=== PATIENT | male | born 1965 | race Caucasian/White ===

== ENCOUNTER → 2022-07-04 13:47 | Outpatient (BNVA) | payer OTHER, SELFPAY | PROVIDERS: Family Provider Nurse Practitioner Family; PCP Emergency Medicine Emergency Medical Services; Referring Provider Emergency Medicine Emergency Medical Services; Visit Provider Student in an Organized Health Care Education/Training Program | DX: M77.12 Lateral epicondylitis, left elbow (principal) | CPT/HCPCS: 20610; 99204; J3301; J3490 ==

== ENCOUNTER → 2022-07-18 14:39 | Outpatient (BNVA) | payer OTHER, SELFPAY | PROVIDERS: Family Provider Nurse Practitioner Family; PCP Emergency Medicine Emergency Medical Services; Visit Provider Student in an Organized Health Care Education/Training Program | DX: M94.261 Chondromalacia, right knee (principal) | CPT/HCPCS: 20610; 73560; 73565; 99213; J3301 ==

== ENCOUNTER → 2022-08-10 09:01 | Outpatient (BNVA) | payer OTHER, SELFPAY | PROVIDERS: Family Provider Nurse Practitioner Family; PCP Emergency Medicine Emergency Medical Services; Referring Provider Emergency Medicine Emergency Medical Services; Visit Provider Internal Medicine | DX: E10.9 Type 1 diabetes mellitus without complications (principal); E78.2 Mixed hyperlipidemia; I25.10 Atherosclerotic heart disease of native coronary artery without angina pectoris; Z79.4 Long term (current) use of insulin | CPT/HCPCS: 99204 ==

== ENCOUNTER → 2022-09-15 09:53 | Outpatient (BNVA) | payer OTHER, SELFPAY | PROVIDERS: Family Provider Nurse Practitioner Family; PCP Emergency Medicine Emergency Medical Services; Visit Provider Psychiatry & Neurology Neurology | DX: M79.601 Pain in right arm (principal); E11.9 Type 2 diabetes mellitus without complications; Z79.85 Long-term (current) use of injectable non-insulin antidiabetic drugs; I10 Essential (primary) hypertension; I25.10 Atherosclerotic heart disease of native coronary artery without angina pectoris; Z95.5 Presence of coronary angioplasty implant and graft | CPT/HCPCS: 99203 ==

== ENCOUNTER → 2022-11-15 10:12 | Outpatient (BNVA) | payer OTHER, SELFPAY | PROVIDERS: Family Provider Nurse Practitioner Family; PCP Emergency Medicine Emergency Medical Services; Visit Provider Internal Medicine | DX: E10.9 Type 1 diabetes mellitus without complications (principal); E78.2 Mixed hyperlipidemia; M79.673 Pain in unspecified foot | CPT/HCPCS: 99214 ==

== ENCOUNTER → 2022-12-13 12:41 | Outpatient (BNVA) | payer OTHER, SELFPAY | PROVIDERS: Family Provider Nurse Practitioner Family; PCP Emergency Medicine Emergency Medical Services; Visit Provider Psychiatry & Neurology Neurology | DX: G56.31 Lesion of radial nerve, right upper limb (principal) | CPT/HCPCS: 99212 ==

== ENCOUNTER → 2023-01-13 08:37 | Outpatient (BNVA) | payer OTHER, SELFPAY | PROVIDERS: Family Provider Nurse Practitioner Family; PCP Emergency Medicine Emergency Medical Services; Visit Provider Student in an Organized Health Care Education/Training Program | DX: M77.12 Lateral epicondylitis, left elbow; S83.8X1A Sprain of other specified parts of right knee, initial encounter; X58.XXXA Exposure to other specified factors, initial encounter; M94.261 Chondromalacia, right knee | CPT/HCPCS: 20550; 73080; 99214; J3301; J3490 ==

== ENCOUNTER → 2023-02-16 09:31 | Outpatient (BNVA) | payer OTHER, SELFPAY | PROVIDERS: Family Provider Nurse Practitioner Family; PCP Emergency Medicine Emergency Medical Services; Visit Provider Internal Medicine | DX: E10.9 Type 1 diabetes mellitus without complications (principal); E78.2 Mixed hyperlipidemia; Z79.4 Long term (current) use of insulin | CPT/HCPCS: 99214 ==

== ENCOUNTER 2023-03-24 10:36 | Outpatient (CLI) | payer OTHER, SELFPAY ==
--- NOTE | 2023-03-24 11:00 | MR_ITS ---
WS: [id number] MRI RIGHT KNEE NONCONTRAST TECHNIQUE: Axial PD, coronal PD fat sat, coronal PD, sagittal PD, and sagittal PD fat-sat images obta ined. CLINICAL INFORMATION: right knee pain COMPARISON: None. FINDINGS: Mild tricompartmental arthritis RIGHT knee. Distal quadriceps and patella tendons are intact. Normal ACL and PCL. Normal medial and lateral meniscus. No acute appearing meniscal tears. Normal bone marro w signal in the femoral condyles and tibial plateau. Normal medial and lateral collateral ligaments. Mild chondromalacia patella. Normal medial and lateral patellar retinaculum. Normal popliteal fossa. IMPRESSION: 1. Normal ACL and PCL. 2. Mild chronic thinning of the medial and lateral meniscus. No acute appearing meniscal tears. 3. Mild chondromalacia patella. 4. Medial and lateral collateral ligaments are intact. 5. Mild tricompartmental arthritis. 6. No other acute findings. Outbridge grading: grade II: blister-like swelling/fraying of articular cartilage extending to surfac e
== END 2023-03-24 10:37 | disposition home or self-care (01) ==
LOC: RAD 10:36
PROVIDERS: Family Provider Nurse Practitioner Family; PCP Emergency Medicine Emergency Medical Services; Visit Provider Student in an Organized Health Care Education/Training Program
DX: M22.41 Chondromalacia patellae, right knee (principal); M17.11 Unilateral primary osteoarthritis, right knee; M25.561 Pain in right knee
CPT/HCPCS: 73721

== ENCOUNTER → 2023-03-30 11:04 | Outpatient (BNVA) | payer OTHER, SELFPAY | PROVIDERS: Family Provider Nurse Practitioner Family; PCP Emergency Medicine Emergency Medical Services; Visit Provider Student in an Organized Health Care Education/Training Program | DX: M67.51 Plica syndrome, right knee (principal) | CPT/HCPCS: 99214 ==

== ENCOUNTER → 2023-05-25 10:50 | Outpatient (BNVA) | payer OTHER, SELFPAY | PROVIDERS: Family Provider Nurse Practitioner Family; PCP Emergency Medicine Emergency Medical Services; Visit Provider Internal Medicine | DX: E10.9 Type 1 diabetes mellitus without complications (principal); E78.2 Mixed hyperlipidemia; M79.673 Pain in unspecified foot; Z79.4 Long term (current) use of insulin; Z79.85 Long-term (current) use of injectable non-insulin antidiabetic drugs | CPT/HCPCS: 36415; 80053; 80061; 82044; 83036; 99214 ==

== ENCOUNTER 2023-05-31 05:41 | Day surgery (SDC) | payer OTHER, SELFPAY ==
[2023-05-31] VITALS (11 sets, daily range): BP systolic 95–132; BP diastolic 55–89; PULSE 68–72; RESP 11–19; TEMP 36.1–36.4; O2SAT 93–99; BMI 33.6
--- NOTE | 2023-05-31 06:24 | W.PM.OPSFHP ---
Same Day Surgery H&P Indication for Procedure/HPI DATE OF PROCEDURE: May 31, 2023 CHIEF COMPLAINT/INDICATIONFOR SURGICAL PROCEDURE: Right knee pain medial plica PREOP DIAGNOSIS: Right knee pain medial plica PLANNED PROCEDURE: Operation Date: 05/31/23 07:00 Proposed Procedures p Right Knee Diagnostic and Surgical Arthroscopy medial plica excision(Right) - Issa Nelson DO Medications/Allergies* Home Medications Medication Instructions Recorded Confirmed Type atorvastatin 40 mg tablet 40 mg PO DAILY 07/04/22 05/30/23 History metoprolol succinate 100 mg 100 mg PO DAILY 07/04/22 05/30/23 History tablet,extended release 24 hr naproxen 500 mg tablet 500 mg PO BID 07/04/22 05/30/23 History nitroglycerin 0.4 mg sublingual 0.4 mg sublingual Q5M PRN Chest 07/04/22 05/30/23 History tablet Pain amlodipine 5 mg-benazepril 10 mg 1 cap PO DAILY 09/15/22 05/30/23 History capsule lisinopril 20 mg tablet 20 mg PO DAILY 09/15/22 05/30/23 History Allergies/Adverse Reactions Allergy/AdvReac Type Severity Reaction Status Date / Time fentanyl Allergy Unknown Verified 05/25/23 11:10 isosorbide [From Imdur] Allergy Unknown Verified 05/25/23 11:10 Penicillins Allergy Unknown Verified 05/25/23 11:10 Pertinent History/Comorbid Conditions* Medical History (Updated 01/17/23 @ 22:13 by Issa Nelson DO) CAD (coronary artery disease) Hyperlipidemia Social History Smoking and tobacco/nicotine status: never used tobacco/nicotine Second hand smoke exposure: No Alcohol intake: current Alcohol intake frequency: holidays/special occasions only Substance/Drug Use: never Adopted: No Caregiver/support person: Yes Lives independently: No Household members: spouse Housing: House Marital status: Number of children: 5 Number of grandchildren: 1 Highest education level completed: Some College, No Degree service: Yes Current occupational status: employed 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 Current occupational exposures/hazards: No Pets and animals: Yes Sexually active: Yes Do you think of yourself as: Straight/Heterosexual Current gender identity: Male Special asad needs: No Agree to transfusion: Yes Pertinent Exam Findings alert, oriented x 3, operative site marked and procedure specific exam findings Patient has significant tenderness palpation over the medial femoral condyle particularly with a palpable cord consistent with medial plica with significant pain and tenderness to palpation over this area. Mechanical clicking noted. Medial joint line tenderness to palpation Recommendations Surgery/Procedure today Other Plans: Plan to proceed to the OR today for right knee diagnostic and surgical arthroscopy with medial plica excision Coding Level of Care Code Acute Code for Chg Fwd
[2023-05-31] MEDS: sodium chloride 0.9% 1,000 ML 30 ML IV (06:27)
[2023-05-31] MEDS: acetaminophen 1,000 MG/100 ML PIGGYBACK 400 MG IV (06:29)
[2023-05-31] MEDS: scopolamine 1.5 Patch 1 PATCH TRANSDERMA (06:29)
[2023-05-31] MEDS: ketorolac 30 mg/mL INJ IVP (06:30)
[2023-05-31 06:38] LABS: Glucose Point of Care 155 mg/dL (70-110)
[2023-05-31] MEDS: midazolam 1 mg/mL INJ 2 mL 2 MG IVP (06:47)
[2023-05-31] MEDS: ceFAZolin 2,000 MG in sodium chloride 0.9% (plus) 50 ML 100 MG IV (06:55)
[2023-05-31] MEDS: lidocaine-epi 1% 20 mL INJ 40 ML INJECTION (07:28)
--- NOTE | 2023-05-31 07:34 | P.ANESASSM_ITS ---
Pre-Anesthetic Assessment Height/Weight: Height 1.6 m Weight 86.183 kg Temp Pulse Resp BP Pulse Ox O2 Del Method 97.2 F L 70 18 132/89 96 Room Air 05/31/23 06:05 05/31/23 06:05 05/31/23 06:05 05/31/23 06:05 05/31/23 06:05 05/31/23 06:10 Preop Diagnosis: Right knee pain medial plica Operation Date: 05/31/23 07:00 Proposed Procedures p Right Knee Diagnostic and Surgical Arthroscopy medial plica excision(Right) - Issa Nelson DO Familial anesthetic complications: none Was Beta Enio taken within 24 hours: Yes Was Clonidine taken within 24 hours: N/A Last intake: Intake Last Liquid Date 05/30/23 Last Liquid Time 21:00 Last Solid Date 05/30/23 Last Solid Time 20:00 Social No alcohol and No tobacco Exam alert, oriented x 3, clear to auscultation bilaterally and regular rate & rhythm Airway Submandibular: within normal limits Cervical ROM: within normal limits Mallampati: Class II Dentition: partials CV/HEM Coronary Artery Disease (CABG), Hypertension and Myocardial Infarction Metabolic Diabetes Mellitus, Hyperlipidemia and Morbid Obesity Anesthetic Plan ASA status: 3 Anesthesia: General Medications/Allergies Home Medications Medication Instructions Recorded Confirmed Last Taken Type atorvastatin 40 mg tablet 40 mg PO DAILY 07/04/22 05/30/23 05/30/23 History metoprolol succinate 100 mg 100 mg PO DAILY 07/04/22 05/30/23 05/30/23 History tablet,extended release 24 hr naproxen 500 mg tablet 500 mg PO BID 07/04/22 05/30/23 Unknown History nitroglycerin 0.4 mg sublingual 0.4 mg sublingual Q5M PRN Chest 07/04/22 05/30/23 Unknown History tablet Pain amlodipine 5 mg-benazepril 10 mg 1 cap PO DAILY 09/15/22 05/30/23 05/30/23 History capsule lisinopril 20 mg tablet 20 mg PO DAILY 09/15/22 05/30/23 05/30/23 History pen needle, diabetic 29 gauge x #100 ea 02/06/23 05/25/23 Unknown Rx 1/2 (Sure-Fine Pen [place]) insulin aspart U-100 100 unit/mL 81 unit (0.81 mL) SUBCUT .basal 02/16/23 05/30/23 05/30/23 Rx subcutaneous solution (Novolog rate #10 mL U-100 Insulin aspart) tirzepatide 7.5 mg/0.5 mL 7.5 mg (0.5 mL) SUBCUT Q7D 30 days 04/14/23 05/25/23 05/21/23 Rx subcutaneous pen injector #2.5 mL (Mounjaro) Allergies Allergy/AdvReac Type Severity Reaction Status Date / Time fentanyl Allergy Unknown Verified 05/25/23 11:10 isosorbide [From Imdur] Allergy Unknown Verified 05/25/23 11:10 Penicillins Allergy Unknown Verified 05/25/23 11:10 Current Medications Generic Name Dose Route Start Last Admin Trade Name Freq PRN Reason Stop Dose Admin Sodium Chloride 1,000 mls @ 30 mls/hr 05/31/23 06:00 05/31/23 06:27 Sodium Chloride 0.9% IV 06/01/23 05:59 30 mls/hr .Q24H DELANEY Administration Midazolam HCl 2 mg 05/31/23 05:53 05/31/23 06:47 Midazolam 1 Mg/Ml Inj 2 Ml IVP 2 mg ONCE PRN Administration Preop Anxiety PFSH Anesthesia Medical History CAD (coronary artery disease) Hyperlipidemia Social History Smoking and tobacco/nicotine status: never used tobacco/nicotine Second hand smoke exposure: No Alcohol intake: current Alcohol intake frequency: holidays/special occasions only Substance/Drug Use: never Adopted: No Caregiver/support person: Yes Lives independently: No Household members: spouse Housing: House Marital status: Number of children: 5 Number of grandchildren: 1 Highest education level completed: Some College, No Degree service: Yes Current occupational status: employed 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
--- NOTE | 2023-05-31 07:41 | W.PM.BPON ---
Date of Procedure: 05/31/2023 Surgeon: Issa Nelson DO Electrical Systems Design Engineer(s): Yohannes Nelson PA-C Procedure(s) performed: Right knee diagnostic and surgical arthroscopy with medial plica excision Right knee diagnostic and surgical arthroscopy with extensive synovectomy of medial, lateral and patellofemoral compartments Right knee diagnostic and surgical arthroscopy with medial compartment chondroplasty Findings of the procedure(s): Patient was found to have a thickened and extensive medial plica with wearing of the medial femoral condyle. Procedure went as planned with no issues Estimated blood loss: 1 mL Specimen(s) removed: None Post-operative diagnosis: Right knee medial plica, extensive synovitis, knee chondromalacia
--- NOTE | 2023-05-31 07:45 | P.OP_ITS ---
Operative Report Date of procedure: May 31, 2023 Surgeon: Issa Nelson DO Procedure: Preoperative diagnosis: Right knee medial plica post-op diagnosis: Right knee medial plica Right knee extensive synovitis Right knee Medial chondromalacia Procedure done: Right knee diagnostic and surgical arthroscopy medial plica excision Right knee diagnostic and surgical arthroscopy with extensive synovectomy of the medial lateral and patellofemoral compartments Right knee diagnostic and surgical arthroscopy with medial compartment chondroplasty Surgeon: Issa Nelson DO Estimated blood loss: 1mL Tourniquet: No tourniquet was used IV fluids: See anesthesia record Complications: None Findings: See operative report narrative Condition: stable Disposition: same day Brief History: Patient is a 57-year-old male with right knee pain.? Patient has failed conservative treatment who has been worked up for right? knee pain in the outpatient setting. Patient's failed outpatient treatment and has palpable medial plica with pain. Talked in the office about treatment options patient would like to proceed with a right knee diagnostic and surgical arthroscopy with plica excision. patient understand the ins and outs of the procedure the risk benefits complication alternatives to treatment options.? Understanding risk of surgery they agree to proceed with surgical intervention.? Patient understand this may not provide patient with complete symptomatic relief of? pain as patient does have some underlying arthritis.? Understanding this and patient agree to proceed with surgical intervention all questions answered. Procedure: Patient seen and evaluated in the preoperative holding area.? Consent was reviewed and signed with patient.? Correct extremity was then marked.? Patient seen evaluated Anesthesia Department once cleared for surgery patient was taken back to the operative suite.? Patient was transported onto the OR table in supine position.? All bony prominences well-padded patient was appropriate secured to the bed.?The right lower extremity was then prepped and draped in standard orthopedic fashion.? Final timeout performed.? Patient received appropriate preoperative antibiotics. Patient received local anesthetic of lidocaine with epinephrine into the joint as well as around the portal sites.? A standard 2 portal vertical incision diagnostic and surgical arthroscopy of the right knee was performed in standard fashion.? Small stab incision made in the inferolateral portal introduced trocar and arthroscope into the suprapatellar pouch.? Suprapatellar pouch was subsequently visualized and found to have significant synovitis but no loose bodies.? Patient had noticeable significant inflamed infrapatellar fat pad and thickening hypertrophic within the patellofemoral compartment.? Patient had significant thickened medial plica rubbing on the medial femoral condyle creating small focal indentation and lesion on the medial femoral condyle grade 2-3. ?The medial gutter was free of loose bodies I then introduced the arthroscope into the medial compartment.? Within the medial compartment I then established my inferior medial working portal utilizing spinal needle outside in technique.? Once established I then visualized our articular cartilage of the medial compartment with a valgus stress.? Patient was found to have grade 2-3 chondromalacia throughout the medial compartment.? Next I inspected the meniscus.? Meniscus was found to be intact no evidence of tear. There was reviewed 3 lesion on the medial femoral condyle over the weightbearing surface this had chondral fragments that were peeling off this was then subsequently underwent a chondroplasty. Next, I then performed a synovectomy of the medial compartment.? Given patient's chondromalacia there was areas of unstable articular cartilage and I subsequently performed a chondroplasty with arthroscopic shaver and thermal wand.? This completed medial compartment work. Next a introduced the arthroscope to the intercondylar notch.? PCL and ACL were intact. patient had significant thickening of the infrapatellar fat pad spanning into the medial and lateral compartments.? I then performed an extensive synovec rubi with the arthroscopic shaver of the patellofemoral medial and lateral compartments as well as the intercondylar notch. Next I introduced the arthroscope into the lateral compartment the lateral compartment was found to have grade 2 chondromalacia.? Lateral meniscus was found to be intact.? The root was intact.? Given the grade II chondromalacia there is no unstable cartilage pieces to perform chondroplasty.? This completed my work of the lateral compartment and then performed a synovectomy of the lateral compartment.? Next of the arthroscope was placed into the lateral gutter and this was free of loose bodies.? Finally I reintroduced the arthroscope into the patellofemoral compartment.? The patellofemoral was found to have grade 2 chondromalacia of the patellofemoral compartment.? At this point I utilized arthroscopic shaver as well as thermal wand to perform extensive synovectomy of the patellofemoral compartment. This completed my work of the patellofemoral space.? I then switch my portal sites to the medial working portal.? Completed the rest of my synovectomy and the rest of my examination arthroscopy was normal. All fluid was suctioned from the joint.? ?All instruments were withdrawn.? Portal sites were closed with interrupted nylon suture.? portal sites were then covered with with Xeroform 4 x 4's ABD Curlex and Ignacio wrap.? Patient was then subsequently awakened from anesthesia and taken to PACU in stable condition. Disposition: Patient taken to PACU in stable condition recovering well.? Will receive appropriate discharge structure as well as pain medication postoperatively as well as? DVT prophylaxis.we will have patient follow-up with us in the office in 2 weeks.? We will weightbearing as tolerated to the right lower extremity.? Patient understands and agrees with current plan.? All questions answered.
--- NOTE | 2023-05-31 08:03 | PM.PACU ---
PACU note Narrative: Patient is a 57-year-old male who just underwent a right knee knee scope. Pt transferred to PACU in stable condition. Dressing is dry. pt is awake and alert. pt can wiggle toes and plantarflex and dorsiflex foot. pt able to perform straight leg raise, Femoral nerve intact. Distal pulses are palpable toes are warm and well-perfused. Cap refill is normal and under 2 seconds. Sensation to foot is intact. Pain is controlled. Exam: awake Disposition: discharged
--- NOTE | 2023-05-31 13:35 | ANE.PACU2 ---
Inpatient post-anesthesia follow up: Airway intact: Yes Vital signs: Temperature 97.5 F Pulse Rate 72 Respiratory Rate 17 Blood Pressure 118/68 Pulse Oximetry 97 Oxygen Delivery Me thod Room Air Oxygen Flow Rate 3 Fraction of Inspir ed Oxygen Hydration adequate: Yes Nausea and vomiting: No Pain level: 2 Mental status: Baseline
== END 2023-05-31 09:31 | disposition home or self-care (01) ==
PROVIDERS: PCP Emergency Medicine Emergency Medical Services; Visit Provider Student in an Organized Health Care Education/Training Program
PROC: (CPT 29870; principal; 2023-05-31 07:00)
DX: M67.51 Plica syndrome, right knee (principal); S83.91XA Sprain of unspecified site of right knee, initial encounter; X58.XXXA Exposure to other specified factors, initial encounter; M94.261 Chondromalacia, right knee; Z95.1 Presence of aortocoronary bypass graft; I10 Essential (primary) hypertension; I25.2 Old myocardial infarction; Z79.4 Long term (current) use of insulin; I25.10 Atherosclerotic heart disease of native coronary artery without angina pectoris; E78.5 Hyperlipidemia, unspecified
CPT/HCPCS: 29876; 36416; 82962; J0131; J0690; J1100; J1170; J1885; J2250; J2371; J2405; J2704; J3490; J7030

== ENCOUNTER → 2023-06-15 08:57 | Outpatient (BNVA) | payer OTHER, SELFPAY | PROVIDERS: PCP Emergency Medicine Emergency Medical Services; Visit Provider Student in an Organized Health Care Education/Training Program | DX: Z98.890 Other specified postprocedural states (principal) | CPT/HCPCS: 99024; 99213 ==

== ENCOUNTER 2023-06-21 06:00 | Outpatient (RCR) | payer OTHER, SELFPAY | END 2023-07-16 23:59 | disposition home or self-care (01) | LOC: MPT 06:00 | PROVIDERS: Visit Provider Student in an Organized Health Care Education/Training Program | DX: Z98.890 Other specified postprocedural states (principal) | CPT/HCPCS: 97110; 97161; 97530 ==

== ENCOUNTER → 2023-06-22 09:02 | Outpatient (BNVA) | payer OTHER, SELFPAY | PROVIDERS: Visit Provider Physician Assistant | DX: Z98.890 Other specified postprocedural states (principal) | CPT/HCPCS: 99024 ==

== ENCOUNTER 2023-07-17 06:00 | Outpatient (RCR) | payer OTHER, SELFPAY | END 2023-08-15 23:59 | disposition home or self-care (01) | LOC: MPT 06:00 | PROVIDERS: Visit Provider Student in an Organized Health Care Education/Training Program | DX: Z98.890 Other specified postprocedural states (principal) | CPT/HCPCS: 97110 ==

== ENCOUNTER 2023-07-25 15:41 | Outpatient (CLI) | payer OTHER, SELFPAY | END 2023-07-25 15:42 | disposition home or self-care (01) | LOC: SPT 15:42 | PROVIDERS: Visit Provider Student in an Organized Health Care Education/Training Program | DX: Z46.89 Encounter for fitting and adjustment of other specified devices (principal); M94.261 Chondromalacia, right knee | CPT/HCPCS: 97760; 99213; L1812 ==

== ENCOUNTER → 2023-08-29 08:03 | Outpatient (BNVA) | payer OTHER, SELFPAY | PROVIDERS: PCP Emergency Medicine Emergency Medical Services; Visit Provider Internal Medicine | DX: E10.40 Type 1 diabetes mellitus with diabetic neuropathy, unspecified (principal); E78.2 Mixed hyperlipidemia; Z79.4 Long term (current) use of insulin; Z79.85 Long-term (current) use of injectable non-insulin antidiabetic drugs; Z68.31 Body mass index [BMI] 31.0-31.9, adult | CPT/HCPCS: 99214 ==

== ENCOUNTER → 2023-09-22 07:59 | Outpatient (BNVA) | payer OTHER, SELFPAY | PROVIDERS: PCP Emergency Medicine Emergency Medical Services; Visit Provider Physician Assistant | DX: Z98.890 Other specified postprocedural states (principal); M94.261 Chondromalacia, right knee | CPT/HCPCS: 20610; 99213; J7318 ==

== ENCOUNTER → 2023-12-05 09:06 | Outpatient (BNVA) | payer OTHER, SELFPAY | PROVIDERS: PCP Emergency Medicine Emergency Medical Services; Visit Provider Internal Medicine | DX: E10.9 Type 1 diabetes mellitus without complications (principal); E78.2 Mixed hyperlipidemia; M79.673 Pain in unspecified foot; Z79.4 Long term (current) use of insulin; Z79.85 Long-term (current) use of injectable non-insulin antidiabetic drugs | CPT/HCPCS: 99214 ==

== ENCOUNTER → 2023-12-26 11:21 | Outpatient (BNVA) | payer OTHER, SELFPAY | PROVIDERS: PCP Emergency Medicine Emergency Medical Services; Visit Provider Student in an Organized Health Care Education/Training Program | DX: Z98.890 Other specified postprocedural states (principal); M94.261 Chondromalacia, right knee; M25.561 Pain in right knee | CPT/HCPCS: 73560; 73565; 99213 ==

== ENCOUNTER → 2024-01-16 13:23 | Outpatient (BNVA) | payer OTHER, SELFPAY | PROVIDERS: PCP Emergency Medicine Emergency Medical Services; Visit Provider Internal Medicine | DX: I49.8 Other specified cardiac arrhythmias (principal); R94.31 Abnormal electrocardiogram [ECG] [EKG]; R07.9 Chest pain, unspecified | CPT/HCPCS: 36415; 80048; 83880; 93005; 99204 ==

== ENCOUNTER 2024-02-05 08:53 | Outpatient (CLI) | payer OTHER, SELFPAY ==
--- NOTE | 2024-02-05 | ECG_ITS ---
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 The perfusion scan will be documented separately. DATA: Baseline heart rate was 54 beats per minute. Baseline blood pressure was 138/70 millimeters of mercury. Target heart rate was 164. Maximum heart rate achieved was 84. which was 51% of the predicted target heart rate. Maximum blood pressure was 138/73 millimeters of mercury. The reason for ending the test was completion of the protocol. The patient did not experience any symptoms. ELECTROCARDIOGRAM: BASELINE: Sinus bradycardia. Normal axis. Otherwise, no ST-T changes suggestive of ischemia noted. No arrhythmia noted. EXERCISE: After Lexiscan injection, no ST-T changes suggestive of ischemic noted. No arrhythmia noted. CONCLUSION: Please note due to baseline abnormality of the EKG specificity and sensitivity of the EKG portion of LexiScan MIBI stress test will be low 1. EKG not suggestive of ischemia 2. Lexiscan injection unremarkable. 3. Perfusion scan will be documented separately. Electronically Signed On 02-11-2024 15:04:10 CDT by JUICE SAMANIEGO [email or web address]
[2024-02-05 09:03] VITALS: BMI 28.1
--- NOTE | 2024-02-05 09:04 | NMCV_ITS ---
NM pilar perf SPECT r/s* [id number] Moisés Gonzalez Age: 58 Gender: M : 1965 Exam Date: 02/05/2024 09:52 Ordering Phys: Luis Armando Barron M.D ([email or web address]) Technologist: ARNULFO Mcdonough Exam Location: [facility] Indications: cp STRESS TEST Please see separate stress test report in [facility] for full findings IMAGE PROTOCOL Rest/Stress 1 Lexiscan Day Radiopharmaceutical Dose (mCi) Administration Site Administered by Rest: Tc-99m 8.5 IV ARNULFO Barfield Sestamibi Stress:Tc-99m 27.3 IV ARNULFO Dawn Sestamibi Rest: 05-Feb-2024 60 Discovery 630 Stress: 05-Feb-2024 30 Discovery 630 0.4mg Lexiscan. Images obtained in supine and prone position. SPECT RESULTS Technical Quality: Good Raw Data Analysis: Normal Image Corrections: Patient motion artifact - motion correction applied Summed Stress Score: 13 Summed Rest Score: 6 Summed Difference Score: 7 PERFUSION FINDINGS Medium sized area of severe reversibility noted in basal to mid inferior wall suggestive of possible lesion in the RCA or dominant circumflex territory. Large area of fixed perfusion defect noted in mid to distal anterior and anterolateral wall surrounded by medium sized area of moderate reversibility suggestive of benny-infarct ischemia. FUNCTIONAL RESULTS (calculated via Gated SPECT) Stress Image LV EF (%): 75 Stress EDV (mL):69 TID: 0.98 Stress ESV (mL):17 FUNCTIONAL FINDINGS: There is normal left ventricular systolic function. IMPRESSIONS Large area of old myocardial infarction surrounded by mild to moderate area of medium sized benny-infarct ischemia noted in mid to distal anterior and anteroseptal wall. Medium sized area of moderate to severe ischemia noted in basal to mid inferior wall. Left ventricular ejection fraction appeared to be normal . EKG segment will be documented separately. Cj Patricio MD (Electronically Signed) Final Date: 05 February 2024 14:57 S
[2024-02-05] MEDS: regadenoson 0.4 Mg/5 ml Syringe IVP (10:38)
[2024-02-05 10:47] VITALS: BP 112/60; PULSE 71
== END 2024-02-05 08:54 | disposition home or self-care (01) ==
PROVIDERS: PCP Emergency Medicine Emergency Medical Services; Visit Provider Internal Medicine
DX: R07.9 Chest pain, unspecified (principal); R06.02 Shortness of breath; R94.39 Abnormal result of other cardiovascular function study
CPT/HCPCS: 36415; 78452; 93017; 96374; A9500; J2785

== ENCOUNTER 2024-02-22 06:07 | Outpatient (CLI) | payer OTHER, SELFPAY ==
--- NOTE | 2024-02-22 06:15 | USCV_ITS ---
Moisés Gonzalez Age: 58 Gender: M : 1965 Exam Date: 02/22/2024 06:26 Ordering Phys: Luis Armando Barron M.D ([email or web address]) Technologist: [place] [facility] [place]: hx of cad BP: 132 / 54 HR: 70 Rhythm: Sinus Technical Quality: Adequate MEASUREMENTS (Male / Female) Normal Values 2D ECHO LV Diastolic Diameter PLAX 3.6 cm 4.2 - 5.9 / 3.9 - 5.3 cm IVS Diastolic Thickness 1.3 cm 0.6 - 1.0 / 0.6 - 0.9 cm IVS Systolic Thickness 1.8 cm LVPW Diastolic Thickness 1.3 cm 0.6 - 1.0 / 0.6 - 0.9 cm LVPW Systolic Thickness 1.9 cm LVOT Diameter 2.0 cm LV Ejection Fraction 2D Teich 65.4 % LV Ejection Fraction MOD 4C 63.7 % LV Ejection Fraction MOD 2C 61.9 % LV Ejection Fraction 2C AL 63.0 % LA Diameter 3.3 cm RA Systolic Volume 4C AL 35.5 ml RA Systolic Volume 4C MOD 33.7 ml LA Sys Volume AL 38.6 cm cubed LA Sys Volume Index AL 21.8 cm cubed/m squared M-MODE LA Ao Ratio MM 1.1 AV Cusp Separation MM 2.1 cm DOPPLER AV Peak Velocity 106.0 cm/s LVOT Peak Velocity 87.0 cm/s AV Area Cont Eq vti 3.5 cm squared AV Area Cont Eq pk 2.5 cm squared MV Peak Velocity 91.0 cm/s MV Area PHT 4.2 cm squared Mitral E to A Ratio 0.9 TV Peak Velocity 186.5 cm/s TR Peak Velocity 221.0 cm/s TR Peak Gradient 19.5 mmHg TV Peak E Velocity 95.0 cm/s Right Atrial Pressure 3.0 mmHg Pulmonary Artery Systolic Pressu 22.5 mmHg PV Peak Velocity 56.0 cm/s FINDINGS Left Ventricle Normal left ventricular size, systolic function and wall thickness, with no regional wall motion abnormalities. Left ventricular ejection fraction is estimated at 60 %. Grade I/IV diastolic dysfunction (abnormal relaxation filling pattern), normal to mildly elevated filling pressures. Right Ventricle The right ventricle is normal in size and function. Right Atrium The right atrium is normal in size. Left Atrium The left atrium is normal in size. Mitral Valve Structurally normal mitral valve without significant stenosis or prolapse. There is no mitral regurgitation. Aortic Valve Severe aortic valve calcification. No aortic valve stenosis. Trace aortic valve regurgitation. Tricuspid Valve Structurally normal tricuspid valve without significant stenosis or regurgitation. Pulmonary artery systolic pressure is normal. Pulmonic Valve Trace pulmonary valve regurgitation. Pericardium Normal pericardium without effusion. Aorta Normal ascending aorta dimension. IVC The inferior vena cava appears normal. CONCLUSIONS Normal left ventricular size, systolic function and wall thickness, with no regional wall motion abnormalities. Left ventricular ejection fraction is estimated at 60 %. Grade I/IV diastolic dysfunction (abnormal relaxation filling pattern), normal to mildly elevated filling pressures. Severe aortic valve calcification. No aortic valve stenosis. Trace aortic valve regurgitation. There is no pericardial effusion. Pulmonary artery systolic pressure is within normal limits. Right atrial pressure is around 5 mm of mercury. Cj Patricio MD (Electronically Signed) Final Date: 27 February 2024 21:00 S
== END 2024-02-22 06:08 | disposition home or self-care (01) ==
PROVIDERS: PCP Family Medicine; Visit Provider Internal Medicine
DX: I50.30 Unspecified diastolic (congestive) heart failure (principal); I35.0 Nonrheumatic aortic (valve) stenosis; R06.02 Shortness of breath
CPT/HCPCS: 93306

== ENCOUNTER 2024-02-23 11:37 | Outpatient (CLI) | payer OTHER, SELFPAY ==
[2024-02-23 12:04] LABS: Basophils % 0.5 %; Eosinophils # 0.1 10^3/uL (0.0-0.8); Eosinophils % 2.9 %; Hematocrit 46.9 % (37-53); Lymphocytes # 1.3 10^3/uL (0.8-4.8); Lymphocytes % 31.2 %; Mean Corpuscular HGB Conc 34.1 g/dL (30-55); Mean Corpuscular Hemoglobin 29.8 pg (27-33); Mean Corpuscular Volume 87.3 fl (82-101); Mean Platelet Volume 9.4 fL (7.4-10.4); Monocytes # 0.4 10^3/uL (0.2-0.9); Monocytes % 10.1 %; Neutrophils # 2.28 10^3/uL (1.8-7.7); Neutrophils % 55.1 %; Nucleated Red Blood Cells % 0 %; Platelet Count 152 10^3/cmm (157-399); Red Blood Count 5.37 10^6/uL (3.85-5.65); Red Cell Distribution Width 13.6 % (12.1-15.1); White Blood Count 4.14 10^3/uL (3.29-11.43)
[2024-02-23 12:24] LABS: INR 0.94 (0.83-1.21); Prothrombin Time (Patient) 12.8 Seconds (12.0-15.1)
[2024-02-23 12:28] LABS: Anion Gap 13.7 (5-19); Blood Urea Nitrogen 13 mg/dL (6-20); Carbon Dioxide 31 mmol/L (22-29); Chloride 95 mmol/L (98-107); Glomerular Filtration Rate 77.3 mL/min (90-130); Glucose 105 mg/dL (65-115); Osmolality Calculated 282 mOsm/kg (285-295); Potassium 3.7 mmol/L (3.5-5.1); Sodium 136 mmol/L (136-145)
== END 2024-02-23 11:38 | disposition home or self-care (01) ==
LOC: LAB 11:37
PROVIDERS: PCP Family Medicine; Visit Provider Internal Medicine Cardiovascular Disease
DX: R58 Hemorrhage, not elsewhere classified (principal); R60.9 Edema, unspecified; R94.39 Abnormal result of other cardiovascular function study; I25.10 Atherosclerotic heart disease of native coronary artery without angina pectoris
CPT/HCPCS: 36415; 80048; 85025; 85610

== ENCOUNTER 2024-02-26 07:14 | Outpatient (CLI) | payer OTHER, SELFPAY ==
[2024-02-26] VITALS (44 sets, daily range): BP systolic 109–161; BP diastolic 55–96; PULSE 62–81; RESP 16–20; TEMP 36.7–37; O2SAT 91–99; BMI 28.8
--- NOTE | 2024-02-26 | XACV_ITS ---
Ht: 160 cm Wt: 74 kg BSA: 1.84 m2 Gender: Male : 1965 Any Known Allergies: Other Exam Priority: Routine Procedure(s): Procedure Description: Diagnostic procedure Procedure Description: PCI procedure Procedure Description: Left Heart Catheterization Procedure Description: Left ventriculography Procedure Description: Drug Eluting Coronary Stent Procedure Description: PTCA Procedure Description: Miscellaneous Procedure Description: ACT Procedure Description: Coronary Angiography Diagnostic Cath Status: Elective Diagnostic Findings * Left Main has no disease. * Mid Left Anterior Descending: total occlusion, ISAURO: 0 flow. * Left Internal Mammary Artery to Distal Left Anterior Descending graft: patent. * Proximal Right Coronary Artery: severe 90% stenosis, ISAURO: 3 flow. * Mid Circumflex: severe 90% stenosis, ISAURO: 3 flow. * 1st Diagonal: total occlusion, ISAURO: 0 flow. * Ascending Aorta to 1st Diagonal graft: patent. * 2nd Diagonal: total occlusion, ISAURO: 3 flow. * Ascending Aorta to 2nd Diagonal graft: severe 90% stenosis, ISAURO: 3 flow. * Sequential SVG graft from 2nd Diagonal to Second Obtuse Marginal Branch Segment: significant 80% stenosis, ISAURO: 3 flow. * Second Obtuse Marginal Branch Segment: total occlusion, ISAURO: 3 flow. * Four grafts visualized. * Coronary angiography shows right dominance. PCI Status: Elective PCI Indication: New Onset Angina <= 2 months Interventional Findings * Proximal Right Coronary Artery: 90% stenosis treated with a Balloon. 40% residual stenosis, ISAURO: 3 flow. Successful intervention. * Mid Circumflex: 90% stenosis treated with a Balloon, AB MINI TREK 1.50X8 RX BALLOON, Balloon, and MDT NC EUPHORA RX 2.53B89NY BALLOON. 40% residual stenosis, ISAURO: 3 flow. Successful intervention. * Ascending Aorta to 2nd Diagonal graft: 90% stenosis treated with a Drug Eluting Stent. 0% residual stenosis, ISAURO: 3 flow. Successful intervention. * Sequential SVG graft from 2nd Diagonal to Second Obtuse Marginal Branch Segment: 80% stenosis treated with a Drug Eluting Stent. 0% residual stenosis, ISAURO: 3 flow. Successful intervention. Conclusions 1. There is total occlusion coronary artery disease with three vessel disease. 2. Four coronary grafts visualized: two grafts patent, and two grafts treated. 3. Patient has prior CABG. 4. Normal left ventricular systolic function. Ejection fraction of 60%. 5. Proximal Right Coronary Artery was treated with a Balloon. 6. Mid Circumflex was treated with a Balloon, Balloon, Balloon, and Balloon. 7. Ascending Aorta to 2nd Diagonal graft was treated with a Drug Eluting Stent. 8. Sequential SVG graft from 2nd Diagonal to Second Obtuse Marginal Branch Segment was treated with a Drug Eluting Stent. Recommendations * Continue current medical management and risk factor modification. * 1-Return to inpatient for close monitoring and routine cath care 2-Risk factor modification for secondary prevention 3-Statin and aspirin 81 mg life-long, if tolerated 4-Continue Plavix 75mg p.o. daily for at least one year. We will assess at the end of one year again to continue if further or not 5-Continue optimal medical management 6-Follow up with Dr. Patricio in four weeks and your primary care in 10 days. Interventional RX Recommendation: PCI w/o planned CABG Diagnostic RX Recommendation: PCI w/o planned CABG Ventriculography Ejection Fraction: 50.0 % Pressures Phase:Rest AO : 126 / 57 ( 84 ) @ 11:40:00 AM 130 / 52 ( 81 ) @ 11:45:00 AM 246 / 100 ( 158 ) @ 11:50:00 AM 204 / 85 ( 136 ) @ 11:52:00 AM 151 / 69 ( 103 ) @ 12:05:00 PM 130 / 58 ( 85 ) @ 12:17:00 PM 132 / 63 ( 89 ) @ 12:25:00 PM 116 / 64 ( 85 ) @ 12:42:00 PM 125 / 61 ( 87 ) @ 12:50:00 PM 149 / 66 ( 98 ) @ 1:16:00 PM 76 / 39 ( 54 ) @ 1:23:00 PM 168 / 76 ( 116 ) @ 1:33:00 PM 167 / 73 ( 115 ) @ 1:33:00 PM LV : 154 / -14 / 6 @ 1:31:00 PM 156 / -11 / 12 @ 1:33:00 PM 158 / -11 / 12 @ 1:33:00 PM Valves Phase:DefaultPhase AV : 0.0 @ 2:04:05 PM AV Mean Gradient: 0.0 @ 2:04:05 PM Clinical Evaluation EBL: 5mL-10mL Procedural Details Procedure Consent Obtained. Pre-Procedure Time Out. Identified patient by full name and date of as verbalized by the patient/guarantor. Does the consent match the physician's order: Yes. Accurate & Complete Informed Consent: Yes. Inpatient/Outpatient History & Physical on Chart: Yes. If H&P is completed, is and addenduem needed: No; If yes, is the addendum complete: N/A. Visualize and Verify Site with Patient/Guarantor: N/A. Relevant Radiology Images available: N/A. Pre-op teaching completed and patient verbalized understanding. The risks, benefits, and alternatives of sedation and/or procedure were discussed by physician. The patient agrees to continue. Procedure started. HA Clinical Fraility Score: 3: Managing Well. 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 Chest Pain Symptom Assessment: Atypical Angina. Cardiovascular Instability: No. Correct patient, site and procedure confirmed by cath team. PERRLA. Strong, equal hand boilermaker apprentice bilaterally. Lungs clear x 5 lobes. IV Site on Arrival: 20 gauge in the right anticubital. Oxygen started at 2liters/min via nasal canula. right groin was prepped with chloroprep then draped in the usual sterile fashion. right radial was prepped with chloroprep then draped in the usual sterile fashion. Physician arrived. Equipment: 6F - Radial. Cardiac Cath Pack. ACIST Manifold Kit Model BT 2000. Heparinized Saline (2 units/mL), 1000 mL bag. Baseline sample Acquired. HR: 68 BPM. Stemi alert called. Pt taken off the table. Vital chart was stopped. Procedure started. right groin was prepped with chloroprep then draped in the usual sterile fashion. right radial was prepped with chloroprep then draped in the usual sterile fashion. Baseline sample Acquired. HR: 67 BPM. Physician arrived. Physician scrubbed in. Immediate Pre-Procedure Time Out. Correct Patient: Yes; Correct Procedure: Yes; Correct Site: Yes; Correct Patient Position: Yes; Correct Supplies: Yes; Dried Flammable Prep: Yes; Blood Products Available: N/A;. Lidocaine 1% infiltrated to the right groin. Arterial access obtained with micropuncture set. A 5 malagasy JL4 catheter in over wire. Multiple views taken of left coronary artery. Catheter removed over the standard wire. A 5 malagasy JR4 catheter in over wire. Multiple views taken of right coronary artery. AP pads applied. 1 shock delivered. Pt in Vfib. SVG's to OM visualized and patent. NUNEZ to LAD visualized. 6 malagasy JR 4 SH guide catheter was inserted over the wire. Radial graft to Diaganol visualized and patent. Runthrough guidewire was advanced through the guide catheter. Guide catheter out and wire removed. Inventory is CRD 6FR AL 1 GUIDE. 6 malagasy AL I guide catheter was inserted over the wire. Runthrough guidewire was advanced through the guide catheter. Unable to advance wire to lesion. Wire out. Inventory is CRD 6FR H-STICK GUIDE. Guide catheter out. 6 malagasy HS guide catheter was inserted over the wire. Runthrough guidewire was advanced through the guide catheter to lesion in the SVG to OM. A second Runthrough guidewire was advanced through the guide catheter to lesion in the OM. Guideliner inserted. One runthrough wire removed. Inflation Number : 1 Christopher Swan MICHEL 3.5X12 GLENN -Lot Number# [id number] exp date 08/04/2024 was prepped and advanced across the Aorta Left -> 1st Ob Betty. The stent was deployed at 14 BIBI for 0:10 seconds. Stent balloon out over wire. ACT drawn. Results out of range high seconds. Therapeutic limits - pre-heparin administration 90-150 seconds and monitoring heparin during a vascular procedure >250 seconds. Inflation Number : 1 A MDT R MICHEL 4.0X12 GLENN -Lot Number# [id number] exp date 06/24/2024 was prepped and advanced across the Aorta Left -> 1st Ob Marg1. The stent was deployed at 12 BIBI for 0:05 seconds. Stent balloon out over wire. Runthrough and guideliner out. Guide catheter out. 6 malagasy XB 3 guide catheter was inserted over the wire. ACT drawn. Results 289 seconds. Therapeutic limits - pre-heparin administration 90-150 seconds and monitoring heparin during a vascular procedure >250 seconds. Runthrough guidewire was advanced through the guide catheter to lesion in the mid Circ. Inflation number : 1 A MDT NC EUPHORA RX 2.58Q07JB BALLOON was prepped and advanced across the Mid CX , then inflated to 14 BIBI for 0:08 seconds. Inflation number: 2 The MDT NC EUPHORA RX 2.10A09GS BALLOON was reinflated across the Mid CX, to 16 BIBI for 0:12 seconds. Balloon out. Inflation number : 3 A AB MINI TREK 1.50X8 RX BALLOON was prepped and advanced across the Mid CX , then inflated to 14 BIBI for 0:16 seconds. Inflation number: 4 The AB MINI TREK 1.50X8 RX BALLOON was reinflated across the Mid CX, to 18 BIBI for 0:17 seconds. Results checked. Balloon out. Inflation number: 5 The MDT NC EUPHORA RX 2.09E56WV BALLOON was reinflated across the Mid CX, to 14 BIBI for 0:14 seconds. Inflation number: 6 The MDT NC EUPHORA RX 2.22C93BN BALLOON was reinflated across the Mid CX, to 14 BIBI for 0:13 seconds. Inflation number: 7 The MDT NC EUPHORA RX 2.02C04JT BALLOON was reinflated across the Mid CX, to 14 BIBI for 0:13 seconds. Balloon out. Inflation number : 8 A MDT NC EUPHORA RX 3.10Y11TX BALLOON was prepped and advanced across the Mid CX , then inflated to 12 BIBI for 0:13 seconds. Balloon out. Inflation number : 9 A MDT NC EUPHORA RX 2.27A17KS BALLOON was prepped and advanced across the Mid CX , then inflated to 14 BIBI for 0:14 seconds. Inflation number: 10 The MDT NC EUPHORA RX 2.86S31CB BALLOON was reinflated across the Mid CX, to 14 BIBI for 0:12 seconds. Inflation number: 11 The MDT NC EUPHORA RX 2.09X62QQ BALLOON was reinflated across the Mid CX, to 14 BIBI for 0:11 seconds. Inflation number: 12 The MDT NC EUPHORA RX 2.26C12DQ BALLOON was reinflated across the Mid CX, to 18 BIBI for 0:26 seconds. Balloon out. Guide catheter out. Wire out. Inventory is CRD 6FR JR 4 GUIDE 100cm. 6 malagasy JR 4 guide catheter was inserted over the wire. Runthrough guidewire was advanced through the guide catheter to lesion in the mid RCA. Inflation number : 1 A MDT NC EUPHORA RX 2.59B45XE BALLOON was prepped and advanced across the Prox RCA , then inflated to 14 BIBI for 0:09 seconds. Inflation number: 2 The MDT NC EUPHORA RX 2.75X66SP BALLOON was reinflated across the Prox RCA, to 14 BIBI for 0:07 seconds. Inflation number: 3 The MDT NC EUPHORA RX 2.51W25VS BALLOON was reinflated across the Prox RCA, to 12 BIBI for 0:06 seconds. Inflation number: 4 The MDT NC EUPHORA RX 2.70G05IR BALLOON was reinflated across the Prox RCA, to 14 BIBI for 0:13 seconds. Balloon out. Inflation number : 5 A MDT NC EUPHORA RX 3.07V01GZ BALLOON was prepped and advanced across the Prox RCA , then inflated to 16 BIBI for 0:22 seconds. Inflation number: 6 The MDT NC EUPHORA RX 3.70N75CB BALLOON was reinflated across the Prox RCA, to 18 BIBI for 0:29 seconds. Results checked. Inflation number: 7 The MDT NC EUPHORA RX 3.65R99WA BALLOON was reinflated across the Prox RCA, to 20 BIBI for 0:28 seconds. Balloon out. Results checked. Wire out. Guide catheter out. A 5 malagasy Angled Pig catheter in over wire. ACT drawn. Results out of range high seconds. Therapeutic limits - pre-heparin administration 90-150 seconds and monitoring heparin during a vascular procedure >250 seconds. EDP Sample taken: LV 154/-15,6; HR: 41 BPM; SpO2: 100%. LV gram performed in BLISS @ 10 mL/second for a total of 30 mL. EDP Sample taken: LV 156/-12,12; HR: 67 BPM; SpO2: 100%. Pullback taken: LV 158/-12,12; AO 168/76(116); Mean: 0mmHg, Peak to Peak: 0mmHg, SEP: 6sec/min; HR: 68 BPM; SpO2: 100%. A Right femoral angiogram was performed to determine safe placement of closure device. Predilated site with 7 fr dilator. Angioseal attempted unable to deploy due to scar tissue. A Suture was successful obtaining hemostatsis at the Right Femoral artery insertion site. Unable to Perclose site due to scar tissue. Sheath upsized to a 7 Fr. Sheath(s) sutured into position with 2-0 silk and sterile 4x4's and Op-site applied over the site. No oozing or signs and symptoms of hematoma noted. Arterial sheath flushed and connected to tranducer and pressure bag with heparinized saline. Post Procedure: Pulses reassessed and unchanged. PERRLA. Strong, equal hand boilermaker apprentice bilaterally. No VTE prophylaxis required. Physician scrubbed out. ACT drawn. Results 318 seconds. Therapeutic limits - pre-heparin administration 90-150 seconds and monitoring heparin during a vascular procedure >250 seconds. Contrast type used: Omnipaque 300 mgI/mL, 500 mL bottle. Post-op diagnosis: multi vessel CAD, SVG disease. Complications: none. Estimated blood loss: 5mL-10mL. Responsiveness - Normal response to verbal stimuli; alert and oriented, PERRLA. Airway - Unaffected, no intervention required; spontaneous ventilation. Circulation: W/N/L, pulses unchanged. Nausea/Vomiting: No. Medication's Wasted: Nitro = 49.8 mg. Total IV fluids: 200 mL. Procedure completed. Patient transferred by bed to 1st floor. Vital chart was stopped. Access Site Site: Right Femoral artery Sheath Size: 6 Fr Hemostasis Method: Suture Hemostasis Success: Successful Procedure Medications Start: 11:26 AM Stop: 11:26 AM Medication: Versed Amount: 1 mg Route: I.V. Start: 11:32 AM Stop: 11:32 AM Medication: Versed Amount: 1 mg Route: I.V. Start: 11:48 AM Stop: 11:48 AM Medication: Amiodarone (Cordarone) Amount: 150 mg Route: I.V. bolus Start: 12:04 PM Stop: 12:04 PM Medication: Heparin Amount: 7000 units Route: I.V. Start: 12:05 PM Stop: 12:05 PM Medication: Brilinta Amount: 180 mg Route: P.O. Start: 12:42 PM Stop: 12:42 PM Medication: Nitrogylcerin Amount: 200 mcg Route: I.C. Start: 12:57 PM Stop: 12:57 PM Medication: Heparin Amount: 2000 units Route: I.V. Start: 1:11 PM Stop: 1:11 PM Medication: Versed Amount: 1 mg Route: I.V. Start: 1:40 PM Stop: 1:40 PM Medication: Morphine Amount: 2 mg Route: I.V. Start: 1:46 PM Stop: 1:46 PM Medication: Morphine Amount: 2 mg Route: I.V. I, the attending physician, have reviewed and verified all procedure medications. Yes, all medications given per verbal order History/Risk Factors Hypertension: Yes Dyslipidemia: Yes Peripheral Arterial Disease (PAD): No Myocardial Infarction (AK): Yes Obesity: No Renal Disease: No Tobacco Use: Never Prior Interventions PCI: Yes CABG: Yes Valve Surgery: No Report Signatures Finalized by Cj Patricio MD on 03/15/2024 03:43 AM
[2024-02-26] MEDS: diphenhydrAMINE 50 mg Capsule PO (08:00)
[2024-02-26] MEDS: aspirin 325 mg Tablet PO (08:00)
--- NOTE | 2024-02-26 09:39 | W.PM.OPSFHP ---
Same Day Surgery H&P Indication for Procedure/HPI DATE OF PROCEDURE: February 26, 2024 CHIEF COMPLAINT/INDICATIONFOR SURGICAL PROCEDURE: Abnormal stress test History of CABG Preop clearance PREOP DIAGNOSIS: Abnormal stress test PLANNED PROCEDURE: Operation Date: 02/26/24 08:30 Proposed Procedures p Cardiac Catheterization- [facility] w/wo LV & Coros(Left) - Cj Patricio MD 58-year-old male past medical history significant for coronary artery disease diabetes mellitus hypertension hyperlipidemia who underwent stress test as a preop clearance noted to have reversible defect suggestive of ischemia in LAD and circumflex or RCA territory. It is the reason patient has been brought in today for left heart catheterization. Patient has been explained all risk-benefit and alternative for the procedure. He would like to proceed with a repeat Medications/Allergies* Home Medications Medication Instructions Recorded Confirmed Type atorvastatin 40 mg tablet 40 mg PO DAILY 07/04/22 02/26/24 History nitroglycerin 0.4 mg sublingual 0.4 mg sublingual Q5M PRN Chest 07/04/22 02/22/24 History tablet Pain trazodone 50 mg tablet 50 mg PO DAILY 06/15/23 02/26/24 History aspirin 81 mg tablet,delayed 81 mg PO DAILY 01/16/24 02/26/24 History release hydrochlorothiazide 25 mg tablet 25 mg PO DAILY 01/16/24 02/26/24 History Allergies/Adverse Reactions Allergy/AdvReac Type Severity Reaction Status Date / Time fentanyl Allergy Severe ALGY-Difficulty Verified 02/26/24 08:45 Breathing isosorbide [From Imdur] Allergy Unknown Verified 01/16/24 13:38 Penicillins Allergy Unknown Verified 01/16/24 13:38 Pertinent History/Comorbid Conditions* Medical History (Updated 01/16/24 @ 14:11 by Luis Armnado Barron M.D) CAD (coronary artery disease) Hyperlipidemia Social History Smoking and tobacco/nicotine status: never used tobacco/nicotine Second hand smoke exposure: No Alcohol intake: current Alcohol intake frequency: holidays/special occasions only Substance/Drug Use: never Adopted: No Caregiver/support person: Yes Lives independently: No Household members: spouse Housing: House Marital status: Number of children: 5 Number of grandchildren: 1 Highest education level completed: Some College, No Degree service: Yes Current occupational status: employed 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 Current occupational exposures/hazards: No Pets and animals: Yes Sexually active: Yes Do you think of yourself as: Straight/Heterosexual Current gender identity: Male Special asad needs: No Agree to transfusion: Yes Pertinent Exam Findings alert, oriented x 3, clear to auscultation bilaterally, regular rate & rhythm and operative site marked GENERAL: Patient is alert, awake and oriented x3. HEART: Regular S1 and S2. No murmur, rub or gallop. LUNGS: Clear to auscultate bilaterally. CENTRAL NERVOUS SYSTEM: Grossly nonfocal. EXTREMITIES: Lower extremities with out edema bilaterally. Conscious Sedation Assessment PATIENT ASSESSED PRIOR TO SEDATION, WITH NO CHANGE NOTED: Yes AIRWAY EVAL/ANESTHESIA PLAN: ASA II, Risks, benefits & alternatives of sedation and/or procedure discussed and Patient agrees to continue as planned ADDITIONAL INFORMATION: Mallampati 2 Recommendations Surgery/Procedure today Coding Level of Care Code Acute Code for Constance Fwd
[2024-02-26] MEDS: sodium chloride 0.9% 1,000 ML 100 ML IV (14:30)
[2024-02-26] MEDS: HYDROcodone-acetaminophen 5-325 mg Tablet 1 TAB PO (14:38)
[2024-02-26] MEDS: ondansetron 2 mg/ML SDV 2 mL 4 MG IVP (15:39)
[2024-02-26] MEDS: morphine 4 mg/mL SDV 1 mL 2 MG IVP ×2 (16:00→21:53)
--- NOTE | 2024-02-26 17:06 | PC.NURSE ---
called lab since pt has a lapse timed ptt at 3:52 Pm. tilt wall supervisor has not gotten blood draw yet.
--- NOTE | 2024-02-26 17:22 | PC.NURSE ---
nurse neha blood for his ptt timed.
[2024-02-26] MEDS: ticagrelor 90 mg Tablet PO (17:30)
[2024-02-26 18:28] LABS: Anion Gap 15.8 (5-19); Blood Urea Nitrogen 12 mg/dL (6-20); Calcium 8.5 mg/dL (8.5-10.5); Carbon Dioxide 27 mmol/L (22-29); Chloride 98 mmol/L (98-107); Creatinine Clr Calc Pharmacy 92.9168; Glucose 111 mg/dL (65-115); Osmolality Calculated 284 mOsm/kg (285-295); Potassium 3.8 mmol/L (3.5-5.1); Sodium 137 mmol/L (136-145)
--- NOTE | 2024-02-26 18:31 | PC.NURSE ---
Notified chief ophthalmic technician Pt brought his own insulin pump, notified dr if pt can use his. Dr Patricio is ok for the pt to use his own pump.
--- NOTE | 2024-02-26 18:31 | PC.NURSE ---
1400pm- Received pt from geochemical laboratory technician via bed pt is alert,orientedx4. Pt has a 7 Fr arterial sheath size for access to right groin attached to a pressure bag s/p cardiac cath. No hematoma,bleeding or pain to site. pedal pulses check and palpable, feet warm. Pt does report of sharp pain on left lower chest area pain scale is 7/10. hydocodone prn given, however made him nauseated. pain reassessment on hydrocodone and pt stated it did not help. notified COAL DRIER OPERATOR Tiffanie and received order to give IV morphine, received order for a zofran PRN IV. Pls see jun. call light provided. at bedside. activity restrictions discuss and informed pt to notify nurse if any unusual pain or pain is worse.
[2024-02-26 18:39] LABS: Partial Thromboplastin Time 56.8 SECONDS (23.9-36.7)
[2024-02-26] MEDS: temazepam 15 mg Capsule PO (21:53)
--- NOTE | 2024-02-26 22:49 | PC.NURSE ---
Sheath removed from right groin at 2200. Manual pressure held for 20 minutes. Vital signs remained stable. Patient educated on post-cath activity restrictions. Site to right groin WNL. Dressing placed.
[2024-02-27] VITALS (12 sets, daily range): BP systolic 100–130; BP diastolic 54–69; PULSE 62–80; RESP 12–16; TEMP 36.7; O2SAT 91–94
[2024-02-27 03:58] LABS: Basophils % 0.7 %; Eosinophils # 0.1 10^3/uL (0.0-0.8); Eosinophils % 2.9 %; Hematocrit 42.2 % (37-53); Lymphocytes # 1.1 10^3/uL (0.8-4.8); Lymphocytes % 25.6 %; Mean Corpuscular HGB Conc 33.6 g/dL (30-55); Mean Corpuscular Hemoglobin 29.8 pg (27-33); Mean Corpuscular Volume 88.5 fl (82-101); Mean Platelet Volume 9.7 fL (7.4-10.4); Monocytes # 0.4 10^3/uL (0.2-0.9); Monocytes % 9.2 %; Neutrophils # 2.54 10^3/uL (1.8-7.7); Neutrophils % 61.4 %; Nucleated Red Blood Cells % 0 %; Platelet Count 134 10^3/cmm (157-399); Red Blood Count 4.77 10^6/uL (3.85-5.65); Red Cell Distribution Width 13.4 % (12.1-15.1); White Blood Count 4.14 10^3/uL (3.29-11.43)
[2024-02-27] MEDS: morphine 4 mg/mL SDV 1 mL 2 MG IVP (03:59)
[2024-02-27] MEDS: ondansetron 2 mg/ML SDV 2 mL 4 MG IVP (03:59)
--- NOTE | 2024-02-27 04:08 | PC.NURSE ---
Patient ambulated to bathroom with nurse. Right groin post-cath site WNL before and after walking. VSS before and after walking.
[2024-02-27 04:24] LABS: Anion Gap 11.7 (5-19); Blood Urea Nitrogen 12 mg/dL (6-20); Calcium 8.2 mg/dL (8.5-10.5); Carbon Dioxide 27 mmol/L (22-29); Chloride 102 mmol/L (98-107); Creatinine Clr Calc Pharmacy 93.4722; Glucose 110 mg/dL (65-115); Osmolality Calculated 284 mOsm/kg (285-295); Potassium 3.7 mmol/L (3.5-5.1); Sodium 137 mmol/L (136-145)
[2024-02-27] MEDS: ticagrelor 90 mg Tablet PO (08:24)
[2024-02-27] MEDS: aspirin 81 mg EC Tablet PO (08:25)
[2024-02-27] MEDS: flu vacc pf 24-25 (6 mos+) SYRINGE 45 MCG IM (08:26)
--- NOTE | 2024-02-27 09:17 | P.DS_ITS ---
Discharge Providers Date of Admission: 02/26/2024 Date of Discharge: February 27, 2024 Attending Provider at Admission: Cj Patricio MD Attending Provider at Discharge: Cj Patricio MD Consults: None Primary Care Provider: Maria Walters MD Diagnoses at Discharge Discharge Diagnosis (1) Hyperlipemia, mixed: Details from hospital stay: Continue atorvastatin 40 mg. Continue lifestyle changes including low fat/low cholesterol diet. Status: Acute (2) CAD (coronary artery disease): Details from hospital stay: S/P PCI PCI Continue Brilinta and aspirin for at least 6 months Status: Acute Qualifiers: Associated angina: without angina Coronary Disease-Associated Artery/Lesion type: bypass graft [place] vs. transplanted heart: [place] heart Qualified Code(s): I25.810 - Atherosclerosis of coronary artery bypass graft(s) without angina pectoris (3) Type 1 diabetes: Details from hospital stay: Continue f/u with PCP, continue insulin as previously prescribed Status: Acute Qualifiers: Diabetes mellitus complication detail: with other circulatory complications Diabetes mellitus complication status: with circulatory complication Qualified Code(s): E10.59 - Type 1 diabetes mellitus with other circulatory complications Reason for Visit Reason for Visit: R94.39, I25.10 Brief History: 58-year-old man with past medical histor y of diabetes, hypertension, CAD with prior CABGx3 NUNEZ to LAD, free radial graft to the diagonal, and SVG to OM in 2015 and stent in 2020. He had PCI to the ostium to mid RCA with ISR in which 2 GLENN were placed in 2021. At that time, the LCx stent had moderate to severe ISR. He was seen in our office to establish care. He has been experiencing lower extremity swelling. Was put on hydrochlorothiazide and when he stopped it for a few days he gained about 6 to 7 pounds. Denied chest pain. He had presyncopal episode as well. Blood pressure today is controlled. He is planning to undergo knee replacement surgery and had a pre op stress test that was abnormal. Hospital Course Hospital Course Patient underwent a left heart cath with PCI to the Patient tolerated well w/o complications. He will go home with activity restrictions. He will need to be on Brilinta. Physical Exam Narrative: GENERAL: Patient is alert, awake and oriented x3. HEART: Regular S1 and S2. No murmur, rub or gallop. LUNGS: Clear to auscultate bilaterally. CENTRAL NERVOUS SYSTEM: Grossly nonfocal. EXTREMITIES: Lower extremities with out edema bilaterally. Skin: Right groin clean, dry, intact, soft, w/o s/s of hematoma or pseudoaneurysm Discharge Data Studies Completed and Pending Pending at discharge Category Date Time Status MEDIA TRAFFIC MANAGER request for service Routine Exams 02/26/24 Taken Laboratory Results WBC 4.14 10^3/uL (3.29-11.43) 02/27/24 03:20 RBC 4.77 10^6/uL (3.85-5.65) 02/27/24 03:20 Hgb 14.20 g/dL (11.27-16.99) 02/27/24 03:20 Hct 42.2 % (37-53) 02/27/24 03:20 MCV 88.5 fl (82-101) 02/27/24 03:20 MCH 29.8 pg (27-33) 02/27/24 03:20 MCHC 33.6 g/dL (30-55) 02/27/24 03:20 RDW 13.4 % (12.1-15.1) 02/27/24 03:20 Plt Count 134 10^3/cmm (157-399) L 02/27/24 03:20 MPV 9.7 fL (7.4-10.4) 02/27/24 03:20 Neut % (Auto) 61.4 % 02/27/24 03:20 Lymph % (Auto) 25.6 % 02/27/24 03:20 [place] % (Auto) 9.2 % 02/27/24 03:20 Eos % (Auto) 2.9 % 02/27/24 03:20 Baso % (Auto) 0.7 % 02/27/24 03:20 Neut # (Auto) 2.54 10^3/uL (1.8-7.7) 02/27/24 03:20 Lymph # (Auto) 1.1 10^3/uL (0.8-4.8) 02/27/24 03:20 [place] # (Auto) 0.4 10^3/uL (0.2-0.9) 02/27/24 03:20 Eos # (Auto) 0.1 10^3/uL (0.0-0.8) 02/27/24 03:20 Baso # (Auto) 0.0 10^3/uL (0.0-0.1) 02/27/24 03:20 Nucleated RBC % (auto) 0 % 02/27/24 03:20 Nucleated RBCs # 0.0 /100WBC 02/27/24 03:20 APTT 56.8 SECONDS (23.9-36.7) H 02/26/24 17:57 Sodium 137 mmol/L (136-145) 02/27/24 03:20 Potassium 3.7 mmol/L (3.5-5.1) 02/27/24 03:20 Chloride 102 mmol/L (98-107) 02/27/24 03:20 Carbon Dioxide 27 mmol/L (22-29) 02/27/24 03:20 Anion Gap 11.7 (5-19) 02/27/24 03:20 BUN 12 mg/dL (6-20) 02/27/24 03:20 Creatinine 0.8 mg/dL (0.7-1.2) 02/27/24 03:20 GFR Calculation 100.0 mL/min (90-130) 02/27/24 03:20 Glucose 110 mg/dL (65-115) 02/27/24 03:20 Calculated Osmolality 284 mOsm/kg (285-295) L 02/27/24 03:20 Calcium 8.2 mg/dL (8.5-10.5) L 02/27/24 03:20 Procedures Performed Left heart catheterization Vitals Last Vital Signs Temp 98.0 F 02/27/24 07:17 Pulse 66 02/27/24 07:17 Resp 15 02/27/24 07:17 BP 112/61 02/27/24 07:17 Pulse Ox 93 02/27/24 07:17 O2 Del Method Room Air 02/27/24 07:17 Discharge Plan Discharge Patient Disposition: Home Prescriptions: New ticagrelor 90 mg tablet 90 mg PO BID 90 Days Qty: 180 3RF Continued nitroglycerin 0.4 mg tablet, sublingual 0.4 mg sublingual Q5M PRN (Reason: Chest Pain) Rx Instructions: do not exceed 3 doses per episode atorvastatin 40 mg tablet 40 mg PO BEDTIME trazodone 50 mg tablet 100 mg PO BEDTIME (DME) bilateral hinged knee brace See Rx Instructions .Route .MEDSUPPLY Qty: 1 0RF Rx Instructions: As directed insulin aspart U-100 [Novolog U-100 Insulin aspart] 100 unit/mL solution 81 unit SUBCUT .basal rate Qty: 10 3RF Rx Instructions: via pump (DME) t:slim X2 Cartridge See Rx Instructions .Route Qty: 10 3RF Rx Instructions: As directed (DME) AutoSoft XC Infusion Set 23 Infusion Set See Rx Instructions .Route Qty: 10 3RF Rx Instructions: As directed (DME) t:slim X2 Control-IQ Misc See Rx Instructions .Route Qty: 1 0RF Rx Instructions: As directed (DME) economy brace right knee See Rx Instructions .Route .MEDSUPPLY Qty: 1 0RF Rx Instructions: As directed Mounjaro 15 mg/0.5 mL pen injector 15 mg SUBCUT Q7D 30 Days Qty: 2.5 4RF aspirin 81 mg tablet,delayed release (DR/EC) 81 mg PO BEDTIME hydrochlorothiazide 25 mg tablet 25 mg PO DAILY (DME) Dexcom G6 Chassis Wirer Misc See Rx Instructions .Route Qty: 1 0RF Rx Instructions: As directed (DME) Dexcom G6 Transmitter Device See Rx Instructions .Route Qty: 1 1RF Rx Instructions: As directed (DME) Dexcom G6 Sensor Device See Rx Instructions .Route Qty: 3 3RF Rx Instructions: As directed Discharge Orders: Discharge Order (Routine); Ordered 02/27/24 Ordered By: Tiffanie Lopez Referrals: Araceli Noe FNP [Nurse Practitioner] - 03/11/24 2:00 pm Diet: Advance as tolerated and Cardiac Activity: Increase activity as tolerated and Limit activity as instructed Patient Instructions: Ticagrelor (By mouth) (Brilinta), Coronary Angioplasty (DC), Coronary Intravascular Stent Placement (DC), Chest Pain Stoplight, Post Angiogram Home Care Instructions Activity Restrictions/Additional Instructions: Activity restrictions were given to the patient including no heavy lifting or driving for 5 days. Monitor for and report s/s of bleeding. No going up stairs for three days. Patient may not hold Brilinta for knee surgery for at least 6 months. Should restart as soon as possible once held. Discharge Date/Time: 02/27/24 09:17 Discharge Attestations Time Spent in Discharge Care*: less than 30 min Quality Metrics Clinical Quality Measures [ No reported AMI, CVA or VTE this stay] Coding Level of Care Code Acute Code for Chg Fwd Diagnoses Hyperlipemia, mixed E78.2 Coronary artery disease involving coronary bypass graft of [place] heart without angina pectoris I25.810 Associated angina: without angina Coronary Disease-Associated Artery/Lesion type: bypass graft [place] vs. transplanted heart: [place] heart Type 1 diabetes mellitus with other circulatory complication E10.59 Diabetes mellitus complication detail: with other circulatory complications Diabetes mellitus complication status: with circulatory complication
== END 2024-02-27 09:17 | disposition home or self-care (01) ==
LOC: CCL 07:17 → CSU 13:57
PROVIDERS: PCP Family Medicine; Visit Provider Internal Medicine Cardiovascular Disease
DX: I25.10 Atherosclerotic heart disease of native coronary artery without angina pectoris (principal); I25.82 Chronic total occlusion of coronary artery; Z95.1 Presence of aortocoronary bypass graft; I10 Essential (primary) hypertension; I25.2 Old myocardial infarction; E78.2 Mixed hyperlipidemia; E10.59 Type 1 diabetes mellitus with other circulatory complications; Z95.5 Presence of coronary angioplasty implant and graft; Z23 Encounter for immunization
CPT/HCPCS: 36415; 80048; 85025; 85347; 85730; 90471; 90686; 92920; 93459; 99152; 99153; C1725; C1760; C1769; C1874; C1887; C1894; C9600; J0282; J1644; J2250; J2270; J2405; J3490; J7030; Q0163; Q9967

== ENCOUNTER → 2024-03-05 07:58 | Outpatient (BNVA) | payer OTHER, SELFPAY | PROVIDERS: PCP Family Medicine; Visit Provider Student in an Organized Health Care Education/Training Program | DX: M94.261 Chondromalacia, right knee (principal); Z98.890 Other specified postprocedural states; M25.561 Pain in right knee | CPT/HCPCS: 20610; 99213; J3301 ==

== ENCOUNTER → 2024-03-11 13:53 | Outpatient (BNVA) | payer OTHER, SELFPAY | PROVIDERS: PCP Family Medicine; Visit Provider Nurse Practitioner Family | DX: I25.10 Atherosclerotic heart disease of native coronary artery without angina pectoris (principal); R06.02 Shortness of breath; Z95.1 Presence of aortocoronary bypass graft | CPT/HCPCS: 99214 ==

== ENCOUNTER 2024-03-28 10:43 | Outpatient (CLI) | payer OTHER, SELFPAY ==
[2024-03-28 11:28] LABS: Estmated Average Glucose 146; Hemoglobin A1C 6.7 % (4.0-6.0)
[2024-03-28 11:33] LABS: Alanine Aminotransferase 232 U/L (0-41); Albumin Level 3.6 g/dL (3.5-5.2); Alkaline Phosphatase 131 U/L (40-130); Anion Gap 11.7 (5-19); Aspartate Amino Transferase 275 U/L (0-40); Blood Urea Nitrogen 11 mg/dL (6-20); Calcium 9.4 mg/dL (8.5-10.5); Carbon Dioxide 31 mmol/L (22-29); Chloride 98 mmol/L (98-107); Chol HDL Ratio 2.09 mg/dL (1.0-5.00); Cholesterol 138 mg/dL (0-200); Globulin 2.8 g/dL (1.3-4.6); Glucose 136 mg/dL (65-115); HDL Cholesterol 66 mg/dL (60-100); LDL Cholesterol Calculated 59 mg/dL (50-129); LDL HDL Ratio 0.89 RATIO (0.00-3.22); Osmolality Calculated 285 mOsm/kg (285-295); Potassium 3.7 mmol/L (3.5-5.1); Sodium 137 mmol/L (136-145); Total Bilirubin 0.8 mg/dL (0.15-1.2); Total Protein 6.4 g/dL (6.6-8.7); Triglycerides 64 mg/dL (0-150)
[2024-03-28 11:34] LABS: Creatinine Urine, Random 330 mg/dL (39-259); Microalbum Creatinine Ratio Ur 6 mg/dL (0-20); Microalbumin Random Urine 2 ug/dL (0-20)
== END 2024-03-28 10:44 | disposition home or self-care (01) ==
PROVIDERS: PCP Family Medicine; Visit Provider Internal Medicine
DX: E10.9 Type 1 diabetes mellitus without complications (principal); E78.2 Mixed hyperlipidemia
CPT/HCPCS: 36415; 80053; 80061; 82044; 83036

== ENCOUNTER 2024-04-05 07:24 | Outpatient (CLI) | payer OTHER, SELFPAY ==
[2024-04-05 07:40] VITALS: BMI 25.7
--- NOTE | 2024-04-05 07:54 | ECG_ITS ---
[facility] Test Date: 2024-04-05 Pat Name: Moisés Gonzalez Department: Room: Gender: Male Story Reader: : 1965 Requested By: Araceli Noe Order Number: [id number] Olvin MD: Libra Agee M.D. Interpretive Statements Lung unchanged pre/post procedure; Intraprocedure shortess of breath; Symptoms resoled by discharge PROCEDURE: At the baseline, the EKG revealed normal sinus rhythm with a poor R wave progression. The baseline heart was 61 bpm with a blood pressue of 127/72 mm of Hg Lexiscan was infused over a period of 20 seconds. A total of 0.4 milligrams of Lexiscan was infused. The stress phase was continued for a total of 5 minutes. Heart rate at the end of the stress phase was 78 bpm with a blood pressure 104/63 mm of Hg. The EKG at the peak infusion revealed no significant changes. Sestamibi was injected 20 seconds after the Lexiscan infusion. Heart rate at the end of the recovery phase was 80 bpm with a blood pressure of 111/60 mm of Hg. CONCLUSION: 1. No significant EKG changes with the LexiScan infusion 2. No LexiScan induced chest pain or cardiac arrhythmia 3. Normal blood pressure and heart rate response 4. Sestamibi/sestamibi perfusion scan pending; see separate report. Electronically Signed On 04-05-2024 14:59:08 NOVELTY BALLOON ASSEMBLER AND PACKER by Libra Agee M.D. [email or web address]
--- NOTE | 2024-04-05 07:55 | NMCV_ITS ---
NM pilar perf SPECT r/s* [id number] Moisés Gonzalez Age: 58 Gender: M : 1965 Exam Date: 04/05/2024 08:35 Ordering Phys: Araceli Noe Technologist: ARNULFO Mcdonough Exam Location: [facility] Indications: cp STRESS TEST Please see separate stress test report in [facility] for full findings IMAGE PROTOCOL Rest/Stress 1 Lexiscan Day Radiopharmaceutical Dose (mCi) Administration Site Administered by Rest: Tc-99m 10.4 IV Susan Urbano, FOUNDRY SUPERVISOR Sestamibi Stress:Tc-99m 33 IV Susan Yolie, FOUNDRY SUPERVISOR Sestamibi Rest: 05-Apr-2024 60 Discovery 630 Stress: 05-Apr-2024 30 Discovery 630 0.4mg Lexiscan. Images obtained in supine and prone position. SPECT RESULTS Technical Quality: Good Raw Data Analysis: Normal Image Corrections: No attenuation or motion correction applied Summed Stress Score: 17 Summed Rest Score: 8 Summed Difference Score: 9 PERFUSION FINDINGS Moderate to large area of moderate to severely decreased tracer uptake involving the inferior, inferolateral, anterolateral, anterior and apical lateral regions. Significant reversibility was noted in the inferior wall region with some reversibility in the other segments, with the supine imaging. However compared with the prone imaging, the the reversibility was found to be minimal FUNCTIONAL RESULTS (calculated via Gated SPECT) Stress Image LV EF (%): 81 Stress EDV (mL):64 TID: 0.82 Stress ESV (mL):12 FUNCTIONAL FINDINGS: Segmental wall motion analysis revealing no gross wall motion abnormalities IMPRESSIONS 1. Myocardial perfusion imaging revealing moderate to large area of moderate to severely decreased tracer uptake K involving the inferior, inferolateral, anterolateral, anterior and apical regions with some reversibility suggesting myocardial scarring with ischemia in the distribution of all 3 coronary arteries but predominantly in the distribution of the right coronary artery. Because of the inconsistency with the prone imaging, the reliability of these findings is questionable. Clinical correlation recommended. 2. Normal LV ejection fraction of 81%. 3. LV wall motion analysis revealing no gross wall motion abnormalities. 4. Normal LV volume . Compared to the study from 02/15/2024, the ischemic burden is slightly increased. ( The summed difference score was found to be 9 compared to 7 with the last study) Dr Libra Agee MD FACC (Electronically Signed) Final Date: 05 April 2024 16:10 S
[2024-04-05] MEDS: regadenoson 0.4 Mg/5 ml Syringe IVP (08:55)
[2024-04-05 09:24] VITALS: BP 111/60; PULSE 80
== END 2024-04-05 07:25 | disposition home or self-care (01) ==
LOC: CDL 07:24
PROVIDERS: PCP Family Medicine; Visit Provider Nurse Practitioner Family
DX: I25.810 Atherosclerosis of coronary artery bypass graft(s) without angina pectoris (principal); R94.39 Abnormal result of other cardiovascular function study; R06.02 Shortness of breath
CPT/HCPCS: 36415; 78452; 93017; 96374; A9500; J2785

== ENCOUNTER 2024-04-16 21:39 | Inpatient (IN) | payer OTHER, SELFPAY ==
[2024-04-16 21:41] VITALS: BP 132/89; PULSE 72; RESP 18; TEMP 36.6; O2SAT 97; BMI 25.4
--- NOTE | 2024-04-16 21:59 | XRR_ITS ---
PROCEDURE INFORMATION: Exam: XR Chest Exam date and time: 04/16/2024 10:01 PM Age: 58 years old Clinical indication: Pain; Chest pressure; Prior surgery; Surgery date: 6+ months; Surgery type: Open heart stents; Additional info: Chest pain TECHNIQUE: Imaging protocol: Radiologic exam of the chest. Views: 1 view. COMPARISON: CR XR chest 1V [id number] 08/14/2017 10:47 PM FINDINGS: Lungs: Unremarkable. No consolidation. Pleural spaces: Unremarkable. No pleural effusion. No pneumothorax. Heart/Mediastinum: Unremarkable. No cardiomegaly. Bones/joints: Unremarkable. Gastrointestinal tract: Gaseous distension loops in the upper abdomen. XR/XR chest 1V portable [id number] IMPRESSION: As above.
--- NOTE | 2024-04-16 21:59 | ECG_ITS ---
[facility] Test Date: 2024-04-16 Pat Name: Moisés Gonzalez Department: Room: 105 Gender: Male Learning Support Teacher: : 1965 Requested By: Edgar Brush Order Number: [id number] Olvin MD: Luis Armanod Barron M.D. Measurements Intervals [place] Rate: 78 P: 70 AK: 158 QRS: 70 QRSD: 93 T: 76 QT: 390 QTc: 444 Interpretive Statements SINUS RHYTHM Compared to ECG 01/16/2024 13:31:05 T-wave abnormality no longer present Electronically Signed On 04-18-2024 12:31:48 AIR SAW OPERATOR by Luis Armando Barron M.D. [email or web address]
[2024-04-16 22:14] LABS: Basophils % 0.8 %; Eosinophils # 0.1 10^3/uL (0.0-0.8); Eosinophils % 2.8 %; Hematocrit 41.4 % (37-53); Lymphocytes % 28.3 %; Mean Corpuscular HGB Conc 34.5 g/dL (30-55); Mean Corpuscular Hemoglobin 30.2 pg (27-33); Mean Corpuscular Volume 87.3 fl (82-101); Mean Platelet Volume 9.1 fL (7.4-10.4); Monocytes # 0.4 10^3/uL (0.2-0.9); Monocytes % 11.1 %; Neutrophils # 2.05 10^3/uL (1.8-7.7); Neutrophils % 56.7 %; Nucleated Red Blood Cells % 0 %; Platelet Count 138 10^3/cmm (157-399); Red Blood Count 4.74 10^6/uL (3.85-5.65); Red Cell Distribution Width 14.2 % (12.1-15.1); White Blood Count 3.61 10^3/uL (3.29-11.43)
--- NOTE | 2024-04-16 22:26 | ED_ITS ---
HPI - Chest Pain 2 General: Chief Complaint: Chest Pain Stated Complaint: Chest Pain Time Seen by Provider: 04/16/24 21:48 History of Present Illness: 58-year-old male presents to the emergen cy department chief complaint of having ongoing midsternal chest pain with no radiation has been ongoing for approximately 2 weeks. Patient reports has been attempted to get a hold of his director of business services to no avail patient is written for sublingual nitro's reports that he cannot take Imdur due to having a significant headache apparently back in February patient had 5 cardiac stents placed. Patient endorses he had a recent nuclear perfusion study that came back abnormal per cardiology. Patient endorses the pain is unrelated to activity or exertion or movement he denies any palpitations or shortness of breath associated with the pain he reports is midsternal like a pressure on his chest with no radiation he denies any recent infections or illnesses or any other associated symptoms. Associated symptoms: Deny abdominal pain, dyspnea, fever(s), nausea, palpitations or vomiting Related Data Home Medications Medication Instructions Recorded Confirmed atorvastatin 40 mg tablet 40 mg PO BEDTIME 07/04/22 03/11/24 nitroglycerin 0.4 mg sublingual 0.4 mg sublingual Q5M PRN Chest 07/04/22 03/11/24 tablet Pain trazodone 50 mg tablet 100 mg PO BEDTIME 06/15/23 03/11/24 aspirin 81 mg tablet,delayed 81 mg PO BEDTIME 01/16/24 03/11/24 release hydrochlorothiazide 25 mg tablet 25 mg PO DAILY 01/16/24 03/11/24 Previous Rx's Medication Instructions Recorded bilateral hinged knee brace #1 ea 06/15/23 economy brace right knee #1 ea 07/25/23 blood-glucose meter,continuous #1 ea 08/08/23 (Dexcom G6 Development Administrator) infusion set for insulin pump #10 ea 08/29/23 (AutoSoft XC Infusion Set 23 ) insulin aspart U-100 100 unit/mL 81 unit (0.81 mL) SUBCUT .basal 08/29/23 subcutaneous solution (Novolog rate #10 mL U-100 Insulin aspart) insulin pump cartridge (t:slim X2 #10 ea 08/29/23 subcutaneous cartridge) subcutaneous insulin pump (t:slim #1 ea 08/29/23 X2 Control-IQ) blood-glucose transmitter (Dexcom #1 ea 11/22/23 G6 Transmitter device) tirzepatide 15 mg/0.5 mL 15 mg (0.5 mL) SUBCUT Q7D 30 days 12/05/23 subcutaneous pen injector #2.5 mL (Antonio) blood-glucose sensor (Dexcom G6 #3 ea 12/28/23 Sensor device) prasugrel 10 mg tablet (Effient) 10 mg PO DAILY #90 tabs 03/27/24 Allergies Allergy/AdvReac Type Severity Reaction Status Date / Time fentanyl Allergy Severe ALGY-Difficulty Verified 04/16/24 21:46 Breathing isosorbide [From Imdur] Allergy ADR-Headach Verified 04/16/24 21:46 e Penicillins Allergy Unknown Verified 04/16/24 21:46 Review of Systems 2 General: Reports: 10 or more systems reviewed and unremarkable except in HPI and below Const: Denies: fever(s), chills, fatigue or malaise Eyes: Denies: change in vision or blurry vision Card: Reports: chest pain; Denies: palpitations Resp: Denies: dyspnea or productive cough GI: Denies: abdominal pain, nausea or vomiting : Denies: flank pain Musc: Denies: extremity pain or extremity swelling Skin/Breast: Denies: rash or pruritus Neuro: Denies: headache(s) Psych: Denies: anxiety or depression Niko/Lymph: Denies: easy bleeding All/Imm: Denies: urticaria, throat swelling or facial swelling PFSH ED 2 PFSH: Medical History Obesity FH: CABG (coronary artery bypass surgery) CAD (coronary artery disease) Hyperlipidemia Social History Smoking and tobacco/nicotine status: never used tobacco/nicotine Second hand smoke exposure: No Alcohol intake: current Alcohol intake frequency: holidays/special occasions only Substance/Drug Use: never Adopted: No Caregiver/support person: Yes Lives independently: No Household members: spouse Housing: House Marital status: Number of children: 5 Number of grandchildren: 1 Highest education level completed: Some College, No Degree service: Yes Current occupational status: employed 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 Current occupational exposures/hazards: No Pets and animals: Yes Sexually active: Yes Do you think of yourself as: Straight/Heterosexual Current gender identity: Male Special asad needs: No Agree to transfusion: Yes Physical Exam 2 Const: COMMON NORMALS: no acute distress, patient oriented x3 and healthy appearing OTHER: Patient appears frustrated exam slightly anxious but appears in no obvious acute distress HENMT: COMMON NORMALS: normocephalic and atraumatic HEAD & SCALP: n ormocephalic and atraumatic Eye: COMMON NORMALS: Equal, round and reactive pupils present and EOMs intact bilaterally PUPIL: Yes Equal, round and reactive pupils present Neck/C-Spine: COMMON NORMALS: full ROM, supple and no JVD Lymph: LYMPHATIC: no lymphadenopathy noted Chest: COMMONS NORMALS: normal inspection of the chest and normal palpation of entire chest wall Resp: COMMON NORMALS: normal respiratory effort, No retractions and clear to auscultation bilaterally EFFORT & INSPECTION: Yes able to speak in complete sentences and Yes symmetric chest movement AUSCULTATION: clear to auscultation bilaterally OTHER: Equal breath sounds appreciated bilaterally no obvious wheezing crackles rales or rhonchi appreciated. Cardio: COMMON NORMALS: no JVD, regular rate and regular rhythm RATE: r egular rate RHYTHM: regular rhythm GI: COMMON NORMALS: Normal to inspection, nondistended, normoactive bowel sounds present, Soft to palpation and non-tender INSPECTION: Yes normal to inspection PALPATION: Yes Soft to palpation : COMMON NORMALS: Yes no CVA tenderness BLADDER/KIDNEY EXAM: Yes no CVA tenderness Back/Pelvis: COMMON NORMALS: no CVA tenderness Extremity: COMMON NORMALS: normal to inspection and full ROM Neuro: COMMON NORMALS: patient oriented x3, CN's II-XII intact bilaterally, moves all extremities and no focal motor deficits Psych: COMMON NORMALS: mental status grossly normal, Normal thought process present, cooperative and normal affect THOUGHT PROCESS: Normal thought process present Skin: COMMON NORMALS: no rashes or lesions noted GENERAL SKIN EXAM: no rashes or lesions noted Course 2 Vital Signs: Vital signs: Vital Signs Temperature 97.9 F 04/16/24 21:41 Pulse Rate 74 04/16/24 22:38 Respiratory Rate 18 04/16/24 22:38 Blood Pressure 156/83 04/16/24 22:38 Pulse Oximetry 98 04/16/24 22:38 Oxygen Delivery Me thod Room Air 12/31/24 22:38 MDM - Chest Pain Medical Decision Making Due to patient's symptoms and condition lab work and imaging will be obtained we will continue to follow. Patient with provided nitro and aspirin and morphine per protocol underlying concerns of unstable angina is prominent. Patient's first her troponin was found to be at 232 patient is new EKG changes on EKG discussed patient's case with Dr. Barron on-call director of business services agreement admit this patient to medicine to the cardiac stepdown unit patient be started on a heparin drip n.p.o. after midnight aspirin and Plavix given per protocol with nitroglycerin provided as well. Lab Data 04/16/24 22:10 04/16/24 22:10 Laboratory Results WBC 3.61 10^3/uL (3.29-11.43) 04/16/24 22:10 RBC 4.74 10^6/uL (3.85-5.65) 04/16/24 22:10 Hgb 14.30 g/dL (11.27-16.99) 04/16/24 22:10 Hct 41.4 % (37-53) 04/16/24 22:10 MCV 87.3 fl (82-101) 04/16/24 22:10 MCH 30.2 pg (27-33) 04/16/24 22:10 MCHC 34.5 g/dL (30-55) 04/16/24 22:10 RDW 14.2 % (12.1-15.1) 04/16/24 22:10 Plt Count 138 10^3/cmm (157-399) L 04/16/24 22:10 MPV 9.1 fL (7.4-10.4) 04/16/24 22:10 Neut % (Auto) 56.7 % 04/16/24 22:10 Lymph % (Auto) 28.3 % 04/16/24 22:10 [place] % (Auto) 11.1 % 04/16/24 22:10 Eos % (Auto) 2.8 % 04/16/24 22:10 Baso % (Auto) 0.8 % 04/16/24 22:10 Neut # (Auto) 2.05 10^3/uL (1.8-7.7) 04/16/24 22:10 Lymph # (Auto) 1.0 10^3/uL (0.8-4.8) 04/16/24 22:10 [place] # (Auto) 0.4 10^3/uL (0.2-0.9) 04/16/24 22:10 Eos # (Auto) 0.1 10^3/uL (0.0-0.8) 04/16/24 22:10 Baso # (Auto) 0.0 10^3/uL (0.0-0.1) 04/16/24 22:10 Nucleated RBC % (auto) 0 % 04/16/24 22:10 Nucleated RBCs # 0.0 /100WBC 04/16/24 22:10 PT 12.70 SECONDS (12.1-14.9) 04/16/24 22:10 INR 0.93 (0.8-1.2) 04/16/24 22:10 APTT 26.0 SECONDS (23.9-36.7) 04/16/24 22:10 Sodium 136 mmol/L (136-145) 04/16/24 22:10 Potassium 3.4 mmol/L (3.5-5.1) L 04/16/24 22:10 Chloride 97 mmol/L (98-107) L 04/16/24 22:10 Carbon Dioxide 29 mmol/L (22-29) 04/16/24 22:10 Anion Gap 13.4 (5-19) 04/16/24 22:10 BUN 14 mg/dL (6-20) 04/16/24 22:10 Creatinine 0.7 mg/dL (0.7-1.2) 04/16/24 22:10 GFR Calculation 116.7 mL/min (90-130) 04/16/24 22:10 Glucose 180 mg/dL (65-115) H 04/16/24 22:10 Calculated Osmolality 287 mOsm/kg (285-295) 04/16/24 22:10 Calcium 8.9 mg/dL (8.5-10.5) 04/16/24 22:10 Total Bilirubin 0.9 mg/dL (0.15-1.2) 04/16/24 22:10 AST 293 U/L (0-40) H 04/16/24 22:10 ALT 213 U/L (0-41) H 04/16/24 22:10 Alkaline Phosphatase 129 U/L (40-130) 04/16/24 22:10 Troponin T Baseline 232 ng/L (0-15) H* 04/16/24 22:10 NT-Pro-B Natriuret Pep 132 pg/mL (0-125) H 04/16/24 22:10 Total Protein 5.7 g/dL (6.6-8.7) L 04/16/24 22:10 Albumin 3.7 g/dL (3.5-5.2) 04/16/24 22:10 Globulin 2.0 g/dL (1.3-4.6) 04/16/24 22:10 Lipase 22 U/L (13-60) 04/16/24 22:10 Amorphous Sediment Not Reportable 04/16/24 22:55 XR interpretation done by ED provider, pending radiology final review Discharge Plan Discharge Patient Disposition: Admitted As Inpatient Clinical Impression: Acute non-ST elevation myocardial infarction (NSTEMI) Condition: Stable Prescriptions: No Action nitroglycerin 0.4 mg tablet, sublingual 0.4 mg sublingual Q5M PRN (Reason: Chest Pain) Rx Instructions: do not exceed 3 doses per episode atorvastatin 40 mg tablet 40 mg PO BEDTIME trazodone 50 mg tablet 100 mg PO BEDTIME (DME) bilateral hinged knee brace See Rx Instructions .Route .MEDSUPPLY Qty: 1 0RF Rx Instructions: As directed insulin aspart U-100 [Novolog U-100 Insulin aspart] 100 unit/mL solution 81 unit SUBCUT .basal rate Qty: 10 3RF Rx Instructions: via pump (DME) t:slim X2 Cartridge See Rx Instructions .Route Qty: 10 3RF Rx Instructions: As directed (DME) AutoSoft XC Infusion Set 23 Infusion Set See Rx Instructions .Route Qty: 10 3RF Rx Instructions: As directed (DME) t:slim X2 Control-IQ Misc See Rx Instructions .Route Qty: 1 0RF Rx Instructions: As directed (DME) economy brace right knee See Rx Instructions .Route .MEDSUPPLY Qty: 1 0RF Rx Instructions: As directed Mounjaro 15 mg/0.5 mL pen injector 15 mg SUBCUT Q7D 30 Days Qty: 2.5 4RF aspirin 81 mg tablet,delayed release (DR/EC) 81 mg PO BEDTIME hydrochlorothiazide 25 mg tablet 25 mg PO DAILY (DME) Dexcom G6 Development Administrator Misc See Rx Instructions .Route Qty: 1 0RF Rx Instructions: As directed (DME) Dexcom G6 Transmitter Device See Rx Instructions .Route Qty: 1 1RF Rx Instructions: As directed (DME) Dexcom G6 Sensor Device See Rx Instructions .Route Qty: 3 3RF Rx Instructions: As directed prasugrel [Effient] 10 mg tablet 10 mg PO DAILY Qty: 90 3RF Referrals: Maria Walters MD [Primary Care Provider] - Coding Level of Care Code ED Carpenter'S Assistant for g Marzena
[2024-04-16 22:29] LABS: INR 0.93 (0.8-1.2)
[2024-04-16 22:31] VITALS: RESP 18; O2SAT 98
[2024-04-16] MEDS: morphine 4 mg/mL SDV 1 mL IVP (22:31)
[2024-04-16] MEDS: aspirin 81 mg Chew Tablet 324 MG PO (22:34)
[2024-04-16] MEDS: acetaminophen 500 mg Tablet PO (22:34)
[2024-04-16 22:38] VITALS: BP 156/83; PULSE 74; RESP 18; O2SAT 98
[2024-04-16 22:39] LABS: Troponin(5th) Baseline 232 ng/L (0-15)
[2024-04-16 22:50] LABS: Alanine Aminotransferase 213 U/L (0-41); Albumin Level 3.7 g/dL (3.5-5.2); Alkaline Phosphatase 129 U/L (40-130); Anion Gap 13.4 (5-19); Aspartate Amino Transferase 293 U/L (0-40); Blood Urea Nitrogen 14 mg/dL (6-20); Calcium 8.9 mg/dL (8.5-10.5); Carbon Dioxide 29 mmol/L (22-29); Chloride 97 mmol/L (98-107); Creatinine Clr Calc Pharmacy 100.4447; Glomerular Filtration Rate 116.7 mL/min (90-130); Glucose 180 mg/dL (65-115); Lipase 22 U/L (13-60); NT Pro B Type Natriuretic Pept 132 pg/mL (0-125); Osmolality Calculated 287 mOsm/kg (285-295); Potassium 3.4 mmol/L (3.5-5.1); Sodium 136 mmol/L (136-145); Total Bilirubin 0.9 mg/dL (0.15-1.2); Total Protein 5.7 g/dL (6.6-8.7)
[2024-04-16 23:05] LABS: Bilirubin Urine Negative (Negative); Blood Urine Negative (Negative); Glucose Urine UA Negative (Normal); Ketones Urine Trace (Negative); Leukocyte Esterase Urine Negative (Negative); Nitrate Urine Negative (Negative); Protein Urine Trace (Negative); Urine Appearance Clear (CLEAR); Urine Color Dark Yellow (Yellow); pH Urine 5.5 (5-7)
[2024-04-16 23:07] LABS: Add Urine Microscopic? YES; Bacteria Urine None Seen /hpf; RBC Urine 0-2 /hpf (0-2); Squamous Epithelial Cell Urine 0-5 /hpf (0-5); WBC Urine 0-5 /hpf (0-5)
--- NOTE | 2024-04-16 23:07 | P.HP_ITS ---
Providers/Chief Complaint 2 Primary Care Provider: Maria Walters MD Chief Complaint: Chest Pain History of Present Illness Moisés Gonzalez is a 58 year old male diabetes, hypertension, CAD with prior CABGx3 NUNEZ to LAD, free radial graft to the diagonal, and SVG to OM in 2015 and stent in 2020. He had PCI to the ostium to mid RCA with ISR in which 2 GLENN were placed in 2021. At that time, the LCx stent had moderate to severe ISR. A recent coronary angiogram with stent placement. The procedure occurred on 02/26/24 and involved stenting to the mid SVG to OM bypass graft, distal SVG to OM and balloon angioplasty to the ostial circumflex artery coming in with 2-week history of chest discomfort. Case has been presented to Dr. Barron who is planning for angiogram in the morning. Patient is stating that since his angioplasty he never felt better, he always had chest tightness and discomfort and pressure-like sensation which has gotten worse in last few weeks, for last 2 weeks he has been experiencing shortness of breath associated with chest pain which is radiating towards his jawline, he has seen cardiology in the clinic, increase ischemic burden on the stress test is evident, his chest pain associate with shortness of breath and nausea but no vomiting. He has been compliant with his medications does not drink alcohol, does not smoke. In the ER he has been diagnosed with non-STEMI, we have requested Nitropaste for his chest pain, he is hemodynamically stable at this point at the time of my evaluation Patient has a very strong family history of premature coronary disease Review of Systems 2 Const: Denies: fever(s) Eyes: Denies: change in vision ENMT: Denies: throat pain Card: Reports: chest pain Resp: Reports: dyspnea GI: Reports: nausea : Denies: flank pain Musc: Denies: back pain Medications/Allergies Home Medications Medication Instructions Recorded Confirmed Last Taken Type atorvastatin 40 mg tablet 40 mg PO BEDTIME 07/04/22 03/11/24 02/25/24 22:00 History nitroglycerin 0.4 mg sublingual 0.4 mg sublingual Q5M PRN Chest 07/04/22 03/11/24 Unknown History tablet Pain bilateral hinged knee brace #1 ea 06/15/23 03/11/24 Unknown Rx trazodone 50 mg tablet 100 mg PO BEDTIME 06/15/23 03/11/24 02/25/24 22:00 History economy brace right knee #1 ea 07/25/23 03/11/24 Unknown Rx blood-glucose meter,continuous #1 ea 08/08/23 03/11/24 Unknown Rx (Dexcom G6 Terrazzo Worker) infusion set for insulin pump #10 ea 08/29/23 03/11/24 Unknown Rx (AutoSoft XC Infusion Set 23 ) insulin aspart U-100 100 unit/mL 81 unit (0.81 mL) SUBCUT .basal 08/29/23 03/11/24 02/26/24 06:30 Rx subcutaneous solution (Novolog rate #10 mL U-100 Insulin aspart) insulin pump cartridge (t:slim X2 #10 ea 08/29/23 03/11/24 Unknown Rx subcutaneous cartridge) subcutaneous insulin pump (t:slim #1 ea 08/29/23 03/11/24 Unknown Rx X2 Control-IQ) blood-glucose transmitter (Dexcom #1 ea 11/22/23 03/11/24 Unknown Rx G6 Transmitter device) tirzepatide 15 mg/0.5 mL 15 mg (0.5 mL) SUBCUT Q7D 30 days 12/05/23 03/11/24 02/23/24 06:30 Rx subcutaneous pen injector #2.5 mL (Antonio) blood-glucose sensor (Dexcom G6 #3 ea 12/28/23 03/11/24 Unknown Rx Sensor device) aspirin 81 mg tablet,delayed 81 mg PO BEDTIME 01/16/24 03/11/24 02/26/24 08:00 History release hydrochlorothiazide 25 mg tablet 25 mg PO DAILY 01/16/24 03/11/24 02/25/24 06:30 History prasugrel 10 mg tablet (Effient) 10 mg PO DAILY #90 tabs 03/27/24 Unknown Rx Allergies Allergy/AdvReac Type Severity Reaction Status Date / Time fentanyl Allergy Severe ALGY-Difficulty Verified 04/16/24 21:46 Breathing isosorbide [From Imdur] Allergy ADR-Headach Verified 04/16/24 21:46 e Penicillins Allergy Unknown Verified 04/16/24 21:46 PFSH Acute 2 PFSH: Medical History (Updated 04/17/24 @ 00:10 by Cj Gutierrez MD) Lateral epicondylitis Cholecystectomy planned Obesity FH: CABG (coronary artery bypass surgery) CAD (coronary artery disease) Hyperlipidemia Surgical History (Updated 04/17/24 @ 00:10 by Cj Gutierrez MD) Hx of appendectomy Social History Smoking and tobacco/nicotine status: never used tobacco/nicotine Second hand smoke exposure: No Alcohol intake: current Alcohol intake frequency: holidays/special occasions only Substance/Drug Use: never Adopted: No Caregiver/support person: Yes Lives independently: No Household members: spouse Housing: House Marital status: Number of children: 5 Number of grandchildren: 1 Highest education level completed: Some College, No Degree service: Yes Current occupational status: employed Current occupation: [employer] Current occupational exposures/hazards: No Pets and animals: Yes Sexually active: Yes Do you think of yourself as: Straight/Heterosexual Current gender identity: Male Special asad needs: No Agree to transfusion: Yes Vitals/I&O/Wt Last Vital Signs Temp 97.9 F 04/16/24 21:41 Pulse 74 04/16/24 22:38 Resp 18 04/16/24 22:38 BP 156/83 04/16/24 22:38 Pulse Ox 98 04/16/24 22:38 O2 Del Method Room Air 04/16/24 22:38 04/16/24 04/16/24 04/17/24 14:59 22:59 06:59 Intake Total 0 / 0 Balance 0 / 0 Weight last 48 hrs Weight 65.317 kg Physical Exam 2 Narrative: Patient is chest pain free at the time of my evaluation Hemodynamically stable Euvolemic GCS 15 Currently on room air Hemodynamic stable Pleasant and cooperative S1, S2 at the bedside Lower extremity no significant edema Data 04/16/24 22:10 04/16/24 22:10 A&P Assessment and plan (1) CAD (coronary artery disease): Qualifiers: Coronary Disease-Associated Artery/Lesion type: bypass graft [place] vs. transplanted heart: [place] heart Associated angina: without angina Qualified Code(s): I25.810 - Atherosclerosis of coronary artery bypass graft(s) without angina pectoris (2) Acute non-ST elevation myocardial infarction (NSTEMI): Plan Non-STEMI Established history of coronary disease with stent and CABG Start heparin drip along Nitropaste Patient has been loaded with aspirin continue aspirin daily regimen along Plavix Patient was on Effient because he could not tolerate Brilinta because of shortness of breath Continue statins Requested echo N.p.o. starting now Can use morphine if he becomes hemodynamically unstable with nitro use Patient is type I diabetic will use insulin at lower dose with sliding scale Full code N.p.o. DVT prophylaxis will be added with anticoagulating agent once he is done with angiogram Patient has been compliant with the medication, Patient has been compliant with medication, has not missed any doses Attestations 2 Medical Necessity Statement*: Anticipating discharge after staying more than 2 midnights in the hospital Diagnoses Coronary artery disease involving coronary bypass graft of [place] heart without angina pectoris I25.810 Coronary Disease-Associated Artery/Lesion type: bypass graft [place] vs. transplanted heart: [place] heart Associated angina: without angina Acute non-ST elevation myocardial infarction (NSTEMI) I21.4
[2024-04-16 23:13] LABS: Specific Gravity, Urine 1.033 (1.005-1.030)
[2024-04-16] MEDS: clopidogrel 300 mg Tablet PO (23:22)
[2024-04-16] MEDS: heparin 5,000 unit/mL INJ 1 mL 3900 UNIT IVP (23:23)
[2024-04-16] MEDS: heparin drip 25,000 UNIT/500 ML PREMIX 15.68 UNIT IV (23:24)
[2024-04-16 23:44] LABS: Amphetamines Screen Urine Negative (Negative); Barbiturates Screen Urine Negative (Negative); Benzodiazepines Screen Urine Negative (Negative); Cocaine Screen Urine Negative (Negative); Opiate Screen Urine Positive (Negative); PCP Screen Urine Negative (Negative); THC Screen Urine Negative (Negative)
[2024-04-16 23:51] VITALS: BP 132/70; PULSE 70
[2024-04-16] MEDS: nitroglycerin 1 gm/inch oint Pkt 1 INCH TOPICAL (23:51)
[2024-04-16 23:53] VITALS: BP 132/70; PULSE 92; RESP 17; O2SAT 98
[2024-04-16 23:57] LABS: Alcohol Level < 10 mg/dL (0-10)
--- NOTE | 2024-04-16 23:59 | ECG_ITS ---
[facility] Test Date: 2024-04-17 Pat Name: Moisés Gonzalez Department: Room: 105 Gender: Male Edge Stainer: : 1965 Requested By: Edgar Brush Order Number: [id number] Olvin MD: Luis Armando Barron M.D. Measurements Intervals [place] Rate: 66 P: 67 AK: 161 QRS: 62 QRSD: 96 T: 71 QT: 424 QTc: 446 Interpretive Statements SINUS RHYTHM Compared to ECG 01/16/2024 13:31:05 T-wave abnormality no longer present Electronically Signed On 04-18-2024 12:36:06 INDUSTRIAL DESIGN INTERN by Luis Armando Barron M.D. [email or web address]
[2024-04-17] VITALS (49 sets, daily range): BP systolic 92–154; BP diastolic 57–88; PULSE 63–93; RESP 2–26; TEMP 36.7–37; O2SAT 71–98; BMI 26.2
--- NOTE | 2024-04-17 00:04 | PC.NURSE ---
ATTEMPTED TO CALL REPORT AT 0005
[2024-04-17 00:18] LABS: Troponin 5 2HR Delta 4.9 ABS# (0-10)
[2024-04-17 00:20] LABS: Troponin 5 2HR 236.9 ng/L (0-15)
--- NOTE | 2024-04-17 00:42 | USCV_ITS ---
Moisés Gonzalez Age: 58 Gender: M : 1965 Exam Date: 04/17/2024 01:18 Ordering Phys: Cj Gutierrez MD Technologist: GARIMA Exam Location: [facility] [place] Indication: nstemi hx CAD s/p stents x 5. s/p CABG 2018 BP: 141 / 88 HR: 62 Rhythm: Sinus Technical Quality: Adequate MEASUREMENTS (Male / Female) Normal Values 2D ECHO LV Diastolic Diameter PLAX 3.4 cm 4.2 - 5.9 / 3.9 - 5.3 cm IVS Diastolic Thickness 1.7 cm 0.6 - 1.0 / 0.6 - 0.9 cm IVS Systolic Thickness 2.2 cm LVPW Diastolic Thickness 1.6 cm 0.6 - 1.0 / 0.6 - 0.9 cm LVPW Systolic Thickness 1.8 cm LVOT Diameter 1.9 cm LV Ejection Fraction 2D Teich 61.7 % LV Ejection Fraction MOD 4C 59.8 % LV Ejection Fraction MOD 2C 52.4 % LV Ejection Fraction 2C AL 52.8 % LA Diameter 3.6 cm LA Sys Volume AL 44.3 cm cubed LA Sys Volume Index AL 25.8 cm cubed/m squared Aorta at Sinotubular Diameter 3.2 cm IVC Diameter 2.1 cm M-MODE LA Ao Ratio MM 1.4 MV E Point Septal Separation 1.0 cm AV Cusp Separation MM 1.8 cm DOPPLER AV Peak Velocity 122.0 cm/s LVOT Peak Velocity 104.0 cm/s AV Area Cont Eq vti 3.0 cm squared AV Area Cont Eq pk 2.5 cm squared MV Peak Velocity 159.0 cm/s MV Area PHT 3.1 cm squared Mitral E to A Ratio 0.8 TV Peak Velocity 268.5 cm/s TR Peak Velocity 275.0 cm/s TR Peak Gradient 30.3 mmHg TV Peak E Velocity 101.0 cm/s PV Peak Velocity 127.0 cm/s FINDINGS Left Ventricle Left ventricle is normal in size. LV systolic function is normal with EF of 55-60%. No regional wall motion abnormalities are seen. Grade 1 diastolic dysfunction Right Ventricle Normal in size and function Right Atrium Normal in size Left Atrium Normal in size Mitral Valve Moderate mitral annular calcification. Mild mitral regurgitation. Aortic Valve Aortic valve is thickened. Mild aortic regurgitation. No significant stenosis. Tricuspid Valve Mild tricuspid regurgitation. Pulmonary artery systolic pressure is normal. Pulmonic Valve Not well visualized Pericardium Normal Aorta Normal in size IVC Not well visualized. CONCLUSIONS LV systolic function is normal with EF of 55 to 60%. Grade 1 diastolic dysfunction Mild mitral regurgitation. Mild aortic regurgitation Mild tricuspid regurgitation. Compared to prior echocardiogram from 02/2024, no significant changes are seen Luis Armando Barron MD (Electronically Signed) Final Date: 17 April 2024 12:30 S
[2024-04-17 01:03] LABS: Glucose Point of Care 75 mg/dL (70-110)
[2024-04-17] MEDS: heparin drip 25,000 UNIT/500 ML PREMIX 15.6 UNIT IV (01:06)
[2024-04-17] MEDS: morphine 4 mg/mL SDV 1 mL 2 MG IVP (01:54)
[2024-04-17 04:17] LABS: Glucose Point of Care 102 mg/dL (70-110)
[2024-04-17] MEDS: morphine 4 mg/mL SDV 1 mL IVP ×3 (05:15→19:54)
[2024-04-17] MEDS: nitroglycerin drip 50 MG/250 ML PREMIX IV (05:42)
[2024-04-17] MEDS: ondansetron 2 mg/ML SDV 2 mL 4 MG IVP (05:43)
[2024-04-17 06:10] LABS: Basophils % 1.1 %; Eosinophils # 0.1 10^3/uL (0.0-0.8); Eosinophils % 2.6 %; Lymphocytes # 1.4 10^3/uL (0.8-4.8); Mean Corpuscular HGB Conc 33.6 g/dL (30-55); Mean Corpuscular Hemoglobin 29.8 pg (27-33); Mean Corpuscular Volume 88.8 fl (82-101); Mean Platelet Volume 9.2 fL (7.4-10.4); Monocytes # 0.4 10^3/uL (0.2-0.9); Neutrophils # 1.65 10^3/uL (1.8-7.7); Nucleated Red Blood Cells % 0 %; Platelet Count 138 10^3/cmm (157-399); Red Blood Count 5.07 10^6/uL (3.85-5.65); Red Cell Distribution Width 14.2 % (12.1-15.1); White Blood Count 3.51 10^3/uL (3.29-11.43)
[2024-04-17] MEDS: dextrose 5%-sod chloride 0.9% 1,000 ML 50 ML IV (06:15)
[2024-04-17 06:27] LABS: Anion Gap 14.7 (5-19); Blood Urea Nitrogen 12 mg/dL (6-20); Calcium 9.1 mg/dL (8.5-10.5); Carbon Dioxide 29 mmol/L (22-29); Chloride 97 mmol/L (98-107); Creatinine Clr Calc Pharmacy 119.5491; Glomerular Filtration Rate 139.4 mL/min (90-130); Glucose 85 mg/dL (65-115); Magnesium 1.9 mg/dL (1.7-2.3); Osmolality Calculated 283 mOsm/kg (285-295); Potassium 3.7 mmol/L (3.5-5.1); Sodium 137 mmol/L (136-145)
[2024-04-17 06:30] LABS: Troponin 5 6HR 262.2 ng/L (0-15); Troponin 5 6HR Delta 30.2 ng/L (0-12)
[2024-04-17 06:33] LABS: Partial Thromboplastin Time 81.2 SECONDS (23.9-36.7)
--- NOTE | 2024-04-17 08:09 | PC.NURSE ---
Pt blood sugar checked, his pump reads 110
--- NOTE | 2024-04-17 08:20 | P.CONIM_ITS ---
Providers/Reason For Consult 2 Consulting Physician/Specialty*: Luis Armando Barron MD/ Cardiology Reason for Consult*: NSTEMI Requesting Physician: Dr Brush Attending Physician: Cj Gutierrez MD Primary Care Provider: Maria Walters MD History of Present Illness History of Present Illness Moisés Gonzalez is a 58 year old male with past medical history of coronary artery disease status post CABG with NUNEZ to LAD, SVG to OM free radial graft to diagonal artery who had recent PCI of SVG to OM and balloon angioplasty of ostial RCA and left circumflex arteries. Per patient he felt worse after the stent placement and has been having almost daily chest pressures. It was worsening and came to the hospital today. Initial troponin was elevated at 232 that trended up to 262 at 6 hours. He had a recent stress test after coronary angiogram that did demonstrate ischemia. EKG shows sinus rhythm with no significant ST T wave changes. Review of Systems 2 Const: Denies: fever(s) Eyes: Denies: change in vision ENMT: Denies: throat pain Card: Reports: chest pain Resp: Reports: dyspnea GI: Reports: nausea : Denies: flank pain Musc: Denies: back pain Medications/Allergies Home Medications Medication Instructions Recorded Confirmed Last Taken Type atorvastatin 40 mg tablet 40 mg PO BEDTIME 07/04/22 04/17/24 04/15/24 History nitroglycerin 0.4 mg sublingual 0.4 mg sublingual Q5M PRN Chest 07/04/22 04/17/24 Unknown History tablet Pain bilateral hinged knee brace #1 ea 06/15/23 04/17/24 Unknown Rx trazodone 50 mg tablet 100 mg PO BEDTIME 06/15/23 04/17/24 04/15/24 History economy brace right knee #1 ea 07/25/23 04/17/24 Unknown Rx blood-glucose meter,continuous #1 ea 08/08/23 04/17/24 Unknown Rx (Dexcom G6 Airline Pilot/First Officer) infusion set for insulin pump #10 ea 08/29/23 04/17/24 Unknown Rx (AutoSoft XC Infusion Set 23 ) insulin aspart U-100 100 unit/mL 81 unit (0.81 mL) SUBCUT .basal 08/29/23 04/17/24 04/16/24 Rx subcutaneous solution (Novolog rate #10 mL U-100 Insulin aspart) insulin pump cartridge (t:slim X2 #10 ea 08/29/23 04/17/24 Unknown Rx subcutaneous cartridge) subcutaneous insulin pump (t:slim #1 ea 08/29/23 04/17/24 Unknown Rx X2 Control-IQ) blood-glucose transmitter (Dexcom #1 ea 11/22/23 04/17/24 Unknown Rx G6 Transmitter device) tirzepatide 15 mg/0.5 mL 15 mg (0.5 mL) SUBCUT Q7D 30 days 12/05/23 04/17/24 04/14/24 Rx subcutaneous pen injector #2.5 mL (Antonio) blood-glucose sensor (Dexcom G6 #3 ea 12/28/23 04/17/24 Unknown Rx Sensor device) aspirin 81 mg tablet,delayed 81 mg PO BEDTIME 01/16/24 04/17/24 04/15/24 History release hydrochlorothiazide 25 mg tablet 25 mg PO DAILY 01/16/24 04/17/24 04/16/24 History prasugrel 10 mg tablet (Effient) 10 mg PO DAILY #90 tabs 03/27/24 04/17/24 04/16/24 Rx prednisolone acetate 1 % eye 1 drp ophthalmic (eye) TID 04/17/24 04/17/24 04/16/24 History drops,suspension Allergies Allergy/AdvReac Type Severity Reaction Status Date / Time fentanyl Allergy Severe ALGY-Difficulty Verified 04/16/24 21:46 Breathing isosorbide [From Imdur] Allergy ADR-Headach Verified 04/16/24 21:46 e Penicillins Allergy Unknown Verified 04/16/24 21:46 Current Medications Generic Name Dose Route Start Last Admin Trade Name Freq PRN Reason Stop Dose Admin Heparin Sodium/Sodium Chloride 25,000 unit in 500 mls @ 0 mls/hr 04/17/24 00:45 04/17/24 06:49 Heparin Drip IV 11.18 unit/kg/hr CONT DELANEY 14.6 mls/hr Titration Protocol Per Protocol Dextrose/Sodium Chloride 1,000 mls @ 50 mls/hr 04/17/24 02:45 04/17/24 06:15 Dextrose 5%-Sod Chloride 0.9% IV 50 mls/hr .Q20H DELANEY Administration Nitroglycerin/Dextrose 50 mg in 250 mls @ 0 mls/hr 04/17/24 05:00 04/17/24 06:13 Nitroglycerin Drip IV 20 mcg/min .Q0M DELANEY 6 mls/hr Titration Protocol Per Protocol Insulin Human Lispro 0 unit 04/17/24 08:00 04/17/24 07:54 Insulin Lispro 100 Unit/1 Ml SUBCUT Not Given TIDWM [facility] Protocol Morphine Sulfate 4 mg 04/17/24 04:57 04/17/24 05:15 Morphine 4 Mg/Ml Sdv 1 Ml IVP 4 mg Q4H PRN Administration CP Ondansetron HCl 4 mg 04/17/24 00:42 04/17/24 05:43 Ondansetron 2 Mg/Ml Sdv 2 Ml IVP 4 mg Q6H PRN Administration NAUSEA AND VOMITING PFSH Acute 2 PFSH: Medical History (Updated 04/17/24 @ 00:10 by Cj Gutierrez MD) Lateral epicondylitis Cholecystectomy planned Obesity FH: CABG (coronary artery bypass surgery) CAD (coronary artery disease) Hyperlipidemia Surgical History (Updated 04/17/24 @ 00:10 by Cj Gutierrez MD) Hx of appendectomy Social History Smoking and tobacco/nicotine status: never used tobacco/nicotine Second hand smoke exposure: No Alcohol intake: current Alcohol intake frequency: holidays/special occasions only Substance/Drug Use: never Adopted: No Caregiver/support person: Yes Lives independently: No Household members: spouse Housing: House Marital status: Number of children: 5 Number of grandchildren: 1 Highest education level completed: Some College, No Degree service: Yes Current occupational status: employed 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 Current occupational exposures/hazards: No Pets and animals: Yes Sexually active: Yes Do you think of yourself as: Straight/Heterosexual Current gender identity: Male Special asad needs: No Agree to transfusion: Yes Vitals/I&O/Wt Last Vital Signs Temp 98.0 F 04/17/24 07:29 Pulse 71 04/17/24 07:29 Resp 18 04/17/24 07:29 BP 115/70 04/17/24 07:29 Pulse Ox 95 04/17/24 07:29 O2 Del Method Room Air 04/17/24 07:29 04/16/24 04/17/24 04/17/24 22:59 06:59 14:59 Intake Total 0 / 0 135.679 / 135.679 Balance 0 / 0 135.679 / 135.679 Weight last 48 hrs Weight 150 lb 11.2 oz Weight 148 lb Weight 144 lb Physical Exam 2 Narrative: GENERAL: Patient is alert, awake and oriented x3. [] NECK: No jugular vein distension. [] HEENT: No cyanosis. No icterus. No pallor. [] HEART: Regular S1 and S2. No murmur, rub or gallop. [] LUNGS: Clear to auscultate bilaterally. [] CENTRAL NERVOUS SYSTEM: Grossly nonfocal. [] EXTREMITIES: Lower extremities with 1+ edema bilaterally Data 04/18/24 05:33 04/17/24 06:02 A&P Assessment and plan (1) Acute non-ST elevation myocardial infarction (NSTEMI): (2) CAD (coronary artery disease): Qualifiers: Coronary Disease-Associated Artery/Lesion type: bypass graft [place] vs. transplanted heart: [place] heart Associated angina: without angina Qualified Code(s): I25.810 - Atherosclerosis of coronary artery bypass graft(s) without angina pectoris (3) Hyperlipidemia: Plan Patient has presented with non-ST elevation [place]. Will proceed with coronary angiogram with possible PCI. Risks and benefits of the procedure were discussed with the patient. Continue aspirin and Effient. High intensity statin therapy NPO for now. ECHO ordered Thank you for involving us with care of this patient. We will continue to follow. Please call with questions. Consult Attestations 2 Medical Necessity Statement: Care expected to cross 2 midnights. Coding Level of Care Code Acute Code for [facility] Fwd Diagnoses Acute non-ST elevation myocardial infarction (NSTEMI) I21.4 Coronary artery disease involving coronary bypass graft of [place] heart without angina pectoris I25.810 Coronary Disease-Associated Artery/Lesion type: bypass graft [place] vs. transplanted heart: [place] heart Associated angina: without angina Hyperlipidemia E78.5
[2024-04-17] MEDS: pantoprazole 40 mg SDV IVP ×2 (08:36→19:55)
[2024-04-17] MEDS: hydroCHLOROthiazide 25 mg Tablet PO (08:36)
[2024-04-17] MEDS: prasugrel 10 MG Tablet PO (08:36)
--- NOTE | 2024-04-17 08:52 | XACV_ITS ---
Exam Room: [facility] Ht: 160 cm Wt: 68 kg BSA: 1.76 m2 Gender: Male : 1965 Any Known Allergies: Other Exam Priority: Routine Procedure(s): Procedure Description: Diagnostic procedure Procedure Description: PCI procedure Procedure Description: Coronary IVUS Procedure Description: Drug Eluting Coronary Stent Procedure Description: PTCA Procedure Description: Miscellaneous Procedure Description: ACT Procedure Description: Coronary Angiography Diagnostic Cath Status: Urgent Diagnostic Findings * Left Main has no signfiicant disease. * Left Anterior Descending has OUTCOME ANALYST in mid segment. * Ostial Proximal Right Coronary Artery: severe 80% stenosis, ISAURO: 3 flow. There is likely geographical miss from prior stent. Has mid vessel 40% ISR. * Mid Circumflex: severe 80% instent restenosis, ISAURO: 3 flow. * Radial graft to Diagonal graft: patent. * SVG graft to Obtuse Marginal Branch Segment: patent. Patent prior stent. * Left Internal Mammary Artery to Distal Left Anterior Descending graft: patent. * Coronary angiography shows right dominance. PCI Status: Urgent PCI Indication: NSTE - ACS Interventional Findings * Procedure note: We engaged left artery with XB catheter. IV heparin was administered to obtain anticoagulation. Run-through wire was used to cross the stenosis and was put in distal left circumflex artery. We predilated the stenosis with 2.5 x 12 mm NC balloon. This was followed by placement of 2.75 x 18 mm resolute Michel drug-eluting stent in mid left circumflex artery. The stent was postdilated with 3.0 x 8 mm NC balloon at high pressure. At this time final angiogram was performed that showed excellent stent expansion, no residual stenosis and ISAURO-3 flow. Guidewire and guide catheter were removed. We then turned our attention to ostial RCA stenosis. JR4 guide catheter was used to engage the vessel. Run-through wire was used to cross the stenosis. We predilated the stenosis with 3.0 x 12 mm NC balloon. This was followed by placement of 3.5 x 12 mm resolute [place] drug-eluting stent extending into the aorta to confirm covering ostial RCA. We then postdilated the stent with 3.5 x 12 mm NC balloon. At this time final angiogram was performed that showed excellent stent expansion, no residual stenosis and ISAURO-3 flow. Guidewire and guide catheter were removed. Patient left the Hand Sprayer in stable condition.. * Proximal Right Coronary Artery: 80% stenosis treated with a MDT NC EUPHORA RX [id number] BALLOON, MDT R MICHEL 3.5X12 GLENN, MDT NC EUPHORA RX [id number] BALLOON, and MDT NC EUPHORA RX 3.84S06EG BALLOON. 0% residual stenosis, ISAURO: 3 flow. * Mid Circumflex to Mid Circumflex: 80% stenosis treated with a MDT NC EUPHORA RX 2.06T79GN BALLOON, MDT R MICHEL 2.75X18 GLENN, and MDT NC EUPHORA RX 3.88H06PS BALLOON. 0% residual stenosis, ISAURO: 3 flow. Conclusions 1. Severe mid left circumflex artery in-stent restenosis status post successful revascularization with 1 stent. Severe ostial RCA stenosis status post successful revascularization with 1 stent. Patent NUNEZ to LAD, radial graft to diagonal artery and SVG to OM.. 2. Patient has prior CABG. 3. Proximal Right Coronary Artery was treated with a Balloon, Drug Eluting Stent, Balloon, and Balloon. 4. Mid Circumflex to Mid Circumflex was treated with a Balloon, Drug Eluting Stent, and Balloon. Recommendations * Dual antiplatelet therapy with aspirin and plavix for atleast 1 year. * High intensity statin therapy. * Outpatient cardiology follow up in 2 weeks. Interventional RX Recommendation: PCI w/o planned CABG Diagnostic RX Recommendation: PCI w/o planned CABG Anticoagulation: Heparin Pressures Phase:Rest AO : 95 / 64 ( 80 ) @ 9:33:00 AM 94 / 63 ( 77 ) @ 9:43:00 AM 95 / 57 ( 73 ) @ 10:13:00 AM 92 / 53 ( 71 ) @ 10:22:00 AM 87 / 54 ( 70 ) @ 10:32:00 AM 95 / 58 ( 75 ) @ 10:40:00 AM 87 / 53 ( 69 ) @ 10:52:00 AM 99 / 60 ( 80 ) @ 10:56:00 AM Clinical Evaluation EBL: 5mL-10mL Procedural Details Procedure Consent Obtained. Admit Source: In Patient. Pre-Procedure Time Out. Identified patient by full name and date of as verbalized by the patient/guarantor. Does the consent match the physician's order: Yes. Accurate & Complete Informed Consent: Yes. Inpatient/Outpatient History & Physical on Chart: Yes. If H&P is completed, is and addenduem needed: No; If yes, is the addendum complete: N/A. Visualize and Verify Site with Patient/Guarantor: N/A. Relevant Radiology Images available: N/A. Pre-op teaching completed and patient verbalized understanding. The risks, benefits, and alternatives of sedation and/or procedure were discussed by physician. The patient agrees to continue. Procedure started. [facility] Clinical Fraility Score: 4: Vulnerable. Hand Sprayer Indications: Worsening Angina. Chest Pain Symptom Assessment: Typical Angina Symptoms. Cardiovascular Instability: Yes, if yes, Persistant Ischemic Symptoms. Correct patient, site and procedure confirmed by cath team. Current diagnosis: NSTEMI. PERRLA. Strong, equal hand manager human resources bilaterally. Lungs clear x 5 lobes. IV Site on Arrival: 20 gauge in the left forearm. IV Fluids: 0.9% NaCl at KVO. 50 mL infused prior to warehouse general laborer. Pre Procedural Pulses: bilateral dorsalis pedis was 3+. Oxygen started at 2liters/min via nasal canula. bilateral groins was prepped with chloroprep then draped in the usual sterile fashion. Baseline sample Acquired. HR: 68 BPM. Physician notified. Physician arrived. Physician scrubbed in. Immediate Pre-Procedure Time Out. Correct Patient: Yes; Correct Procedure: Yes; Correct Site: Yes; Correct Patient Position: Yes; Correct Supplies: Yes; Dried Flammable Prep: Yes; Blood Products Available: N/A;. Lidocaine 1% infiltrated to the right groin. Arterial access obtained with micropuncture set. Needle out, manual pressure held to puncture site. Lidocaine 1% infiltrated to the right groin. US guided access obtained in R groin. Arterial access obtained with micropuncture set. A 5 [place] JL4 catheter in over wire. Multiple views taken of left coronary artery. Catheter removed over the standard wire. A 5 [place] JR4 catheter in over wire. NUNEZ to LAD visualized. SVG's to OM visualized and patent. Radial graft to diagonal visualized. Catheter redirected to the RCA. Multiple views taken of right coronary artery. Catheter removed over the standard wire. Hand injection performed through the sheath. 6 [place] XB 3.5 guide catheter was inserted over the wire. ACT drawn. Results 169 seconds. Therapeutic limits - pre-heparin administration 90-150 seconds and monitoring heparin during a vascular procedure >250 seconds. Runthrough guidewire was advanced through the guide catheter to lesion in the mid Circ. IVUS catheter in over the Runthrough wire. Unable to advance IVUS catheter past circumflex lesion. IVUS catheter out. Balloon inserted to lesion in the mid Circ. Unable to cross lesion. Undeployed balloon out. Guideliner inserted. Balloon inserted to lesion in the mid Circ. Inflation number : 1 A MDT NC EUPHORA RX 2.90H10OA BALLOON was prepped and advanced across the Mid CX , then inflated to 22 BIBI for 0:23 seconds. Inflation number: 2 The MDT NC EUPHORA RX 2.96P31VZ BALLOON was reinflated across the Mid CX, to 20 BIBI for 0:13 seconds. Balloon out. Stent inserted to lesion in the mid Circ. Inflation Number : 3 A MDT R MICHEL 2.75X18 GLENN -Lot Number# [id number] Exp 09/10/2025 was prepped and advanced across the Mid CX. The stent was deployed at 12 BIBI for 0:22 seconds. Stent balloon out over wire. Results checked. Balloon inserted to lesion in the mid Circ. Undeployed 3.0x15mm NC Euphora balloon out, unable to cross. Balloon inserted to lesion in the mid Circ. Inflation number : 4 A MDT NC EUPHORA RX [id number] BALLOON was prepped and advanced across the Mid CX , then inflated to 18 BIBI for 0:16 seconds. Inflation number: 5 The MDT NC EUPHORA RX 3.57H87KX BALLOON was reinflated across the Mid CX, to 20 BIBI for 0:15 seconds. Results checked. Balloon out. Guideliner out. Results checked. Balloon inserted to lesion in the mid Circ. Balloon out. Guideliner inserted. Balloon inserted to lesion in the mid Circ. Inflation number: 6 The MDT NC EUPHORA RX 3.27Z31OJ BALLOON was reinflated across the Mid CX, to 24 BIBI for 0:25 seconds. Inflation number: 7 The MDT NC EUPHORA RX 3.18P61MR BALLOON was reinflated across the Mid CX, to 20 BIBI for 0:18 seconds. Balloon out. Results checked. Guideliner removed. Results checked. Wire out. ACT drawn. Results out of range high. Therapeutic limits - pre-heparin administration 90-150 seconds and monitoring heparin during a vascular procedure >250 seconds. Guide catheter out. 6 [place] JR 4 SH guide catheter was inserted over the wire. Runthrough guidewire was advanced through the guide catheter to lesion in the prox RCA. IVUS catheter in over the wire. IVUS run performed of RCA. IVUS catheter out. Balloon inserted to lesion in the prox RCA. Inflation number : 1 A MDT NC EUPHORA RX 3.81V03UW BALLOON was prepped and advanced across the Prox RCA , then inflated to 16 BIBI for 0:20 seconds. Balloon out. Results checked. Stent inserted to lesion in the prox RCA. Inflation Number : 2 A MDT R MICHEL 3.5X12 GLENN -Lot Number# [id number] Exp 08/21/2025 was prepped and advanced across the Prox RCA. The stent was deployed at 12 BIBI for 0:19 seconds. Stent balloon out over wire. Results checked. Balloon inserted to lesion in the prox RCA. Undeployed 3.5x12mm NC balloon out. Guideliner inserted. Guideliner and Runthrough wire out. Guide catheter out. 6 [place] 0.75 guide catheter was inserted over the wire. ACT drawn. Results 244 seconds. Therapeutic limits - pre-heparin administration 90-150 seconds and monitoring heparin during a vascular procedure >250 seconds. New Runthrough wire inserted to the RCA. Balloon inserted to lesion in the prox RCA. Inflation number : 3 A MDT NC EUPHORA RX 3.90D19YH BALLOON was prepped and advanced across the Prox RCA , then inflated to 14 BIBI for 0:13 seconds. Inflation number: 4 The MDT NC EUPHORA RX 3.21X69FU BALLOON was reinflated across the Prox RCA, to 6 BIBI for 0:07 seconds. Balloon out. Results checked. Balloon inserted to lesion in the prox RCA. Inflation number: 5 The MDT NC EUPHORA RX 3.93W24RB BALLOON was reinflated across the Prox RCA, to 16 BIBI for 0:12 seconds. Inflation number: 6 The MDT NC EUPHORA RX 3.68G20RT BALLOON was reinflated across the Prox RCA, to 16 BIBI for 0:10 seconds. Balloon out. Results checked. Wire out. ACT drawn. Results out of range high. Therapeutic limits - pre-heparin administration 90-150 seconds and monitoring heparin during a vascular procedure >250 seconds. Guide catheter out. A 5 [place] 3DRC catheter in over wire. Cine run performed of RCA. ACT drawn. Results 349 seconds. Therapeutic limits - pre-heparin administration 90-150 seconds and monitoring heparin during a vascular procedure >250 seconds. Catheter out. Lidocaine 1% infiltrated to the right groin. Angioseal closure device inserted. Unable to advance closure device. Removed undeployed. A Suture was successful obtaining hemostatsis at the Right Femoral artery insertion site. Physician scrubbed out. Sheath(s) sutured into position with 2-0 silk and sterile 4x4's and Op-site applied over the site. No oozing or signs and symptoms of hematoma noted. Post Procedure: Pulses reassessed and unchanged. PERRLA. Strong, equal hand manager human resources bilaterally. No VTE prophylaxis required. Medication's Wasted: Heparin = 2000 u. Total IV fluids: 103 mL. PCI Indication: NSTE. Post-op diagnosis: Severe stenosis mid cx and ostial RCA, S/P successful PCI x2 stents. Complications: none. Estimated blood loss: 5mL-10mL. Estimated blood loss: 5mL-10mL. Responsiveness - Normal response to verbal stimuli; alert and oriented, PERRLA. Airway - Unaffected, no intervention required; spontaneous ventilation. Circulation: W/N/L, pulses unchanged. Nausea/Vomiting: No. Procedure completed. Patient transferred by bed to 1st floor. Vital chart was stopped. Access Site Site: Right Femoral artery Sheath Size: 6 Fr Hemostasis Method: Suture Hemostasis Success: Successful Procedure Medications Start: 9:24 AM Stop: 9:24 AM Medication: Versed Amount: 2 mg Route: I.V. Start: 9:24 AM Stop: 9:24 AM Medication: Benadryl Amount: 25 mg Route: I.V. Start: 9:38 AM Stop: 9:38 AM Medication: Versed Amount: 1 mg Route: I.V. Start: 9:50 AM Stop: 9:50 AM Medication: Heparin Amount: 4000 units Route: I.V. Start: 10:02 AM Stop: 10:02 AM Medication: Heparin Amount: 1000 units Route: I.V. Start: 10:33 AM Stop: 10:33 AM Medication: Versed Amount: 1 mg Route: I.V. Start: 10:49 AM Stop: 10:49 AM Medication: Heparin Amount: 2000 units Route: I.V. I, the attending physician, have reviewed and verified all procedure medications. Yes, all medications given per verbal order History/Risk Factors Hypertension: Yes Dyslipidemia: Yes Peripheral Arterial Disease (PAD): No Myocardial Infarction (ND): Yes Obesity: No Renal Disease: No Tobacco Use: Never Prior Interventions PCI: Yes CABG: Yes Valve Surgery: No Date of PCI: 02/26/2024 Report Signatures Finalized by Luis Armando Barron MD on 04/24/2024 11:03 AM
--- NOTE | 2024-04-17 08:52 | PC.PHAR ---
Pt is [facility] but knows his medications well. Pt states he did not get to take bedtime meds last night, since he was here.
--- NOTE | 2024-04-17 09:21 | W.PM.OPSUD ---
Surgery/Procedure H&P Update DATE OF PROCEDURE: April 17, 2024 DATE H&P PERFORMED: 04/17/24 H&P UPDATE INFORMATION: I have reviewed H&P completed within last 30 days, I have examined patient prior to procedure and No changes to prior documentation PREOP DIAGNOSIS: NSTEMI PRIMARY INDICATION FOR PROCEDURE: NSTEMI PLANNED PROCEDURE: Left heart cath with possible percutaneous coronary intervention PATIENT REASSESSED PRIOR TO SEDATION, WITH NO CHANGE NOTED: Yes PHYSICAL EXAM: alert, oriented x 3, clear to auscultation bilaterally and regular rate & rhythm AIRWAY EVAL/ANESTHESIA PLAN: normal airway, ASA III, Local Anesthesia, Risks, benefits & alternatives of sedation and/or procedure discussed and Patient agrees to continue as planned ADDITIONAL INFORMATION: Moderate sedation
[2024-04-17 11:47] LABS: Glucose Point of Care 84 mg/dL (70-110)
--- NOTE | 2024-04-17 12:06 | PM.PROC ---
Procedure Note: Date of procedure: 04/17/24 Pre-procedure diagnosis: NSTEMI Post-procedure diagnosis: other (Severe mid left circumflex artery stenosis/ severe ostial RCA stenosis) Procedure: Left heart cath Left main artery is patent. LAD is occluded. NUNEZ to LAD is patent. SVG to OM is patent. Radial graft to diagonal artery is patent. Mid left circumflex artery stent has severe in-stent restenosis. Status post successful revascularization with 1 stent. Ostial RCA has severe stenosis. Likely geographical miss with prior stent. Status post successful revascularization with 1 stent. Dual antiplatelet therapy with aspirin and Effient High intensity statin therapy Performing Provider: Luis Armando Barron Estimated blood loss (mL): 10 Complications: None Condition: stable Disposition: floor Coding Level of Care Code Acute Code for Chg Fwd
--- NOTE | 2024-04-17 13:45 | PM.PN ---
Subjective Subjective: patient was seen this morning, has had chest pain throughout the night, no shortnesses of breath Vitals/I&O/Wt Last Vital Signs Temp 98.0 F 04/17/24 07:29 Pulse 70 04/17/24 12:30 Resp 9 L 04/17/24 12:30 BP 115/68 04/17/24 12:30 Pulse Ox 98 04/17/24 11:45 O2 Del Method Nasal Cannula 04/17/24 11:37 O2 Flow Rate 2 04/17/24 11:37 04/16/24 04/17/24 04/17/24 22:59 06:59 14:59 Intake Total 0 / 0 135.679 / 135.679 120 / 120 Output Total 250 / 250 Balance 0 / 0 135.679 / 135.679 -130 / -130 Weight last 48 hrs Weight 68.356 kg Weight 67.132 kg Weight 65.317 kg Physical Exam Const: COMMON NORMALS: no acute distress and patient oriented x3 Resp: COMMON NORMALS: normal respiratory effort, No retractions, No use of accessory muscles and clear to auscultation bilaterally AUSCULTATION: clear to auscultation bilaterally Cardio: COMMON NORMALS: regular rate, regular rhythm, S1 normal heart sound present and S2 normal heart sound present RATE: regular rate RHYTHM: regular rhythm HEART SOUNDS: S1 normal heart sound present and S2 normal heart sound present GI: COMMON NORMALS: Normal to inspection, nondistended, normoactive bowel sounds present and non-tender Extremity: COMMON NORMALS: no pedal edema Neuro: COMMON NORMALS: patient oriented x3 Psych: COMMON NORMALS: mental status grossly normal Data 04/17/24 06:02 04/17/24 06:02 A&P Assessment and plan (1) CAD (coronary artery disease): Qualifiers: Coronary Disease-Associated Artery/Lesion type: bypass graft [place] vs. transplanted heart: [place] heart Associated angina: without angina Qualified Code(s): I25.810 - Atherosclerosis of coronary artery bypass graft(s) without angina pectoris (2) Acute non-ST elevation myocardial infarction (NSTEMI): Plan Non-STEMI Established history of coronary disease with stent and CABG heparin drip nitro drip aspirin, Plavix Continue statin echo N.p.o. morphine type I diabetic LDSS Full code N.p.o. DVT prophylaxis lovenox Patient has been compliant with the medication, Patient has been compliant with medication, has not missed any doses Attestations Medical Necessity Statement*: patient requires hospitalization for chest pain, nstemi Diagnoses Coronary artery disease involving coronary bypass graft of [place] heart without angina pectoris I25.810 Coronary Disease-Associated Artery/Lesion type: bypass graft [place] vs. transplanted heart: [place] heart Associated angina: without angina Acute non-ST elevation myocardial infarction (NSTEMI) I21.4
[2024-04-17] MEDS: sodium chloride 0.9% 1,000 ML 100 ML IV (13:52)
[2024-04-17 14:56] LABS: Partial Thromboplastin Time 105.2 SECONDS (23.9-36.7)
[2024-04-17 15:58] LABS: Glucose Point of Care 98 mg/dL (70-110)
[2024-04-17 16:42] LABS: Partial Thromboplastin Time 35.6 SECONDS (23.9-36.7)
[2024-04-17] MEDS: aspirin 81 mg EC Tablet PO (19:55)
[2024-04-17] MEDS: atorvastatin 40 mg Tablet 80 MG PO (19:55)
[2024-04-17] MEDS: temazepam 15 mg Capsule PO (20:08)
[2024-04-18 02:07] LABS: Glucose Point of Care 144 mg/dL (70-110)
[2024-04-18] MEDS: enoxaparin 40 mg/0.4 mL Syringe SUBCUT (03:23)
[2024-04-18 04:41] VITALS: BP 133/73; PULSE 74; RESP 16
--- NOTE | 2024-04-18 04:59 | PC.NURSE ---
Patient blood glucose through out shift per patient personal dexcom: 20:00-102 23:00-87 00:00-67 02:00-144 checked with Accu check
[2024-04-18 05:40] LABS: Basophils % 0.5 %; Eosinophils # 0.2 10^3/uL (0.0-0.8); Eosinophils % 3.8 %; Hematocrit 38.5 % (37-53); Lymphocytes # 0.8 10^3/uL (0.8-4.8); Lymphocytes % 21.3 %; Mean Corpuscular HGB Conc 34.5 g/dL (30-55); Mean Corpuscular Hemoglobin 30.4 pg (27-33); Mean Corpuscular Volume 87.9 fl (82-101); Mean Platelet Volume 9.2 fL (7.4-10.4); Monocytes # 0.5 10^3/uL (0.2-0.9); Monocytes % 11.8 %; Neutrophils # 2.43 10^3/uL (1.8-7.7); Neutrophils % 62.3 %; Nucleated Red Blood Cells % 0 %; Platelet Count 130 10^3/cmm (157-399); Red Blood Count 4.38 10^6/uL (3.85-5.65); Red Cell Distribution Width 14.2 % (12.1-15.1)
--- NOTE | 2024-04-18 05:41 | PC.NURSE ---
06:40 patient blood glucose 100 per patient dexcom
[2024-04-18 05:45] VITALS: BMI 26.2
[2024-04-18 05:55] VITALS: PULSE 71
[2024-04-18 05:56] LABS: Gamma Glutamyl Transferase 9 U/L (8-61)
--- NOTE | 2024-04-18 06:00 | US_ITS ---
WS: [id number] RIGHT UPPER QUADRANT ULTRASOUND HISTORY: Pain COMPARISON: None available. Liver: 11.2 cm in length. Liver is measuring small. Coarse echotexture throughout. The entire liver i s difficult to visualize due to body habitus. No intrahepatic dilatation. Portal Vein: Normal hepatopetal flow with monophasic waveform. Gallbladder: Prior cholecystectomy. CBD: 0.3 cm Pancreas: Completely obscured by bowel gas. Right kidney: 10.7 cm in length. Normal size and echogenicity. No hydronephrosis or mass. Aorta and IVC: Not visualized. No ascites. US/US abdomen limited [id number] IMPRESSION: 1. Technically difficult RIGHT upper quadrant ultrasound due to bowel content. 2. Prior cholecystectomy. 3. Small liver with changes of hepatic steatosis. Correlate for chronic hepato cellular disease such as cirrhosis. 4. Negative RIGHT kidney.
[2024-04-18 06:09] LABS: HIV 1 & 2 Antibody Non-Reactive (Non-Reactiv); HIV 1 & 2 Antigen Non-Reactive (Non-Reactiv)
[2024-04-18 06:19] LABS: Hepatitis A Antibody IgM Non-Reactive (Nonreactive); Hepatitis B Core IgM Non-Reactive (Nonreactive); Hepatitis B Surface Antigen Non-Reactive (Nonreactive); Hepatitis C Virus Antibody Non-Reactive (Nonreactive)
[2024-04-18 07:30] VITALS: BP 117/75; PULSE 75; RESP 18; TEMP 37; O2SAT 94
[2024-04-18 08:33] LABS: Glucose Point of Care 69 mg/dL (70-110)
[2024-04-18] MEDS: prasugrel 10 MG Tablet PO (08:39)
[2024-04-18] MEDS: hydroCHLOROthiazide 25 mg Tablet PO (08:39)
[2024-04-18] MEDS: pantoprazole 40 mg SDV IVP (08:39)
[2024-04-18 08:44] LABS: Alanine Aminotransferase 174 U/L (0-41); Albumin Level 3.2 g/dL (3.5-5.2); Alkaline Phosphatase 102 U/L (40-130); Anion Gap 14.5 (5-19); Aspartate Amino Transferase 235 U/L (0-40); Blood Urea Nitrogen 7 mg/dL (6-20); Calcium 8.4 mg/dL (8.5-10.5); Carbon Dioxide 27 mmol/L (22-29); Chloride 99 mmol/L (98-107); Creatinine Clr Calc Pharmacy 118.4913; Globulin 2.1 g/dL (1.3-4.6); Glomerular Filtration Rate 139.4 mL/min (90-130); Glucose 85 mg/dL (65-115); Osmolality Calculated 281 mOsm/kg (285-295); Potassium 3.5 mmol/L (3.5-5.1); Sodium 137 mmol/L (136-145); Total Bilirubin 0.9 mg/dL (0.15-1.2); Total Protein 5.3 g/dL (6.6-8.7)
--- NOTE | 2024-04-18 10:36 | PM.DCS ---
Discharge Providers Date of Admission: 04/17/24 00:02 Date of Discharge: April 18, 2024 Attending Provider at Admission: Cj Gutierrez MD Attending Provider at Discharge: Richy Tinsley MD Primary Care Provider: Maria Walters MD Diagnoses at Discharge Discharge Diagnosis (1) Acute non-ST elevation myocardial infarction (NSTEMI): Status: Acute (2) CAD (coronary artery disease): Status: Acute Qualifiers: Coronary Disease-Associated Artery/Lesion type: bypass graft [place] vs. transplanted heart: [place] heart Associated angina: without angina Qualified Code(s): I25.810 - Atherosclerosis of coronary artery bypass graft(s) without angina pectoris (3) Hyperlipidemia: Status: Acute Qualifiers: Hyperlipidemia type: unspecified Qualified Code(s): E78.5 - Hyperlipidemia, unspecified Reason for Visit Reason for Visit: Chest Pain Hospital Course Hospital Course This is a 58-year-old male with a past medical history of type 1 diabetes, insulin pump, hypertension, CAD, history of CABG x 3, who presents [facility] for chest pain This is a 58-year-old male, with a history of CAD, found to have mid left circumflex stent has severe in in-stent restenosis, status post drug-eluting stent, ostial RCA has severe stenosis, status post 1 stent, managed on aspirin, statin, Effient as inpatient overall clinically improved. Will be discharged on aspirin, statin, Effient, low-dose beta-magdalena with a close follow-up with cardiology as outpatient. For patient's transaminitis, with evidence of hepatic steatosis, discussed with patient that his primary care provider needs to follow his LFTs, referral sent to GI in [place] for consultation Physical Exam Const: COMMON NORMALS: no acute distress and patient oriented x3 Resp: COMMON NORMALS: normal respiratory effort, No retractions, No use of accessory muscles and clear to auscultation bilaterally AUSCULTATION: clear to auscultation bilaterally Cardio: COMMON NORMALS: regular rate, regular rhythm, S1 normal heart sound present and S2 normal heart sound present RATE: regular rate RHYTHM: regular rhythm HEART SOUNDS: S1 normal heart sound present and S2 normal heart sound present GI: COMMON NORMALS: Normal to inspection, nondistended, normoactive bowel sounds present and non-tender Extremity: COMMON NORMALS: no pedal edema Neuro: COMMON NORMALS: patient oriented x3 Psych: COMMON NORMALS: mental status grossly normal Discharge Data Studies Completed and Pending Completed Studies During Hospitalization Category Date Time Status XR chest 1V portable [id number] Stat Exams 04/16/24 21:59 Completed CV. echo complete* [id number] Routine Ultrasound 04/17/24 00:42 Completed US abdomen limited [id number] QAM Ultrasound 04/18/24 06:00 Completed Pending at discharge Category Date Time Status CERTIFICATION OFFICER request for service Routine Exams 04/17/24 08:52 Taken Platelet Count Q2D Lab 04/19/24 04:00 Ordered Platelet Count Q2D Lab 04/21/24 04:00 Ordered Radiology Impressions Chest X-Ray 04/16/24 21:59 IMPRESSION: As above. Abdomen Ultrasound 04/18/24 06:00 IMPRESSION: 1. Technically difficult RIGHT upper quadrant ultrasound due to bowel content. 2. Prior cholecystectomy. 3. Small liver with changes of hepatic steatosis. Correlate for chronic hepatocellular disease such as cirrhosis. 4. Negative RIGHT kidney. Laboratory Results WBC 3.90 10^3/uL (3.29-11.43) 04/18/24 05:33 RBC 4.38 10^6/uL (3.85-5.65) 04/18/24 05:33 Hgb 13.30 g/dL (11.27-16.99) 04/18/24 05:33 Hct 38.5 % (37-53) 04/18/24 05:33 MCV 87.9 fl (82-101) 04/18/24 05:33 MCH 30.4 pg (27-33) 04/18/24 05:33 MCHC 34.5 g/dL (30-55) 04/18/24 05:33 RDW 14.2 % (12.1-15.1) 04/18/24 05:33 Plt Count 130 10^3/cmm (157-399) L 04/18/24 05:33 MPV 9.2 fL (7.4-10.4) 04/18/24 05:33 Neut % (Auto) 62.3 % 04/18/24 05:33 Lymph % (Auto) 21.3 % 04/18/24 05:33 [place] % (Auto) 11.8 % 04/18/24 05:33 Eos % (Auto) 3.8 % 04/18/24 05:33 Baso % (Auto) 0.5 % 04/18/24 05:33 Neut # (Auto) 2.43 10^3/uL (1.8-7.7) 04/18/24 05:33 Lymph # (Auto) 0.8 10^3/uL (0.8-4.8) 04/18/24 05:33 [place] # (Auto) 0.5 10^3/uL (0.2-0.9) 04/18/24 05:33 Eos # (Auto) 0.2 10^3/uL (0.0-0.8) 04/18/24 05:33 Baso # (Auto) 0.0 10^3/uL (0.0-0.1) 04/18/24 05:33 Nucleated RBC % (auto) 0 % 04/18/24 05:33 Nucleated RBCs # 0.0 /100WBC 04/18/24 05:33 PT 12.70 SECONDS (12.1-14.9) 04/16/24 22:10 INR 0.93 (0.8-1.2) 04/16/24 22:10 APTT 35.6 SECONDS (23.9-36.7) D 04/17/24 16:23 Sodium 137 mmol/L (136-145) 04/18/24 05:33 Potassium 3.5 mmol/L (3.5-5.1) 04/18/24 05:33 Chloride 99 mmol/L (98-107) 04/18/24 05:33 Carbon Dioxide 27 mmol/L (22-29) 04/18/24 05:33 Anion Gap 14.5 (5-19) 04/18/24 05:33 BUN 7 mg/dL (6-20) 04/18/24 05:33 Creatinine 0.6 mg/dL (0.7-1.2) L 04/18/24 05:33 GFR Calculation 139.4 mL/min (90-130) H 04/18/24 05:33 Glucose 85 mg/dL (65-115) 04/18/24 05:33 POC Glucose 69 mg/dL (70-110) L 04/18/24 08:28 Calculated Osmolality 281 mOsm/kg (285-295) L 04/18/24 05:33 Calcium 8.4 mg/dL (8.5-10.5) L 04/18/24 05:33 Magnesium 1.9 mg/dL (1.7-2.3) 04/17/24 06:02 Total Bilirubin 0.9 mg/dL (0.15-1.2) 04/18/24 05:33 GGT 9 U/L (8-61) 04/18/24 05:33 AST 235 U/L (0-40) H 04/18/24 05:33 ALT 174 U/L (0-41) H 04/18/24 05:33 Alkaline Phosphatase 102 U/L (40-130) 04/18/24 05:33 Troponin T Baseline 232 ng/L (0-15) H* 04/16/24 22:10 Troponin T 120 Minute 236.9 ng/L (0-15) H 04/16/24 23:53 Delta Troponin T 4.9 ABS# (0-10) 04/16/24 23:53 Troponin T Hi Sens 6Hr 262.2 ng/L (0-15) H 04/17/24 06:02 Troponin T Hi Sens 6Hr Delta 30.2 ng/L (0-12) H* 04/17/24 06:02 NT-Pro-B Natriuret Pep 132 pg/mL (0-125) H 04/16/24 22:10 Total Protein 5.3 g/dL (6.6-8.7) L 04/18/24 05:33 Albumin 3.2 g/dL (3.5-5.2) L 04/18/24 05:33 Globulin 2.1 g/dL (1.3-4.6) 04/18/24 05:33 Lipase 22 U/L (13-60) 04/16/24 22:10 Urine Color Dark yellow (Yellow) A 04/16/24 22:55 Urine Appearance Clear (CLEAR) 04/16/24 22:55 Urine pH 5.5 (5-7) 04/16/24 22:55 Ur Specific [place] 1.033 (1.005-1.030) H 04/16/24 22:55 Urine Protein Trace (Negative) A 04/16/24 22:55 Urine Glucose (UA) Negative (Normal) 04/16/24 22:55 Urine Ketones Trace (Negative) 04/16/24 22:55 Urine Blood Negative (Negative) 04/16/24 22:55 Urine Nitrate Negative (Negative) 04/16/24 22:55 Urine Bilirubin Negative (Negative) 04/16/24 22:55 Urine Urobilinogen 1.0 mg/dL (Negative) 04/16/24 22:55 Ur Leukocyte Esterase Negative (Negative) 04/16/24 22:55 Urine RBC 0-2 /hpf (0-2) 04/16/24 22:55 Urine WBC 0-5 /hpf (0-5) 04/16/24 22:55 Ur Squamous Epith Cells 0-5 /hpf (0-5) 04/16/24 22:55 Amorphous Sediment Not Reportable 04/16/24 22:55 Urine Bacteria None seen /hpf (NONE) 04/16/24 22:55 Hyaline Casts 0.40 /lpf 04/16/24 22:55 Urine Opiates Screen Positive ng/mL (Negative) H 04/16/24 22:55 Ur Barbiturates Screen Negative ng/mL (Negative) 04/16/24 22:55 Ur Phencyclidine Scrn Negative ng/mL (Negative) 04/16/24 22:55 Ur Amphetamines Screen Negative ng/mL (Negative) 04/16/24 22:55 U Benzodiazepines Scrn Negative ng/mL (Negative) 04/16/24 22:55 Urine Cocaine Screen Negative ng/mL (Negative) 04/16/24 22:55 U Marijuana (THC) Screen Negative ng/mL (Negative) 04/16/24 22:55 Ethyl Alcohol < 10 mg/dL (0-10) 04/16/24 22:10 Hepatitis A IgM Ab Non-reactive (Nonreactive) 04/18/24 05:33 Hep Bs Antigen Non-reactive (Nonreactive) 04/18/24 05:33 Hep B Core IgM Ab Non-reactive (Nonreactive) 04/18/24 05:33 Hepatitis C Antibody Non-reactive (Nonreactive) 04/18/24 05:33 HIV 1&2 Ab & HIV 1 Ag Non-reactive (Non-Reactiv) 04/18/24 05:33 HIV 1&2 Antibody Non-reactive (Non-Reactiv) 04/18/24 05:33 Vitals Last Vital Signs Temp 98.6 F 04/18/24 07:30 Pulse 75 04/18/24 07:30 Resp 18 04/18/24 07:30 BP 117/75 04/18/24 07:30 Pulse Ox 94 04/18/24 07:30 O2 Del Method Room Air 04/18/24 07:30 O2 Flow Rate 2 04/17/24 11:37 Discharge Plan Discharge Patient Disposition: Home Condition: Stable Prescriptions: New metoprolol tartrate 25 mg Tablet 12.5 mg PO BID@0900,2100 30 Days Qty: 60 0RF Continued atorvastatin 40 mg tablet 40 mg PO BEDTIME trazodone 50 mg tablet 100 mg PO BEDTIME (DME) bilateral hinged knee brace See Rx Instructions .Route .MEDSUPPLY Qty: 1 0RF Rx Instructions: As directed (DME) t:slim X2 Cartridge See Rx Instructions .Route Qty: 10 3RF Rx Instructions: As directed (DME) AutoSoft XC Infusion Set 23 Infusion Set See Rx Instructions .Route Qty: 10 3RF Rx Instructions: As directed (DME) t:slim X2 Control-IQ Misc See Rx Instructions .Route Qty: 1 0RF Rx Instructions: As directed (DME) economy brace right knee See Rx Instructions .Route .MEDSUPPLY Qty: 1 0RF Rx Instructions: As directed Mounjaro 15 mg/0.5 mL pen injector 15 mg SUBCUT Q7D 30 Days Qty: 2.5 4RF (DME) Dexcom G6 Clerical Investigator Misc See Rx Instructions .Route Qty: 1 0RF Rx Instructions: As directed (DME) Dexcom G6 Transmitter Device See Rx Instructions .Route Qty: 1 1RF Rx Instructions: As directed (DME) Dexcom G6 Sensor Device See Rx Instructions .Route Qty: 3 3RF Rx Instructions: As directed prednisolone acetate 1 % drops,suspension 1 drp ophthalmic (eye) TID aspirin 81 mg tablet,delayed release (DR/EC) 81 mg PO BEDTIME 30 Days Qty: 30 0RF nitroglycerin 0.4 mg tablet, sublingual 0.4 mg sublingual Q5M PRN (Reason: Chest Pain) 30 Days Qty: 30 0RF Rx Instructions: do not exceed 3 doses per episode prasugrel [Effient] 10 mg tablet 10 mg PO DAILY 30 Days Qty: 30 3RF Changed hydrochlorothiazide 25 mg tablet 12.5 mg PO DAILY 30 Days Qty: 15 0RF insulin aspart U-100 [Novolog U-100 Insulin aspart] 100 unit/mL solution See Rx Instructions .ROUTE .COMPLEX Qty: 10 3RF Rx Instructions: via pump Discharge Orders: Discharge Order (Routine); Ordered 04/18/24 Ordered By: Richy Tinsley Referrals: Maria Walters MD [Primary Care Provider] - 1-3 days (Please call to make follow up with your PCP.) Fady Berry MD [Referring] - 1 week Araceli Noe FNP [Nurse Practitioner] - 1 week Discharge Diet: Cardiac Discharge Activity: Resume usual activity Patient Instructions: Heart Attack (DC), Coronary Artery Disease (DC), Coronary Angioplasty (DC), Hyperlipidemia (DC), Opioid Safety Activity Restrictions/Additional Instructions: - For your liver function test, AST 235, ALT 174, bilirubin normal at 0.9, please follow-up with primary care provider as outpatient, recheck LFTs, liver ultrasound showing hepatic steatosis, please follow-up with gastroenterology in 4 week -With your insulin pump please monitor for hypoglycemia -For your heart stent, please take aspirin, parasugrel as prescribed, please do not stop taking these medications as these medications are keeping your heart stent open ? If you have any recurrent chest pain please go to the emergency room Discharge Attestations Time Spent in Discharge Care*: greater than 30 min Quality Metrics Clinical Quality Measures [ No reported AMI, CVA or VTE this stay] Coding Level of Care Code 07732 Total time (in minutes) for Discharge: 45 Diagnoses Acute non-ST elevation myocardial infarction (NSTEMI) I21.4 Coronary artery disease involving coronary bypass graft of [place] heart without angina pectoris I25.810 Coronary Disease-Associated Artery/Lesion type: bypass graft [place] vs. transplanted heart: [place] heart Associated angina: without angina Hyperlipidemia, unspecified hyperlipidemia type E78.5 Hyperlipidemia type: unspecified
[2024-04-18 11:41] VITALS: BP 117/75; PULSE 78; RESP 18; TEMP 37; O2SAT 96
== END 2024-04-18 11:43 | disposition home or self-care (01) | DRG 321 ==
LOC: ER 23:11 → CSU 04-17 00:04
PROVIDERS: Internal Medicine; Admitting Provider Internal Medicine; Emergency Provider Emergency Medicine; PCP Family Medicine; Visit Provider Family Medicine
PROC: 027135Z Dilation of Coronary Artery, Two Arteries with Two Drug-eluting Intraluminal Devices, Percutaneous Approach (ICD-10-PCS; principal; 2024-04-17 09:00)
PROC: 027135Z Dilation of Coronary Artery, Two Arteries with Two Drug-eluting Intraluminal Devices, Percutaneous Approach (ICD-10-PCS; 2024-04-17 09:00)
DX: T82.855A Stenosis of coronary artery stent, initial encounter (principal); I21.4 Non-ST elevation (NSTEMI) myocardial infarction; Y71.1 Therapeutic (nonsurgical) and rehabilitative cardiovascular devices associated with adverse incidents; I25.10 Atherosclerotic heart disease of native coronary artery without angina pectoris; I10 Essential (primary) hypertension; Z95.1 Presence of aortocoronary bypass graft; E78.5 Hyperlipidemia, unspecified; E10.9 Type 1 diabetes mellitus without complications; Z96.41 Presence of insulin pump (external) (internal); Z79.4 Long term (current) use of insulin; Z79.85 Long-term (current) use of injectable non-insulin antidiabetic drugs; K76.0 Fatty (change of) liver, not elsewhere classified; R74.01 Elevation of levels of liver transaminase levels; Z79.82 Long term (current) use of aspirin; Z82.49 Family history of ischemic heart disease and other diseases of the circulatory system
CPT/HCPCS: 36415; 36416; 71045; 76705; 80048; 80053; 80074; 80306; 80307; 81001; 82962; 82977; 83690; 83735; 83880; 84484; 85025; 85347; 85610; 85730; 87806; 92978; 93005; 93306; 93455; 96365; 96372; 96374; 96375; 96376; 99152; 99153; 99232; 99239; 99285; C1725; C1753; C1760; C1769; C1874; C1887; C1894; C9600; J1200; J1610; J1644; J1650; J2250; J2270; J2405; J2470; J3010; J3490; J7030; J7042; Q9967

== ENCOUNTER → 2024-04-24 09:17 | Outpatient (BNVA) | payer OTHER, SELFPAY | PROVIDERS: PCP Family Medicine; Visit Provider Internal Medicine | DX: E10.59 Type 1 diabetes mellitus with other circulatory complications (principal); E78.2 Mixed hyperlipidemia; R03.0 Elevated blood-pressure reading, without diagnosis of hypertension; M79.673 Pain in unspecified foot | CPT/HCPCS: 99214 ==

== ENCOUNTER → 2024-04-30 12:58 | Outpatient (BNVA) | payer OTHER, SELFPAY | PROVIDERS: PCP Family Medicine; Visit Provider Nurse Practitioner Family | DX: E78.2 Mixed hyperlipidemia (principal); Z79.02 Long term (current) use of antithrombotics/antiplatelets; I25.2 Old myocardial infarction | CPT/HCPCS: 36415; 80048; 85025; 99213 ==

== ENCOUNTER 2024-05-26 16:31 | Inpatient (IN) | payer OTHER, SELFPAY ==
[2024-05-26] VITALS (44 sets, daily range): BP systolic 108–171; BP diastolic 59–83; PULSE 72–145; RESP 0–26; TEMP 36.6; O2SAT 90–100; BMI 28.3
[2024-05-26 19:20] LABS: Basophils % 0.4 %; Eosinophils # 0.1 10^3/uL (0.0-0.8); Eosinophils % 2.6 %; Hematocrit 45.5 % (37-53); Lymphocytes # 0.7 10^3/uL (0.8-4.8); Lymphocytes % 14.2 %; Mean Corpuscular HGB Conc 34.3 g/dL (30-55); Mean Corpuscular Hemoglobin 30.4 pg (27-33); Mean Corpuscular Volume 88.5 fl (82-101); Mean Platelet Volume 9.4 fL (7.4-10.4); Monocytes # 0.6 10^3/uL (0.2-0.9); Monocytes % 11.2 %; Neutrophils # 3.62 10^3/uL (1.8-7.7); Neutrophils % 71.2 %; Nucleated Red Blood Cells % 0 %; Platelet Count 150 10^3/cmm (157-399); Red Blood Count 5.14 10^6/uL (3.85-5.65); Red Cell Distribution Width 13.2 % (12.1-15.1); White Blood Count 5.08 10^3/uL (3.29-11.43)
[2024-05-26 19:35] LABS: Alanine Aminotransferase 313 U/L (0-41); Albumin Level 4.3 g/dL (3.5-5.2); Alkaline Phosphatase 131 U/L (40-130); Anion Gap 19.6 (5-19); Aspartate Amino Transferase 540 U/L (0-40); Blood Urea Nitrogen 38 mg/dL (6-20); Calcium 9.5 mg/dL (8.5-10.5); Carbon Dioxide 27 mmol/L (22-29); Chloride 93 mmol/L (98-107); Globulin 3.2 g/dL (1.3-4.6); Glomerular Filtration Rate 16.1 mL/min (90-130); Glucose 93 mg/dL (65-115); Osmolality Calculated 291 mOsm/kg (285-295); Potassium 3.6 mmol/L (3.5-5.1); Sodium 136 mmol/L (136-145); Total Bilirubin 0.7 mg/dL (0.15-1.2); Total Protein 7.5 g/dL (6.6-8.7)
--- NOTE | 2024-05-26 20:15 | XRR_ITS ---
PROCEDURE INFORMATION: Exam: XR Chest Exam date and time: 05/26/2024 8:18 PM Age: 58 years old Clinical indication: Shortness of breath; Chest pressure; Prior surgery; Surgery date: 6+ months; Surgery type: Cabg; C/O chest pain with SOB. ; Additional info: Cp TECHNIQUE: Imaging protocol: Radiologic exam of the chest. Views: 1 view. COMPARISON: CR (CHEST, ) 04/16/2024 10:01 PM FINDINGS: Lungs: No focal consolidation. Pleural spaces: Unremarkable. No pleural effusion. No pneumothorax. Heart/Mediastinum: Unremarkable. No cardiomegaly. Bones/joints: Prior median sternotomy and CABG. XR/XR chest 1V portable [id number] IMPRESSION: No focal consolidation.
--- NOTE | 2024-05-26 20:22 | ECG_ITS ---
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
[2024-05-26 20:36] LABS: Troponin(5th) Baseline 2188 ng/L (0-15)
--- NOTE | 2024-05-26 20:40 | ED_ITS ---
HPI - Chest Pain 2 General: Chief Complaint: Chest Pain Stated Complaint: chest pressure & sob Time Seen by Provider: 05/26/24 20:13 History of Present Illness: 58-year-old male patient with a history of coronary disease. He received stents in February and in April. He presents with chest pressure on and off for the last week, combined with progressive generalized weakness. He says he is weak to the point that he is having to have his help walk to some degree, and tie his shoes, etc. He is not overly short of breath he says. He saw his primary physician, where blood was drawn, and his CK level was evidently 24,000. Since he has been in the ER, his pressures progressed to essentially pain. Sharp left-sided in the chest. He is mildly short of breath with this. Related Data Home Medications ?Medication ?Instructions ?Recorded ?Confirmed trazodone 50 mg tablet 100 mg PO BEDTIME 06/15/23 0 04/30/24 prednisolone acetate 1 % eye 1 drp ophthalmic (eye) TI D 04/17/24 04/30/24 drops,suspension folic acid 1 mg tablet 1 mg PO DAILY 04/30/2404/30 rosuvastatin 40 mg tablet 40 mg PO DAILY 04/30/2404/17 Previous Rx's ?Medication ?Instructions ?Recorded bilateral hinged knee brace #1 ea 06/15/23 economy brace right knee #1 ea 07/25/23 tirzepatide 15 mg/0.5 mL 15 mg (0.5 mL) SUBCUT Q7D 30 days 12/05/23 subcutaneous pen injector #2.5 mL (Antonio) aspirin 81 mg tablet,delayed 81 mg PO BEDTIME 30 days #30 tabs 04/18/24 release hydrochlorothiazide 25 mg tablet 12.5 mg (1/2 x 25 mg) PO DAILY 30 04/18/24 days #15 tabs nitroglycerin 0.4 mg sublingual 0.4 mg sublingual Q5M PRN Chest 04/18/24 tablet Pain 30 days #30 tabs blood-glucose sensor (SundaySkycom G7 #9 ea 04/24/24 Sensor device) infusion set for insulin pump #30 ea 04/24/24 (AutoSoft XC Infusion Set 23 ) insulin pump cartridge (Tandem #30 ea 04/24/24 Mobi Cartridge subcutaneous cartridge) subcutaneous insulin pump (Tandem #1 ea 04/24/24 Mobi System) insulin aspart U-100 100 unit/mL See Rx Instructions . Route 04/30/24 subcutaneous solution (Novolog .COMPLEX 90 days #30 mL U-100 Insulin aspart) prasugrel 10 mg tablet (Effient) 10 mg PO DAILY 30 day s #30 tabs 04/30/24 tirzepatide 10 mg/0.5 mL 10 mg (0.5 mL) SUBCUT Q7D #2 mL 04/30/24 subcutaneous pen injector (Mounjaro) Allergies Allergy/AdvReac Type Severity Reaction Status Date / Time fentanyl Allergy Severe ALGY-Difficulty Verified 04/30/24 13:08 Breathing isosorbide (From Imdur) Allergy ADR-Headach Verified 04/30/24 13:08 e Penicillins Allergy Unknown Verified 04/30/24 13:08 PFSH ED 2 PFSH: Medical History Lateral epicondylitis Cholecystectomy planned Obesity FH: CABG (coronary artery bypass surgery) CAD (coronary artery disease) Hyperlipidemia Surgical History (Updated 04/19/24 @ 00:00 by LINDA Walker) Hx of appendectomy Social History Smoking and tobacco/nicotine status: never used tobacco/nicotine Second hand smoke exposure: No Alcohol intake: current Alcohol intake frequency: holidays/special occasions only Substance/Drug Use: never Adopted: No Caregiver/support person: Yes Lives independently: No Household members: spouse Housing: House Marital status: Number of children: 5 Number of grandchildren: 1 Highest education level completed: Some College, No Degree service: Yes Current occupational status: employed 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 Current occupational exposures/hazards: No Pets and animals: Yes Sexually active: Yes Do you think of yourself as: Straight/Heterosexual Current gender identity: Male Special asad needs: No Agree to transfusion: Yes Physical Exam 2 Const: COMMON NORMALS: no acute distress GENERAL APPEARANCE: cooperative and ill appearing; not frail appearing HENMT: COMMON NORMALS: normocephalic, atraumatic and Normal external nose present HEAD & SCALP: normocephalic and atraumatic FACE & SINUS: normal facial exam and face symmetric NOSE: Normal external nose present Eye: COMMON NORMALS: Equal, round and reactive pupils present and EOMs intact bilaterally PUPIL: Yes Equal, round and reactive pupils present Neck/C-Spine: GENERAL: Yes trachea midline Chest: CHEST: Yes Symmetrical chest wall rise and No tenderness Resp: COMMON NORMALS: No retractions, No use of accessory muscles and clear to auscultation bilaterally EFFORT & INSPECTION: Yes tachypneic AUSCULTATION: clear to auscultation bilaterally Cardio: COMMON NORMALS: regular rate and regular rhythm RATE: regular rate RHYTHM: regular rhythm GI: COMMON NORMALS: Normal to inspection, nondistended, normoactive bowel sounds present Extremity: COMMON NORMALS: no pedal edema Neuro: KERVIN COMA SCALE: document GCS findings Kervin coma scale eye opening: Spontaneous Mcallister coma scale verbal response: Orientated Mcallister coma scale motor response: Obey commands Mcallister coma scale total score: 15 S ENSORY EXAM: Yes extremities (intact) Psych: COMMON NORMALS: speech normal SPEECH: Yes normal speech Skin: COMMON NORMALS: no rashes or lesions noted GENERAL SKIN EXAM: no rashes or lesions noted Course 2 Vital Signs: Vital signs: Vital Signs Temperature 98 F 05/26/24 16:42 Pulse Rate 77 05/26/24 20:45 Respiratory Rate 17 05/26/24 20:45 Blood Pressure 160/79 05/26/24 20:45 Pulse Oximetry 98 05/26/24 20:45 Oxygen Delivery Me thod Room Air 05/26/24 20:10 MDM - Chest Pain Medical Decision Making Patient with left-sided sharp chest discomfort. Nonreproducible. His platelet count is 150, 80s had low platelet counts in the past. His creatinine is 3.9, however, which is new. Chest x-ray is nonacute. His initial troponin is 2188. 2-hour troponin is essentially stable. Kidneys are normal by CT. Consulted cardiology from the ER. Recommendations are echo in the morning. Trend troponin. Agrees with heparinization, nitrates, etc. Stop rosuvastatin. Continue antiplatelet therapy. He will see in the morning if not sooner. Lab Data 05/26/24 19:12 05/26/24 19:12 Radiology Impressions Chest X-Ray 05/26/24 20:15 IMPRESSION: No focal consolidation. Abdomen/Pelvis CT 05/26/24 20:51 IMPRESSION: 1. No bowel obstruction or inflammatory process associated with the bowel. 2. No free air or significant free fluid in the abdomen or pelvis. 3. The appendix is not visualized but there are no secondary signs of acute appendicitis. 4. No hydronephrosis or renal calculus. No stone in the bladder. Laboratory Results WBC 5.08 10^3/uL (3.29-11.43) 05/26/24 19:12 RBC 5.14 10^6/uL (3.85-5.65) 05/26/24 19:12 Hgb 15.60 g/dL (11.27-16.99) 05/26/24 19:12 Hct 45.5 % (37-53) 05/26/24 19:12 MCV 88.5 fl (82-101) 05/26/24 19:12 MCH 30.4 pg (27-33) 05/26/24 19:12 MCHC 34.3 g/dL (30-55) 05/26/24 19:12 RDW 13.2 % (12.1-15.1) 05/26/24 19:12 Plt Count 150 10^3/cmm (157-399) L 05/26/24 19:12 MPV 9.4 fL (7.4-10.4) 05/26/24 19:12 Neut % (Auto) 71.2 % 05/26/24 19:12 Lymph % (Auto) 14.2 % 05/26/24 19:12 [place] % (Auto) 11.2 % 05/26/24 19:12 Eos % (Auto) 2.6 % 05/26/24 19:12 Baso % (Auto) 0.4 % 05/26/24 19:12 Neut # (Auto) 3.62 10^3/uL (1.8-7.7) 05/26/24 19:12 Lymph # (Auto) 0.7 10^3/uL (0.8-4.8) L 05/26/24 19:12 [place] # (Auto) 0.6 10^3/uL (0.2-0.9) 05/26/24 19:12 Eos # (Auto) 0.1 10^3/uL (0.0-0.8) 05/26/24 19:12 Baso # (Auto) 0.0 10^3/uL (0.0-0.1) 05/26/24 19:12 Nucleated RBC % (auto) 0 % 05/26/24 19:12 Nucleated RBCs # 0.0 /100WBC 05/26/24 19:12 Sodium 136 mmol/L (136-145) 05/26/24 19:12 Potassium 3.6 mmol/L (3.5-5.1) 05/26/24 19:12 Chloride 93 mmol/L (98-107) L 05/26/24 19:12 Carbon Dioxide 27 mmol/L (22-29) 05/26/24 19:12 Anion Gap 19.6 (5-19) H 05/26/24 19:12 BUN 38 mg/dL (6-20) H 05/26/24 19:12 Creatinine 3.9 mg/dL (0.7-1.2) H 05/26/24 19:12 GFR Calculation 16.1 mL/min (90-130) L 05/26/24 19:12 Glucose 93 mg/dL (65-115) 05/26/24 19:12 Calculated Osmolality 291 mOsm/kg (285-295) 05/26/24 19:12 Calcium 9.5 mg/dL (8.5-10.5) 05/26/24 19:12 Phosphorus 6.2 mg/dL (2.5-4.5) H 05/26/24 19:12 Magnesium 2.5 mg/dL (1.7-2.3) H 05/26/24 19:12 Total Bilirubin 0.7 mg/dL (0.15-1.2) 05/26/24 19:12 AST 540 U/L (0-40) H 05/26/24 19:12 ALT 313 U/L (0-41) H 05/26/24 19:12 Alkaline Phosphatase 131 U/L (40-130) H 05/26/24 19:12 Lactate Dehydrogenase 2366 U/L (135-225) H 05/26/24 20:52 Troponin T Baseline 2188 ng/L (0-15) H* 05/26/24 19:12 Troponin T 120 Minute 2101 ng/L (0-15) H 05/26/24 20:52 Delta Troponin T -87 ABS# (0-10) L 05/26/24 20:52 NT-Pro-B Natriuret Pep 1518 pg/mL (0-125) H 05/26/24 19:12 Total Protein 7.5 g/dL (6.6-8.7) 05/26/24 19:12 Albumin 4.3 g/dL (3.5-5.2) 05/26/24 19:12 Globulin 3.2 g/dL (1.3-4.6) 05/26/24 19:12 Ethyl Alcohol < 10 mg/dL (0-10) 05/26/24 20:52 All radiology interpretation(s) finalized by discharge Critical Care Time 2 Critical Care Time: Critical Care Time: Yes Total Critical Care Time: 35 Attestation: This case had a high probability of a clinically significant, sudden, or life threatening deterioration of this patient's condition which required my full and direct attention, intervention and personal management. Time is independent of any procedures performed. Discharge Plan Discharge Patient Disposition: Admitted As Inpatient Clinical Impression: NSTEMI (non-ST elevated myocardial infarction), Acute renal failure, Rhabdomyolysis Condition: Serious Prescriptions: No Action trazodone 50 mg tablet 100 mg PO BEDTIME (DME) bilateral hinged knee brace See Rx Instructions .Route .MEDSUPPLY Qty: 1 0RF Rx Instructions: As directed (DME) economy brace right knee See Rx Instructions .Route .MEDSUPPLY Qty: 1 0RF Rx Instructions: As directed Mounjaro 15 mg/0.5 mL pen injector 15 mg SUBCUT Q7D 30 Days Qty: 2.5 4RF (DME) Tandem Mobi Cartridge Cartridge See Rx Instructions .Route Qty: 30 1RF Rx Instructions: change every 3 days (DME) Tandem Mobi System Misc See Rx Instructions .ROUTE Qty: 1 0RF Rx Instructions: As directed (DME) AutoSoft XC Infusion Set 23 Infusion Set See Rx Instructions .Route Qty: 30 1RF Rx Instructions: change 3 days (DME) Dexcom G7 Sensor Device See Rx Instructions .Route Qty: 9 1RF Rx Instructions: change sensor every 10 days folic acid 1 mg tablet 1 mg PO DAILY rosuvastatin 40 mg tablet 40 mg PO DAILY prasugrel [Effient] 10 mg tablet 10 mg PO DAILY 30 Days Qty: 30 3RF insulin aspart U-100 [Novolog U-100 Insulin aspart] 100 unit/mL solution See Rx Instructions .ROUTE .COMPLEX MDD 100 90 Days Qty: 30 3RF Rx Instructions: via insulin pump Mounjaro 10 mg/0.5 mL pen injector 10 mg SUBCUT Q7D Qty: 2 0RF prednisolone acetate 1 % drops,suspension 1 drp ophthalmic (eye) TID aspirin 81 mg tablet,delayed release (DR/EC) 81 mg PO BEDTIME 30 Days Qty: 30 0RF nitroglycerin 0.4 mg tablet, sublingual 0.4 mg sublingual Q5M PRN (Reason: Chest Pain) 30 Days Qty: 30 0RF Rx Instructions: do not exceed 3 doses per episode hydrochlorothiazide 25 mg tablet 12.5 mg PO DAILY 30 Days Qty: 15 0RF Referrals: Maria Walters MD [Primary Care Provider] - Print Language: Azeri Coding Level of Care Code ED Bin Worker for Constance Ivan
[2024-05-26] MEDS: ondansetron 2 mg/ML SDV 2 mL 4 MG IVP (20:45)
[2024-05-26] MEDS: morphine 4 mg/mL SDV 1 mL IVP ×2 (20:45→23:54)
[2024-05-26 20:47] LABS: NT Pro B Type Natriuretic Pept 1518 pg/mL (0-125)
--- NOTE | 2024-05-26 20:51 | CTR_ITS ---
PROCEDURE INFORMATION: Exam: CT Abdomen And Pelvis Without Contrast Exam date and time: 05/26/2024 9:02 PM Age: 58 years old Clinical indication: Pain and abnormal findings; Abnormal lab test; Abnormal kidney function lab tests and elevated liver enzymes; Abdominal pain; Prior surgery; Surgery date: 1-6 months; Surgery type: Cabg apr 2024. Gastric. Appy. Penile implant. Bilat flank pain with creat of 3.9 and elevated liver enzymes. ; Additional info: Flank pain, elevated creatinine TECHNIQUE: Imaging protocol: Computed tomography of the abdomen and pelvis without contrast. Radiation optimization: All CT scans at this facility use at least one of these dose optimization techniques: automated exposure control; mA and/or kV adjustment per patient size (includes targeted exams where dose is matched to clinical indication); or iterative reconstruction. COMPARISON: CT kidney stone [id number] 12/02/2018 11:47 AM RADIATION DOSE METRICS: Total DLP (mGy-cm): 508.23 FINDINGS: Tubes, catheters and devices: Penile implant with reservoir in the anterior right pelvis. Liver: Normal. No mass. Gallbladder and biliary ducts: The gallbladder is absent. Pancreas: Normal. No ductal dilation. Spleen: Normal. No splenomegaly. Adrenal glands: Normal. No mass. Kidneys and ureters: Normal. No hydronephrosis. Stomach and bowel: Prior sleeve gastrectomy. Appendix: The appendix is not visualized but there are no secondary signs of acute appendicitis. Intraperitoneal space: Unremarkable. No free air. No significant fluid collection. Vasculature: Unremarkable. No abdominal aortic aneurysm. Lymph nodes: Unremarkable. No enlarged lymph nodes. Urinary bladder: Unremarkable as visualized. Reproductive: Unremarkable as visualized. Bones/joints: Prior median sternotomy and CABG. Soft tissues: Unremarkable. CT/CT kidney stone [id number] IMPRESSION: 1. No bowel obstruction or inflammatory process associated with the bowel. 2. No free air or significant free fluid in the abdomen or pelvis. 3. The appendix is not visualized but there are no secondary signs of acute appendicitis. 4. No hydronephrosis or renal calculus. No stone in the bladder.
[2024-05-26 20:55] LABS: Magnesium 2.5 mg/dL (1.7-2.3); Phosphorus 6.2 mg/dL (2.5-4.5)
[2024-05-26 21:12] LABS: Alcohol Level < 10 mg/dL (0-10)
[2024-05-26 21:21] LABS: Lactate Dehydrogenase 2366 U/L (135-225)
[2024-05-26 21:22] LABS: Troponin 5 2HR 2101 ng/L (0-15); Troponin 5 2HR Delta -87 ABS# (0-10)
[2024-05-26] MEDS: heparin 5,000 unit/mL INJ 1 mL IVP (21:27)
[2024-05-26] MEDS: heparin drip 25,000 UNIT/500 ML PREMIX 21 UNIT IV (21:31)
--- NOTE | 2024-05-26 21:34 | PC.NURSE ---
THIS NURSE STARTED HEPARIN. BOLUS OF 3700 UNITS, HEPARIN AT 21ML/HR. CHECKED BY VAMSI,RN, JUICE, RN, ESTEFANI,RN, CATARINA,RN, AND DILCIA CLAIRE.
[2024-05-26 21:44] LABS: Creatine Phosphokinase 50168 U/L (39-308)
[2024-05-26 22:14] LABS: Amphetamines Screen Urine Negative (Negative); Barbiturates Screen Urine Negative (Negative); Benzodiazepines Screen Urine Negative (Negative); Cocaine Screen Urine Negative (Negative); Opiate Screen Urine Negative (Negative); PCP Screen Urine Negative (Negative); THC Screen Urine Negative (Negative)
--- NOTE | 2024-05-26 22:30 | PM.HP ---
Providers/Chief Complaint Primary Care Provider: Maria Walters MD Chief Complaint: chest pressure & sob History of Present Illness Moisés Gonzalez is a 58 year old male with history of established coronary disease, CABG x 3, recent stent 05/11, type 1 diabetes using insulin pump, hypertension, presenting for abnormal CPK which was tested by the PCP for his generalized weakness and fatigue. Patient is stating that since his discharge from the hospital 04/18/2024 when he got a stent in the left circumflex for severe in-stent restenosis he has been compliant his medications but he has been extremely lethargic and fatigued as per the family at the bedside there is more generalized weakness now to the point that he is needing assistance for daily activities patient has not noticed any fever recently, no recent diarrhea or flulike symptoms, patient is not endorsing using marijuana, recreational drugs alcohol or smoking. He has been referred to [facility] developer in [place] for abnormal transaminases for fatty liver. Patient decided to come to the hospital today when he started experiencing seeing chest discomfort, patient is stating that he has been experiencing dull pain across his chest radiating towards his left arm which would last a few minutes, it would appear at rest associated with shortness of breath and nausea but no vomiting. He is denying diaphoresis. Patient is stating that his sugar has been under control. Family has not noticed any stroke related features. Patient is stating that since his discharge from the hospital he has been experiencing difficulty swallowing, he has not noticed any choking sensation but he feels the food is getting stuck in his throat, no active emesis, no respiratory compromise During my evaluation in the ER patient was able to lift legs in the air periodically but he is putting a lot of effort to do those movements, reflexes absent, no respiratory compromise he is on room air with stable hemodynamics no active chest pain He does not have any focal deficits or signs of cauda equina This case was discussed with neurology, I am requesting autoimmune disease workup because patient has extremely high CPK, LDH, and requesting rheumatoid factor, autoimmune disease workup and requesting ICU admission for close monitoring At this point patient has no respiratory distress at all My differentials include autoimmune disease, autoimmune myositis, hepatitis, Guillain-Jerome?, polymyositis, insulin induced proximal muscle weakness, MEN SYNDROME Review of Systems Const: Reports: chills Eyes: Denies: change in vision ENMT: Denies: throat pain Card: Denies: chest pain Resp: Denies: dyspnea GI: Reports: nausea : Denies: flank pain Musc: Reports: extremity pain Neuro: Denies: headache(s) Medications/Allergies Home Medications ?Medication ?Instructions ?Recorded ?Confirmed ?Last Taken ?Type bilateral hinged knee brace #1 ea 06/15/23 04/22/24 Unknown Rx trazodone 50 mg tablet 100 mg PO BEDTIME 06/15/23 04/30/24 04/15/24 History economy brace right knee #1 ea 07/25/23 04/22/24 Unknown Rx tirzepatide 15 mg/0.5 mL 15 mg (0.5 mL) SUBCUT Q7D 30 days 12/05/23 04/30/24 04/14/24 Rx subcutaneous pen injector #2.5 mL (Antonio) prednisolone acetate 1 % eye 1 drp ophthalmic (eye) TID 04/17/24 04/30/24 04/16/24 History drops,suspension aspirin 81 mg tablet,delayed 81 mg PO BEDTIME 30 days #30 tabs 04/18/24 04/30/24 Unknown Rx release hydrochlorothiazide 25 mg tablet 12.5 mg (1/2 x 25 mg) PO DAILY 30 04/18/24 04/30/24 04/16/24 Rx days #15 tabs nitroglycerin 0.4 mg sublingual 0.4 mg sublingual Q5M PRN Chest 04/18/24 04/30/24 Unknown Rx tablet Pain 30 days #30 tabs blood-glucose sensor (Dexcom G7 #9 ea 04/24/24 04/24/24 Unknown Rx Sensor device) infusion set for insulin pump #30 ea 04/24/24 04/24/24 Unknown Rx (AutoSoft XC Infusion Set 23 ) insulin pump cartridge (Tandem #30 ea 04/24/24 04/24/24 Unknown Rx Mobi Cartridge subcutaneous cartridge) subcutaneous insulin pump (Tandem #1 ea 04/24/24 04/24/24 Unknown Rx Mobi System) folic acid 1 mg tablet 1 mg PO DAILY 04/30/24 04/30/24 Unknown History insulin aspart U-100 100 unit/mL See Rx Instructions .Route 04/30/24 04/30/24 Unknown Rx subcutaneous solution (Novolog .COMPLEX 90 days #30 mL U-100 Insulin aspart) prasugrel 10 mg tablet (Effient) 10 mg PO DAILY 30 days #30 tabs 04/30/24 04/30/24 Unknown Rx rosuvastatin 40 mg tablet 40 mg PO DAILY 04/30/24 04/30/24 Unknown History tirzepatide 10 mg/0.5 mL 10 mg (0.5 mL) SUBCUT Q7D #2 mL 04/30/24 Unknown Rx subcutaneous pen injector (Mounjaro) Allergies Allergy/AdvReac Type Severity Reaction Status Date / Time fentanyl Allergy Severe ALGY-Difficulty Verified 04/30/24 13:08 Breathing isosorbide (From Imdur) Allergy ADR-Headach Verified 04/30/24 13:08 e Penicillins Allergy Unknown Verified 04/30/24 13:08 PFSH Acute PFSH: Medical History Lateral epicondylitis Cholecystectomy planned Obesity FH: CABG (coronary artery bypass surgery) CAD (coronary artery disease) Hyperlipidemia Surgical History Hx of appendectomy Social History Smoking and tobacco/nicotine status: never used tobacco/nicotine Second hand smoke exposure: No Alcohol intake: current Alcohol intake frequency: holidays/special occasions only Substance/Drug Use: never Adopted: No Caregiver/support person: Yes Lives independently: No Household members: spouse Housing: House Marital status: Number of children: 5 Number of grandchildren: 1 Highest education level completed: Some College, No Degree service: Yes Current occupational status: employed 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 Current occupational exposures/hazards: No Pets and animals: Yes Sexually active: Yes Do you think of yourself as: Straight/Heterosexual Current gender identity: Male Special asad needs: No Agree to transfusion: Yes Vitals/I&O/Wt Last Vital Signs Temp 98 F 05/26/24 16:42 Pulse 95 05/26/24 21:50 Resp 15 05/26/24 21:50 BP 139/73 05/26/24 21:50 Pulse Ox 90 05/26/24 21:50 O2 Del Method Room Air 05/26/24 20:10 Weight last 48 hrs Weight 72.575 kg Physical Exam Narrative: Patient clinically looks euvolemic No reflexes of lower extremity Sensations intact No signs of cauda equina Pleasant and cooperative during my evaluation No active focal deficit Patient able to lift his legs in the air however with great effort No active back pain S1, S2 No active chest pain Hemodynamic stable no active respiratory distress or chest pain No active skin rash Abdomen soft No audible stridor or wheezing Data 05/26/24 19:12 05/26/24 19:12 A&P Assessment and plan (1) Acute renal failure: (2) Type 1 diabetes: Qualifiers: Diabetes mellitus complication status: with circulatory complication Diabetes mellitus complication detail: with other circulatory complications Qualified Code(s): E10.59 - Type 1 diabetes mellitus with other circulatory complications (3) NSTEMI (non-ST elevated myocardial infarction): (4) Hyperlipemia, mixed: (5) Rhabdomyolysis: (6) Myocarditis: (7) Leg weakness, bilateral: (8) Proximal muscle weakness: (9) Abnormal transaminases: Plan Non-STEMI Chest pain Extremely high troponin Start heparin, continue aspirin and Effient Recent stent placement left circumflex History of established coronary disease Non-STEMI versus myocarditis? Requested echo Dr. Patricio notified and consulted No active chest pain at the time of my evaluation No active EKG changes for infarction Severe rhabdomyolysis No recent trauma, drug screen negative Spontaneous in nature Concern for autoimmune disease my differentials include polymyositis, diabetes, atrophy, myositis, autoimmune disease spectrum, men syndrome, Bilateral lower extremity weakness No signs of cauda equina Atypical reflexes No recent infection Gamber a syndrome? Neuroconsulted Admit to ICU monitor tidal volume every 6 hours , His vital capacity should not be less than 20 mL/kg of body weight Patient is complaining of dysphagia as well Will request PT OT and speech therapy Will follow-up with neurology recommendations Acute renal failure: Likely secondary to rhabdomyolysis, in case of further worsening patient may need nephro consultation by the morning Check CPK every 12 hours continue fluid hydration I will also give a dose of Lasix, check phosphorus, mag level Full code Clear liquid diet secondary to dysphagia Per speech therapy PT OT and speech therapy requested Admit to ICU Consultation requested: Cardiology and neurology for now May need nephro by the morning in case creatinine keeps worsening with worsening of rhabdo PDMP PDMP Reviewed: Not Reviewed Attestations Medical Necessity Statement*: More than 2 midnights anticipated Diagnoses Acute renal failure N17.9 Type 1 diabetes mellitus with other circulatory complication E10.59 Diabetes mellitus complication status: with circulatory complication Diabetes mellitus complication detail: with other circulatory complications NSTEMI (non-ST elevated myocardial infarction) I21.4 Hyperlipemia, mixed E78.2 Rhabdomyolysis M62.82 Myocarditis I51.4 Leg weakness, bilateral R29.898 Proximal muscle weakness M62.81 Abnormal transaminases R74.8
[2024-05-26] MEDS: potassium chloride ER 20 mEq Tablet 40 MEQ PO (23:35)
--- NOTE | 2024-05-26 23:56 | ECG_ITS ---
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 Measurements Intervals [place] Rate: 82 P: 58 VT: 158 QRS: 59 QRSD: 92 T: 63 QT: 409 QTc: 479 Interpretive Statements SINUS RHYTHM Compared to ECG 05/26/2024 20:22:29 No significant changes Electronically Signed On 05-29-2024 18:06:28 [place] REPRESENTATIVE by Libra Agee M.D. [email or web address]
[2024-05-27] VITALS (56 sets, daily range): BP systolic 116–177; BP diastolic 53–95; PULSE 54–96; RESP 3–29; TEMP 36.2–37; O2SAT 90–100; BMI 26.5
[2024-05-27] MEDS: sodium chloride 0.9% 1,000 ML 200 ML IV ×2 (00:01→06:06)
[2024-05-27 00:35] LABS: HIV 1 & 2 Antibody Non-Reactive (Non-Reactiv); HIV 1 & 2 Antigen Non-Reactive (Non-Reactiv)
--- NOTE | 2024-05-27 02:31 | PC.NURSE ---
Contacted Dr. Gutierrez in reference to patient's pain complaints, requests for sleep aid, and for guidance on patient's insulin pump. Received following orders: Oxycodone 5-325mg Q8H PRN for pain. Ambien 5mg PRN for sleep aid. Message to nurse: Patient to use his own insulin pump equipment.
--- NOTE | 2024-05-27 03:14 | PC.NURSE ---
Spoke with Dr. Gutierrez in reference to patients complaint of nausea. Received order for 4mg Zofran IVP Q6H PRN nausea.
[2024-05-27] MEDS: ondansetron 2 mg/ML SDV 2 mL 4 MG IVP ×2 (03:36→10:18)
[2024-05-27] MEDS: oxyCODONE-APAP 5-325 mg Tablet 1 TAB PO ×2 (03:36→11:15)
--- NOTE | 2024-05-27 03:45 | PC.NURSE ---
Spoke with Dr. Gutierrez in reference to patient's continued chest pain and BP readings of 170's/90's. Received orders to use morphine 2mg ONCE IVP and then proceed to nitro paste after speaking with physician again if necessary. However, shortly after speaking with Dr. Gutierrez and reassessing patient, pain was subsiding after administration of oxycodone, and patient did not want further morphine unless absolutely necessary. Updated Dr. Gutierrez.
[2024-05-27 05:18] LABS: Troponin 5 6HR 2382 ng/L (0-15); Troponin 5 6HR Delta 194 ng/L (0-12)
[2024-05-27] MEDS: FUROsemide 10 mg/mL SDV 2mL 20 MG IVP (06:06)
[2024-05-27 06:09] LABS: Alanine Aminotransferase 326 U/L (0-41); Alkaline Phosphatase 165 U/L (40-130); Anion Gap 27.7 (5-19); Aspartate Amino Transferase 598 U/L (0-40); Blood Urea Nitrogen 42 mg/dL (6-20); Calcium 9.2 mg/dL (8.5-10.5); Carbon Dioxide 20 mmol/L (22-29); Chloride 92 mmol/L (98-107); Globulin 3.4 g/dL (1.3-4.6); Glomerular Filtration Rate 12.6 mL/min (90-130); Glucose 88 mg/dL (65-115); Osmolality Calculated 292 mOsm/kg (285-295); Potassium 3.7 mmol/L (3.5-5.1); Sodium 136 mmol/L (136-145); Total Bilirubin 0.7 mg/dL (0.15-1.2); Total Protein 7.4 g/dL (6.6-8.7)
[2024-05-27 06:43] LABS: Lactate Dehydrogenase 2426 U/L (135-225)
[2024-05-27] MEDS: prasugrel 10 MG Tablet PO (08:33)
[2024-05-27] MEDS: folic acid 1 mg Tablet PO (08:34)
[2024-05-27] MEDS: methylPREDNISolone sod succ 125 mg/2 mL INJ 40 MG IVP (08:34)
--- NOTE | 2024-05-27 08:47 | PM.CONSULT ---
Providers/Reason For Consult Consulting Physician/Specialty*: pattie aguilar md/ telenephrology Reason for Consult*: ELENO/ rhabdomyolysis Requesting Physician: DR Gutierrez and dr Gomez Attending Physician: Grupo Donohue Primary Care Provider: Maria Walters MD History of Present Illness History of Present Illness Moisés Gonzalez is a 58 year old male with history of established coronary disease, CABG x 3, recent stent 05/11, type 1 diabetes using insulin pump, hypertension, presenting for abnormal CPK which was tested by the PCP for his generalized weakness and fatigue. Patient is stating that since his discharge from the hospital 04/18/2024 when he got a stent in the left circumflex for severe in-stent restenosis he has been compliant his medications but he has been extremely lethargic and fatigued as per the family at the bedside there is more generalized weakness now to the point that he is needing assistance for daily activities patient. Patient presented to the ER yesterday with chest discomfort and pain and progressive muscular weaqkness Review of Systems Narrative: weakness, muscle aches, decreased ability to ambulate. Medications/Allergies Home Medications ?Medication ?Instructions ?Recorded ?Confirmed ?Last Taken ?Type trazodone 50 mg tablet 100 mg PO BEDTIME 06/15/23 05/27/24 05/26/24 History tirzepatide 15 mg/0.5 mL 15 mg (0.5 mL) SUBCUT Q7D 30 days 12/05/23 05/27/24 04/14/24 Rx subcutaneous pen injector #2.5 mL (Antonio) prednisolone acetate 1 % eye 1 drp ophthalmic (eye) TID 04/17/24 05/27/24 05/26/24 History drops,suspension aspirin 81 mg tablet,delayed 81 mg PO BEDTIME 30 days #30 tabs 04/18/24 05/27/24 05/26/24 Rx release hydrochlorothiazide 25 mg tablet 12.5 mg (1/2 x 25 mg) PO DAILY 30 04/18/24 05/27/24 05/26/24 Rx days #15 tabs nitroglycerin 0.4 mg sublingual 0.4 mg sublingual Q5M PRN Chest 04/18/24 05/27/24 Unknown Rx tablet Pain 30 days #30 tabs folic acid 1 mg tablet 1 mg PO DAILY 04/30/24 05/27/24 05/26/24 History insulin aspart U-100 100 unit/mL See Rx Instructions .Route 04/30/24 05/27/24 05/26/24 Rx subcutaneous solution (Novolog .COMPLEX 90 days #30 mL U-100 Insulin aspart) prasugrel 10 mg tablet (Effient) 10 mg PO DAILY 30 days #30 tabs 04/30/24 05/27/24 05/26/24 Rx rosuvastatin 40 mg tablet 40 mg PO DAILY 04/30/24 05/27/24 05/26/24 History tirzepatide 10 mg/0.5 mL 10 mg (0.5 mL) SUBCUT Q7D #2 mL 04/30/24 05/27/24 Unknown Rx subcutaneous pen injector (Antonio) Allergies Allergy/AdvReac Type Severity Reaction Status Date / Time fentanyl Allergy Severe ALGY-Difficulty Verified 04/30/24 13:08 Breathing isosorbide (From Imdur) Allergy ADR-Headach Verified 04/30/24 13:08 e Penicillins Allergy Unknown Verified 04/30/24 13:08 Current Medications Generic Name Dose Route Start Last Admin Trade Name Freq PRN Reason Stop Dose Admin Folic Acid 1 mg 05/27/24 09:00 05/27/24 08:34 Folic Acid 1 Mg Tablet PO 1 mg DAILY DELANEY Administration Heparin Sodium/Sodium Chloride 25,000 unit in 500 mls @ 0 mls/hr 05/26/24 21:00 05/27/24 05:15 Heparin Drip IV 11.71 unit/kg/hr CONT DELANEY 17 mls/hr Titration Protocol Per Protocol Sodium Chloride 1,000 mls @ 200 mls/hr 05/26/24 23:00 05/27/24 06:06 Sodium Chloride 0.9% IV 200 mls/hr .Q5H DELANEY Administration Methylprednisolone Sodium Succinate 40 mg 05/27/24 09:00 05/27/24 08:34 Methylprednisolone Sod Succ 125 Mg/2 Ml Inj IVP 40 mg Q12H DELANEY Administration Ondansetron HCl 4 mg 05/27/24 03:13 05/27/24 03:36 Ondansetron 2 Mg/Ml Sdv 2 Ml IVP 4 mg Q6H PRN Administration NAUSEA AND VOMITING Oxycodone/Acetaminophen 1 tab 05/27/24 02:28 05/27/24 03:36 Oxycodone-Apap 5-325 Mg Tablet PO 1 tab Q8H PRN Administration MODERATE PAIN Prasugrel 10 mg 05/27/24 09:00 05/27/24 08:33 Prasugrel 10 Mg Tablet PO 10 mg DAILY DELANEY Administration PFSH Acute PFSH: Medical History Lateral epicondylitis Cholecystectomy planned Obesity FH: CABG (coronary artery bypass surgery) CAD (coronary artery disease) Hyperlipidemia Surgical History Hx of appendectomy Social History Smoking and tobacco/nicotine status: never used tobacco/nicotine Second hand smoke exposure: No Alcohol intake: current Alcohol intake frequency: holidays/special occasions only Substance/Drug Use: never Adopted: No Caregiver/support person: Yes Lives independently: No Household members: spouse Housing: House Marital status: Number of children: 5 Number of grandchildren: 1 Highest education level completed: Some College, No Degree service: Yes Current occupational status: employed 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 Current occupational exposures/hazards: No Pets and animals: Yes Sexually active: Yes Do you think of yourself as: Straight/Heterosexual Current gender identity: Male Special asad needs: No Agree to transfusion: Yes Vitals/I&O/Wt Last Vital Signs Temp 97.2 F L 05/27/24 05:15 Pulse 73 05/27/24 06:36 Resp 18 05/27/24 06:00 BP 143/84 05/27/24 06:00 Pulse Ox 97 05/27/24 05:30 O2 Del Method Room Air 05/27/24 02:13 05/26/24 05/27/24 05/27/24 22:59 06:59 14:59 Intake Total 1162.4 / 1162.4 Balance 1162.4 / 1162.4 Weight last 48 hrs Weight 69 kg Weight 68 kg Weight 72.575 kg Physical Exam Narrative: uncomfortable in bed VSS heent- nc/at, eomi neck no jvp lungs clear heart regular abdomen soft + bs ext no edema, + weak Urinary Catheter Management: Velez: Cath Placed During This Visit: yes Reason for Continuing Indwelling Catheter: Accurate Measurement of Urinary Output in Critically Ill Patients Urinary Catheter Date of Insertion: 05/26/24 Data 05/26/24 19:12 05/27/24 03:20 A&P Assessment and plan (1) Acute renal failure: 58 yr old man CAD s/p recent stent. he is on statins 1[place] [address]- and symptoms for week he is not urinating. will cont ivf and add furosemide -no emergent need for dialysis likely ELENO fom rhabdo -no hydronephrosis on imaging 2. rhabdomyolysis- can be from statins. however, this is a very high cpk- he was on high dose crestor -please also send blood tests for polymyositis, dermatomyositis. check aldolase. he has a high LDH, check LUIS ANTONIO, anti-[place]-1, Anti -Mi-2, [id number], anti-MDA5 check hiv and hep serologies check tsh -repeat cpk -consider transfer for a rheumatology evaluation =seen and examined w/ RN- telehealth visit Qualifiers: Acute renal failure type: unspecified Qualified Code(s): N17.9 - Acute kidney failure, unspecified Plan see above. ivf, lasix. if devlops aciosis, volr refractory hyperkalemia- then will need dialysis PDMP PDMP Reviewed: Not Reviewed Consult Attestations Medical Necessity Statement: eleno, rhabdomyolysis, severe muscle pains Time Spent in Patient Care: Greater than 35 minutes (>than 50% of time spent in counselling and/or direct pt care on unit). Coding Level of Care Code Acute Code for [facility] Fwd Diagnoses Acute renal failure, unspecified acute renal failure type N17.9 Acute renal failure type: unspecified
[2024-05-27] MEDS: sodium bicarbonate 150 MEQ in dextrose 5% 1,000 ML 200 MEQ IV ×2 (10:01→20:30)
[2024-05-27] MEDS: FUROsemide 10 mg/mL SDV 10mL 60 MG IVP ×2 (10:02→20:31)
--- NOTE | 2024-05-27 12:43 | PM.CONSULT ---
Providers/Reason For Consult Consulting Physician/Specialty*: Mao Kim MD neurology and epilepsy Reason for Consult*: Proximal muscle weakness since April 2024 and elevated CPK and troponin levels and renal insufficiency. 59-year-old male who was evaluated by me on 09/15/2022 secondary to right upper extremity pain in a radial nerve distribution. Patient was seen on follow-up on 12/13/2022 and referred to orthopedic surgeon for right radial nerve issues. 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 He denied any toxin exposure but stated that in April 2024 he began experiencing progressive weakness in his proximal arms and legs worse in his lower extremities with difficulty swallowing. Patient also reported shortness of breath. Patient was admitted on 05/26/2024. Labs for CPK and troponin levels were significantly elevated. CPK on 05/26/2024 was 50,168 troponin levels 2188. Liver profile was also elevated with ALT 326 AST 598 alkaline phosphatase 161. BUN and creatinine elevated at 42 and 4.8 respectively on 05/27/2024. Drug allergies: Fentanyl which resulted in difficulty breathing Iso-Sorbid which resulted in headaches Penicillins type reaction unknown Current Home medications: Aspirin 81 mg p.o. daily Folic acid 1 mg p.o. daily Hydrochlorothiazide 12.5 mg p.o. daily Insulin subcutaneously as directed Sublingual nitroglycerin 0.4 mg as needed chest pain Prasugrel 10 mg p.o. daily Prednisolone acetate eyedrops 1 drop in each eye 3 times a day Crestor 40 mg p.o. daily Tirzepatide 15 mg subcutaneously every 7 days Trazodone 100 mg p.o. 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 Patient denied any exposure to toxins Past medical history: Type 1 diabetes mellitus Right radial nerve issues 2022 addressed by orthopedic surgeon non-ST segment elevation myocardial infarction Hyperlipidemia Status post orthoscopic surgery right knee with chronic right knee pain Injury of the meniscus of the right knee Attending Physician: Grupo Donohue Primary Care Provider: Maria Walters MD History of Present Illness History of Present Illness Moisés Gonzalez is a 58 year old male Review of Systems General: Reports: 10 or more systems reviewed and unremarkable except in HPI and below GI: Reports: dysphagia Musc: Reports: muscle weakness Neuro: Reports: weakness in extremities Medications/Allergies Home Medications ?Medication ?Instructions ?Recorded ?Confirmed ?Last Taken ?Type trazodone 50 mg tablet 100 mg PO BEDTIME 06/15/23 05/27/24 05/26/24 History tirzepatide 15 mg/0.5 mL 15 mg (0.5 mL) SUBCUT Q7D 30 days 12/05/23 05/27/24 04/14/24 Rx subcutaneous pen injector #2.5 mL (Mounjaro) prednisolone acetate 1 % eye 1 drp ophthalmic (eye) TID 04/17/24 05/27/24 05/26/24 History drops,suspension aspirin 81 mg tablet,delayed 81 mg PO BEDTIME 30 days #30 tabs 04/18/24 05/27/24 05/26/24 Rx release hydrochlorothiazide 25 mg tablet 12.5 mg (1/2 x 25 mg) PO DAILY 30 04/18/24 05/27/24 05/26/24 Rx days #15 tabs nitroglycerin 0.4 mg sublingual 0.4 mg sublingual Q5M PRN Chest 04/18/24 05/27/24 Unknown Rx tablet Pain 30 days #30 tabs folic acid 1 mg tablet 1 mg PO DAILY 04/30/24 05/27/24 05/26/24 History insulin aspart U-100 100 unit/mL See Rx Instructions .Route 04/30/24 05/27/24 05/26/24 Rx subcutaneous solution (Novolog .COMPLEX 90 days #30 mL U-100 Insulin aspart) prasugrel 10 mg tablet (Effient) 10 mg PO DAILY 30 days #30 tabs 04/30/24 05/27/24 05/26/24 Rx rosuvastatin 40 mg tablet 40 mg PO DAILY 04/30/24 05/27/24 05/26/24 History tirzepatide 10 mg/0.5 mL 10 mg (0.5 mL) SUBCUT Q7D #2 mL 04/30/24 05/27/24 Unknown Rx subcutaneous pen injector (Mounjaro) Allergies Allergy/AdvReac Type Severity Reaction Status Date / Time fentanyl Allergy Severe ALGY-Difficulty Verified 04/30/24 13:08 Breathing isosorbide (From Imdur) Allergy ADR-Headach Verified 04/30/24 13:08 e Penicillins Allergy Unknown Verified 04/30/24 13:08 Current Medications Generic Name Dose Route Start Last Admin Trade Name Freq PRN Reason Stop Dose Admin Folic Acid 1 mg 05/27/24 09:00 05/27/24 08:34 Folic Acid 1 Mg Tablet PO 1 mg DAILY DELANEY Administration Furosemide 60 mg 05/27/24 09:15 05/27/24 10:02 Furosemide 10 Mg/Ml Sdv 10ml IVP 60 mg Q12H DELANEY Administration Heparin Sodium/Sodium Chloride 25,000 unit in 500 mls @ 0 mls/hr 05/26/24 21:00 05/27/24 05:15 Heparin Drip IV 11.71 unit/kg/hr CONT DELANEY 17 mls/hr Titration Protocol Per Protocol Sodium Bicarbonate 150 meq/ 1,150 mls @ 200 mls/hr 05/27/24 09:15 05/27/24 10:01 Dextrose IV 200 mls/hr .Q5H45M DELANEY Administration Methylprednisolone Sodium Succinate 40 mg 05/27/24 09:00 05/27/24 08:34 Methylprednisolone Sod Succ 125 Mg/2 Ml Inj IVP 40 mg Q12H DELANEY Administration Ondansetron HCl 4 mg 05/27/24 03:13 05/27/24 10:18 Ondansetron 2 Mg/Ml Sdv 2 Ml IVP 4 mg Q6H PRN Administration NAUSEA AND VOMITING Oxycodone/Acetaminophen 1 tab 05/27/24 02:28 05/27/24 11:15 Oxycodone-Apap 5-325 Mg Tablet PO 1 tab Q8H PRN Administration MODERATE PAIN Prasugrel 10 mg 05/27/24 09:00 05/27/24 08:33 Prasugrel 10 Mg Tablet PO 10 mg DAILY DELANEY Administration PFSH Acute PFSH: Medical History Lateral epicondylitis Cholecystectomy planned Obesity FH: CABG (coronary artery bypass surgery) CAD (coronary artery disease) Hyperlipidemia Surgical History Hx of appendectomy Social History Smoking and tobacco/nicotine status: never used tobacco/nicotine Second hand smoke exposure: No Alcohol intake: current Alcohol intake frequency: holidays/special occasions only Substance/Drug Use: never Adopted: No Caregiver/support person: Yes Lives independently: No Household members: spouse Housing: House Marital status: Number of children: 5 Number of grandchildren: 1 Highest education level completed: Some College, No Degree service: Yes Current occupational status: employed 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 Current occupational exposures/hazards: No Pets and animals: Yes Sexually active: Yes Do you think of yourself as: Straight/Heterosexual Current gender identity: Male Special asad needs: No Agree to transfusion: Yes Vitals/I&O/Wt Last Vital Signs Temp 98.6 F 05/27/24 08:00 Pulse 71 05/27/24 07:30 Resp 16 05/27/24 11:15 BP 164/65 05/27/24 10:00 Pulse Ox 90 05/27/24 10:00 O2 Del Method Room Air 05/27/24 02:13 05/26/24 05/27/24 05/27/24 22:59 06:59 14:59 Intake Total 1162.4 / 1162.4 Balance 1162.4 / 1162.4 Weight last 48 hrs Weight 152 lb 1.903 oz Weight 149 lb 14.629 oz Weight 160 lb Physical Exam Narrative: The patient is alert and oriented x 3. Speech fluent. Head normocephalic. Neck supple. Cranial nerves II through XII intact. Motor testing 5/5 in the upper extremities. Lower extremity revealed 3/5 right hip flexion and 3+/5 left hip flexion. Other motor testing lower extremities appear to be 5/5. Deep tendon reflexes difficult to assess with patient sitting in the chair next to the bed in the intensive care unit. But upper extremities appear to be 1+ bilaterally. Biceps were difficult to assess secondary to bilateral IV replacements at the antecubital fossa's. Lower extremity reflex revealed 1+ at the patella on the left right patella not assessed secondary to patient report of chronic right knee pain. Achilles difficult to assess but appear to be areflexic. Note motor testing in the lower extremities was 5/5 distally. Sensory examination intact to touch. Throat clear. Lungs clear. Heart regular rhythm and rate. Extremities were negative for cyanosis Urinary Catheter Management: Velez: Cath Placed During This Visit: yes Reason for Continuing Indwelling Catheter: Accurate Measurement of Urinary Output in Critically Ill Patients Urinary Catheter Date of Insertion: 05/26/24 Data 05/26/24 19:12 05/27/24 03:20 A&P Assessment and plan (1) Myopathy: Impression: 1. Clinical examination and history suggestive of myopathic process, etiology unclear. Elevated CPK 50,169 on 05/26/2024 with elevated troponin 2188 2. Non-ST segment elevation myocardial infarct 3. Acute renal failure with elevated BUN and creatinine 42 and 4.8 respectively on 05/27/2024 4. Type 1 diabetes mellitus Plan: 1. Agree with current treatment plan 2. Agree with monitoring forced vital capacities and consider intubation if patient experiences significant shortness of breath or for the vital capacity less than 1 L 3. Recommend obtaining additional lab for thyroid profile, FTA antibody and RPR 4. Recommending discontinue Crestor in case this medication contributing to the patient's elevated CPK and proximal weakness 5. Consider treatment for myopathic process with IVIG 0.4 grams per kilogram if no contraindication from renal standpoint with continuous IV fluids at 75 cc/h to protect kidneys or consider plasma exchange for myopathic process 6. Note since the patient is type 1 diabetes IV methylprednisolone can be considered but may be contraindicated secondary to fear of worsening patient's type 1 diabetes mellitus 7. Note: There is no neurodiagnostic inpatient hospital staffing to obtain EMG/nerve conduction velocity study to assess for myopathic process therefore if indicated patient may have to be referred to another facility. (2) Elevated CPK: (3) Proximal weakness of extremity: PDMP PDMP Reviewed: Not Reviewed Consult Attestations Medical Necessity Statement: Patient evaluated by neurology for muscle weakness and elevated CPK Coding Level of Care Code 24357 Diagnoses Myopathy G72.9 Elevated CPK R74.8 Proximal weakness of extremity M62.89
--- NOTE | 2024-05-27 13:24 | XR_ITS ---
WS: [id number] PORTABLE CHEST HISTORY: chest pain after vomiting COMPARISON: 05/26/2024, 04/16/2024 Prior CABG. Lung volumes are decreased due to poor inspiratory effort. Subsegmental atelectasis posterior to the LEFT heart. Additional medial LEFT upper lobe subtle opacification may be an area of atelectasis or pneumonia. No pleural effusion or pneumothorax. Cardiac size: Normal. Mediastinum/Aorta: Normal mediastinum. No osseous abnormality seen. Increased air within the GI tract in the upper abdomen. No obstructive pattern. XR/XR chest 1V portable [id number] IMPRESSION: 1. New subsegmental atelectasis posterior to the LEFT heart. 2. New subtle opacification LEFT upper lobe. Pneumonia versus atelectasis.
[2024-05-27] MEDS: metoclopramide 5 mg/mL SDV 2 mL IVP ×2 (13:37→20:47)
[2024-05-27] MEDS: pantoprazole 40 mg SDV IVP (13:37)
--- NOTE | 2024-05-27 13:41 | P.PN_ITS ---
Subjective 2 Subjective: Having muscle aches. Feeling slightly better. Vitals/I&O/Wt Last Vital Signs Temp 98.6 F 05/27/24 08:00 Pulse 66 05/27/24 11:00 Resp 29 H 05/27/24 13:00 BP 168/61 05/27/24 13:00 Pulse Ox 97 05/27/24 12:30 O2 Del Method Room Air 05/27/24 02:13 05/26/24 05/27/24 05/27/24 22:59 06:59 14:59 Intake Total 1162.4 / 1162.4 Balance 1162.4 / 1162.4 Weight last 48 hrs Weight 69 kg Weight 68 kg Weight 72.575 kg Physical Exam 2 Const: COMMON NORMALS: patient oriented x3 and alert GENERAL APPEARANCE: c ooperative ORIENTATION/CONSCIOUSNESS: Yes awake HENMT: COMMON NORMALS: oropharynx normal Neck/C-Spine: COMMON NORMALS: no JVD Resp: COMMON NORMALS: normal respiratory effort and clear to auscultation bilaterally AUSCULTATION: clear to auscultation bilaterally Cardio: COMMON NORMALS: no JVD, regular rhythm, S1 normal heart sound present, S2 normal heart sound present and No murmurs present (Cardio) RHYTHM: regular rhythm HEART SOUNDS: S1 normal heart sound present and S2 normal heart sound present GI: COMMON NORMALS: Normal to inspection, nondistended, normoactive bowel sounds present, Soft to palpation and non-tender PALPATION: Yes Soft to palpation Extremity: COMMON NORMALS: no joint enlargement and no pedal edema Neuro: COMMON NORMALS: patient oriented x3 and moves all extremities S ENSORIUM/ORIENTATION: Yes alert Skin: COMMON NORMALS: no rashes or lesions noted GENERAL SKIN EXAM: no rashes or lesions noted Urinary Catheter Management: Velez: Cath Placed During This Visit: yes Reason for Continuing Indwelling Catheter: Accurate Measurement of Urinary Output in Critically Ill Patients Urinary Catheter Date of Insertion: 05/26/24 Data 05/27/24 15:08 05/27/24 03:20 A&P Assessment and plan (1) Acute renal failure: Qualifiers: Acute renal failure type: unspecified Qualified Code(s): N17.9 - Acute kidney failure, unspecified (2) Type 1 diabetes: Qualifiers: Diabetes mellitus complication detail: with other circulatory complications Diabetes mellitus complication status: with circulatory complication Qualified Code(s): E10.59 - Type 1 diabetes mellitus with other circulatory complications (3) NSTEMI (non-ST elevated myocardial infarction): (4) Hyperlipemia, mixed: (5) Rhabdomyolysis: (6) Myocarditis: (7) Leg weakness, bilateral: (8) Proximal muscle weakness: (9) Abnormal transaminases: Plan Non-STEMI Reviewed troponin series, with some fluctuation but overall flat trend, persistent elevation. May suspect secondary to rhabdomyolysis. Echocardiogram is ordered and pending. Appreciate cardiology consultation. Continue medication for possible NSTEMI, aspirin, prasugrel, heparin drip. Monitor for risk of bleeding. Monitor PTT. Reassess blood counts. Statin held. Recent stent placement left circumflex History of established coronary disease Severe rhabdomyolysis: Unclear nature, possible statin myopathy perhaps exacerbated with some dehydration with HCTZ, very high CK. Repeat CK requested, had difficulty with IV access, PICC line requested. Repeat lab pending. With acute renal failure, discussed with bridge maintenance worker. Discussed with patient, currently indication for emergent dialysis as per discussion, but may progress to need for dialysis. Repeat chemistry is requested. Receiving IV fluid challenge. Monitor intake and output. Additional possibility of myositis, NSTEMI and antibodies have been requested. Follow-up. Currently on steroids, increased dose to 250 mg twice daily, 500 total daily. Given unclear cause at current time discussed also with him about obtaining muscle biopsy. Appreciate surgical consultation. Tentatively may be planned for Monday depending on overall condition. Follow-up repeat CK. Appreciate neurology consultation. Additional consideration of IVIG. Continue to monitor in ICU. Continue to monitor vital capacity. PT, OT, ST evaluation. No signs of cauda equina Atypical reflexes No recent infection Acute renal failure: Pending reassessment. Consider need for and timing of dialysis. Repeat chemistry is requested. Full code Clear liquid diet secondary to dysphagia PDMP PDMP Reviewed: Not Reviewed Attestations 2 Medical Necessity Statement*: Continue hospitalization for assessment management of severe rhabdomyolysis, NSTEMI, acute renal failure. Coding Level of Care Code Critical Care >/= 30 minutes Critical care time (in minutes): 40 The high probability of a clinically significant, sudden or life threatening deterioration, as referenced in this documentation, required my full and direct attention, intervention and personal management. The critical care time shown is in addition to time spent performing any reported separately billable procedures and includes the following: [x] Data and vital sign review and interpretation [x ] Patient assessment, examination and intervention [x] Medication orders and management [x] Patient/Family updates as able [x] Care Coordination and Documentation. Diagnoses Acute renal failure, unspecified acute renal failure type N17.9 Acute renal failure type: unspecified Type 1 diabetes mellitus with other circulatory complication E10.59 Diabetes mellitus complication detail: with other circulatory complications Diabetes mellitus complication status: with circulatory complication NSTEMI (non-ST elevated myocardial infarction) I21.4 Hyperlipemia, mixed E78.2 Rhabdomyolysis M62.82 Myocarditis I51.4 Leg weakness, bilateral R29.898 Proximal muscle weakness M62.81 Abnormal transaminases R74.8
--- NOTE | 2024-05-27 14:13 | XR_ITS ---
WS: [id number] XR chest 1V portable [id number] REASON FOR EXAM: Post PICC insertion FINDINGS: A right arm PICC line has been placed. The tip is just below the level of the karmen in the mid SVC. The catheter tip position was discussed with the phlebotomy technologist over the phone (3:00 p.m.) and recommended that the catheter be advanced the remaining 1 cm that was remaining of the catheter clem gth outside the skin. This will place the PICC line in a good position for use. XR/XR chest 1V portable [id number] IMPRESSION: Right arm PICC line placement as above.
--- NOTE | 2024-05-27 14:38 | USCV_ITS ---
Moisés Gonzalez Age: 58 Gender: M : 1965 Exam Date: 05/27/2024 15:27 Ordering Phys: Tiffanie Lopez NP Technologist: Exam Location: [facility] – [place] Indication: BP: / HR: Rhythm: Sinus Technical Quality: Adequate MEASUREMENTS (Male / Female) Normal Values 2D ECHO LV Diastolic Diameter PLAX 4.0 cm 4.2 - 5.9 / 3.9 - 5.3 cm IVS Diastolic Thickness 1.2 cm 0.6 - 1.0 / 0.6 - 0.9 cm IVS Systolic Thickness 1.6 cm LVPW Diastolic Thickness 1.4 cm 0.6 - 1.0 / 0.6 - 0.9 cm LVPW Systolic Thickness 1.6 cm LVOT Diameter 2.0 cm LV Ejection Fraction 2D Teich 66.8 % LV Ejection Fraction MOD 4C 77.4 % LV Ejection Fraction MOD 2C 67.8 % LV Ejection Fraction 2C AL 67.5 % LA Diameter 4.1 cm RA Systolic Volume 4C AL 24.9 ml RA Systolic Volume 4C MOD 24.1 ml M-MODE LA Ao Ratio MM 1.2 AV Cusp Separation MM 1.7 cm FINDINGS Left Ventricle Moderate left ventricular hypertrophy. Normal left ventricular size and systolic function, EF 67%.no regional wall motion abnormalities. Right Ventricle The right ventricle is normal in size and function. Right Atrium The right atrium is normal in size. Left Atrium The left atrium is normal in size. Mitral Valve No gross abnormalities noted Aortic Valve Thickened aortic valve. Tricuspid Valve No gross abnormalities noted Pulmonic Valve No gross abnormalities noted Pericardium Normal pericardium without effusion. Aorta Normal ascending aorta dimension. IVC The inferior vena cava appears normal. CONCLUSIONS Moderate left ventricular hypertrophy. Normal left ventricular size and systolic function, EF 67%. No regional wall motion abnormalities. There is no pericardial effusion. There are no intracardiac masses. Compared to the study from 04/17/2024, no significant change in the 2D findings Dr Libra Agee MD [facility] (Electronically Signed) Final Date: 27 May 2024 21:24 S
--- NOTE | 2024-05-27 15:12 | P.CONIM_ITS ---
<Statement entered by Cj Patricio MD - 05/27/24 20:32> Patient was evaluated and cared for in conjunction with an advanced practice practitioner. I personally examined the patient and reviewed the chart and all pertinent data including imaging, telemetry, and laboratory results. I discussed the patient in detail with the advanced practice practitioner. Please see their note for complete H&P testing result and agreed upon plan of care for the patient. 58-year-old male past medical history significant for coronary disease hypertension hyperlipidemia with significant vasculopathy with recent stent placement few months ago on rosuvastatin presented with generalized weakness muscle aches pain noted to be acute renal failure and CK more than 50,000 suggestive of rhabdomyolysis GENERAL: Patient is alert, awake and oriented x3. HEART: Regular S1 and S2. No murmur, rub or gallop. LUNGS: Clear to auscultate bilaterally. CENTRAL NERVOUS SYSTEM: Grossly nonfocal. EXTREMITIES: Lower extremities with out edema bilaterally. Assessment and plan Rhabdomyolysis etiology statin versus rheumatological or combination as I have not seen that high after statin induced rhabdomyolysis Acute renal failure secondary abdominal Elevated cardiac markers troponin most likely secondary rhabdo denies any chest pain Continue IV fluid, continue IV Lasix With rheumatological assessment as per medicine and nephrology Continue to monitor possibility of dialysis as per nephrology Providers/Reason For Consult 2 Consulting Physician/Specialty*: Cj Patricio MD Reason for Consult*: Elevated troponin Attending Physician: Grupo Donohue Primary Care Provider: Maria Walters MD History of Present Illness History of Present Illness This is a very pleasant 58-year-old gentleman with a past medical history of CAD status post CABG NUNEZ to LAD saphenous vein graft to radial to diagonal who had recent PCI to the saphenous vein graft to OM and balloon angioplasty of RCA and left circumflex arteries. He felt worse after the stent placement and was having daily chest pressures and went to the hospital because of this. Initial troponin was elevated at 232 that trended up to 262 at 6 hours. He was taken to the [facility] and underwent another left heart cath. NUNEZ to LAD was found to be patent. Saphenous vein graft to OM was patent. Radial graft to diagonal was patent. Mid left circumflex stent had severe in-stent restenosis status post successful revascularization with 1 stent. Ostial RCA had severe stenosis status post 1 stent placement. Patient came to the ER yesterday due to the inability to walk. Denies any significant chest pain or signs or symptoms of CHF overload. His CK level was drawn in the ER and was around 24,000. He has been on atorvastatin for a while but was recently switched to rosuvastatin. Troponin was elevated at 2188 at baseline trending up to 2382 delta negative. EKG without acute changes. Review of Systems 2 Narrative: Consitutional: denies fever, chills, body aches, or changes in appetite, denies abnormal weight loss Eyes: Denies changes in vision Card: Denies chest pain, palpitations, irregular heart rhythm, edema, syncope, shortness of breath, orthopnea, leg pain with exertion Resp: Denies shortness of breath, denies hemoptysis, denies cough GI: denies abdominal pain, denies nausea or voimting, denies blood in stool : denies blood in urine, denies dysuria Musc: reports back pain, muscle cramping all over body Skin: Denies rash, lesions, or wounds, denies changes to skin color Neuro: Denies nubmness in extremities, h/a, s/s of stroke Niko: Denies easy bruiding/bleeding Medications/Allergies Home Medications ?Medication ?Instructions ?Recorded ?Confirmed ?Last Taken ?Type trazodone 50 mg tablet 100 mg PO BEDTIME 06/15/23 0 05/27/24 05/26/24 History tirzepatide 15 mg/0.5 mL 15 mg (0.5 mL) SUBCUT Q7D 30 days 12/05/23 05/27/24 04/14/24 Rx subcutaneous pen injector #2.5 mL (Antonio) prednisolone acetate 1 % eye 1 drp ophthalmic (eye) TI D 04/17/24 05/27/24 05/26/24 History drops,suspension aspirin 81 mg tablet,delayed 81 mg PO BEDTIME 30 days #30 tabs 04/18/24 05/27/24 05/26/24 Rx release hydrochlorothiazide 25 mg tablet 12.5 mg (1/2 x 25 mg) PO DAILY 30 04/18/24 05/27/24 05/26/24 Rx days #15 tabs nitroglycerin 0.4 mg sublingual 0.4 mg sublingual Q5M PRN Chest 04/18/24 05/27/24 Unknown Rx tablet Pain 30 days #30 tabs folic acid 1 mg tablet 1 mg PO DAILY 04/30/2405/2705/26/24 History insulin aspart U-100 100 unit/mL See Rx Instructions . Route 04/30/24 05/27/24 05/26/24 Rx subcutaneous solution (Novolog .COMPLEX 90 days #30 mL U-100 Insulin aspart) prasugrel 10 mg tablet (Effient) 10 mg PO DAILY 30 day s #30 tabs 04/30/24 05/27/24 05/26/24 Rx rosuvastatin 40 mg tablet 40 mg PO DAILY 04/30/2405/1805/26/24 History tirzepatide 10 mg/0.5 mL 10 mg (0.5 mL) SUBCUT Q7D #2 mL 04/30/24 05/27/24 Unknown Rx subcutaneous pen injector (Mounflaquitoro) Allergies Allergy/AdvReac Type Severity Reaction Status Date / Time fentanyl Allergy Severe ALGY-Difficulty Verified 04/30/24 13:08 Breathing isosorbide (From Imdur) Allergy ADR-Headach Verified 04/30/24 13:08 e Penicillins Allergy Unknown Verified 04/30/24 13:08 Current Medications Generic Name Dose Route Start Last Admin Trade Name Freq PRN Reason Stop Dose Admin Folic Acid 1 mg 05/27/24 09:00 05/27/24 08:34 Folic Acid 1 Mg Tablet PO 1 mg DAILY DELANEY Administration Furosemide 60 mg 05/27/24 09:15 05/27/24 10:02 Furosemide 10 Mg/Ml Sdv 10ml IVP 60 mg Q12H DELANEY Administration Heparin Sodium/Sodium Chloride 25,000 unit in 500 mls @ 0 mls/hr 05/26/24 21:00 05/27/24 05:15 Heparin Drip IV 11.71 unit/kg/hr CONT DELANEY 17 mls/hr Titration Protocol Per Protocol Sodium Bicarbonate 150 meq/ 1,150 mls @ 200 mls/hr 05/27/24 09:15 05/27/24 10:01 Dextrose IV 200 mls/hr .Q5H45M DELANEY Administration Methylprednisolone Sodium Succinate 40 mg 05/27/24 09:00 05/27/24 08:34 Methylprednisolone Sod Succ 125 Mg/2 Ml Inj IVP 40 mg Q12H DELANEY Administration Metoclopramide HCl 5 mg 05/27/24 13:23 05/27/24 13:37 Metoclopramide 5 Mg/Ml Sdv 2 Ml IVP 5 mg Q6H PRN Administration NAUSEA AND VOMITING Ondansetron HCl 4 mg 05/27/24 03:13 05/27/24 10:18 Ondansetron 2 Mg/Ml Sdv 2 Ml IVP 4 mg Q6H PRN Administration NAUSEA AND VOMITING Oxycodone/Acetaminophen 1 tab 05/27/24 02:28 05/27/24 11:15 Oxycodone-Apap 5-325 Mg Tablet PO 1 tab Q8H PRN Administration MODERATE PAIN Pantoprazole Sodium 40 mg 05/27/24 13:30 05/27/24 13:37 Pantoprazole 40 Mg Sdv IVP 40 mg Q12H DELANEY Administration Prasugrel 10 mg 05/27/24 09:00 05/27/24 08:33 Prasugrel 10 Mg Tablet PO 10 mg DAILY DELANEY Administration PFSH Acute 2 PFSH: Medical History Lateral epicondylitis Cholecystectomy planned Obesity FH: CABG (coronary artery bypass surgery) CAD (coronary artery disease) Hyperlipidemia Surgical History Hx of appendectomy Social History Smoking and tobacco/nicotine status: never used tobacco/nicotine Second hand smoke exposure: No Alcohol intake: current Alcohol intake frequency: holidays/special occasions only Substance/Drug Use: never Adopted: No Caregiver/support person: Yes Lives independently: No Household members: spouse Housing: House Marital status: Number of children: 5 Number of grandchildren: 1 Highest education level completed: Some College, No Degree service: Yes Current occupational status: employed 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 [employer] Current occupational exposures/hazards: No Pets and animals: Yes Sexually active: Yes Do you think of yourself as: Straight/Heterosexual Current gender identity: Male Special asad needs: No Agree to transfusion: Yes Vitals/I&O/Wt Last Vital Signs Temp 98.6 F 05/27/24 08:00 Pulse 71 05/27/24 14:30 Resp 22 H 05/27/24 14:30 BP 116/88 05/27/24 14:30 Pulse Ox 97 05/27/24 14:30 O2 Del Method Room Air 05/27/24 02:13 05/27/24 05/27/24 05/27/24 06:59 14:59 22:59 Intake Total 1162.4 / 1162.4 Balance 1162.4 / 1162.4 Weight last 48 hrs Weight 152 lb 1.903 oz Weight 149 lb 14.629 oz Weight 160 lb Physical Exam 2 Narrative: General: No apparent distress, healthy appearing, well nourished HENMT: normoceophalic Muskuloskeletal: Full ROM Lymphatic: no lymphedema noted Respiratory: Normal respiratory effort, clear to auscultation bilaterally throughout all lung donis, no use of accessory muscles Cardio: No JVD, regular rate, regular rhythm, S1 S2 normal, no murmurs, peripheral pulses 2+ radial palpated bilaterally GI: Normal to inspection, nondistended Extremities: Full ROM, normal, normal capillary refill, no cyanosis, no edema Neuro: Alert and oriented x4, no focal motor deficits Psych: Affect normal, denies suicidal ideation, mental status grossly normal Skin: No rashes or lesions noted, no wounds Urinary Catheter Management: Velez: Cath Placed During This Visit: yes Reason for Continuing Indwelling Catheter: Accurate Measurement of Urinary Output in Critically Ill Patients Urinary Catheter Date of Insertion: 05/26/24 Data 05/26/24 19:12 05/27/24 03:20 A&P Assessment and plan (1) NSTEMI (non-ST elevated myocardial infarction): (2) Antiplatelet or antithrombotic long-term use: (3) Hyperlipidemia: Qualifiers: Hyperlipidemia type: unspecified Qualified Code(s): E78.5 - Hyperlipidemia, unspecified (4) Hyperlipemia, mixed: Plan At this time, patient has markedly elevated troponins most likely due to rhabdomyolysis. He is asymptomatic without chest pain or shortness of breath at this time. EKG without any acute changes. Will obtain a limited echo to review LV function. Agree to continue to hold statin therapy. Continue hydrate. Avoid nephrotoxins. We will monitor for further s/s of coronary ischemia. Will review echo. Further recommendations after this. Thank you, for allowing us to care for this very pleasant gentleman. PDMP PDMP Reviewed: Not Reviewed Coding Level of Care Code Acute Code for Chg Fwd Diagnoses NSTEMI (non-ST elevated myocardial infarction) I21.4 Antiplatelet or antithrombotic long-term use Z79.02 Hyperlipidemia, unspecified hyperlipidemia type E78.5 Hyperlipidemia type: unspecified Hyperlipemia, mixed E78.2
--- NOTE | 2024-05-27 15:29 | PICC.NOTE ---
Triple lumen PICC placed to right basilic vein. Referred to vascular access nurse for PICC placement due to poor access. Risks and benefits discussed and informed consent obtained from pt. Right arm assessed with right baslic vein measuring 3.2 mm, straight, and apparent best choice for placement. Using sterile technique and MST, right basilic vein accessed x 1 stick. Mid-arm circumference measured 10 cm from right AC 27 cm. Trimmed cath 37 cm with 0 cm external length noted. CXR shows tip in SVC, in good position for use per radiologist. Line secured with stat-lock. Insertion site covered with Biopatch and TSM. Report given to bedside nurse, DILCIA Charles
[2024-05-27 15:34] LABS: Partial Thromboplastin Time 32.7 SECONDS (23.9-36.7)
[2024-05-27 15:44] LABS: Troponin T (5th) Once 1897 ng/L (0-15)
[2024-05-27 15:53] LABS: Basophils % 0.2 %; Lymphocytes # 0.2 10^3/uL (0.8-4.8); Lymphocytes % 4.8 %; Mean Corpuscular HGB Conc 35.3 g/dL (30-55); Mean Corpuscular Hemoglobin 30.5 pg (27-33); Mean Corpuscular Volume 86.6 fl (82-101); Mean Platelet Volume 9.5 fL (7.4-10.4); Monocytes # 0.1 10^3/uL (0.2-0.9); Monocytes % 1.7 %; Neutrophils # 3.84 10^3/uL (1.8-7.7); Neutrophils % 93.1 %; Nucleated Red Blood Cells % 0 %; Platelet Count 114 10^3/cmm (157-399); Red Blood Count 4.62 10^6/uL (3.85-5.65); Red Cell Distribution Width 12.9 % (12.1-15.1); White Blood Count 4.13 10^3/uL (3.29-11.43)
--- NOTE | 2024-05-27 16:00 | PC.RESP ---
FVC 1.67 Predicated 3.72
[2024-05-27 16:01] LABS: Thyroid Stimulating Hormone 2.41 uIU/mL (0.27-4.20)
--- NOTE | 2024-05-27 16:03 | ECG_ITS ---
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 Measurements Intervals [place] Rate: 69 P: 78 HI: 169 QRS: 81 QRSD: 72 T: 76 QT: 408 QTc: 438 Interpretive Statements SINUS RHYTHM LOW QRS VOLTAGE IN EXTREMITY LEADS [QRS DEFLECTION < 0.5 mV IN LIMB LEADS] POSSIBLE ANTERIOR MYOCARDIAL INFARCTION , PROBABLY OLD [30 ms Q WAVE IN V3/V4, OR R < 0.2 mV IN V4] Compared to ECG 05/26/2024 23:56:18 Low QRS voltage now present Myocardial infarct finding now present Electronically Signed On 05-29-2024 18:06:25 CARD PAINTER by Libra Agee M.D. [email or web address]
[2024-05-27 17:12] LABS: Creatine Phosphokinase 55195 U/L (39-308)
[2024-05-27] MEDS: methylPREDNISolone sod succ 125 mg/2 mL INJ 250 MG IVP (17:30)
[2024-05-27 17:47] LABS: Alanine Aminotransferase 291 U/L (0-41); Albumin Level 3.4 g/dL (3.5-5.2); Alkaline Phosphatase 128 U/L (40-130); Blood Urea Nitrogen 52 mg/dL (6-20); Calcium 8.2 mg/dL (8.5-10.5); Carbon Dioxide 24 mmol/L (22-29); Chloride 95 mmol/L (98-107); Creatinine Clr Calc Pharmacy 13.8519; Globulin 2.5 g/dL (1.3-4.6); Glomerular Filtration Rate 11.5 mL/min (90-130); Glucose 207 mg/dL (65-115); Osmolality Calculated 300 mOsm/kg (285-295); Sodium 135 mmol/L (136-145); Total Bilirubin 0.5 mg/dL (0.15-1.2); Total Protein 5.9 g/dL (6.6-8.7)
[2024-05-27 17:48] LABS: Aspartate Amino Transferase 509 U/L (0-40)
[2024-05-27 19:01] LABS: Magnesium 2.4 mg/dL (1.7-2.3); Phosphorus 7.3 mg/dL (2.5-4.5)
[2024-05-27 20:23] LABS: Immunoglobulin IGA 251 mg/dL (70-400)
[2024-05-27] MEDS: aspirin 81 mg EC Tablet PO (20:31)
[2024-05-27] MEDS: zolpidem 5 mg Tablet PO (20:31)
[2024-05-27 23:04] LABS: Partial Thromboplastin Time 118.1 SECONDS (23.9-36.7)
[2024-05-27 23:45] LABS: Creatine Phosphokinase 51920 U/L (39-308)
[2024-05-28] VITALS (49 sets, daily range): BP systolic 123–182; BP diastolic 46–101; PULSE 0–82; RESP 7–25; TEMP 36.3–36.8; O2SAT 90–99
[2024-05-28 01:00] LABS: Alanine Aminotransferase 285 U/L (0-41); Albumin Level 3.2 g/dL (3.5-5.2); Alkaline Phosphatase 123 U/L (40-130); Blood Urea Nitrogen 54 mg/dL (6-20); Calcium 7.9 mg/dL (8.5-10.5); Carbon Dioxide 27 mmol/L (22-29); Chloride 90 mmol/L (98-107); Creatinine Clr Calc Pharmacy 12.8625; Globulin 2.5 g/dL (1.3-4.6); Glomerular Filtration Rate 10.6 mL/min (90-130); Glucose 217 mg/dL (65-115); Osmolality Calculated 297 mOsm/kg (285-295); Sodium 133 mmol/L (136-145); Total Bilirubin 0.3 mg/dL (0.15-1.2); Total Protein 5.7 g/dL (6.6-8.7)
[2024-05-28 01:11] LABS: Anion Gap 20.9 (5-19); Aspartate Amino Transferase 465 U/L (0-40); Potassium 4.9 mmol/L (3.5-5.1)
[2024-05-28 01:51] LABS: Glucose Point of Care 213 mg/dL (70-110)
[2024-05-28] MEDS: sodium bicarbonate 150 MEQ in dextrose 5% 1,000 ML 200 MEQ IV (02:07)
[2024-05-28] MEDS: pantoprazole 40 mg SDV IVP ×2 (02:08→14:08)
[2024-05-28] MEDS: oxyCODONE-APAP 5-325 mg Tablet 1 TAB PO ×3 (02:39→14:17)
[2024-05-28] MEDS: methylPREDNISolone sod succ 125 mg/2 mL INJ 250 MG IVP ×2 (04:31→16:04)
[2024-05-28] MEDS: heparin drip 25,000 UNIT/500 ML PREMIX 17 UNIT IV (04:31)
[2024-05-28 05:33] LABS: Hematocrit 35.5 % (37-53); Lymphocytes # 0.3 10^3/uL (0.8-4.8); Lymphocytes % 5.1 %; Mean Corpuscular HGB Conc 35.5 g/dL (30-55); Mean Corpuscular Hemoglobin 30.3 pg (27-33); Mean Corpuscular Volume 85.3 fl (82-101); Mean Platelet Volume 9.8 fL (7.4-10.4); Monocytes # 0.2 10^3/uL (0.2-0.9); Monocytes % 2.8 %; Neutrophils # 5.79 10^3/uL (1.8-7.7); Neutrophils % 91.6 %; Nucleated Red Blood Cells % 0 %; Platelet Count 112 10^3/cmm (157-399); Red Blood Count 4.16 10^6/uL (3.85-5.65); Red Cell Distribution Width 12.5 % (12.1-15.1); White Blood Count 6.32 10^3/uL (3.29-11.43)
[2024-05-28] MEDS: hyDROXYzine 25 mg Capsule PO (05:59)
[2024-05-28 06:04] LABS: Alanine Aminotransferase 267 U/L (0-41); Alkaline Phosphatase 113 U/L (40-130); Aspartate Amino Transferase 439 U/L (0-40); Blood Urea Nitrogen 56 mg/dL (6-20); Calcium 7.6 mg/dL (8.5-10.5); Carbon Dioxide 30 mmol/L (22-29); Chloride 89 mmol/L (98-107); Creatinine Clr Calc Pharmacy 12.2085; Globulin 2.4 g/dL (1.3-4.6); Glucose 187 mg/dL (65-115); Osmolality Calculated 298 mOsm/kg (285-295); Sodium 134 mmol/L (136-145); Total Bilirubin 0.4 mg/dL (0.15-1.2); Total Protein 5.4 g/dL (6.6-8.7)
[2024-05-28 06:06] LABS: Alanine Aminotransferase 280 U/L (0-41); Albumin Level 3.1 g/dL (3.5-5.2); Alkaline Phosphatase 116 U/L (40-130); Aspartate Amino Transferase 465 U/L (0-40); Blood Urea Nitrogen 55 mg/dL (6-20); Calcium 7.8 mg/dL (8.5-10.5); Carbon Dioxide 30 mmol/L (22-29); Chloride 88 mmol/L (98-107); Creatinine Clr Calc Pharmacy 12.8625; Globulin 2.6 g/dL (1.3-4.6); Glomerular Filtration Rate 10.6 mL/min (90-130); Glucose 183 mg/dL (65-115); Osmolality Calculated 298 mOsm/kg (285-295); Sodium 134 mmol/L (136-145); Total Bilirubin 0.4 mg/dL (0.15-1.2); Total Protein 5.7 g/dL (6.6-8.7)
[2024-05-28 06:08] LABS: Partial Thromboplastin Time 73.1 SECONDS (23.9-36.7)
[2024-05-28 06:10] LABS: Anion Gap 19.3 (5-19); Potassium 4.3 mmol/L (3.5-5.1)
[2024-05-28 06:10] LABS: Anion Gap 20.4 (5-19); Potassium 4.4 mmol/L (3.5-5.1)
[2024-05-28 06:11] LABS: Glomerular Filtration Rate 10.6 mL/min (90-130)
[2024-05-28 06:20] LABS: Alpha 1 Antitrypsin 237 mg/dL (83-199)
[2024-05-28 08:20] LABS: Myeloperoxidase Antibody <1.0 AI; Smith Antibody <1.0 NEG AI (<1.0 NEG)
[2024-05-28 08:20] LABS: Anti-Double Strand DNA AB <1 IU/mL
--- NOTE | 2024-05-28 08:30 | PM.CONSULT ---
Providers/Reason For Consult Consulting Physician/Specialty*: dr. connor general surgery Reason for Consult*: muscle biopsy Attending Physician: Grupo Donohue Primary Care Provider: Maria Walters MD History of Present Illness History of Present Illness Moisés Gonzalez is a 58 year old male whom surgery was consulted for muscle biopsy. Extensive rhabdomyolysis without an explanation and therefore medicine requesting biopsy. Patient also on acute renal failure, although still making urine. Medications/Allergies Home Medications ?Medication ?Instructions ?Recorded ?Confirmed ?Last Taken ?Type trazodone 50 mg tablet 100 mg PO BEDTIME 06/15/23 05/27/24 05/26/24 History tirzepatide 15 mg/0.5 mL 15 mg (0.5 mL) SUBCUT Q7D 30 days 12/05/23 05/27/24 04/14/24 Rx subcutaneous pen injector #2.5 mL (Antonio) prednisolone acetate 1 % eye 1 drp ophthalmic (eye) TID 04/17/24 05/27/24 05/26/24 History drops,suspension aspirin 81 mg tablet,delayed 81 mg PO BEDTIME 30 days #30 tabs 04/18/24 05/27/24 05/26/24 Rx release hydrochlorothiazide 25 mg tablet 12.5 mg (1/2 x 25 mg) PO DAILY 30 04/18/24 05/27/24 05/26/24 Rx days #15 tabs nitroglycerin 0.4 mg sublingual 0.4 mg sublingual Q5M PRN Chest 04/18/24 05/27/24 Unknown Rx tablet Pain 30 days #30 tabs folic acid 1 mg tablet 1 mg PO DAILY 04/30/24 05/27/24 05/26/24 History insulin aspart U-100 100 unit/mL See Rx Instructions .Route 04/30/24 05/27/24 05/26/24 Rx subcutaneous solution (Novolog .COMPLEX 90 days #30 mL U-100 Insulin aspart) prasugrel 10 mg tablet (Effient) 10 mg PO DAILY 30 days #30 tabs 04/30/24 05/27/24 05/26/24 Rx rosuvastatin 40 mg tablet 40 mg PO DAILY 04/30/24 05/27/24 05/26/24 History tirzepatide 10 mg/0.5 mL 10 mg (0.5 mL) SUBCUT Q7D #2 mL 04/30/24 05/27/24 Unknown Rx subcutaneous pen injector (Cliftonunjonathan) Allergies Allergy/AdvReac Type Severity Reaction Status Date / Time fentanyl Allergy Severe ALGY-Difficulty Verified 04/30/24 13:08 Breathing isosorbide (From Imdur) Allergy ADR-Headach Verified 04/30/24 13:08 e Penicillins Allergy Unknown Verified 04/30/24 13:08 Current Medications Generic Name Dose Route Start Last Admin Trade Name Freq PRN Reason Stop Dose Admin Aspirin 81 mg 05/27/24 21:00 05/27/24 20:31 Aspirin 81 Mg Ec Tablet PO 81 mg BEDTIME DELANEY Administration Folic Acid 1 mg 05/27/24 09:00 05/27/24 08:34 Folic Acid 1 Mg Tablet PO 1 mg DAILY DELANEY Administration Furosemide 60 mg 05/27/24 09:15 05/27/24 20:31 Furosemide 10 Mg/Ml Sdv 10ml IVP 60 mg Q12H DELANEY Administration Heparin Sodium/Sodium Chloride 25,000 unit in 500 mls @ 0 mls/hr 05/26/24 21:00 05/28/24 06:23 Heparin Drip IV 11.71 unit/kg/hr CONT DELANEY 17 mls/hr Titration Protocol Per Protocol Sodium Bicarbonate 150 meq/ 1,150 mls @ 200 mls/hr 05/27/24 09:15 05/28/24 03:31 Dextrose IV Not Given .Q5H45M [facility] Methylprednisolone Sodium Succinate 250 mg 05/27/24 16:33 05/28/24 04:31 Methylprednisolone Sod Succ 125 Mg/2 Ml Inj IVP 250 mg Q12H DELANEY Administration Metoclopramide HCl 5 mg 05/27/24 13:23 05/27/24 20:47 Metoclopramide 5 Mg/Ml Sdv 2 Ml IVP 5 mg Q6H PRN Administration NAUSEA AND VOMITING Ondansetron HCl 4 mg 05/27/24 03:13 05/27/24 10:18 Ondansetron 2 Mg/Ml Sdv 2 Ml IVP 4 mg Q6H PRN Administration NAUSEA AND VOMITING Oxycodone/Acetaminophen 1 tab 05/27/24 02:28 05/28/24 02:39 Oxycodone-Apap 5-325 Mg Tablet PO 1 tab Q8H PRN Administration MODERATE PAIN Pantoprazole Sodium 40 mg 05/27/24 13:30 05/28/24 02:08 Pantoprazole 40 Mg Sdv IVP 40 mg Q12H DELANEY Administration Prasugrel 10 mg 05/27/24 09:00 05/27/24 08:33 Prasugrel 10 Mg Tablet PO 10 mg DAILY DELANEY Administration Zolpidem Tartrate 5 mg 05/27/24 02:29 05/27/24 20:31 Zolpidem 5 Mg Tablet PO 5 mg BEDTIME PRN Administration SLEEP PFSH Acute PFSH: Medical History Lateral epicondylitis Cholecystectomy planned Obesity FH: CABG (coronary artery bypass surgery) CAD (coronary artery disease) Hyperlipidemia Surgical History Hx of appendectomy Social History Smoking and tobacco/nicotine status: never used tobacco/nicotine Second hand smoke exposure: No Alcohol intake: current Alcohol intake frequency: holidays/special occasions only Substance/Drug Use: never Adopted: No Caregiver/support person: Yes Lives independently: No Household members: spouse Housing: House Marital status: Number of children: 5 Number of grandchildren: 1 Highest education level completed: Some College, No Degree service: Yes Current occupational status: employed 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 [employer] Current occupational exposures/hazards: No Pets and animals: Yes Sexually active: Yes Do you think of yourself as: Straight/Heterosexual Current gender identity: Male Special asad needs: No Agree to transfusion: Yes Vitals/I&O/Wt Last Vital Signs Temp 98.0 F 05/28/24 04:00 Pulse 55 L 05/28/24 06:00 Resp 19 H 05/28/24 06:00 BP 151/70 05/28/24 06:00 Pulse Ox 95 05/28/24 06:00 O2 Del Method Room Air 05/28/24 04:00 O2 Flow Rate 2 05/28/24 00:00 05/27/24 05/28/24 05/28/24 22:59 06:59 14:59 Intake Total 1354 / 1354 1488.666 / 2842.666 Output Total 500 / 500 400 / 900 Balance 854 / 854 1088.666 / 1942.666 Weight last 48 hrs Weight 156 lb 8.451 oz Weight 152 lb 1.903 oz Weight 149 lb 14.629 oz Weight 160 lb Physical Exam Narrative: RRR Unlabored breathing RA Abdomen soft, nt, nd Extremities grossly normal Urinary Catheter Management: Velez: Cath Placed During This Visit: yes Reason for Continuing Indwelling Catheter: Accurate Measurement of Urinary Output in Critically Ill Patients Urinary Catheter Date of Insertion: 05/26/24 Data 05/28/24 04:09 05/28/24 11:00 A&P Assessment and plan (1) Rhabdomyolysis: Plan 58 yo male with rhabdomyolisis unknown etiology. Will proceed with muscle biopsy from right vastus lateralis. PDMP PDMP Reviewed: Not Reviewed Coding Level of Care Code 41349 Diagnoses Rhabdomyolysis M62.82 Time Spent (min) 30
--- NOTE | 2024-05-28 08:55 | PM.PN ---
Subjective Subjective: he is starting to urinate. no n/v/f/c/cp/aguilar. dec pains. Medications: Reviewed: Yes Medication Review Details: Current Medications Aspirin (Aspirin 81 Mg Ec Tablet) 81 mg PO BEDTIME [facility] Last Admin: 05/27/24 20:31 Dose: 81 mg Folic Acid (Folic Acid 1 Mg Tablet) 1 mg PO DAILY [facility] Last Admin: 05/27/24 08:34 Dose: 1 mg Furosemide (Furosemide 10 Mg/Ml Sdv 10ml) 60 mg IVP Q12H [facility] Last Admin: 05/27/24 20:31 Dose: 60 mg Heparin Sodium (Porcine) (Heparin 5,000 Unit/Ml Inj 1 Ml) 0 unit IVP PRN PRN; Protocol PRN Reason: Heparin Weight Based Protocol -Subsequent Bolus Heparin Sodium/Sodium Chloride (Heparin Drip) 25,000 unit in 500 mls @ 0 mls/hr IV CONT DELANEY; Protocol Last Titration: 05/28/24 06:23 Dose: 11.71 unit/kg/hr, 17 mls/hr Sodium Bicarbonate 150 meq/ (Dextrose) 1,150 mls @ 200 mls/hr IV .Q5H45M [facility] Last Admin: 05/28/24 03:31 Dose: Not Given Methylprednisolone Sodium Succinate (Methylprednisolone Sod Succ 125 Mg/2 Ml Inj) 250 mg IVP Q12H [facility] Last Admin: 05/28/24 04:31 Dose: 250 mg Metoclopramide HCl (Metoclopramide 5 Mg/Ml Sdv 2 Ml) 5 mg IVP Q6H PRN PRN Reason: NAUSEA AND VOMITING Last Admin: 05/27/24 20:47 Dose: 5 mg Non-Formulary Medication (Insulin Aspart U-100 [Novolog U-100 Insulin Aspart]) 0 unit .ROUTE .COMPLEX [facility] Ondansetron HCl (Ondansetron 2 Mg/Ml Sdv 2 Ml) 4 mg IVP Q6H PRN PRN Reason: NAUSEA AND VOMITING Last Admin: 05/27/24 10:18 Dose: 4 mg Oxycodone/Acetaminophen (Oxycodone-Apap 5-325 Mg Tablet) 1 tab PO Q8H PRN PRN Reason: MODERATE PAIN Last Admin: 05/28/24 02:39 Dose: 1 tab Pantoprazole Sodium (Pantoprazole 40 Mg Sdv) 40 mg IVP Q12H DELANEY Last Admin: 05/28/24 02:08 Dose: 40 mg Prasugrel (Prasugrel 10 Mg Tablet) 10 mg PO DAILY DELANEY Last Admin: 05/27/24 08:33 Dose: 10 mg Zolpidem Tartrate (Zolpidem 5 Mg Tablet) 5 mg PO BEDTIME PRN PRN Reason: SLEEP Last Admin: 05/27/24 20:31 Dose: 5 mg Vitals/I&O/Wt Last Vital Signs Temp 98.0 F 05/28/24 04:00 Pulse 55 L 05/28/24 06:00 Resp 19 H 05/28/24 06:00 BP 151/70 05/28/24 06:00 Pulse Ox 95 05/28/24 06:00 O2 Del Method Room Air 05/28/24 04:00 O2 Flow Rate 2 05/28/24 00:00 05/27/24 05/28/24 05/28/24 22:59 06:59 14:59 Intake Total 1354 / 1354 1488.666 / 2842.666 Output Total 500 / 500 400 / 900 Balance 854 / 854 1088.666 / 1942.666 Weight last 48 hrs Weight 71 kg Weight 69 kg Weight 68 kg Weight 72.575 kg Physical Exam Narrative: comfortable in bed, NARD VSS heent- nc/at, eomi neck no jvp lungs clear heart regular + s1, s2 abdomen soft + bs ext no edema, + weak- moves all extremities Urinary Catheter Management: Velez: Cath Placed During This Visit: yes Reason for Continuing Indwelling Catheter: Accurate Measurement of Urinary Output in Critically Ill Patients Urinary Catheter Date of Insertion: 05/26/24 Data 05/28/24 04:09 05/28/24 05:45 A&P Assessment and plan (1) Acute renal failure: 58 yr old man CAD s/p recent stent. he is on statins 1[place] [id number]- and symptoms for week he is not urinating. will cont ivf and and furosemide change ivf to NS -no emergent need for dialysis likely ELENO fom rhabdo -no hydronephrosis on imaging 2. rhabdomyolysis- can be from statins. however, this is a very high cpk- he was on high dose crestor -[place] remains [id number]- [place] [id number] -please also send blood tests for polymyositis, dermatomyositis. check aldolase. he has a high LDH, myeloperolidase negative, anti dsDNA negative await LUIS ANTONIO, anti-[place]-1, Anti -Mi-2, [id number], anti-MDA5 -aldolase pending u tox negative - hiv and hep serologies negative check tsh -repeat cpk -seen and examined w/ RN- telehealth visit Qualifiers: Acute renal failure type: unspecified Qualified Code(s): N17.9 - Acute kidney failure, unspecified Plan see above. ivf, lasix. if devlops aciosis, volr refractory hyperkalemia- then will need dialysis -hopefully will have renal recovery PDMP PDMP Reviewed: Not Reviewed Attestations Medical Necessity Statement*: rhabdomyolysisi, eleno Time Spent in Patient Care: 16 - 35 minutes (>than 50% of time spent in counselling and/or direct pt care on unit). Coding Level of Care Code Acute Code for [facility] Fwd Diagnoses Acute renal failure, unspecified acute renal failure type N17.9 Acute renal failure type: unspecified
[2024-05-28] MEDS: prasugrel 10 MG Tablet PO (09:00)
[2024-05-28] MEDS: FUROsemide 10 mg/mL SDV 10mL 60 MG IVP ×2 (09:00→20:27)
[2024-05-28] MEDS: folic acid 1 mg Tablet PO (09:00)
[2024-05-28] MEDS: sodium chloride 0.9% 1,000 ML 200 ML IV ×3 (09:12→20:05)
--- NOTE | 2024-05-28 10:10 | P.PN_ITS ---
Subjective 2 Subjective: She is feeling slightly better. Muscle aches are showing improvement. He is still generally weaker than his usual. Vitals/I&O/Wt Last Vital Signs Temp 98.0 F 05/28/24 04:00 Pulse 59 L 05/28/24 10:00 Resp 15 05/28/24 10:00 BP 132/69 05/28/24 10:00 Pulse Ox 96 05/28/24 10:00 O2 Del Method Room Air 05/28/24 04:00 O2 Flow Rate 2 05/28/24 00:00 05/27/24 05/28/24 05/28/24 22:59 06:59 14:59 Intake Total 1354 / 1354 1488.666 / 2842.666 Output Total 500 / 500 400 / 900 Balance 854 / 854 1088.666 / 1942.666 Weight last 48 hrs Weight 71 kg Weight 69 kg Weight 68 kg Weight 72.575 kg Physical Exam 2 Const: COMMON NORMALS: patient oriented x3 and alert GENERAL APPEARANCE: c ooperative ORIENTATION/CONSCIOUSNESS: Yes awake HENMT: COMMON NORMALS: oropharynx normal Neck/C-Spine: COMMON NORMALS: no JVD Resp: COMMON NORMALS: normal respiratory effort and clear to auscultation bilaterally AUSCULTATION: clear to auscultation bilaterally Cardio: COMMON NORMALS: no JVD, regular rhythm, S1 normal heart sound present, S2 normal heart sound present and No murmurs present (Cardio) RHYTHM: regular rhythm HEART SOUNDS: S1 normal heart sound present and S2 normal heart sound present GI: COMMON NORMALS: Normal to inspection, nondistended, normoactive bowel sounds present, Soft to palpation and non-tender PALPATION: Yes Soft to palpation Extremity: COMMON NORMALS: no joint enlargement and no pedal edema Neuro: COMMON NORMALS: patient oriented x3 and moves all extremities S ENSORIUM/ORIENTATION: Yes alert Skin: COMMON NORMALS: no rashes or lesions noted GENERAL SKIN EXAM: no rashes or lesions noted Urinary Catheter Management: Velez: Cath Placed During This Visit: yes Reason for Continuing Indwelling Catheter: Accurate Measurement of Urinary Output in Critically Ill Patients Urinary Catheter Date of Insertion: 05/26/24 Data 05/28/24 04:09 05/28/24 05:45 A&P Assessment and plan (1) Acute renal failure: Qualifiers: Acute renal failure type: unspecified Qualified Code(s): N17.9 - Acute kidney failure, unspecified (2) Type 1 diabetes: Qualifiers: Diabetes mellitus complication status: with circulatory complication D iabetes mellitus complication detail: with other circulatory complications Q ualified Code(s): E10.59 - Type 1 diabetes mellitus with other circulatory complications (3) NSTEMI (non-ST elevated myocardial infarction): (4) Hyperlipemia, mixed: (5) Rhabdomyolysis: (6) Myocarditis: (7) Leg weakness, bilateral: (8) Proximal muscle weakness: (9) Abnormal transaminases: Plan Acute renal failure: Discussed with him results of chemistry this morning. On review his creatinine is up to 5.6, BUN 55, on review bicarb is 30, anion gap 20.4. Potassium 4.4. Phosphorus 7.3, mag 2.4.On review of intake and output he is producing urine, and made about 900 mL overnight. Continue to monitor renal function, as per review of nephrology note for now no indication for hemodialysis. Continue IV hydration. Monitor for risk of fluid overload, reassess creatinine kinase. Appears to have reached a plateau yesterday afternoon at 55,000. Down to 52,000 last night. Continue IV fluid, currently 200 mL/h. Monitor for risk of fluid overload. Recheck for this morning is pending. Pending reassessment. Consider need for and timing of dialysis. Repeat chemistry is requested. Severe rhabdomyolysis: Steroid dose will suggest discharge to 250 mg twice daily. Continue at current time. Follow-up serology. Pending muscle biopsy tentatively planned for tomorrow. Continue to reassess renal function. Follow- up CK. Continue gentle hydration. Monitor for risk of fluid overload. Hold statin. Continue to monitor in ICU. Continue to monitor vital capacity. PT, OT, ST. discussed with ST. Advance diet to level 7, easy to chew. No signs of cauda equina Atypical reflexes No recent infection Non-STEMI: With possible NSTEMI, continues on anticoagulation. Monitor for risk of bleeding. Reassess blood counts Reviewed troponin series, with some fluctuation but overall flat trend, persistent elevation. May suspect secondary to rhabdomyolysis. Echocardiogram is ordered and pending. Appreciate cardiology consultation. Continue medication for possible NSTEMI, aspirin, prasugrel, heparin drip. Monitor for risk of bleeding. Monitor PTT. Reassess blood counts. Statin held. Recent stent placement left circumflex History of established coronary disease Full code Clear liquid diet secondary to dysphagia PDMP PDMP Reviewed: Not Reviewed Attestations 2 Medical Necessity Statement*: Continue admission for assessment management of acute renal failure, severe rhabdomyolysis, assessment for possible myositis. Diagnoses Acute renal failure, unspecified acute renal failure type N17.9 Acute renal failure type: unspecified Type 1 diabetes mellitus with other circulatory complication E10.59 Diabetes mellitus complication status: with circulatory complication Diabetes mellitus complication detail: with other circulatory complications NSTEMI (non-ST elevated myocardial infarction) I21.4 Hyperlipemia, mixed E78.2 Rhabdomyolysis M62.82 Myocarditis I51.4 Leg weakness, bilateral R29.898 Proximal muscle weakness M62.81 Abnormal transaminases R74.8
[2024-05-28 10:32] LABS: Creatine Phosphokinase 47365 U/L (39-308)
[2024-05-28 11:23] LABS: Alanine Aminotransferase 288 U/L (0-41); Alkaline Phosphatase 109 U/L (40-130); Anion Gap 19.1 (5-19); Aspartate Amino Transferase 475 U/L (0-40); Blood Urea Nitrogen 57 mg/dL (6-20); Calcium 7.4 mg/dL (8.5-10.5); Carbon Dioxide 30 mmol/L (22-29); Chloride 88 mmol/L (98-107); Creatinine Clr Calc Pharmacy 12.5799; Globulin 2.5 g/dL (1.3-4.6); Glomerular Filtration Rate 10.2 mL/min (90-130); Glucose 193 mg/dL (65-115); Osmolality Calculated 297 mOsm/kg (285-295); Potassium 4.1 mmol/L (3.5-5.1); Sodium 133 mmol/L (136-145); Total Bilirubin 0.3 mg/dL (0.15-1.2); Total Protein 5.5 g/dL (6.6-8.7)
[2024-05-28 11:56] LABS: Creatine Phosphokinase 47237 U/L (39-308)
--- NOTE | 2024-05-28 14:02 | P.PN_ITS ---
<Statement entered by Cj Patricio MD - 05/28/24 19:51> Patient was evaluated and cared for in conjunction with an advanced practice practitioner. I personally examined the patient and reviewed the chart and all pertinent data including imaging, telemetry, and laboratory results. I discussed the patient in detail with the advanced practice practitioner. Please see their note for complete H&P testing result and agreed upon plan of care for the patient. Says he feels a little better GENERAL: Patient is alert, awake and oriented x3. HEART: Regular S1 and S2. No murmur, rub or gallop. LUNGS: Clear to auscultate bilaterally. CENTRAL NERVOUS SYSTEM: Grossly nonfocal. EXTREMITIES: Lower extremities with out edema bilaterally. Assessment and plan Rhabdomyolysis Acute renal failure secondary rhabdomyolysis Elevated cardiac markers secondary to rhabdomyolysis Echocardiogram showed normal ejection fraction no wall motion abnormality no pericarditis, continue current management including IV fluid. neurology and nephrology along with medicine on board to rule out etiology for continuous elevation of CPK. Statin was discontinued which is less possibly contributed. Awaiting rheumatological and neurological investigation , Subjective 2 Subjective: Patient still having a lot of muscle pain but no chest pain at this time. His CK is down slightly at 47,000. Creatinine elevated at 5.6. His echo did come back and showed normal EF 67% moderate left ventricular hypertrophy. No regional wall motion abnormalities present. Vitals/I&O/Wt Last Vital Signs Temp 98.3 F 05/28/24 12:00 Pulse 0 L 05/28/24 12:30 Resp 17 05/28/24 12:30 BP 152/70 05/28/24 12:30 Pulse Ox 94 05/28/24 12:30 O2 Del Method Room Air 05/28/24 04:00 O2 Flow Rate 2 05/28/24 00:00 05/27/24 05/28/24 05/28/24 22:59 06:59 14:59 Intake Total 1354 / 1354 1488.666 / 2842.666 1150 / 1150 Output Total 500 / 500 400 / 900 Balance 854 / 854 1088.666 / 3565.556 9194 / 1150 Weight last 48 hrs Weight 156 lb 8.451 oz Weight 152 lb 1.903 oz Weight 149 lb 14.629 oz Weight 160 lb Physical Exam 2 Narrative: General: No apparent distress, healthy appearing, well nourished HENMT: normoceophalic Muskuloskeletal: Full ROM Lymphatic: no lymphedema noted Respiratory: Normal respiratory effort, clear to auscultation bilaterally throughout all lung donis, no use of accessory muscles Cardio: No JVD, regular rate, regular rhythm, S1 S2 normal, no murmurs, peripheral pulses 2+ radial palpated bilaterally GI: Normal to inspection, nondistended Extremities: Full ROM, normal, normal capillary refill, no cyanosis, no edema Neuro: Alert and oriented x4, no focal motor deficits Psych: Affect normal, denies suicidal ideation, mental status grossly normal Skin: No rashes or lesions noted, no wounds Urinary Catheter Management: Velez: Cath Placed During This Visit: yes Reason for Continuing Indwelling Catheter: Accurate Measurement of Urinary Output in Critically Ill Patients Urinary Catheter Date of Insertion: 05/26/24 Data 05/28/24 04:09 05/28/24 11:00 A&P Assessment and plan (1) NSTEMI (non-ST elevated myocardial infarction): (2) Antiplatelet or antithrombotic long-term use: (3) Hyperlipidemia: Qualifiers: Hyperlipidemia type: unspecified Qualified Code(s): E78.5 - Hyperlipidemia, unspecified (4) Hyperlipemia, mixed: Plan At this time, patient has markedly elevated troponins most likely due to rhabdomyolysis. He is asymptomatic without chest pain or shortness of breath at this time. EKG without any acute changes. Echo showed normal LV function with no wall motion abnormalities. Agree to continue to hold statin therapy. Continue hydrate. Avoid nephrotoxins. We will monitor for further s/s of coronary ischemia. From a cardiology standpoint heparin may be discontinued with prophylaxis per primary. He did have a 6 beat run of nonsustained V. tach. Will go ahead and start him on a low-dose beta-magdalena metoprolol succinate 12.5 mg and monitor heart rate. PDMP PDMP Reviewed: Not Reviewed Attestations 2 Medical Necessity Statement*: Deferred to primary care team. Coding Level of Care Code Acute Code for [facility] Fwd Diagnoses NSTEMI (non-ST elevated myocardial infarction) I21.4 Antiplatelet or antithrombotic long-term use Z79.02 Hyperlipidemia, unspecified hyperlipidemia type E78.5 Hyperlipidemia type: unspecified Hyperlipemia, mixed E78.2
--- NOTE | 2024-05-28 14:15 | PC.NURSE ---
Patient in 01/24 pain after working with physical therapy. 3 hours until next due pain medication. Orders given per Dr. Donohue to give dose early.
--- NOTE | 2024-05-28 14:20 | PC.RESP ---
FVC 1.41 PREDICATED 3.72 patient sated he can not sit up due to pain
--- NOTE | 2024-05-28 15:16 | PC.NURSE ---
Verbal order from Dr. Patricio to discontinue heparin gtt
[2024-05-28 16:44] LABS: Anti-Double Strand DNA AB <1 IU/mL; Jo-1 Antibody <1.0 NEG AI (<1.0 NEG); SM/RNP Antibodies <1.0 NEG AI (<1.0 NEG); SS-B/LA IGG <1.0 NEG AI (<1.0 NEG); Scleroderma Ab(Scl-70) Ab <1.0 NEG AI (<1.0 NEG); Ss-A/Ro Igg <1.0 NEG AI (<1.0 NEG)
[2024-05-28 18:10] LABS: Creatine Phosphokinase 40098 U/L (39-308)
--- NOTE | 2024-05-28 19:36 | PC.NURSE ---
Home Insulin Pump Pulled out: Dr. Mcdonald notified that pts home insulin pump got pulled out, replacement not available. New order for sliding scale insulin- moderate scale WM&bedtime @1929.
[2024-05-28 20:21] LABS: Glucose Point of Care 244 mg/dL (70-110)
[2024-05-28] MEDS: insulin lispro 100 unit/1 mL SUBCUT (20:25)
[2024-05-28] MEDS: aspirin 81 mg EC Tablet PO (20:26)
[2024-05-28] MEDS: zolpidem 5 mg Tablet PO (20:26)
[2024-05-29] VITALS (29 sets, daily range): BP systolic 125–167; BP diastolic 59–74; PULSE 57–106; RESP 11–28; TEMP 36.8; O2SAT 89–98
[2024-05-29 00:50] LABS: Creatine Phosphokinase 58652 U/L (39-308)
[2024-05-29] MEDS: sodium chloride 0.9% 1,000 ML 200 ML IV ×4 (01:23→21:09)
[2024-05-29] MEDS: pantoprazole 40 mg SDV IVP ×2 (01:24→12:35)
[2024-05-29] MEDS: oxyCODONE-APAP 5-325 mg Tablet 1 TAB PO ×3 (01:26→19:12)
--- NOTE | 2024-05-29 02:49 | PC.NURSE ---
Critical [place] [id number]. Provider already aware.
[2024-05-29] MEDS: methylPREDNISolone sod succ 125 mg/2 mL INJ 250 MG IVP ×2 (04:15→15:52)
[2024-05-29 05:08] LABS: Eosinophils % 0.1 %; Hematocrit 36.1 % (37-53); Lymphocytes # 0.3 10^3/uL (0.8-4.8); Lymphocytes % 3.3 %; Mean Corpuscular HGB Conc 35.2 g/dL (30-55); Mean Corpuscular Hemoglobin 30.7 pg (27-33); Mean Corpuscular Volume 87.2 fl (82-101); Mean Platelet Volume 9.7 fL (7.4-10.4); Monocytes # 0.5 10^3/uL (0.2-0.9); Monocytes % 5.2 %; Neutrophils # 7.78 10^3/uL (1.8-7.7); Neutrophils % 90.4 %; Nucleated Red Blood Cells % 0 %; Platelet Count 107 10^3/cmm (157-399); Red Blood Count 4.14 10^6/uL (3.85-5.65); White Blood Count 8.61 10^3/uL (3.29-11.43)
[2024-05-29 05:33] LABS: Alanine Aminotransferase 303 U/L (0-41); Albumin Level 2.8 g/dL (3.5-5.2); Alkaline Phosphatase 101 U/L (40-130); Blood Urea Nitrogen 69 mg/dL (6-20); Calcium 6.7 mg/dL (8.5-10.5); Carbon Dioxide 26 mmol/L (22-29); Chloride 93 mmol/L (98-107); Creatinine Clr Calc Pharmacy 11.2251; Globulin 2.3 g/dL (1.3-4.6); Glomerular Filtration Rate 8.9 mL/min (90-130); Glucose 195 mg/dL (65-115); Osmolality Calculated 303 mOsm/kg (285-295); Sodium 134 mmol/L (136-145); Total Bilirubin 0.3 mg/dL (0.15-1.2); Total Protein 5.1 g/dL (6.6-8.7)
[2024-05-29 05:39] LABS: Anion Gap 19.9 (5-19); Aspartate Amino Transferase 537 U/L (0-40); Potassium 4.9 mmol/L (3.5-5.1)
--- NOTE | 2024-05-29 06:22 | ANES.PREANE2 ---
Pre-Anesthetic Assessment Height/Weight: Height 5 ft 3 in Weight 161 lb 11.2 oz Temp Pulse Resp BP Pulse Ox O2 Del Method O2 Flow Rate 98.3 F 60 13 135/60 93 Nasal Cannula 2 05/29/24 01:00 05/29/24 06:00 05/29/24 06:00 05/29/24 06:00 05/29/24 06:00 05/29/24 06:00 05/29/24 06:00 Preop Diagnosis: Rhabdomyolysis Operation Date: 05/29/24 07:00 Proposed Procedures p Muscle Biopsy-right thigh(Right) - Florentin Burton MD Was Beta Enio taken within 24 hours: N/A Was Clonidine taken within 24 hours: N/A Social No alcohol and No tobacco Exam alert, oriented x 3, clear to auscultation bilaterally and regular rate & rhythm Airway Submandibular: within normal limits Cervical ROM: within normal limits Mallampati: Class II Dentition: full Anesthetic Plan ASA status: 4 Anesthesia: MAC Other: Patient initially admitted 05/26/2024 with profound weakness, unable to tie his shoes. CK level was 24,000. Patient thought to have rhabdomyolysis Neurology has been following, they put in their note that patient may benefit from IVIG. I do not believe patient has received this. They are wanting a muscle biopsy for further diagnostic purposes No prior issues with anesthesia Patient has a significant CAD history with stents placed in February and April. On prasugrel at home. Placed on heparin gtt. but this has been bridged to Eliquis now Echo on 05/27/2024 showing EF 67% with no wall motion abnormalities Labs reviewed from today, hemoglobin 12.7, NA 134, K+ 4.9, BUN 69, creatinine 6.5(this has been trending up since admission), CK levels continue to rise Patient states that he had no kidney problems prior to this. They have not placed him on any dialysis to this point EKG sinus rhythm Discussed with patient that he is high risk for cardiac complications during anesthesia and we would like to do this under MAC anesthetic. He is aware of risks and would like to proceed Medications/Allergies Home Medications ?Medication ?Instructions ?Recorded ?Confirmed ?Last Taken ?Type trazodone 50 mg tablet 100 mg PO BEDTIME 06/15/23 05/27/24 05/26/24 History tirzepatide 15 mg/0.5 mL 15 mg (0.5 mL) SUBCUT Q7D 30 days 12/05/23 05/27/24 04/14/24 Rx subcutaneous pen injector #2.5 mL (Mounjaro) prednisolone acetate 1 % eye 1 drp ophthalmic (eye) TID 04/17/24 05/27/24 05/26/24 History drops,suspension aspirin 81 mg tablet,delayed 81 mg PO BEDTIME 30 days #30 tabs 04/18/24 05/27/24 05/26/24 Rx release hydrochlorothiazide 25 mg tablet 12.5 mg (1/2 x 25 mg) PO DAILY 30 04/18/24 05/27/24 05/26/24 Rx days #15 tabs nitroglycerin 0.4 mg sublingual 0.4 mg sublingual Q5M PRN Chest 04/18/24 05/27/24 Unknown Rx tablet Pain 30 days #30 tabs folic acid 1 mg tablet 1 mg PO DAILY 04/30/24 05/27/24 05/26/24 History insulin aspart U-100 100 unit/mL See Rx Instructions .Route 04/30/24 05/27/24 05/26/24 Rx subcutaneous solution (Novolog .COMPLEX 90 days #30 mL U-100 Insulin aspart) prasugrel 10 mg tablet (Effient) 10 mg PO DAILY 30 days #30 tabs 04/30/24 05/27/24 05/26/24 Rx rosuvastatin 40 mg tablet 40 mg PO DAILY 04/30/24 05/27/24 05/26/24 History tirzepatide 10 mg/0.5 mL 10 mg (0.5 mL) SUBCUT Q7D #2 mL 04/30/24 05/27/24 Unknown Rx subcutaneous pen injector (Mounjaro) Allergies Allergy/AdvReac Type Severity Reaction Status Date / Time fentanyl Allergy Severe ALGY-Difficulty Verified 04/30/24 13:08 Breathing isosorbide (From Imdur) Allergy ADR-Headach Verified 04/30/24 13:08 e Penicillins Allergy Unknown Verified 04/30/24 13:08 Current Medications Generic Name Dose Route Start Last Admin Trade Name Freq PRN Reason Stop Dose Admin Aspirin 81 mg 05/27/24 21:00 05/28/24 20:26 Aspirin 81 Mg Ec Tablet PO 81 mg BEDTIME DELANEY Administration Folic Acid 1 mg 02/10/25 09:00 05/28/24 09:00 Folic Acid 1 Mg Tablet PO 1 mg DAILY DELANEY Administration Furosemide 60 mg 05/27/24 09:15 05/28/24 20:27 Furosemide 10 Mg/Ml Sdv 10ml IVP 60 mg Q12H DELANEY Administration Sodium Chloride 1,000 mls @ 200 mls/hr 05/28/24 09:15 05/29/24 06:22 Sodium Chloride 0.9% IV 200 mls/hr .Q5H DELANEY Administration Insulin Human Lispro 0 unit 05/28/24 21:00 05/28/24 20:25 Insulin Lispro 100 Unit/1 Ml SUBCUT 8 unit WM&BEDTIME DELANEY Administration Protocol Methylprednisolone Sodium Succinate 250 mg 05/27/24 16:33 05/29/24 04:15 Methylprednisolone Sod Succ 125 Mg/2 Ml Inj IVP 250 mg Q12H DELANEY Administration Metoclopramide HCl 5 mg 05/27/24 13:23 05/27/24 20:47 Metoclopramide 5 Mg/Ml Sdv 2 Ml IVP 5 mg Q6H PRN Administration NAUSEA AND VOMITING Ondansetron HCl 4 mg 05/27/24 03:13 05/27/24 10:18 Ondansetron 2 Mg/Ml Sdv 2 Ml IVP 4 mg Q6H PRN Administration NAUSEA AND VOMITING Oxycodone/Acetaminophen 1 tab 05/27/24 02:28 05/29/24 01:26 Oxycodone-Apap 5-325 Mg Tablet PO 1 tab Q8H PRN Administration MODERATE PAIN Pantoprazole Sodium 40 mg 05/27/24 13:30 05/29/24 01:24 Pantoprazole 40 Mg Sdv IVP 40 mg Q12H DELANEY Administration Prasugrel 10 mg 05/27/24 09:00 05/28/24 09:00 Prasugrel 10 Mg Tablet PO 10 mg DAILY DELANEY Administration Zolpidem Tartrate 5 mg 05/27/24 02:29 05/28/24 20:26 Zolpidem 5 Mg Tablet PO 5 mg BEDTIME PRN Administration SLEEP Additional Medication Information Current Medications Aspirin (Aspirin 81 Mg Ec Tablet) 81 mg PO BEDTIME DELANEY Last Admin: 05/27/24 20:31 Dose: 81 mg Folic Acid (Folic Acid 1 Mg Tablet) 1 mg PO DAILY DELANEY Last Admin: 05/27/24 08:34 Dose: 1 mg Furosemide (Furosemide 10 Mg/Ml Sdv 10ml) 60 mg IVP Q12H [facility] Last Admin: 05/27/24 20:31 Dose: 60 mg Heparin Sodium (Porcine) (Heparin 5,000 Unit/Ml Inj 1 Ml) 0 unit IVP PRN PRN; Protocol PRN Reason: Heparin Weight Based Protocol -Subsequent Bolus Heparin Sodium/Sodium Chloride (Heparin Drip) 25,000 unit in 500 mls @ 0 mls/hr IV CONT DELANEY; Protocol Last Titration: 05/28/24 06:23 Dose: 11.71 unit/kg/hr, 17 mls/hr Sodium Bicarbonate 150 meq/ (Dextrose) 1,150 mls @ 200 mls/hr IV .Q5H45M [facility] Last Admin: 05/28/24 03:31 Dose: Not Given Methylprednisolone Sodium Succinate (Methylprednisolone Sod Succ 125 Mg/2 Ml Inj) 250 mg IVP Q12H [facility] Last Admin: 05/28/24 04:31 Dose: 250 mg Metoclopramide HCl (Metoclopramide 5 Mg/Ml Sdv 2 Ml) 5 mg IVP Q6H PRN PRN Reason: NAUSEA AND VOMITING Last Admin: 05/27/24 20:47 Dose: 5 mg Non-Formulary Medication (Insulin Aspart U-100 [Novolog U-100 Insulin Aspart]) 0 unit .ROUTE .COMPLEX [facility] Ondansetron HCl (Ondansetron 2 Mg/Ml Sdv 2 Ml) 4 mg IVP Q6H PRN PRN Reason: NAUSEA AND VOMITING Last Admin: 05/27/24 10:18 Dose: 4 mg Oxycodone/Acetaminophen (Oxycodone-Apap 5-325 Mg Tablet) 1 tab PO Q8H PRN PRN Reason: MODERATE PAIN Last Admin: 05/28/24 02:39 Dose: 1 tab Pantoprazole Sodium (Pantoprazole 40 Mg Sdv) 40 mg IVP Q12H [facility] Last Admin: 05/28/24 02:08 Dose: 40 mg Prasugrel (Prasugrel 10 Mg Tablet) 10 mg PO DAILY [facility] Last Admin: 05/27/24 08:33 Dose: 10 mg Zolpidem Tartrate (Zolpidem 5 Mg Tablet) 5 mg PO BEDTIME PRN PRN Reason: SLEEP Last Admin: 05/27/24 20:31 Dose: 5 mg PFSH Anesthesia Medical History Lateral epicondylitis Cholecystectomy planned Obesity FH: CABG (coronary artery bypass surgery) CAD (coronary artery disease) Hyperlipidemia Surgical History Hx of appendectomy Social History Smoking and tobacco/nicotine status: never used tobacco/nicotine Second hand smoke exposure: No Alcohol intake: current Alcohol intake frequency: holidays/special occasions only Substance/Drug Use: never Adopted: No Caregiver/support person: Yes Lives independently: No Household members: spouse Housing: House Marital status: Number of children: 5 Number of grandchildren: 1 Highest education level completed: Some College, No Degree service: Yes Current occupational status: employed 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 [employer] Current occupational exposures/hazards: No Pets and animals: Yes Sexually active: Yes Do you think of yourself as: Straight/Heterosexual Current gender identity: Male Special asad needs: No Agree to transfusion: Yes Data Anesthesia 05/29/24 04:43 05/29/24 04:43 Short CBC 05/27/24 05/28/24 05/29/24 Range/Units 15:08 04:09 04:43 WBC 4.13 6.32 8.61 (3.29-11.43) 10^3/uL Hgb 14.10 12.60 12.70 (11.27-16.99) g/dL Hct 40.0 35.5 L 36.1 L (37-53) % MCV 86.6 85.3 87.2 (82-101) fl Plt Count 114 L 112 L 107 L (157-399) 10^3/cmm Neut % (Auto) 93.1 91.6 90.4 % Neut # (Auto) 3.84 5.79 7.78 H (1.8-7.7) 10^3/uL BMP 05/27/24 05/27/24 05/27/24 15:08 16:08 17:06 Sodium Cancelled Cancelled 135 L Potassium Cancelled Cancelled 5.0 Chloride Cancelled Cancelled 95 L Carbon Dioxide Cancelled Cancelled 24 BUN Cancelled Cancelled 52 H Creatinine Cancelled Cancelled 5.2 H Glucose Cancelled Cancelled 207 H Calcium Cancelled Cancelled 8.2 L 05/28/24 05/28/24 05/28/24 00:34 04:09 05:45 Sodium 133 L 134 L 134 L Potassium 4.9 4.3 4.4 Chloride 90 L 89 L 88 L Carbon Dioxide 27 30 H 30 H BUN 54 H 56 H 55 H Creatinine 5.6 H* 5.6 H* 5.6 H* Glucose 217 H 187 H 183 H Calcium 7.9 L 7.6 L 7.8 L 05/28/24 05/29/24 11:00 04:43 Sodium 133 L 134 L Potassium 4.1 4.9 Chloride 88 L 93 L Carbon Dioxide 30 H 26 BUN 57 H 69 H Creatinine 5.8 H* 6.5 H* Glucose 193 H 195 H Calcium 7.4 L 6.7 L Cardiac Enzymes 05/27/24 05/27/24 05/28/24 Range/Units 15:08 22:30 09:00 Creatine Kinase 54685 H* 33767 H* 81479 H* (39-308) U/L Troponin T 5th Gen ng/L 1897 H* (0-15) ng/L 05/28/24 05/28/24 05/28/24 Range/Units 11:00 16:19 23:09 Creatine Kinase 73220 H* 00996 H* 71255 H* (39-308) U/L Troponin T 5th Gen ng/L (0-15) ng/L Liver Function 05/27/24 05/27/24 05/27/24 Range/Units 15:08 16:08 17:06 Total Bilirubin Cancelled Cancelled 0.5 AST Cancelled Cancelled 509 H ALT Cancelled Cancelled 291 H Alkaline Phosphatase Cancelled Cancelled 128 Albumin Cancelled Cancelled 3.4 L 05/28/24 05/28/24 05/28/24 Range/Units 00:34 04:09 05:45 Total Bilirubin 0.3 0.4 0.4 AST 465 H 439 H 465 H ALT 285 H 267 H 280 H Alkaline Phosphatase 123 113 116 Albumin 3.2 L 3.0 L 3.1 L 05/28/24 05/29/24 Range/Units 11:00 04:43 Total Bilirubin 0.3 0.3 AST 475 H 537 H ALT 288 H 303 H Alkaline Phosphatase 109 101 Albumin 3.0 L 2.8 L Coags 05/27/24 05/27/24 05/28/24 15:08 22:30 05:45 APTT 32.7 D 118.1 H D 73.1 H Cardiac Studies: Echocardiogram 04/17/24 Echocardiogram Limited Views 05/27/24 Echocardiogram Ultrasound 02/22/24 Sestamibi Stress Test (Cardiology) 04/05/24
--- NOTE | 2024-05-29 07:04 | W.PM.OPSUD ---
Surgery/Procedure H&P Update DATE OF PROCEDURE: May 29, 2024 DATE H&P PERFORMED: 04/17/24 H&P UPDATE INFORMATION: I have reviewed H&P completed within last 30 days, I have examined patient prior to procedure and No changes to prior documentation PREOP DIAGNOSIS: Rhabdomyolysis PLANNED PROCEDURE: Operation Date: 05/29/24 07:00 Proposed Procedures p Muscle Biopsy-right thigh(Right) - Florentin Burton MD
[2024-05-29] MEDS: lidocaine 1% 10 ML INJ 14 ML INTRADERMA (07:25)
[2024-05-29] MEDS: clindamycin 600 MG/50 ML PREMIX 100 MG IV (07:30)
--- NOTE | 2024-05-29 07:52 | P.OP_ITS ---
Operative Report Date of procedure: May 29, 2024 Pre-op diagnosis: Rhabdomyolysis unknown etiology Post-op findings: 4 cm of vastus lateralis sent to pathology Procedure done: Muscle biopsy right thigh Implants: N/A Specimens removed/disposition: 4 cm muscle vastus lateralis Pathology: 4 cm of muscle vastus lateralis Surgeon: Florentin Burton MD Vegetable Loader Machine Operator: N/A Anesthesia: MAC Estimated blood loss (mL): 10 Complications: N/A Findings: Muscle biopsy sent from vastus lateralis right thigh Condition: stable Disposition: ICU Brief History: 58-year-old male who presented acute renal failure secondary to rhabdomyolysis. Muscle biopsy performed to aid in the workup for rhabdomyolysis. Procedure: Patient was consented in the ICU. Discussed risk and benefits and patient agrees to proceed with right thigh biopsy. Patient was transported to the operating room. Procedure done under MAC and local. The right thigh was prepped and draped in usual sterile fashion. Prophylactic clindamycin was administered. A 5 cm incision was carried out on the right thigh. Tissue dissection was carried down to fascia using electrocautery. Fascia was opened using scissors. I measured a 4 cm length of vastus lateralis. I clipped the muscle at both ends and proceeded to resect muscle using Metzenbaum scissors. Specimen was passed off to be sent to pathology. Adequate hemostasis was achieved using electrocautery. The fascia was closed using 3-0 Vicryl in a running fashion. Deep dermal stitches were placed using 3-0 Vicryl. Multiple interrupted vertical mattress sutures using 2-0 nylon were placed to close skin. A compression dressing was applied. The patient was transported to the ICU in stable condition.
--- NOTE | 2024-05-29 08:10 | ECG_ITS ---
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 [email or web address]
--- NOTE | 2024-05-29 08:15 | ANE.PACU2 ---
Inpatient post-anesthesia follow up: Airway intact: Yes Vital signs: Temperature 98.3 F Pulse Rate 68 Respiratory Rate 20 Blood Pressure 128/64 Pulse Oximetry 97 Oxygen Delivery Me thod Nasal Cannula Oxygen Flow Rate 2 Fraction of Inspir ed Oxygen Hydration adequate: Yes Nausea and vomiting: No Pain level: 1 Mental status: Baseline
[2024-05-29 08:40] LABS: Glucose Point of Care 201 mg/dL (70-110)
[2024-05-29] MEDS: metoprolol succinate ER (24 HR) 25 mg Tablet 12.5 MG PO (08:45)
[2024-05-29] MEDS: prasugrel 10 MG Tablet PO (08:45)
[2024-05-29] MEDS: FUROsemide 10 mg/mL SDV 10mL 60 MG IVP ×2 (08:45→21:22)
[2024-05-29] MEDS: folic acid 1 mg Tablet PO (08:45)
[2024-05-29] MEDS: insulin lispro 100 unit/1 mL SUBCUT (08:45)
--- NOTE | 2024-05-29 09:47 | P.PN_ITS ---
Subjective 2 Subjective: had chest pain after muscle biopsy of right thigh. he still has back pain. states he is not feeling well. has nausea. some shortness of breath -requiirng nc02. shortness of breath and cp improved 30 minutes post-op Medications: Reviewed: Yes Medication Review Details: Current Medications Aspirin (Aspirin 81 Mg Ec Tablet) 81 mg PO BEDTIME [facility] Last Admin: 05/28/24 20:26 Dose: 81 mg Folic Acid (Folic Acid 1 Mg Tablet) 1 mg PO DAILY DELANEY Last Admin: 05/29/24 08:45 Dose: 1 mg Furosemide (Furosemide 10 Mg/Ml Sdv 10ml) 60 mg IVP Q12H DELANEY Last Admin: 05/29/24 08:45 Dose: 60 mg Glucagon (Glucagon 1 Mg/Ml Kit 1 Ml) 1 mg IM ONCE PRN; Protocol PRN Reason: Adult Acute Hypoglycemia Nursing Prot. Sodium Chloride (Sodium Chloride 0.9%) 1,000 mls @ 200 mls/hr IV .Q5H DELANEY Last Admin: 05/29/24 06:22 Dose: 200 mls/hr Dextrose (D5w) 500 mls @ 0 mls/hr IV ONCE PRN; Protocol PRN Reason: Adult Acute Hypoglycemia Prot Dextrose (D10w) 125 mls @ 750 mls/hr IV PRN PRN; Protocol PRN Reason: Adult Acute Hypoglycemia Nursing Protocol Dextrose (D10w) 250 mls @ 1,000 mls/hr IV PRN PRN; Protocol PRN Reason: Adult Acute Hypoglycemia Nursing Protocol Insulin Human Lispro (Insulin Lispro 100 Unit/1 Ml) 0 unit SUBCUT WM&BEDTIME DELANEY; Protocol Last Admin: 05/29/24 08:45 Dose: 6 unit Methylprednisolone Sodium Succinate (Methylprednisolone Sod Succ 125 Mg/2 Ml Inj) 250 mg IVP Q12H [facility]ANEY Last Admin: 05/29/24 04:15 Dose: 250 mg Metoclopramide HCl (Metoclopramide 5 Mg/Ml Sdv 2 Ml) 5 mg IVP Q6H PRN PRN Reason: NAUSEA AND VOMITING Last Admin: 05/27/24 20:47 Dose: 5 mg Metoprolol Succinate (Metoprolol Succinate Er (24 Hr) 25 Mg Tablet) 12.5 mg PO DAILY DELANEY Last Admin: 05/29/24 08:45 Dose: 12.5 mg Non-Formulary Medication (Insulin Aspart U-100 [Novolog U-100 Insulin Aspart]) 0 unit .ROUTE .COMPLEX [facility] Ondansetron HCl (Ondansetron 2 Mg/Ml Sdv 2 Ml) 4 mg IVP Q6H PRN PRN Reason: NAUSEA AND VOMITING Last Admin: 05/27/24 10:18 Dose: 4 mg Oxycodone/Acetaminophen (Oxycodone-Apap 5-325 Mg Tablet) 1 tab PO Q8H PRN PRN Reason: MODERATE PAIN Last Admin: 05/29/24 01:26 Dose: 1 tab Pantoprazole Sodium (Pantoprazole 40 Mg Sdv) 40 mg IVP Q12H DELANEY Last Admin: 05/29/24 01:24 Dose: 40 mg Prasugrel (Prasugrel 10 Mg Tablet) 10 mg PO DAILY [facility] Last Admin: 05/29/24 08:45 Dose: 10 mg Zolpidem Tartrate (Zolpidem 5 Mg Tablet) 5 mg PO BEDTIME PRN PRN Reason: SLEEP Last Admin: 05/28/24 20:26 Dose: 5 mg Vitals/I&O/Wt Last Vital Signs Temp 98.3 F 05/29/24 01:00 Pulse 59 L 05/29/24 06:05 Resp 13 05/29/24 06:00 BP 135/60 05/29/24 06:00 Pulse Ox 93 05/29/24 06:00 O2 Del Method Nasal Cannula 05/29/24 06:00 O2 Flow Rate 2 05/29/24 06:00 05/28/24 05/29/24 05/29/24 22:59 06:59 14:59 Intake Total 1000 / 3206.650 1996.667 / 5203.317 50 / 50 Output Total 525 / 525 Balance 1000 / 3206.650 1471.667 / 4678.317 50 / 50 Weight last 48 hrs Weight 73.346 kg Weight 71 kg Physical Exam 2 Narrative: comfortable in bed, NARD VSS heent- nc/at, eomi neck no jvp lungs clear heart regular + s1, s2 abdomen soft + bs ext no edema, + weak- moves all extremities Urinary Catheter Management: Velez: Cath Placed During This Visit: yes Reason for Continuing Indwelling Catheter: Accurate Measurement of Urinary Output in Critically Ill Patients Urinary Catheter Date of Insertion: 05/26/24 Data 05/29/24 04:43 05/29/24 04:43 A&P Assessment and plan (1) Acute renal failure: 58 yr old man CAD s/p recent stent. he is on statins 1[place] [id number]- and symptoms for week he is not urinating. will cont ivf and and furosemide change ivf to NS -no emergent need for dialysis likely ELENO fom rhabdo -no hydronephrosis on imaging 2. rhabdomyolysis- can be from statins. however, this is a very high cpk- he was on high dose crestor -ck deopped to 40,000 now emilia again over 50,000. repeat cpk pendin -s/p muscle biopsy this am -please also send blood tests for polymyositis, dermatomyositis. check aldolase. he has a high LDH, myeloperolidase negative, anti dsDNA negative await LUIS ANTONIO, anti-[place]-1, Anti -Mi-2, bufm5TIS, anti-MDA5 -aldolase pending u tox negative - hiv and hep serologies negative check tsh -repeat cpk pending -cont ivf and furosemide may need to start dialysis soon -pt consents to HD as needed -seen and examined w/ RN- telehealth visit Qualifiers: Acute renal failure type: unspecified Qualified Code(s): N17.9 - Acute kidney failure, unspecified Plan see above. ivf, lasix. monitor labs and potential HD needs PDMP PDMP Reviewed: Not Reviewed Attestations 2 Medical Necessity Statement*: severe rhabdomyolysis and eleno Time Spent in Patient Care: 16 - 35 minutes (>than 50% of time sp ent in counselling and/or direct pt care on unit) . Coding Level of Care Code Acute Code for Chg Fwd Diagnoses Acute renal failure, unspecified acute renal failure type N17.9 Acute renal failure type: unspecified
--- NOTE | 2024-05-29 09:48 | P.PN_ITS ---
<Statement entered by Cj Patricio MD - 05/29/24 21:28> Patient was evaluated and cared for in conjunction with an advanced practice practitioner. I personally examined the patient and reviewed the chart and all pertinent data including imaging, telemetry, and laboratory results. I discussed the patient in detail with the advanced practice practitioner. Please see their note for complete H&P testing result and agreed upon plan of care for the patient. Patient underwent muscle biopsy today. Post anesthesia complaint of chest pain twelve-lead EKG was performed which did not show acute ischemia over the. Time patient chest pain settled Continues to have elevated CK Continues to have worsening of renal function No more significant telemetry event GENERAL: Patient is alert, awake and oriented x3. HEART: Regular S1 and S2. No murmur, rub or gallop. LUNGS: Clear to auscultate bilaterally. CENTRAL NERVOUS SYSTEM: Grossly nonfocal. EXTREMITIES: Lower extremities with out edema bilaterally. Assessment and plan Rhabdomyolysis Acute renal failure History of CABG/coronary artery disease status post recent stent placement Persistent elevated CK. Medicine nephrology and neurology investigating unusual persistent elevation of the CK, muscle biopsy pending Continue beta-magdalena Patient remained stable from a cardiac standpoint Continue dual antiplatelet for recent stent Acute renal failure treatment as per nephrology Should be considered treating with steroids leave that decision to medicine colleagues for possible underlying connective tissue disorder until the diagnosis since labs has already been sent Subjective 2 Subjective: Patient had an episode of chest pain after muscle biopsy. EKG was done without significant changes. No evidence of acute ST elevation or T wave abnormalities. We have placed him on a low-dose beta-magdalena. Overall heart rate is stable. He has not had any runs of V. tach since starting this.His chest pain has resolved this morning after he was slightly sedated. At this time his CK levels were trending up. Current CK level pending. Vitals/I&O/Wt Last Vital Signs Temp 98.3 F 05/29/24 01:00 Pulse 59 L 05/29/24 06:05 Resp 13 05/29/24 06:00 BP 135/60 05/29/24 06:00 Pulse Ox 93 05/29/24 06:00 O2 Del Method Nasal Cannula 05/29/24 06:00 O2 Flow Rate 2 05/29/24 06:00 05/28/24 05/29/24 05/29/24 22:59 06:59 14:59 Intake Total 1000 / 3206.650 1996.667 / 5203.317 50 / 50 Output Total 525 / 525 Balance 1000 / 3206.650 1471.667 / 4678.317 50 / 50 Weight last 48 hrs Weight 161 lb 11.2 oz Weight 156 lb 8.451 oz Physical Exam 2 Narrative: General: No apparent distress, healthy appearing, well nourished HENMT: normoceophalic Muskuloskeletal: Full ROM Lymphatic: no lymphedema noted Respiratory: Normal respiratory effort, clear to auscultation bilaterally throughout all lung donis, no use of accessory muscles Cardio: No JVD, regular rate, regular rhythm, S1 S2 normal, no murmurs, peripheral pulses 2+ radial palpated bilaterally GI: Normal to inspection, nondistended Extremities: Full ROM, normal, normal capillary refill, no cyanosis, no edema Neuro: Alert and oriented x4, no focal motor deficits Psych: Affect normal, denies suicidal ideation, mental status grossly normal Skin: No rashes or lesions noted, no wounds Urinary Catheter Management: Velez: Cath Placed During This Visit: yes Reason for Continuing Indwelling Catheter: Accurate Measurement of Urinary Output in Critically Ill Patients Urinary Catheter Date of Insertion: 05/26/24 Data 05/29/24 04:43 05/29/24 04:43 A&P Assessment and plan (1) NSTEMI (non-ST elevated myocardial infarction): (2) Antiplatelet or antithrombotic long-term use: (3) Hyperlipidemia: Qualifiers: Hyperlipidemia type: unspecified Qualified Code(s): E78.5 - Hyperlipidemia, unspecified (4) Hyperlipemia, mixed: Plan Patient's episode of chest pain resolved quickly without significant EKG changes after his muscle biopsy. This resolved after patient was given slight sedation. He has not had any runs of V. tach since starting metoprolol. Will continue this. Rhabdomyolysis treatment her primary care team and creatinine has increased to 6.5 with potassium at 4.9 peaked T waves. Treatment per nephrology team. From a cardiovascular prospective, will continue to monitor for further episodes and EKG changes. Otherwise, continue current care. PDMP PDMP Reviewed: Not Reviewed Attestations 2 Medical Necessity Statement*: Deferred to primary care. Coding Level of Care Code Acute Code for Chg Fwd Diagnoses NSTEMI (non-ST elevated myocardial infarction) I21.4 Antiplatelet or antithrombotic long-term use Z79.02 Hyperlipidemia, unspecified hyperlipidemia type E78.5 Hyperlipidemia type: unspecified Hyperlipemia, mixed E78.2
[2024-05-29 10:02] LABS: Creatine Phosphokinase 55104 U/L (39-308)
--- NOTE | 2024-05-29 12:02 | PICC.NOTE ---
Dressing changed to right upper arm PICC. Moderate amount old, bloody drainage noted. Bruising also noted at insertion site. Using sterile technique, site cleaned with CHG. Secureport IV applied to insertion site and covered with Biopatch. Secured with Sorbaview transparent dressing. Pt tolerated well. Report given to DILCIA Charles.
--- NOTE | 2024-05-29 12:25 | P.PN_ITS ---
Subjective 2 Subjective: Muscle biopsy performed in the morning Nephrology consulted surgery for dialysis catheter placement Vitals/I&O/Wt Last Vital Signs Temp 98.3 F 05/29/24 01:00 Pulse 59 L 05/29/24 06:05 Resp 13 05/29/24 06:00 BP 135/60 05/29/24 06:00 Pulse Ox 93 05/29/24 06:00 O2 Del Method Nasal Cannula 05/29/24 06:00 O2 Flow Rate 2 05/29/24 06:00 05/28/24 05/29/24 05/29/24 22:59 06:59 14:59 Intake Total 1000 / 3206.650 1996.667 / 5203.317 50 / 50 Output Total 525 / 525 Balance 1000 / 3206.650 1471.667 / 4678.317 50 / 50 Weight last 48 hrs Weight 161 lb 11.2 oz Weight 156 lb 8.451 oz Physical Exam 2 Narrative: Chest: Unlabored breathing room air. No lymphadenopathy. Heart: Regular rate and rhythm. Abdomen: Soft, nontender, nondistended. No masses or lymphadenopathy. Urinary Catheter Management: Velez: Cath Placed During This Visit: yes Reason for Continuing Indwelling Catheter: Accurate Measurement of Urinary Output in Critically Ill Patients Urinary Catheter Date of Insertion: 05/26/24 Data 05/29/24 04:43 05/29/24 04:43 A&P Assessment and plan (1) Myopathy: (2) Acute renal failure: Qualifiers: Acute renal failure type: unspecified Qualified Code(s): N17.9 - Acute kidney failure, unspecified Plan 58-year-old male with acute renal failure. Nephrology requesting temporary dialysis catheter. Discussed risk and benefits and patient agrees to proceed with dialysis catheter placement. PDMP PDMP Reviewed: Not Reviewed Attestations 2 Medical Necessity Statement*: N/A Coding Level of Care Code 76818 Diagnoses Myopathy G72.9 Acute renal failure, unspecified acute renal failure type N17.9 Acute renal failure type: unspecified Time Spent (min) 30
[2024-05-29 12:29] LABS: Glucose Point of Care 181 mg/dL (70-110)
[2024-05-29 12:55] LABS: Anti-Nuclear Antibody Pattern Nuclear, Homogeneous; Anti-Nuclear Antibody Screen POSITIVE (NEGATIVE); Anti-Nuclear Antibody Titer 1:40 titer
--- NOTE | 2024-05-29 13:33 | USCV_ITS ---
BridgetbonitaMoisés Age: 58 Gender: M : 1965 Exam Date: 05/29/2024 13:58 Ordering Phys: Grupo Donohue MD Technologist: HEMANT Exam Location: [facility] – [place] Indication: ?LT PSEUDO Findings ?Lt Pseudo. Resolving hematoma seen post dialysis cath. No arterial connection seen at this time Conclusions Resolving hematoma No evidence of pseudoaneurysm Isac Huddleston MD (Electronically Signed) Final Date: 29 May 2024 16:21 S
--- NOTE | 2024-05-29 13:49 | PM.ACPR ---
Procedure/Consent Consent: Consent for Procedure: Consent obtained from patient Procedure Narrative: Discussed risk and benefits of temporary dialysis catheter placement and patient agreed to proceed. The left groin was prepped and draped in the usual sterile fashion. Ultrasound was used to locate the left common femoral vein. A finder needle was used to access the left common femoral vein. A guidewire was threaded through the finder needle. The finder needle was removed and the guidewire was confirmed to be in the left common femoral vein via ultrasound visualization. I then proceeded to dilate the tract serially with 2 dilators. I then placed a 20 cm temporary dialysis catheter using the Seldinger technique. I was able to draw blood and flush both lumens easily. The catheter was secured using suture. I then applied a sterile dressing on top. I noticed patient had developed a left groin hematoma and pressure was applied for 5 minutes. Catheter is ready for immediate use.
--- NOTE | 2024-05-29 14:35 | P.PN_ITS ---
Subjective 2 Subjective: He is feeling about the same today. Without significant change. Vitals/I&O/Wt Last Vital Signs Temp 98.3 F 05/29/24 08:00 Pulse 95 05/29/24 13:55 Resp 19 H 05/29/24 13:00 BP 147/65 05/29/24 13:00 Pulse Ox 93 05/29/24 12:00 O2 Del Method Nasal Cannula 05/29/24 06:00 O2 Flow Rate 2 05/29/24 06:00 05/28/24 05/29/24 05/29/24 22:59 06:59 14:59 Intake Total 1000 / 3206.650 1996.667 / 5203.317 50 / 50 Output Total 525 / 525 Balance 1000 / 3206.650 1471.667 / 4678.317 50 / 50 Weight last 48 hrs Weight 73.346 kg Weight 71 kg Physical Exam 2 Narrative: Accompanied by his . Const: COMMON NORMALS: patient oriented x3 and alert GENERAL APPEARANCE: c ooperative ORIENTATION/CONSCIOUSNESS: Yes awake HENMT: COMMON NORMALS: oropharynx normal Neck/C-Spine: COMMON NORMALS: no JVD Resp: COMMON NORMALS: normal respiratory effort and clear to auscultation bilaterally AUSCULTATION: clear to auscultation bilaterally Cardio: COMMON NORMALS: no JVD, regular rhythm, S1 normal heart sound present, S2 normal heart sound present and No murmurs present (Cardio) RHYTHM: regular rhythm HEART SOUNDS: S1 normal heart sound present and S2 normal heart sound present GI: COMMON NORMALS: Normal to inspection, nondistended, normoactive bowel sounds present, Soft to palpation and non-tender PALPATION: Yes Soft to palpation Extremity: COMMON NORMALS: no joint enlargement and no pedal edema Neuro: COMMON NORMALS: patient oriented x3 and moves all extremities S ENSORIUM/ORIENTATION: Yes alert Skin: COMMON NORMALS: no rashes or lesions noted GENERAL SKIN EXAM: no rashes or lesions noted Urinary Catheter Management: Velez: Cath Placed During This Visit: yes Reason for Continuing Indwelling Catheter: Accurate Measurement of Urinary Output in Critically Ill Patients Urinary Catheter Date of Insertion: 05/26/24 Data 05/29/24 04:43 05/29/24 04:43 A&P Assessment and plan (1) Acute renal failure: Qualifiers: Acute renal failure type: unspecified Qualified Code(s): N17.9 - Acute kidney failure, unspecified (2) Type 1 diabetes: Qualifiers: Diabetes mellitus complication status: with circulatory complication D iabetes mellitus complication detail: with other circulatory complications Q ualified Code(s): E10.59 - Type 1 diabetes mellitus with other circulatory complications (3) NSTEMI (non-ST elevated myocardial infarction): (4) Hyperlipemia, mixed: (5) Rhabdomyolysis: (6) Myocarditis: (7) Leg weakness, bilateral: (8) Proximal muscle weakness: (9) Abnormal transaminases: Plan Acute renal failure: Reviewed vitals, intake and output, creatinine, BUN, anion gap, bicarb, chloride, potassium, sodium, CK. Noted worsening renal function today, BUN 69, creatinine up to 6.5. Anion gap increased to 19.9. Potassium is normal. CK with fluctuation, but did worsen up to 58,000 today. Urine output with some decrease compared to yesterday. Has been reassessed by nephrology. As per discussion arrangements underway for dialysis catheter and start hemodialysis. Discussed with patient and family, they are aware and okay to proceed. Dialysis catheter being placed by surgery. Discussed with surgeon. Left groin hematoma: Arterial puncture during dialysis catheter, formed hematoma. Pressure has been held. Requested arterial duplex for assessment for any pseudoaneurysm. Severe rhabdomyolysis: CT with fluctuation, blood was worsening up to 58,000 today. Underwent muscle biopsy. Follow-up results. Immunology is pending so far, pending myositis panel, weakly positive LUIS ANTONIO, discussed with him and his , given he is still having persistent symptoms, with possibly only partial improvement, with generalized weakness, muscle aches, some worsening of NIF, although doing better after anesthesia weaning off, -50. Fluctuating CKD with some worsening today, discussed consideration of treatment with IVIG given only possibly partial response to steroid, discussed potential adverse effects, transfusion reaction, allergic reaction, acute renal failure. Discussed with nephrology. Steroid dose will suggest discharge to 250 mg twice daily. Continue at current time. Follow-up serology. Pending muscle biopsy tentatively planned for tomorrow. Continue to reassess renal function. Follow-up CK. Continue gentle hydration. Monitor for risk of fluid overload. Hold statin. Continue to monitor in ICU. Continue to monitor vital capacity. PT, OT, ST. PT for today due to muscle biopsy, dialysis catheter. Dialysis initiation. Advance diet to level 7, easy to chew. No signs of cauda equina Atypical reflexes No recent infection Non-STEMI: History of chest pain. Reviewed cardiology note. With possible NSTEMI, continues on anticoagulation. Monitor for risk of bleeding. Reassess blood counts Reviewed troponin series, with some fluctuation but overall flat trend, persistent elevation. May suspect secondary to rhabdomyolysis. Echocardiogram is ordered and pending. Appreciate cardiology consultation. Continue medication for possible NSTEMI, aspirin, prasugrel, heparin drip. Monitor for risk of bleeding. Monitor PTT. Reassess blood counts. Statin held. Recent stent placement left circumflex History of established coronary disease Full code Clear liquid diet secondary to dysphagia PDMP PDMP Reviewed: Not Reviewed Attestations 2 Medical Necessity Statement*: Continue admission for assessment management of acute renal failure, severe rhabdomyolysis, assessment for possible myositis. Coding Level of Care Code Critical Care >/= 30 minutes Critical care time (in minutes): 45 The high probability of a clinically significant, sudden or life threatening deterioration, as referenced in this documentation, required my full and direct attention, intervention and personal management. The critical care time shown is in addition to time spent performing any reported separately billable procedures and includes the following: [x] Data and vital sign review and interpretation [x ] Patient assessment, examination and intervention [x] Medication orders and management [x] Patient/Family updates as able [x] Care Coordination and Documentation. Diagnoses Acute renal failure, unspecified acute renal failure type N17.9 Acute renal failure type: unspecified Type 1 diabetes mellitus with other circulatory complication E10.59 Diabetes mellitus complication status: with circulatory complication Diabetes mellitus complication detail: with other circulatory complications NSTEMI (non-ST elevated myocardial infarction) I21.4 Hyperlipemia, mixed E78.2 Rhabdomyolysis M62.82 Myocarditis I51.4 Leg weakness, bilateral R29.898 Proximal muscle weakness M62.81 Abnormal transaminases R74.8
[2024-05-29 15:50] LABS: Aldolase 217.5 U/L (< OR = 8.1)
[2024-05-29] MEDS: simethicone 80 mg Chew PO (21:20)
[2024-05-29] MEDS: aspirin 81 mg EC Tablet PO (21:21)
[2024-05-29] MEDS: zolpidem 5 mg Tablet PO (21:36)
[2024-05-29 21:58] LABS: Glucose Point of Care 342 mg/dL (70-110)
[2024-05-30] VITALS (38 sets, daily range): BP systolic 124–173; BP diastolic 60–90; PULSE 58–80; RESP 10–22; TEMP 36.3–37; O2SAT 89–98
[2024-05-30] MEDS: [UNRECOGNIZED DRUG - OTHER] IV (00:03)
[2024-05-30] MEDS: IMMUNE GLOBULIN IV (00:03)
[2024-05-30] MEDS: sodium chloride 0.9% 1,000 ML 200 ML IV ×3 (01:34→12:01)
[2024-05-30] MEDS: pantoprazole 40 mg SDV IVP ×2 (01:34→13:58)
[2024-05-30] MEDS: methylPREDNISolone sod succ 125 mg/2 mL INJ 250 MG IVP ×2 (05:15→17:46)
[2024-05-30 05:37] LABS: Hematocrit 34.1 % (37-53); Lymphocytes # 0.2 10^3/uL (0.8-4.8); Lymphocytes % 3.1 %; Mean Corpuscular HGB Conc 34.6 g/dL (30-55); Mean Corpuscular Hemoglobin 30.8 pg (27-33); Mean Platelet Volume 10.1 fL (7.4-10.4); Monocytes # 0.7 10^3/uL (0.2-0.9); Neutrophils # 6.36 10^3/uL (1.8-7.7); Neutrophils % 86.5 %; Nucleated Red Blood Cells % 0 %; Platelet Count 94 10^3/cmm (157-399); Red Blood Count 3.83 10^6/uL (3.85-5.65); Red Cell Distribution Width 13.1 % (12.1-15.1); White Blood Count 7.35 10^3/uL (3.29-11.43)
[2024-05-30 06:03] LABS: Alanine Aminotransferase 280 U/L (0-41); Albumin Level 2.5 g/dL (3.5-5.2); Alkaline Phosphatase 89 U/L (40-130); Aspartate Amino Transferase 412 U/L (0-40); Calcium 6.2 mg/dL (8.5-10.5); Carbon Dioxide 24 mmol/L (22-29); Chloride 95 mmol/L (98-107); Creatinine Clr Calc Pharmacy 10.8909; Globulin 3.9 g/dL (1.3-4.6); Glomerular Filtration Rate 8.5 mL/min (90-130); Glucose 131 mg/dL (65-115); Osmolality Calculated 304 mOsm/kg (285-295); Sodium 134 mmol/L (136-145); Total Bilirubin 0.2 mg/dL (0.15-1.2); Total Protein 6.4 g/dL (6.6-8.7)
[2024-05-30 06:16] LABS: Blood Urea Nitrogen 81 mg/dL (6-20)
[2024-05-30 07:21] LABS: Creatine Phosphokinase 55016 U/L (39-308)
[2024-05-30] MEDS: metoprolol succinate ER (24 HR) 25 mg Tablet 12.5 MG PO (08:51)
[2024-05-30] MEDS: prasugrel 10 MG Tablet PO (08:51)
[2024-05-30] MEDS: folic acid 1 mg Tablet PO (08:51)
[2024-05-30] MEDS: FUROsemide 10 mg/mL SDV 10mL 40 MG IVP ×2 (08:52→20:59)
[2024-05-30] MEDS: simethicone 80 mg Chew PO ×3 (09:09→20:59)
[2024-05-30 09:10] LABS: Glucose Point of Care 104 mg/dL (70-110)
[2024-05-30 09:12] LABS: ABG PCO2 41.5 mmHg (35-45); ABG PH Result 7.36 (7.35-7.45); Alveolar-Arterial Oxygen Gradi 4.8 mmHg (5-10); Arterial Blood Gas Hematocrit 39.2 % (42-52); Blood Gas Allen Test Pos; Blood Gas Operator Identificat CAK; Blood Gas Sample Site Brachial, left; Blood Gas Sample Type Arterial; Carboxyhemoglobin 0.8 %THgb (0.4-20.1); HCO3 ABG 23.4 mmol/L (22-26); HGB O2 Sat 90.1 % (95-100); Ionized Calcium Level - ABG 0.9 mmol/L (1.1-1.4); Methemoglobin 0.4 % (0.4-1.5); Oxygen Device ROOM AIR; Oxygen Saturation ABG 91.2; PO2 ABG 63.5 mmHg (80.0-100.0); PO2 FiO2 Ratio Arterial Blood 302; Potassium Level - ABG 4.8 mmol/L (3.5-5.0); Total Hemoglobin 12.8 g/dL (14-18)
--- NOTE | 2024-05-30 09:40 | P.PN_ITS ---
Subjective 2 Subjective: has pain by biopsy site. he is weak. no n/v/f/c/aguilar/d Medications: Reviewed: Yes Medication Review Details: Current Medications Aspirin (Aspirin 81 Mg Ec Tablet) 81 mg PO BEDTIME [facility] Last Admin: 05/29/24 21:21 Dose: 81 mg Epinephrine HCl (Epinephrine 0.1 Mg/Ml Syr 10 Ml) 1 mg IVP ONCE PRN PRN Reason: IVIG Protocol Folic Acid (Folic Acid 1 Mg Tablet) 1 mg PO DAILY [facility] Last Admin: 05/30/24 08:51 Dose: 1 mg Furosemide (Furosemide 10 Mg/Ml Sdv 10ml) 40 mg IVP Q12H [facility] Last Admin: 05/30/24 08:52 Dose: 40 mg Glucagon (Glucagon 1 Mg/Ml Kit 1 Ml) 1 mg IM ONCE PRN; Protocol PRN Reason: Adult Acute Hypoglycemia Nursing Prot. Dextrose (D5w) 500 mls @ 0 mls/hr IV ONCE PRN; Protocol PRN Reason: Adult Acute Hypoglycemia Prot Dextrose (D10w) 125 mls @ 750 mls/hr IV PRN PRN; Protocol PRN Reason: Adult Acute Hypoglycemia Nursing Protocol Dextrose (D10w) 250 mls @ 1,000 mls/hr IV PRN PRN; Protocol PRN Reason: Adult Acute Hypoglycemia Nursing Protocol Sodium Bicarbonate 150 meq/ (Dextrose) 1,150 mls @ 500 mls/hr IV .Q2H18M [facility] Sodium Chloride (Sodium Chloride 0.9%) 1,000 mls @ 200 mls/hr IV .Q5H [facility] Methylprednisolone Sodium Succinate (Methylprednisolone Sod Succ 125 Mg/2 Ml Inj) 250 mg IVP Q12H [facility] Last Admin: 05/30/24 05:15 Dose: 250 mg Metoclopramide HCl (Metoclopramide 5 Mg/Ml Sdv 2 Ml) 5 mg IVP Q6H PRN PRN Reason: NAUSEA AND VOMITING Last Admin: 05/27/24 20:47 Dose: 5 mg Metoprolol Succinate (Metoprolol Succinate Er (24 Hr) 25 Mg Tablet) 12.5 mg PO DAILY [facility] Last Admin: 05/30/24 08:51 Dose: 12.5 mg Non-Formulary Medication (Insulin Aspart U-100 [Novolog U-100 Insulin Aspart]) 0 unit .ROUTE .COMPLEX [facility] Ondansetron HCl (Ondansetron 2 Mg/Ml Sdv 2 Ml) 4 mg IVP Q6H PRN PRN Reason: NAUSEA AND VOMITING Last Admin: 05/27/24 10:18 Dose: 4 mg Oxycodone/Acetaminophen (Oxycodone-Apap 5-325 Mg Tablet) 1 tab PO Q8H PRN PRN Reason: MODERATE PAIN Last Admin: 05/29/24 19:12 Dose: 1 tab Pantoprazole Sodium (Pantoprazole 40 Mg Sdv) 40 mg IVP Q12H [facility] Last Admin: 05/30/24 01:34 Dose: 40 mg Prasugrel (Prasugrel 10 Mg Tablet) 10 mg PO DAILY [facility] Last Admin: 05/30/24 08:51 Dose: 10 mg Simethicone (Simethicone 80 Mg Chew) 80 mg PO QID PRN PRN Reason: Gas Pain Last Admin: 05/30/24 09:09 Dose: 80 mg Vitals/I&O/Wt Last Vital Signs Temp 97.4 F L 05/30/24 05:00 Pulse 64 05/30/24 09:00 Resp 20 H 05/30/24 09:00 BP 125/63 05/30/24 09:00 Pulse Ox 98 05/30/24 08:00 O2 Del Method Nasal Cannula 05/29/24 20:31 O2 Flow Rate 2 05/29/24 20:31 05/29/24 05/30/24 05/30/24 22:59 06:59 14:59 Intake Total 1240 / 2290 1883.333 / 4173.333 250 / 250 Output Total 650 / 650 475 / 1125 Balance 590 / 1640 1408.333 / 3048.333 250 / 250 Weight last 48 hrs Weight 73.346 kg Physical Exam 2 Narrative: comfortable in bed, NARD VSS, not using oxygen heent- nc/at, eomi neck no jvp lungs clear heart regular + s1, s2 abdomen soft + bs ext no edema, pain by biopsy site, + weak legs, but he can move all extremities + femoral dialysis catheter Urinary Catheter Management: Velez: Cath Placed During This Visit: yes Reason for Continuing Indwelling Catheter: Accurate Measurement of Urinary Output in Critically Ill Patients Urinary Catheter Date of Insertion: 05/26/24 Data 05/30/24 05:11 05/30/24 05:11 A&P Assessment and plan (1) Acute renal failure: 58 yr old man CAD s/p recent stent. he is on statins 1. ELENO from statins, +/- a myositis. await [place] [address]-. will cont ivf - increase rate, and cont furosemide -no emergent need for dialysis likely ELENO fom rhabdo -no hydronephrosis on imaging 2. rhabdomyolysis- can be from statins. however, this is a very high cpk- he was on high dose crestor -ck monitor -s/p muscle biopsy yesterday -please also send blood tests for polymyositis, dermatomyositis. check aldolase. he has a high LDH, myeloperolidase negative, anti dsDNA negative - LUIS ANTONIO + 1:40 low +, anti-[place]-1, Anti -Mi-2, [id number], anti-MDA5 -aldolase 217.5, [id number] 237- likely a myositis u tox negative - hiv and hep serologies negative normal tsh -repeat cpk every 6 hrs -if develops resp distress, then start dialysis soon -pt consents to HD as needed -seen and examined w/ RN- telehealth visit Qualifiers: Acute renal failure type: unspecified Qualified Code(s): N17.9 - Acute kidney failure, unspecified Plan see above. ivf, lasix. monitor labs and potential HD needs PDMP PDMP Reviewed: Not Reviewed Attestations 2 Medical Necessity Statement*: ELENO, rhabdomyolysis Time Spent in Patient Care: Greater than 35 minutes (>than 50% of time spent in counselling and/or direct pt care on unit) . Coding Level of Care Code Acute Code for [facility] Diagnoses Acute renal failure, unspecified acute renal failure type N17.9 Acute renal failure type: unspecified
--- NOTE | 2024-05-30 10:00 | PC.RESP ---
nif -[id number]
[2024-05-30] MEDS: sodium bicarbonate 150 MEQ in dextrose 5% 1,000 ML 500 MEQ IV (10:04)
[2024-05-30 10:47] LABS: Potassium, Radom Urine 12 mmol/L; Urine Creatinine 18 mg/dL (39-259); Urine Random Chloride 86 mmol/L; Urine Random Sodium 102 mmol/L
--- NOTE | 2024-05-30 11:13 | PC.RESP ---
fvc .97 ml 2.86 pred.poor to no effort
--- NOTE | 2024-05-30 11:38 | P.PN_ITS ---
Subjective 2 Subjective: Overall patient doing weak, but similar to prior. He is able to move his extremities but is having difficult time readjusting his position in bed. Vitals/I&O/Wt Last Vital Signs Temp 97.4 F L 05/30/24 05:00 Pulse 74 05/30/24 10:00 Resp 15 05/30/24 10:00 BP 124/74 05/30/24 10:00 Pulse Ox 98 05/30/24 08:00 O2 Del Method Nasal Cannula 05/29/24 20:31 O2 Flow Rate 2 05/29/24 20:31 05/29/24 05/30/24 05/30/24 22:59 06:59 14:59 Intake Total 1240 / 2290 1883.333 / 4173.333 250 / 250 Output Total 650 / 650 475 / 1125 Balance 590 / 1640 1408.333 / 3048.333 250 / 250 Weight last 48 hrs Weight 73.346 kg Physical Exam 2 Const: COMMON NORMALS: patient oriented x3 and alert GENERAL APPEARANCE: c ooperative ORIENTATION/CONSCIOUSNESS: Yes awake HENMT: COMMON NORMALS: oropharynx normal Neck/C-Spine: COMMON NORMALS: no JVD Resp: COMMON NORMALS: normal respiratory effort and clear to auscultation bilaterally AUSCULTATION: clear to auscultation bilaterally Cardio: COMMON NORMALS: no JVD, regular rhythm, S1 normal heart sound present, S2 normal heart sound present and No murmurs present (Cardio) RHYTHM: regular rhythm HEART SOUNDS: S1 normal heart sound present and S2 normal heart sound present GI: COMMON NORMALS: Normal to inspection, nondistended, normoactive bowel sounds present, Soft to palpation and non-tender PALPATION: Yes Soft to palpation Extremity: COMMON NORMALS: no joint enlargement and no pedal edema Neuro: COMMON NORMALS: patient oriented x3 and moves all extremities S ENSORIUM/ORIENTATION: Yes alert Skin: COMMON NORMALS: no rashes or lesions noted GENERAL SKIN EXAM: no rashes or lesions noted Urinary Catheter Management: Velez: Cath Placed During This Visit: yes Reason for Continuing Indwelling Catheter: Accurate Measurement of Urinary Output in Critically Ill Patients Urinary Catheter Date of Insertion: 05/26/24 Data 05/30/24 05:11 05/30/24 05:11 A&P Assessment and plan (1) Acute renal failure: Qualifiers: Acute renal failure type: unspecified Qualified Code(s): N17.9 - Acute kidney failure, unspecified (2) Type 1 diabetes: Qualifiers: Diabetes mellitus complication status: with circulatory complication D iabetes mellitus complication detail: with other circulatory complications Q ualified Code(s): E10.59 - Type 1 diabetes mellitus with other circulatory complications (3) NSTEMI (non-ST elevated myocardial infarction): (4) Hyperlipemia, mixed: (5) Rhabdomyolysis: (6) Myocarditis: (7) Leg weakness, bilateral: (8) Proximal muscle weakness: (9) Abnormal transaminases: Plan Acute renal failure: Reviewed vitals, intake and output. He is producing urine. Reviewed creatinine, BUN, anion gap, bicarb, potassium, sodium, chloride, CK. Discussed with shop blacksmith. Nephrology reassessing, considering timing of starting dialysis. Continue to monitor intake and output. Will reassess chemistry. Follow-up CK. Reviewed left groin arterial duplex, noted resolving hematoma, no evidence of pseudoaneurysm. Discussed with bilingual patient support caseworker, for now and no need for dialysis after discharge. Left groin hematoma: Reviewed arterial duplex, as above. Severe rhabdomyolysis: Continue to monitor muscle weakness. So far has been consistent on NIF. FVC with decreased, although no effort. Continue reassessments. He has completed 3 days of Solu-Medrol so far. Has been given a dose of IVIG. Continue to reassess, may repeat the dose. Follow-up pending muscle biopsy, myositis immunoglobulin Reviewed CK, follow-up requested. Resume PT. As per discussion with bilingual patient support caseworker, further consideration of rehabilitation after hospitalization as well. Continues with IV fluid, monitor for risk of fluid overload. Monitor intake and output, renal function, reassess CK. Dysphagia diet No signs of cauda equina Atypical reflexes No recent infection UDS negative. TSH normal. Non-STEMI: History of chest pain. Reviewed cardiology note. With possible NSTEMI, continues on anticoagulation. Monitor for risk of bleeding. Reassess blood counts Reviewed troponin series, with some fluctuation but overall flat trend, persistent elevation. May suspect secondary to rhabdomyolysis. Echocardiogram is ordered and pending. Appreciate cardiology consultation. Continue medication for possible NSTEMI, aspirin, prasugrel, heparin drip. Monitor for risk of bleeding. Monitor PTT. Reassess blood counts. Statin held. Recent stent placement left circumflex History of established coronary disease Full code Clear liquid diet secondary to dysphagia PDMP PDMP Reviewed: Not Reviewed Attestations 2 Medical Necessity Statement*: Continue admission for assessment management of acute renal failure, severe rhabdomyolysis, assessment for possible myositis. Coding Level of Care Code Critical Care >/= 30 minutes Critical care time (in minutes): 45 The high probability of a clinically significant, sudden or life threatening deterioration, as referenced in this documentation, required my full and direct attention, intervention and personal management. The critical care time shown is in addition to time spent performing any reported separately billable procedures and includes the following: [x] Data and vital sign review and interpretation [x ] Patient assessment, examination and intervention [x] Medication orders and management [x] Patient/Family updates as able [x] Care Coordination and Documentation. Diagnoses Acute renal failure, unspecified acute renal failure type N17.9 Acute renal failure type: unspecified Type 1 diabetes mellitus with other circulatory complication E10.59 Diabetes mellitus complication status: with circulatory complication Diabetes mellitus complication detail: with other circulatory complications NSTEMI (non-ST elevated myocardial infarction) I21.4 Hyperlipemia, mixed E78.2 Rhabdomyolysis M62.82 Myocarditis I51.4 Leg weakness, bilateral R29.898 Proximal muscle weakness M62.81 Abnormal transaminases R74.8
--- NOTE | 2024-05-30 12:15 | ECG_ITS ---
[facility] Test Date: 2024-05-30 Pat Name: Moisés Gonzalez Department: Room: ICU11 Gender: Male [employer] Principal: : 1965 Requested By: [employer] Donoh[employer] Order Number: [id number] Reading MD: JUICE SAMANIEGO Measurements Intervals [place] Rate: 75 P: 50 NH: 128 QRS: 26 QRSD: 80 T: 69 QT: 403 QTc: 451 Interpretive Statements SINUS RHYTHM POSSIBLE LEFT ATRIAL ENLARGEMENT [-0.1mV P-WAVE IN V1/V2] LOW QRS VOLTAGE IN EXTREMITY LEADS [QRS DEFLECTION < 0.5 mV IN LIMB LEADS] Compared to ECG 05/29/2024 08:10:51 Prolonged QT interval no longer present Electronically Signed On 06-01-2024 19:30:50 [employer]ELD COORDIN[employer] by JUICE SAMANIEGO [email or web address]
--- NOTE | 2024-05-30 12:16 | XRR_ITS ---
PROCEDURE INFORMATION: Exam: XR Chest Exam date and time: 05/30/2024 12:29 PM Age: 58 years old Clinical indication: Angina pectoris; Prior surgery; Surgery date: 6+ months; Surgery type: Cabg; Chest pain w/sob TECHNIQUE: Imaging protocol: Radiologic exam of the chest. Views: 1 view. COMPARISON: CR XR chest 1V portable [id number] 05/27/2024 2:53 PM FINDINGS: Tubes, catheters and devices: PICC line terminates in the SVC. Lungs: Vascular engorgement, interstitial and alveolar edema, and bilateral pleural effusions are present. Congestive heart failure is present superimposed right-sided pneumonia may be present. Pleural spaces: See Lungs finding. Heart/Mediastinum: Unremarkable. No cardiomegaly. Bones/joints: Status post median sternotomy. XR/XR chest 1V portable [id number] IMPRESSION: CHF. A right sided pneumonia could be present.
[2024-05-30 12:29] LABS: Phosphatidylserine IgG <9 U (< OR = 30); Phosphatidylserine IgM 12 U (< OR = 30)
--- NOTE | 2024-05-30 12:30 | PC.NURSE ---
pt called to room , c/o of severe upper abdomen and lower chest pain moaning and rolling , states i cant take this , simethicone given and doctor called ekg done and pcxr bladder scan showed 177cc c/o some short of breath bicarb gtt off and ns called doctor jeff called orders noted ..enema given
[2024-05-30] MEDS: bisacodyl 10 mg Supp PR (12:40)
[2024-05-30] MEDS: polyethylene glycol 3350 Pkt 17 gm PO (12:41)
[2024-05-30] MEDS: Fleet Enema 133 mL Enema PR (12:50)
[2024-05-30 12:52] LABS: Carbon Dioxide 24 mmol/L (22-29); Chloride 91 mmol/L (98-107); Creatinine Clr Calc Pharmacy 12.1407; Glomerular Filtration Rate 9.6 mL/min (90-130); Glucose 305 mg/dL (65-115); Magnesium 2.1 mg/dL (1.7-2.3); Osmolality Calculated 308 mOsm/kg (285-295); Sodium 131 mmol/L (136-145)
--- NOTE | 2024-05-30 13:04 | P.PN_ITS ---
<Statement entered by Cj Patricio MD - 05/30/24 19:13> Patient was evaluated and cared for in conjunction with an advanced practice practitioner. I personally examined the patient and reviewed the chart and all pertinent data including imaging, telemetry, and laboratory results. I discussed the patient in detail with the advanced practice practitioner. Please see their note for complete H&P testing result and agreed upon plan of care for the patient. Patient appeared to be sore specially in subcostal muscles GENERAL: Patient is alert, awake and oriented x3. HEART: Regular S1 and S2. No murmur, rub or gallop. LUNGS: Clear to auscultate bilaterally. CENTRAL NERVOUS SYSTEM: Grossly nonfocal. EXTREMITIES: Lower extremities with out edema bilaterally. 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 Had temporary dialysis catheter has been placed for patient. Labs are pending at this time. Vitals/I&O/Wt Last Vital Signs Temp 97.4 F L 05/30/24 05:00 Pulse 74 05/30/24 10:00 Resp 15 05/30/24 10:00 BP 124/74 05/30/24 10:00 Pulse Ox 98 05/30/24 08:00 O2 Del Method Nasal Cannula 05/29/24 20:31 O2 Flow Rate 2 05/29/24 20:31 05/29/24 05/30/24 05/30/24 22:59 06:59 14:59 Intake Total 1240 / 2290 1883.333 / 4173.333 1400 / 1400 Output Total 650 / 650 475 / 1125 Balance 590 / 1640 1408.333 / 3048.333 1400 / 1400 Weight last 48 hrs Weight 161 lb 11.2 oz Physical Exam 2 Narrative: General: No apparent distress, healthy appearing, well nourished HENMT: normoceophalic Muskuloskeletal: Full ROM Lymphatic: no lymphedema noted Respiratory: Normal respiratory effort, clear to auscultation bilaterally throughout all lung donis, no use of accessory muscles Cardio: No JVD, regular rate, regular rhythm, S1 S2 normal, no murmurs, peripheral pulses 2+ radial palpated bilaterally GI: Normal to inspection, nondistended Extremities: Full ROM, normal, normal capillary refill, no cyanosis, no edema Neuro: Alert and oriented x4, no focal motor deficits Psych: Affect normal, denies suicidal ideation, mental status grossly normal Skin: No rashes or lesions noted, no wounds Urinary Catheter Management: Velez: Cath Placed During This Visit: yes Reason for Continuing Indwelling Catheter: Accurate Measurement of Urinary Output in Critically Ill Patients Urinary Catheter Date of Insertion: 05/26/24 Data 05/30/24 05:11 05/30/24 11:59 A&P Assessment and plan (1) NSTEMI (non-ST elevated myocardial infarction): (2) Antiplatelet or antithrombotic long-term use: (3) Hyperlipidemia: Qualifiers: Hyperlipidemia type: unspecified Qualified Code(s): E78.5 - Hyperlipidemia, unspecified (4) Hyperlipemia, mixed: Plan Patient has not had any episodes of chest pain. From a cardiology standpoint we will continue current care. PDMP PDMP Reviewed: Not Reviewed Attestations 2 Medical Necessity Statement*: Defer to primary Coding Level of Care Code Acute Code for [facility] Fwd Diagnoses NSTEMI (non-ST elevated myocardial infarction) I21.4 Antiplatelet or antithrombotic long-term use Z79.02 Hyperlipidemia, unspecified hyperlipidemia type E78.5 Hyperlipidemia type: unspecified Hyperlipemia, mixed E78.2
[2024-05-30 13:20] LABS: Blood Urea Nitrogen 81 mg/dL (6-20)
[2024-05-30 13:21] LABS: Anion Gap 21.1 (5-19); Creatine Phosphokinase 51388 U/L (39-308); Potassium 5.1 mmol/L (3.5-5.1)
--- NOTE | 2024-05-30 14:17 | PC.NURSE ---
large amt of flatus and small amt liquid bm noted linen change done
[2024-05-30 14:46] LABS: Hepatitis B Surface Antigen Non-Reactive (Nonreactive)
--- NOTE | 2024-05-30 15:02 | P.PN_ITS ---
Subjective 2 Subjective: Biopsy site clean dry intact. Remove dressing. Vitals/I&O/Wt Last Vital Signs Temp 98 F 05/30/24 13:00 Pulse 60 05/30/24 14:01 Resp 13 05/30/24 14:01 BP 148/71 05/30/24 14:01 Pulse Ox 94 05/30/24 13:00 O2 Del Method Nasal Cannula 05/29/24 20:31 O2 Flow Rate 2 05/29/24 20:31 05/30/24 05/30/24 05/30/24 06:59 14:59 22:59 Intake Total 1883.333 / 4173.333 1650 / 1650 Output Total 475 / 1125 Balance 1408.333 / 3048.333 1650 / 1650 Weight last 48 hrs Weight 161 lb 11.2 oz Physical Exam 2 Narrative: Chest: Unlabored breathing room air. No lymphadenopathy. Heart: Regular rate and rhythm. Abdomen: Soft, nontender, nondistended. No masses or lymphadenopathy. Right thigh: Incision clean dry intact. removed dressing. Urinary Catheter Management: Velez: Cath Placed During This Visit: yes Reason for Continuing Indwelling Catheter: Accurate Measurement of Urinary Output in Critically Ill Patients Urinary Catheter Date of Insertion: 05/26/24 Data 05/30/24 05:11 05/30/24 11:59 A&P Assessment and plan (1) Myopathy: Plan 58-year-old male status post right thigh muscle biopsy. Incision clean dry intact. Removed dressing. Will remove sutures in 7 days. PDMP PDMP Reviewed: Not Reviewed Attestations 2 Medical Necessity Statement*: N/A Coding Level of Care Code 90441 Diagnoses Myopathy G72.9 Time Spent (min) 30
[2024-05-30 15:15] LABS: ANCA Screen NEGATIVE (NEGATIVE)
[2024-05-30] MEDS: oxyCODONE-APAP 5-325 mg Tablet 1 TAB PO ×2 (15:27→23:35)
[2024-05-30 15:40] LABS: Hepatitis C Virus Antibody Non-Reactive (Nonreactive)
[2024-05-30] MEDS: heparin, porcine 1,000 unit/mL INJ 10 mL 1000 UNIT IV (15:49)
[2024-05-30 16:05] LABS: Hepatitis B Surface AB > 1000.0 (11.5-1000)
[2024-05-30 20:34] LABS: Blood Urea Nitrogen 68 mg/dL (6-20); Calcium 6.2 mg/dL (8.5-10.5); Carbon Dioxide 24 mmol/L (22-29); Chloride 98 mmol/L (98-107); Creatinine Clr Calc Pharmacy 14.0297; Glomerular Filtration Rate 10.8 mL/min (90-130); Glucose 112 mg/dL (65-115); Magnesium 2.1 mg/dL (1.7-2.3); Osmolality Calculated 303 mOsm/kg (285-295); Sodium 136 mmol/L (136-145)
[2024-05-30] MEDS: aspirin 81 mg EC Tablet PO (20:59)
[2024-05-30 21:10] LABS: Creatine Phosphokinase 56024 U/L (39-308)
[2024-05-30 21:12] LABS: Anion Gap 18.2 (5-19); Potassium 4.2 mmol/L (3.5-5.1)
--- NOTE | 2024-05-30 21:35 | PC.NURSE ---
Ambien Patient requesting ambien as a sleep aid. Dr. Mcdonald contacted and order received for one time dose of 5 mg ambien PO.
--- NOTE | 2024-05-30 21:40 | PC.NURSE ---
Glucose Patient's glucose 109 by patient's dexcom
[2024-05-30] MEDS: zolpidem 5 mg Tablet PO (21:57)
[2024-05-31] VITALS (50 sets, daily range): BP systolic 126–173; BP diastolic 59–92; PULSE 58–78; RESP 10–24; TEMP 36.3–37.1; O2SAT 89–100; BMI 30.4
[2024-05-31 00:17] LABS: Glucose Point of Care 74 mg/dL (70-110)
--- NOTE | 2024-05-31 00:18 | PC.NURSE ---
Glucose Patient's fingerstick glucose 74 while his dexcom displayed 92. Patient eating peanutbutter crackers. Patient educated on reporting signs/symptoms of hypoglycemia. To monitor.
[2024-05-31 01:26] LABS: Blood Urea Nitrogen 71 mg/dL (6-20); Calcium 6.2 mg/dL (8.5-10.5); Carbon Dioxide 24 mmol/L (22-29); Chloride 97 mmol/L (98-107); Creatinine Clr Calc Pharmacy 12.6497; Glomerular Filtration Rate 9.6 mL/min (90-130); Glucose 75 mg/dL (65-115); Magnesium 2.1 mg/dL (1.7-2.3); Osmolality Calculated 304 mOsm/kg (285-295); Sodium 137 mmol/L (136-145)
[2024-05-31] MEDS: pantoprazole 40 mg SDV IVP ×2 (01:56→14:33)
[2024-05-31 02:03] LABS: Anion Gap 20.4 (5-19); Potassium 4.4 mmol/L (3.5-5.1)
[2024-05-31 02:04] LABS: Creatine Phosphokinase 55898 U/L (39-308)
[2024-05-31] MEDS: methylPREDNISolone sod succ 125 mg/2 mL INJ 250 MG IVP ×2 (04:45→16:26)
[2024-05-31 06:05] LABS: Glucose Point of Care 139 mg/dL (70-110)
[2024-05-31 06:30] LABS: Blood Urea Nitrogen 74 mg/dL (6-20); Calcium 6.2 mg/dL (8.5-10.5); Carbon Dioxide 24 mmol/L (22-29); Chloride 97 mmol/L (98-107); Glomerular Filtration Rate 9.2 mL/min (90-130); Glucose 140 mg/dL (65-115); Magnesium 2.1 mg/dL (1.7-2.3); Osmolality Calculated 308 mOsm/kg (285-295); Sodium 137 mmol/L (136-145)
[2024-05-31 06:43] LABS: Anion Gap 20.8 (5-19); Potassium 4.8 mmol/L (3.5-5.1)
[2024-05-31 06:46] LABS: Creatine Phosphokinase 51582 U/L (39-308); Phosphorus 9.1 mg/dL (2.5-4.5)
[2024-05-31 07:22] LABS: Glucose Point of Care 141 mg/dL (70-110)
[2024-05-31] MEDS: FUROsemide 10 mg/mL SDV 10mL 40 MG IVP ×2 (07:42→21:45)
[2024-05-31] MEDS: metoprolol succinate ER (24 HR) 25 mg Tablet 12.5 MG PO (08:32)
[2024-05-31] MEDS: folic acid 1 mg Tablet PO (08:33)
[2024-05-31] MEDS: prasugrel 10 MG Tablet PO (08:33)
[2024-05-31] MEDS: polyethylene glycol 3350 Pkt 17 gm PO (08:33)
--- NOTE | 2024-05-31 10:31 | PM.PN ---
Subjective Subjective: He feels slightly better today. Vitals/I&O/Wt Last Vital Signs Temp 98.2 F 05/31/24 05:01 Pulse 69 05/31/24 06:12 Resp 13 05/31/24 06:00 BP 152/71 05/31/24 06:00 Pulse Ox 99 05/31/24 06:00 O2 Del Method Nasal Cannula 05/31/24 06:00 O2 Flow Rate 2 05/31/24 06:00 05/30/24 05/31/24 05/31/24 22:59 06:59 14:59 Intake Total 620 / 2270 320 / 2590 Output Total 2300 / 2300 550 / 2850 Balance -1680 / -30 -230 / -260 Weight last 48 hrs Weight 78 kg Weight 80 kg Physical Exam Const: COMMON NORMALS: patient oriented x3 and alert GENERAL APPEARANCE: cooperative ORIENTATION/CONSCIOUSNESS: Yes awake HENMT: COMMON NORMALS: oropharynx normal Neck/C-Spine: COMMON NORMALS: no JVD Resp: COMMON NORMALS: normal respiratory effort and clear to auscultation bilaterally AUSCULTATION: clear to auscultation bilaterally Cardio: COMMON NORMALS: no JVD, regular rhythm, S1 normal heart sound present, S2 normal heart sound present and No murmurs present (Cardio) RHYTHM: regular rhythm HEART SOUNDS: S1 normal heart sound present and S2 normal heart sound present GI: COMMON NORMALS: Normal to inspection, nondistended, normoactive bowel sounds present, Soft to palpation and non-tender PALPATION: Yes Soft to palpation Extremity: COMMON NORMALS: no joint enlargement and no pedal edema OTHER: No notable trigger finger weakness. Neuro: COMMON NORMALS: patient oriented x3 and moves all extremities SENSORIUM/ORIENTATION: Yes alert Skin: COMMON NORMALS: no rashes or lesions noted GENERAL SKIN EXAM: no rashes or lesions noted Urinary Catheter Management: Velez: Cath Placed During This Visit: yes Reason for Continuing Indwelling Catheter: Accurate Measurement of Urinary Output in Critically Ill Patients Urinary Catheter Date of Insertion: 05/26/24 Data 05/30/24 05:11 05/31/24 05:59 A&P Assessment and plan (1) Acute renal failure: Qualifiers: Acute renal failure type: unspecified Qualified Code(s): N17.9 - Acute kidney failure, unspecified (2) Type 1 diabetes: Qualifiers: Diabetes mellitus complication status: with circulatory complication Diabetes mellitus complication detail: with other circulatory complications Qualified Code(s): E10.59 - Type 1 diabetes mellitus with other circulatory complications (3) NSTEMI (non-ST elevated myocardial infarction): (4) Hyperlipemia, mixed: (5) Rhabdomyolysis: (6) Myocarditis: (7) Leg weakness, bilateral: (8) Proximal muscle weakness: (9) Abnormal transaminases: Plan Severe rhabdomyolysis: Reviewed pathology, still pending. Reviewed immunology, still pending myositis studies. Weakly positive LUIS ANTONIO. Antiphospholipid studies pending. Anti-SSA, B, Day, anti-SUPERVISOR SCREEN MAKING, SCL 70, anti-dsDNA antibodies negative. HIV, hepatitis studies unremarkable. Discussed with him, continue Solu-Medrol 500 mg daily for now for 5 days, then will transition to oral prednisone with taper until muscle biopsy, imaging studies become available. Monitor for risk of hypertension, hyperglycemia, gastritis, encephalopathy with IV steroid. In case of polymyositis, additional immunosuppression therapies could be considered. Patient and his brother deny familial issues with rhabdomyolysis, myopathies or similar. Without obvious hemolysis so far. Will repeat CBC. Did have some thrombocytopenia. Will check haptoglobin. LDH was elevated. Check reticulocyte count. T. bili is normal. Continue to monitor muscle weakness. So far has been consistent on NIF. FVC with decreased, although no effort. Continue reassessments. Has been on Solu-Medrol. Has been given a dose of IVIG late on 05/29. Follow-up pending muscle biopsy, myositis immunoglobulin Reviewed CK reviewed, follow-up requested. Continue PT. Discussed with mental health case manager, would benefit from posthospital stay rehabilitation IV fluids discontinued due to congestive changes, fluid overload. Started on Lasix, underwent dialysis. Feeling better today. Weaned down to room air. Dysphagia diet No signs of cauda equina No recent infection UDS negative. TSH normal. Acute renal failure: Underwent dialysis last night, 1.5 L removed. Reviewed dialysis documentation. Reviewed creatinine, BUN, anion gap, bicarb, potassium, sodium, phosphorus, magnesium. CK with fluctuation, this morning with mild improvement to 51,582, although has not been coming down below 50,000 so far. He is producing urine. Continues with diuretic. Reviewed nephrology note. Discussed with mental health case manager. Unknown duration of need of dialysis as of yet. Nephrology reassessing, considering timing of starting dialysis. Continue to monitor intake and output. Will reassess chemistry. Follow-up CK. Groin arterial duplex, noted resolving hematoma, no evidence of pseudoaneurysm. Discussed with mental health case manager, for now and no need for dialysis after discharge. Left groin hematoma: Reviewed arterial duplex, as above. Non-STEMI: History of chest pain. Reviewed cardiology note. With possible NSTEMI, completed heparin anticoagulation. Continue VTE prophylaxis with low-dose Lovenox. Reassess blood counts. Discussed with diesel fleet mechanic, persistent severe CK elevation not cardiac related. Statin held. Recent stent placement left circumflex History of established coronary disease Abdominal pain: Yesterday bloating, abdominal gas bubble , pain that started radiating to the left side of the chest, EKG was obtained, without signs of acute ischemia. Chest x-ray showed congestive changes, fluid overload. IV fluid was discontinued, started on diuretics. Underwent dialysis in the evening. Symptoms had resolved without recurrence. Full code Dysphagia diet. Aspiration precautions. PDMP PDMP Reviewed: Not Reviewed Attestations Medical Necessity Statement*: Continue admission for assessment management of acute renal failure, severe rhabdomyolysis, assessment for possible myositis. Coding Level of Care Code Critical Care >/= 30 minutes Critical care time (in minutes): 35 The high probability of a clinically significant, sudden or life threatening deterioration, as referenced in this documentation, required my full and direct attention, intervention and personal management. The critical care time shown is in addition to time spent performing any reported separately billable procedures and includes the following: [x] Data and vital sign review and interpretation [x] Patient assessment, examination and intervention [x] Medication orders and management [x] Patient/Family updates as able [x] Care Coordination and Documentation. Diagnoses Acute renal failure, unspecified acute renal failure type N17.9 Acute renal failure type: unspecified Type 1 diabetes mellitus with other circulatory complication E10.59 Diabetes mellitus complication status: with circulatory complication Diabetes mellitus complication detail: with other circulatory complications NSTEMI (non-ST elevated myocardial infarction) I21.4 Hyperlipemia, mixed E78.2 Rhabdomyolysis M62.82 Myocarditis I51.4 Leg weakness, bilateral R29.898 Proximal muscle weakness M62.81 Abnormal transaminases R74.8
[2024-05-31 11:43] LABS: Eosinophils % 0.2 %; Hematocrit 33.5 % (37-53); Lymphocytes # 0.2 10^3/uL (0.8-4.8); Lymphocytes % 3.6 %; Mean Corpuscular HGB Conc 34.6 g/dL (30-55); Mean Corpuscular Hemoglobin 30.3 pg (27-33); Mean Corpuscular Volume 87.5 fl (82-101); Mean Platelet Volume 10.6 fL (7.4-10.4); Monocytes # 0.3 10^3/uL (0.2-0.9); Monocytes % 5.6 %; Neutrophils # 5.48 10^3/uL (1.8-7.7); Neutrophils % 90.1 %; Nucleated Red Blood Cells % 0 %; Platelet Count 64 10^3/cmm (157-399); Red Blood Count 3.83 10^6/uL (3.85-5.65); Red Cell Distribution Width 13.1 % (12.1-15.1); White Blood Count 6.08 10^3/uL (3.29-11.43)
[2024-05-31] MEDS: enoxaparin 30 mg/0.3 mL Syringe SUBCUT (12:05)
[2024-05-31] MEDS: simethicone 80 mg Chew PO (12:26)
[2024-05-31] MEDS: metoclopramide 5 mg/mL SDV 2 mL IVP (12:27)
--- NOTE | 2024-05-31 16:01 | P.PN_ITS ---
<Statement entered by Cj Patricio MD - 06/03/24 19:26> Patient was evaluated and cared for in conjunction with an advanced practice practitioner. I personally examined the patient and reviewed the chart and all pertinent data including imaging, telemetry, and laboratory results. I discussed the patient in detail with the advanced practice practitioner. Please see their note for complete H&P testing result and agreed upon plan of care for the patient. Feeling little better today GENERAL: Patient is alert, awake and oriented x3. HEART: Regular S1 and S2. No murmur, rub or gallop. LUNGS: Clear to auscultate bilaterally. CENTRAL NERVOUS SYSTEM: Grossly nonfocal. EXTREMITIES: Lower extremities with out edema bilaterally. Assessment and plan Rhabdomyolysis: Status post IVIG and high-dose steroids Acute renal failure secondary to rhabdomyolysis status post dialysis Thrombocytopenia: Status post transfusion, Effient aspirin on hold Anemia: Status post packed red blood cell transfusion, anticoagulation on hold Muscle biopsy pending Awaiting transfer to [facility] panel for new thrombocytopenia Subjective 2 Subjective: Patient states he feels better today. He did get some dialysis. CK slowly coming down and 51,582 from 56,024. Denies any chest pain. Vitals/I&O/Wt Last Vital Signs Temp 98.5 F 05/31/24 13:00 Pulse 62 05/31/24 14:00 Resp 16 05/31/24 14:00 BP 167/92 05/31/24 14:00 Pulse Ox 94 05/31/24 14:00 O2 Del Method Room Air 05/31/24 13:00 O2 Flow Rate 2 05/31/24 06:00 05/31/24 05/31/24 05/31/24 06:59 14:59 22:59 Intake Total 320 / 2590 300 / 300 Output Total 550 / 2850 300 / 300 Balance -230 / -260 0 / 0 Weight last 48 hrs Weight 171 lb 15.369 oz Weight 176 lb 5.917 oz Physical Exam 2 Narrative: General: No apparent distress, healthy appearing, well nourished HENMT: normoceophalic Muskuloskeletal: Full ROM Lymphatic: no lymphedema noted Respiratory: Normal respiratory effort, clear to auscultation bilaterally throughout all lung donis, no use of accessory muscles Cardio: No JVD, regular rate, regular rhythm, S1 S2 normal, no murmurs, peripheral pulses 2+ radial palpated bilaterally GI: Normal to inspection, nondistended Extremities: Full ROM, normal, normal capillary refill, no cyanosis, no edema Neuro: Alert and oriented x4, no focal motor deficits Psych: Affect normal, denies suicidal ideation, mental status grossly normal Skin: No rashes or lesions noted, no wounds Urinary Catheter Management: Velez: Cath Placed During This Visit: yes Reason for Continuing Indwelling Catheter: Accurate Measurement of Urinary Output in Critically Ill Patients Urinary Catheter Date of Insertion: 05/26/24 Data 05/31/24 05:55 05/31/24 05:59 A&P Assessment and plan (1) NSTEMI (non-ST elevated myocardial infarction): (2) Antiplatelet or antithrombotic long-term use: (3) Hyperlipidemia: Qualifiers: Hyperlipidemia type: unspecified Qualified Code(s): E78.5 - Hyperlipidemia, unspecified (4) Hyperlipemia, mixed: Plan Patient has not had any episodes of chest pain. From a cardiology standpoint we will continue current care. Still awaiting muscle biopsy results at this time. BP has been elevated. Will add amlodpine 5 mg BID. PDMP PDMP Reviewed: Not Reviewed Attestations 2 Medical Necessity Statement*: Defer to primary Coding Level of Care Code Acute Code for [facility] Diagnoses NSTEMI (non-ST elevated myocardial infarction) I21.4 Antiplatelet or antithrombotic long-term use Z79.02 Hyperlipidemia, unspecified hyperlipidemia type E78.5 Hyperlipidemia type: unspecified Hyperlipemia, mixed E78.2
[2024-05-31] MEDS: heparin, porcine 1,000 unit/mL INJ 10 mL 1000 UNIT IV (16:15)
[2024-05-31 16:24] LABS: Glucose Point of Care 184 mg/dL (70-110)
--- NOTE | 2024-05-31 18:02 | PM.PN ---
Subjective Subjective: Patient denies any complaints, on 2 L O2 by nasal cannula Medications: Reviewed: Yes Vitals/I&O/Wt Last Vital Signs Temp 98.8 F 05/31/24 17:51 Pulse 59 L 05/31/24 17:51 Resp 18 05/31/24 17:51 BP 154/66 05/31/24 17:51 Pulse Ox 96 05/31/24 17:00 O2 Del Method Room Air 05/31/24 16:00 O2 Flow Rate 2 05/31/24 06:00 05/31/24 05/31/24 05/31/24 06:59 14:59 22:59 Intake Total 320 / 2590 300 / 300 Output Total 550 / 2850 300 / 300 150 / 450 Balance -230 / -260 0 / 0 -150 / -150 Weight last 48 hrs Weight 78 kg Weight 80 kg Physical Exam Narrative: comfortable in bed, NARD VSS, not using oxygen heent- nc/at, eomi neck no jvp lungs clear heart regular + s1, s2 abdomen soft + bs ext no edema, pain by biopsy site, + weak legs, but he can move all extremities + femoral dialysis catheter Urinary Catheter Management: Velez: Cath Placed During This Visit: yes Reason for Continuing Indwelling Catheter: Accurate Measurement of Urinary Output in Critically Ill Patients Urinary Catheter Date of Insertion: 05/26/24 Data 05/31/24 05:55 05/31/24 05:59 A&P Assessment and plan (1) Acute renal failure: 58 yr old man with past medical history significant for coronary artery disease, understanding, on statin presented to the hospital due to acute kidney injury and found to have rhabdomyolysis 1. ELENO from rhabdo from statins, +/- a myositis. awaiting muscle bx results ck is stable at 50,000 range -Renal function and cells have not improved as aggressive IV fluid resuscitation, status post temporary HD catheter placement, patient consented for HD status post HD #1 yesterday, will repeat HD today. Assess daily for HD needs. 2. Rhabdomyolysis- likely from statins, there is concern for myositis and status post muscle biopsy. Also MPO negative. Anti- Double-stranded DNA negative,- LUIS ANTONIO + 1:40 low +, anti-[place]-1, Anti -Mi-2, [id number], anti-MDA5 -aldolase 217.5, [id number] 237- likely a myositis u tox negative, hiv and hep serologies negative, normal tsh HD as above and follow CPK levels Thrombocytopenia:Monitoring closely Non-ST elevation SD: Mx per cardiology -seen and examined w/ RN- telehealth visit Qualifiers: Acute renal failure type: unspecified Qualified Code(s): N17.9 - Acute kidney failure, unspecified Plan see above. ivf, lasix. monitor labs and potential HD needs PDMP PDMP Reviewed: Not Reviewed Attestations Medical Necessity Statement*: per [facility] Coding Level of Care Code Acute Code for [facility] Diagnoses Acute renal failure, unspecified acute renal failure type N17.9 Acute renal failure type: unspecified
--- NOTE | 2024-05-31 18:10 | PC.NURSE ---
Shift Summary: uneventful shift. Patient was up to a chair for about 3 hours today. Received dialysis.
[2024-05-31] MEDS: heparin, porcine 1,000 unit/mL INJ 10 mL 10000 UNIT INTRACATH (19:01)
--- NOTE | 2024-05-31 20:05 | PC.NURSE ---
Ambien Patient requesting ambien to help him sleep. Dr. Donohue contacted and order received for one time dose of 5 mg ambien po.
[2024-05-31] MEDS: amlodipine 5 mg Tablet PO (20:41)
[2024-05-31] MEDS: aspirin 81 mg EC Tablet PO (20:41)
[2024-05-31] MEDS: zolpidem 5 mg Tablet PO (21:12)
[2024-05-31 21:14] LABS: Glucose Point of Care 380 mg/dL (70-110)
[2024-05-31 21:14] LABS: Glucose Point of Care 281 mg/dL (70-110)
[2024-06-01] VITALS (50 sets, daily range): BP systolic 100–151; BP diastolic 36–93; PULSE 58–84; RESP 10–23; TEMP 36.6–37.1; O2SAT 89–100; BMI 29.7
[2024-06-01 00:49] LABS: LAB Peripheral Smear Sent for Review
[2024-06-01] MEDS: methylPREDNISolone sod succ 125 mg/2 mL INJ 250 MG IVP ×2 (04:16→17:37)
[2024-06-01 05:37] LABS: Hematocrit 31.7 % (37-53); Lymphocytes # 0.3 10^3/uL (0.8-4.8); Lymphocytes % 3.9 %; Mean Corpuscular Hemoglobin 30.8 pg (27-33); Mean Corpuscular Volume 88.1 fl (82-101); Mean Platelet Volume 10.9 fL (7.4-10.4); Monocytes # 0.5 10^3/uL (0.2-0.9); Monocytes % 7.4 %; Neutrophils # 5.58 10^3/uL (1.8-7.7); Neutrophils % 88.2 %; Nucleated Red Blood Cells % 0 %; Platelet Count 34 10^3/cmm (157-399); White Blood Count 6.33 10^3/uL (3.29-11.43)
[2024-06-01 05:58] LABS: Alanine Aminotransferase 309 U/L (0-41); Albumin Level 2.7 g/dL (3.5-5.2); Alkaline Phosphatase 83 U/L (40-130); Aspartate Amino Transferase 370 U/L (0-40); Blood Urea Nitrogen 70 mg/dL (6-20); Calcium 6.4 mg/dL (8.5-10.5); Carbon Dioxide 23 mmol/L (22-29); Chloride 94 mmol/L (98-107); Creatinine Clr Calc Pharmacy 13.5292; Globulin 2.9 g/dL (1.3-4.6); Glomerular Filtration Rate 10.6 mL/min (90-130); Glucose 119 mg/dL (65-115); Magnesium 2.1 mg/dL (1.7-2.3); Osmolality Calculated 298 mOsm/kg (285-295); Phosphorus 7.3 mg/dL (2.5-4.5); Sodium 133 mmol/L (136-145); Total Bilirubin 0.4 mg/dL (0.15-1.2); Total Protein 5.6 g/dL (6.6-8.7)
[2024-06-01 06:16] LABS: Anion Gap 20.8 (5-19); Potassium 4.8 mmol/L (3.5-5.1)
[2024-06-01 07:15] LABS: Creatine Phosphokinase 45343 U/L (39-308)
[2024-06-01] MEDS: FUROsemide 10 mg/mL SDV 10mL 40 MG IVP ×2 (08:36→20:53)
[2024-06-01] MEDS: folic acid 1 mg Tablet PO (08:37)
[2024-06-01] MEDS: amlodipine 5 mg Tablet PO ×2 (08:37→17:38)
[2024-06-01] MEDS: famotidine 20 mg Tablet PO ×2 (08:37→17:38)
[2024-06-01] MEDS: prasugrel 10 MG Tablet PO (08:37)
[2024-06-01] MEDS: metoprolol succinate ER (24 HR) 25 mg Tablet 12.5 MG PO (08:37)
--- NOTE | 2024-06-01 09:02 | PC.NURSE ---
blood sugar this am now 116 am breakfast served no distress at this time
--- NOTE | 2024-06-01 09:53 | PM.PN ---
Subjective Subjective: 58-year-old male has history of morbid obesity, coronary artery disease and diabetes. He has been on statins and also Mounjaro 10 mg weekly subcu for years. Patient presented with progressive weakness and muscle fatigue unable to walk. His primary care physician tested his CK which was 4000 and the follow-up check was in the tens of thousands and he was admitted through the emergency department Patient reports that he had bypass surgery 2009, cardiac stents February 2024 [place] on and additional stents April 2024 Patient has been on insulin pump. Diabetes started age 34 when he was morbidly obese but eventually he was told that he was type I. Patient states he was in the [place] during the [employer] war for few years when he was young i.e. age [age] Vitals/I&O/Wt Last Vital Signs Temp 98.3 F 06/01/24 04:00 Pulse 63 06/01/24 08:31 Resp 13 06/01/24 08:31 BP 120/57 06/01/24 08:31 Pulse Ox 92 06/01/24 08:31 O2 Del Method Room Air 06/01/24 04:00 O2 Flow Rate 2 05/31/24 06:00 05/31/24 06/01/24 06/01/24 22:59 06:59 14:59 Intake Total 700 / 1000 Output Total 3650 / 3950 175 / 4125 Balance -2950 / -2950 -175 / -3125 Weight last 48 hrs Weight 76 kg Weight 77 kg Weight 78 kg Weight 80 kg Physical Exam Narrative: General well male in no acute cardiopulmonary distress Mentation alert and oriented x 3 Scalp multiple areas of skin breakdown and crusty shallow ulcerations CV regular rate and rhythm Lungs decreased breath sounds in the right lung improved with deep breaths Abdomen positive bowel sounds soft nontender Calves no tenderness or pretibial edema Muscles are not tender to palpation but he is extremely weak unable to sit up without significant help from me Motor 5/5 ankle flexion and extension quads 4/5. He has difficulty with his hamstrings to overcome my arms. There is biopsy on the right quad sutured and without signs of pus or infection minimal inflammation is noted Straight leg lifting is weak at 3+ he is able to get his heels off the bed but not up I Biceps and triceps 4+/5 Urinary Catheter Management: Velez: Cath Placed During This Visit: yes Reason for Continuing Indwelling Catheter: Accurate Measurement of Urinary Output in Critically Ill Patients Urinary Catheter Date of Insertion: 05/26/24 Data 06/01/24 05:02 06/01/24 05:02 CXR: My impression: From May 27 shows low lung volumes from May 30 shows right lung atelectasis A&P Assessment and plan (1) Acute renal failure: 58 yr old man with past medical history significant for coronary artery disease, understanding, on statin presented to the hospital due to acute kidney injury and found to have rhabdomyolysis Unclear what the underlying cause of the rhabdomyolysis is. It is likely that statins contributed but the 50,000 CK does not fit Qualifiers: Acute renal failure type: unspecified Qualified Code(s): N17.9 - Acute kidney failure, unspecified (2) Type 1 diabetes: Patient has been on Mounjaro and insulin pump. His Mounjaro is 10 mg a week. There is some possibility that Mounjaro is also contributing to rhabdo but not well-documented that would have this level of CK rise Qualifiers: Diabetes mellitus complication status: with circulatory complication Diabetes mellitus complication detail: with other circulatory complications Qualified Code(s): E10.59 - Type 1 diabetes mellitus with other circulatory complications (3) Hyperlipemia, mixed: Has been on atorvastatin 40 mg daily (4) Rhabdomyolysis: CK 50,000 troponin 1999 (5) NSTEMI (non-ST elevated myocardial infarction): Patient with known multivessel coronary artery disease echo 05/27/2024 in the setting of severe troponin and CPK elevation showed moderate LVH normal ventricular size and function with a EF of 67% and no wall motion abnormalities. Patient has not had chest pain or EKG changes Plan I have discussed with the patient and will discuss with dovetail machine operator and observation assistant potential transfer to tertiary care for further diagnosis and treatment. I do not think this is a simple statin myopathy PDMP PDMP Reviewed: Not Reviewed Attestations Medical Necessity Statement*: Patient with significant rhabdomyolysis improved with dialysis however underlying cause is not clear. Anticipate additional time in the hospital to recover and will look toward transfer to tertiary care facility for consultation from rheumatology Coding Level of Care Code Acute Code for Chg Fwd Diagnoses Acute renal failure, unspecified acute renal failure type N17.9 Acute renal failure type: unspecified Type 1 diabetes mellitus with other circulatory complication E10.59 Diabetes mellitus complication status: with circulatory complication Diabetes mellitus complication detail: with other circulatory complications Hyperlipemia, mixed E78.2 Rhabdomyolysis M62.82 NSTEMI (non-ST elevated myocardial infarction) I21.4 Time Spent (min) 60
[2024-06-01 12:34] LABS: Erythrocyte Sedimentation Rate 7 mm/hr (0-10)
[2024-06-01 12:40] LABS: Ketone (Acetest) Serum Negative (Negative)
[2024-06-01 12:49] LABS: Ammonia 34 umol/L (16-60)
[2024-06-01] MEDS: heparin, porcine 1,000 unit/mL INJ 10 mL 1000 UNIT IV (13:55)
--- NOTE | 2024-06-01 14:20 | PM.PN ---
Subjective Subjective: Somewhat improvement in total CK, creatinine and liver function Status post IVIG and steroids status post temporary dialysis Medications: Reviewed: Yes Medication Review Details: Current Medications Aspirin (Aspirin 81 Mg Ec Tablet) 81 mg PO BEDTIME [facility] Last Admin: 05/29/24 21:21 Dose: 81 mg Epinephrine HCl (Epinephrine 0.1 Mg/Ml Syr 10 Ml) 1 mg IVP ONCE PRN PRN Reason: IVIG Protocol Folic Acid (Folic Acid 1 Mg Tablet) 1 mg PO DAILY [facility] Last Admin: 05/30/24 08:51 Dose: 1 mg Furosemide (Furosemide 10 Mg/Ml Sdv 10ml) 40 mg IVP Q12H [facility] Last Admin: 05/30/24 08:52 Dose: 40 mg Glucagon (Glucagon 1 Mg/Ml Kit 1 Ml) 1 mg IM ONCE PRN; Protocol PRN Reason: Adult Acute Hypoglycemia Nursing Prot. Dextrose (D5w) 500 mls @ 0 mls/hr IV ONCE PRN; Protocol PRN Reason: Adult Acute Hypoglycemia Prot Dextrose (D10w) 125 mls @ 750 mls/hr IV PRN PRN; Protocol PRN Reason: Adult Acute Hypoglycemia Nursing Protocol Dextrose (D10w) 250 mls @ 1,000 mls/hr IV PRN PRN; Protocol PRN Reason: Adult Acute Hypoglycemia Nursing Protocol Sodium Bicarbonate 150 meq/ (Dextrose) 1,150 mls @ 500 mls/hr IV .Q2H18M [facility] Sodium Chloride (Sodium Chloride 0.9%) 1,000 mls @ 200 mls/hr IV .Q5H [facility] Methylprednisolone Sodium Succinate (Methylprednisolone Sod Succ 125 Mg/2 Ml Inj) 250 mg IVP Q12H [facility] Last Admin: 05/30/24 05:15 Dose: 250 mg Metoclopramide HCl (Metoclopramide 5 Mg/Ml Sdv 2 Ml) 5 mg IVP Q6H PRN PRN Reason: NAUSEA AND VOMITING Last Admin: 05/27/24 20:47 Dose: 5 mg Metoprolol Succinate (Metoprolol Succinate Er (24 Hr) 25 Mg Tablet) 12.5 mg PO DAILY [facility] Last Admin: 05/30/24 08:51 Dose: 12.5 mg Non-Formulary Medication (Insulin Aspart U-100 [Novolog U-100 Insulin Aspart]) 0 unit .ROUTE .COMPLEX [facility] Ondansetron HCl (Ondansetron 2 Mg/Ml Sdv 2 Ml) 4 mg IVP Q6H PRN PRN Reason: NAUSEA AND VOMITING Last Admin: 05/27/24 10:18 Dose: 4 mg Oxycodone/Acetaminophen (Oxycodone-Apap 5-325 Mg Tablet) 1 tab PO Q8H PRN PRN Reason: MODERATE PAIN Last Admin: 05/29/24 19:12 Dose: 1 tab Pantoprazole Sodium (Pantoprazole 40 Mg Sdv) 40 mg IVP Q12H [facility] Last Admin: 05/30/24 01:34 Dose: 40 mg Prasugrel (Prasugrel 10 Mg Tablet) 10 mg PO DAILY [facility] Last Admin: 05/30/24 08:51 Dose: 10 mg Simethicone (Simethicone 80 Mg Chew) 80 mg PO QID PRN PRN Reason: Gas Pain Last Admin: 05/30/24 09:09 Dose: 80 mg Vitals/I&O/Wt Last Vital Signs Temp 98 F 06/01/24 11:30 Pulse 67 06/01/24 12:00 Resp 14 06/01/24 09:31 BP 117/67 06/01/24 11:30 Pulse Ox 93 06/01/24 11:30 O2 Del Method Room Air 06/01/24 04:00 O2 Flow Rate 2 05/31/24 06:00 05/31/24 06/01/24 06/01/24 22:59 06:59 14:59 Intake Total 700 / 1000 300 / 300 Output Total 3650 / 3950 175 / 4125 50 / 50 Balance -2950 / -2950 -175 / -3125 250 / 250 Weight last 48 hrs Weight 167 lb 8.821 oz Weight 169 lb 12.095 oz Weight 171 lb 15.369 oz Weight 176 lb 5.917 oz Physical Exam Const: OTHER: GENERAL: Patient is alert, awake and oriented x3. HEART: Regular S1 and S2. No murmur, rub or gallop. LUNGS: Clear to auscultate bilaterally. CENTRAL NERVOUS SYSTEM: Grossly nonfocal. EXTREMITIES: Lower extremities with out edema bilaterally. Urinary Catheter Management: Velez: Cath Placed During This Visit: yes Reason for Continuing Indwelling Catheter: Accurate Measurement of Urinary Output in Critically Ill Patients Urinary Catheter Date of Insertion: 05/26/24 Data 06/01/24 05:02 06/01/24 05:02 A&P Assessment and plan (1) NSTEMI (non-ST elevated myocardial infarction): (2) Antiplatelet or antithrombotic long-term use: (3) Hyperlipidemia: Qualifiers: Hyperlipidemia type: unspecified Qualified Code(s): E78.5 - Hyperlipidemia, unspecified (4) Hyperlipemia, mixed: Plan Patient continues to have persistent rhabdomyolysis with unknown etiology, extensive lab workup has been done, muscle biopsy pending, differential diagnosis could be statin induced immune mediated necrotizing myopathy, autoimmune myositis and polymyositis. Patient already obtained IVIG and steroids, some and improvement is evident Discussed with Dr. Cervantes our hospitalist colleague, patient would be needing specialized services such as rheumatology and immunology, therefore we will recommend transfer the patient to [facility]. I have discussed with the patient and family they agreed to it. PDMP PDMP Reviewed: Not Reviewed Attestations Medical Necessity Statement*: Patient require continuation hospitalization for above defined care Coding Level of Care Code Acute Code for [facility] Diagnoses NSTEMI (non-ST elevated myocardial infarction) I21.4 Antiplatelet or antithrombotic long-term use Z79.02 Hyperlipidemia, unspecified hyperlipidemia type E78.5 Hyperlipidemia type: unspecified Hyperlipemia, mixed E78.2
--- NOTE | 2024-06-01 14:45 | P.PN_ITS ---
Subjective 2 Subjective: no new c/o s/p hd yesterday Medications: Reviewed: Yes Vitals/I&O/Wt Last Vital Signs Temp 98 F 06/01/24 11:30 Pulse 67 06/01/24 12:00 Resp 14 06/01/24 09:31 BP 117/67 06/01/24 11:30 Pulse Ox 93 06/01/24 11:30 O2 Del Method Room Air 06/01/24 04:00 O2 Flow Rate 2 05/31/24 06:00 05/31/24 06/01/24 06/01/24 22:59 06:59 14:59 Intake Total 700 / 1000 300 / 300 Output Total 3650 / 3950 175 / 4125 50 / 50 Balance -2950 / -2950 -175 / -3125 250 / 250 Weight last 48 hrs Weight 76 kg Weight 77 kg Weight 78 kg Weight 80 kg Physical Exam 2 Narrative: comfortable in bed, NARD VSS, not using oxygen heent- nc/at, eomi neck no jvp lungs clear heart regular + s1, s2 abdomen soft + bs ext no edema, pain by biopsy site, + weak legs, but he can move all extremities + femoral dialysis catheter Urinary Catheter Management: Velez: Cath Placed During This Visit: yes Reason for Continuing Indwelling Catheter: Accurate Measurement of Urinary Output in Critically Ill Patients Urinary Catheter Date of Insertion: 05/26/24 Data 06/01/24 05:02 06/01/24 05:02 A&P Assessment and plan (1) Acute renal failure: 58 yr old man with past medical history significant for coronary artery disease, understanding, on statin presented to the hospital due to acute kidney injury and found to have rhabdomyolysis 1. ELENO from rhabdo from statins, +/- a myositis. awaiting muscle bx results ck is stable at 50,000 range -Renal function and cells have not improved as aggressive IV fluid resuscitation, status post temporary HD catheter placement, patient consented for HD status post HD #2 yesterday, will repeat HD today. Assess daily for HD needs.monitor CPK trend 2. Rhabdomyolysis- was on statins, but need to rule out myositis and status post muscle biopsy-pending results . Also MPO negative. Anti- Double-stranded DNA negative,- LUIS ANTONIO + 1:40 low +, anti-[place]-1, Anti -Mi-2, [id number], anti-MDA5 -aldolase 217.5, [id number]-[id number] 237- likely a myositis u tox negative, hiv and hep serologies negative, normal tsh HD as above and follow CPK levels Thrombocytopenia:Monitoring closely Non-ST elevation AR: Mx per cardiology -seen and examined w/ RN- telehealth visit Qualifiers: Acute renal failure type: unspecified Qualified Code(s): N17.9 - Acute kidney failure, unspecified Plan see above. ivf, lasix. monitor labs and potential HD needs PDMP PDMP Reviewed: Not Reviewed Attestations 2 Medical Necessity Statement*: per [facility] Coding Level of Care Code Acute Code for [facility] Fwd Diagnoses Acute renal failure, unspecified acute renal failure type N17.9 Acute renal failure type: unspecified
--- NOTE | 2024-06-01 16:51 | PC.NURSE ---
[facility] called arranging transfer pending bed, requesting respritory panel
[2024-06-01] MEDS: heparin, porcine 1,000 unit/mL INJ 10 mL 10000 UNIT INTRACATH (17:22)
--- NOTE | 2024-06-01 17:51 | PC.NURSE ---
prior urine obtained down to lab for spec ,, very minimal output after received dialysis this pm
[2024-06-01 18:40] LABS: Adenovirus Not Detected (NOT DETECT); Chlamydia Pneumoniae Not Detected (NOT DETECT); Coronavirus 229E,HKU1,NL63,OC4 Not Detected (NOT DETECT); Human Metapneumovirus Not Detected (NOT DETECT); Human Rhinovirus/Enterovirus Not Detected (NOT DETECT); Influenza A Not Detected (NOT DETECT); Influenza A H1 Not Detected (NOT DETECT); Influenza A H1-2009 Not Detected (NOT DETECT); Influenza A H3 Not Detected (NOT DETECT); Influenza B Not Detected (NOT DETECT); Mycoplasma Pneumoniae Not Detected (NOT DETECT); Parainfluenza Virus Type 1 Not Detected (NOT DETECT); Parainfluenza Virus Type 2 Not Detected (NOT DETECT); Parainfluenza Virus Type 3 Not Detected (NOT DETECT); Parainfluenza Virus Type 4 Not Detected (NOT DETECT); Respiratory Syncytial Virus A Not Detected (NOT DETECT); Respiratory Syncytial Virus B Not Detected (NOT DETECT); SARS-COV-2 Not Detected (NOT DETECT)
[2024-06-01] MEDS: aspirin 81 mg EC Tablet PO (20:53)
[2024-06-01] MEDS: temazepam 15 mg Capsule PO (20:53)
[2024-06-01 22:14] LABS: Glucose Point of Care 350 mg/dL (70-110)
[2024-06-02] VITALS (76 sets, daily range): BP systolic 101–155; BP diastolic 36–109; PULSE 51–90; RESP 11–28; TEMP 36.5–37.1; O2SAT 89–100
[2024-06-02] MEDS: methylPREDNISolone sod succ 125 mg/2 mL INJ 250 MG IVP (04:01)
[2024-06-02 04:20] LABS: Glucose Point of Care 409 mg/dL (70-110)
[2024-06-02 05:52] LABS: Alanine Aminotransferase 285 U/L (0-41); Albumin Level 2.5 g/dL (3.5-5.2); Alkaline Phosphatase 81 U/L (40-130); Anion Gap 18.5 (5-19); Aspartate Amino Transferase 267 U/L (0-40); Blood Urea Nitrogen 71 mg/dL (6-20); Calcium 6.6 mg/dL (8.5-10.5); Carbon Dioxide 24 mmol/L (22-29); Chloride 99 mmol/L (98-107); Creatinine Clr Calc Pharmacy 16.4703; Globulin 2.4 g/dL (1.3-4.6); Glomerular Filtration Rate 13.3 mL/min (90-130); Glucose 298 mg/dL (65-115); Magnesium 2.1 mg/dL (1.7-2.3); Osmolality Calculated 316 mOsm/kg (285-295); Potassium 4.5 mmol/L (3.5-5.1); Sodium 137 mmol/L (136-145); Total Bilirubin 0.3 mg/dL (0.15-1.2); Total Protein 4.9 g/dL (6.6-8.7)
[2024-06-02 07:16] LABS: Hematocrit 21.6 % (37-53); Lymphocytes # 0.3 10^3/uL (0.8-4.8); Lymphocytes % 3.9 %; Mean Corpuscular HGB Conc 35.2 g/dL (30-55); Mean Corpuscular Hemoglobin 30.5 pg (27-33); Mean Corpuscular Volume 86.7 fl (82-101); Mean Platelet Volume 11.9 fL (7.4-10.4); Monocytes # 0.3 10^3/uL (0.2-0.9); Monocytes % 4.8 %; Neutrophils # 5.87 10^3/uL (1.8-7.7); Neutrophils % 90.8 %; Nucleated Red Blood Cells % 0 %; Red Blood Count 2.49 10^6/uL (3.85-5.65); Red Cell Distribution Width 12.9 % (12.1-15.1); White Blood Count 6.46 10^3/uL (3.29-11.43)
[2024-06-02 07:41] LABS: Platelet Count 22 10^3/cmm (157-399)
[2024-06-02] MEDS: prasugrel 10 MG Tablet PO (08:15)
[2024-06-02] MEDS: folic acid 1 mg Tablet PO (08:15)
[2024-06-02] MEDS: famotidine 20 mg Tablet PO ×2 (08:15→18:19)
[2024-06-02] MEDS: amlodipine 5 mg Tablet PO (08:15)
[2024-06-02] MEDS: metoprolol succinate ER (24 HR) 25 mg Tablet 12.5 MG PO (08:15)
[2024-06-02 09:46] LABS: Creatine Phosphokinase 26165 U/L (39-308)
--- NOTE | 2024-06-02 09:50 | PM.PN ---
Subjective Subjective: seen and examined. feels better. still weak and anxious. no n/v/f/c/aguilar/d Medications: Reviewed: Yes Medication Review Details: Current Medications Amlodipine Besylate (Amlodipine 5 Mg Tablet) 5 mg PO BID [facility] Last Admin: 06/02/24 08:15 Dose: 5 mg Epinephrine HCl (Epinephrine 0.1 Mg/Ml Syr 10 Ml) 1 mg IVP ONCE PRN PRN Reason: IVIG Protocol Famotidine (Famotidine 20 Mg Tablet) 20 mg PO BID [facility] Last Admin: 06/02/24 08:15 Dose: 20 mg Folic Acid (Folic Acid 1 Mg Tablet) 1 mg PO DAILY [facility] Last Admin: 06/02/24 08:15 Dose: 1 mg Furosemide (Furosemide 10 Mg/Ml Sdv 10ml) 40 mg IVP Q12H [facility] Last Admin: 06/01/24 20:53 Dose: 40 mg Glucagon (Glucagon 1 Mg/Ml Kit 1 Ml) 1 mg IM ONCE PRN; Protocol PRN Reason: Adult Acute Hypoglycemia Nursing Prot. Dextrose (D5w) 500 mls @ 0 mls/hr IV ONCE PRN; Protocol PRN Reason: Adult Acute Hypoglycemia Prot Dextrose (D10w) 125 mls @ 750 mls/hr IV PRN PRN; Protocol PRN Reason: Adult Acute Hypoglycemia Nursing Protocol Dextrose (D10w) 250 mls @ 1,000 mls/hr IV PRN PRN; Protocol PRN Reason: Adult Acute Hypoglycemia Nursing Protocol Sodium Chloride (Sodium Chloride 0.9%) 1,000 mls @ 0 mls/hr IV .Q0M PRN PRN Reason: hypotension or symptomatic Albumin Human (Albumin) 12.5 gm in 50 mls @ 60 mls/hr IV PRN PRN PRN Reason: Hypotension and/or symptomatic Sodium Chloride (Sodium Chloride 0.9%) 1,000 mls @ 0 mls/hr IV .Q0M PRN PRN Reason: hypotension or symptomatic Albumin Human (Albumin) 12.5 gm in 50 mls @ 60 mls/hr IV PRN PRN PRN Reason: Hypotension and/or symptomatic Metoclopramide HCl (Metoclopramide 5 Mg/Ml Sdv 2 Ml) 5 mg IVP Q6H PRN PRN Reason: NAUSEA AND VOMITING Last Admin: 05/31/24 12:27 Dose: 5 mg Metoprolol Succinate (Metoprolol Succinate Er (24 Hr) 25 Mg Tablet) 12.5 mg PO DAILY [facility] Last Admin: 06/02/24 08:15 Dose: 12.5 mg Ondansetron HCl (Ondansetron 2 Mg/Ml Sdv 2 Ml) 4 mg IVP Q6H PRN PRN Reason: NAUSEA AND VOMITING Last Admin: 05/27/24 10:18 Dose: 4 mg Oxycodone/Acetaminophen (Oxycodone-Apap 5-325 Mg Tablet) 1 tab PO Q8H PRN PRN Reason: MODERATE PAIN Last Admin: 05/30/24 23:35 Dose: 1 tab Pantoprazole Sodium (Pantoprazole 40 Mg Sdv) 40 mg IVP DAILY [facility] Polyethylene Glycol (Polyethylene Glycol 3350 Pkt 17 Gm) 17 gm PO BID [facility] Last Admin: 05/31/24 08:33 Dose: 17 gm Simethicone (Simethicone 80 Mg Chew) 80 mg PO QID PRN PRN Reason: Gas Pain Last Admin: 05/31/24 12:26 Dose: 80 mg Sodium Chloride (Sodium Chloride 0.9% 100 Ml Bag) 50 ml IV PRN PRN PRN Reason: Blood transfusion prime and flush Stop: 06/03/24 08:53 Vitals/I&O/Wt Last Vital Signs Temp 98 F 06/02/24 08:30 Pulse 72 06/02/24 08:30 Resp 14 06/02/24 08:30 BP 125/48 06/02/24 08:30 Pulse Ox 98 06/02/24 07:30 O2 Del Method Room Air 06/02/24 06:01 O2 Flow Rate 2 05/31/24 06:00 06/01/24 06/02/24 06/02/24 22:59 06:59 14:59 Intake Total 1515 / 1815 450 / 2265 Output Total 1005 / 1055 75 / 1130 Balance 510 / 760 375 / 1135 Weight last 48 hrs Weight 77 kg Weight 77 kg Weight 76 kg Weight 77 kg Physical Exam Narrative: comfortable in bed, NARD on room air VS noted 125/24 heent- nc/at, eomi neck no jvp lungs clear heart regular + s1, s2 abdomen soft + bs ext no edema, weak legs, but he can move all extremities + femoral dialysis catheter Urinary Catheter Management: Velez: Cath Placed During This Visit: yes Reason for Continuing Indwelling Catheter: Accurate Measurement of Urinary Output in Critically Ill Patients Urinary Catheter Date of Insertion: 05/26/24 Data 06/02/24 06:55 06/02/24 04:51 A&P Assessment and plan (1) Acute renal failure: 58 yr old man with past medical history significant for coronary artery disease, understanding, on statin presented to the hospital due to acute kidney injury and found to have rhabdomyolysis 1. ELENO- working dx isrhabdomyolysis. Q if a TMA/ HUS- however haptaglobin is high. bili not elevated -s/p HD x 2- k is 4.5 cr 4.6, phos improved to 6. 2[place] [address]. ast/ alt improved to 267/285 3. anemia and thrombopenia- please have heme evaluate smear - repeat ldh, retic count and haptaglobin -please check ct for retroperitoneal bleed -please monitor for GI bleed -if he is hemolyzing and eleno- consider plasmapheresis. consider ravaluzimab 4. BP stable 5. meds reviewed discussed w/ pt and his and Dr Cummins pt consents to HD as needed -seen and examined w/ RN- telehealth visit. if becomes SOB and volume overloaded, then we will dialyze agree with transfer to a tertiary center Qualifiers: Acute renal failure type: unspecified Qualified Code(s): N17.9 - Acute kidney failure, unspecified Plan see above. PDMP PDMP Reviewed: Not Reviewed Attestations Medical Necessity Statement*: anemia, thrombocytopenia, ELENO Time Spent in Patient Care: Greater than 35 minutes (>than 50% of time spent in counselling and/or direct pt care on unit). Coding Level of Care Code Acute Code for [facility] Fwd Diagnoses Acute renal failure, unspecified acute renal failure type N17.9 Acute renal failure type: unspecified
[2024-06-02] MEDS: pantoprazole 40 mg SDV IVP (10:01)
--- NOTE | 2024-06-02 10:09 | CTR_ITS ---
PROCEDURE INFORMATION: Exam: CT Abdomen And Pelvis Without Contrast Exam date and time: 06/02/2024 10:32 AM Age: 58 years old Clinical indication: Mass, lump, or swelling; Llq; Prior surgery; Surgery date: Post-operative (0-2 days); Surgery type: Dialysis catheter; Additional info: Anemia- evaluate for retroperitoneal bleed TECHNIQUE: Imaging protocol: Computed tomography of the abdomen and pelvis without contrast. Radiation optimization: All CT scans at this facility use at least one of these dose optimization techniques: automated exposure control; mA and/or kV adjustment per patient size (includes targeted exams where dose is matched to clinical indication); or iterative reconstruction. COMPARISON: CT kidney stone [id number] 05/26/2024 9:02 PM RADIATION DOSE METRICS: Total DLP (mGy-cm): 886.83 FINDINGS: Tubes, catheters and devices: A left common femoral venous catheter is present with the tip in the proximal external iliac vein. Penile prosthesis, right pelvic reservoir. Lungs: Lateral lower lobe calcified pulmonary parenchymal granulomas. Left posterior pulmonary partial passive atelectasis. Posterior right lung base partial atelectasis/consolidation. Pleural spaces: Large dependent right pleural effusion. Moderate dependent left pleural effusion. Heart: Dense mitral annular calcification is present. Coronary arteries: Left main, LAD, LCx and RCA kashia calcified coronary atherosclerosis. Liver: Normal. No mass. Gallbladder and biliary ducts: The gallbladder is surgically absent, with metallic clips in the gallbladder fossa. No extrahepatic biliary ductal dilatation or calculus. Pancreas: Moderate pancreatic atrophy. Spleen: Normal. No splenomegaly. Adrenal glands: Normal. No mass. Kidneys and ureters: Normal. No hydronephrosis. Stomach and bowel: Previous proximal gastric sleeve surgery. Appendix: No evidence of appendicitis. Intraperitoneal space: Mild right subdiaphragmatic ascites. No pneumoperitoneum. Right anterior subdiaphragmatic colonic interposition is present, a normal variant. Vasculature: Moderate aortic atherosclerotic calcification without aneurysm. The iliac arteries show moderate bilateral atherosclerotic calcifications without evidence of aneurysm. Lymph nodes: No enlarged lymph nodes. Urinary bladder: The urinary bladder is drained by a Velez catheter. The urinary bladder is completely decompressed and difficult to assess. Reproductive: Bilateral vas deferens calcification suggesting diabetes. Calcified phleboliths are present in the lower pelvis bilaterally. Bones/joints: Unremarkable. No acute fracture. Soft tissues: Hyperdense infiltrating blood products left inguinal and anterolateral pelvic region, difficult to quantitate. Minimal extraperitoneal left inferior iliac fossa infiltrating blood products, difficult to quantitate (series 3, image 76; series 6, image 26). Bilateral gluteal adipose calcified injection granulomata. Moderate-severe anasarca. CT/CT abdomen pelvis wo con [id number] IMPRESSION: 1. Hyperdense infiltrating blood products left inguinal and anterolateral pelvic region soft tissues, difficult to quantitate. The etiology is indeterminate. Duplex sonography of the left common femoral vessels might be helpful. 2. Minimal left lower pelvic retroperitoneal hematoma. 3. Prior cholecystectomy. 4. Mild right subdiaphragmatic ascites. 5. Previous proximal gastric sleeve surgery. 6. Large dependent right pleural effusion, new. 7. Moderate dependent left pleural effusion, new. 8. Kashia coronary atherosclerosis status post coronary artery grafting. 9. Posterior right lung base partial atelectasis/consolidation. Pneumonia is difficult to exclude. Clinical correlation is recommended.
--- NOTE | 2024-06-02 10:13 | PC.NURSE ---
this am noted blood count lower than yesterday repeat in lab done , when verified notified doctor had large bm on noc up bsc, no blood noted on nights groin left with femoral site with bruising noted continue to attempt to ship pt to [facility] pending bed .. awaiting platletts for infusion and after pressure sand bag applied to left groin site
[2024-06-02 10:22] LABS: Reticulocyte % 0.3 % (0.5-2.0)
[2024-06-02 10:45] LABS: Lactate Dehydrogenase 1778 U/L (135-225)
--- NOTE | 2024-06-02 11:10 | PC.NURSE ---
accucheck 220 on pt meter ,,prbc infusing at this time ct results noted , pressure bag to left groin site
[2024-06-02] MEDS: FUROsemide 10 mg/mL SDV 10mL 40 MG IVP ×2 (12:32→19:39)
--- NOTE | 2024-06-02 12:51 | PC.NURSE ---
some short of breath noted per pt complaint, Dr bone called lasix given per order held this am and called for dialysis
--- NOTE | 2024-06-02 15:06 | P.PN_ITS ---
Subjective 2 Subjective: Patient was noted to have severe thrombocytopenia platelet dropped down to 22 along with anemia where hemoglobin drop from 11-7 No obvious bleeding CK has dropped down to 24,000 Creatinine has improved Medications: Reviewed: Yes Medication Review Details: Current Medications Amlodipine Besylate (Amlodipine 5 Mg Tablet) 5 mg PO BID [facility] Last Admin: 06/02/24 08:15 Dose: 5 mg Epinephrine HCl (Epinephrine 0.1 Mg/Ml Syr 10 Ml) 1 mg IVP ONCE PRN PRN Reason: IVIG Protocol Famotidine (Famotidine 20 Mg Tablet) 20 mg PO BID [facility] Last Admin: 06/02/24 08:15 Dose: 20 mg Folic Acid (Folic Acid 1 Mg Tablet) 1 mg PO DAILY [facility] Last Admin: 06/02/24 08:15 Dose: 1 mg Furosemide (Furosemide 10 Mg/Ml Sdv 10ml) 40 mg IVP Q12H [facility] Last Admin: 06/01/24 20:53 Dose: 40 mg Glucagon (Glucagon 1 Mg/Ml Kit 1 Ml) 1 mg IM ONCE PRN; Protocol PRN Reason: Adult Acute Hypoglycemia Nursing Prot. Dextrose (D5w) 500 mls @ 0 mls/hr IV ONCE PRN; Protocol PRN Reason: Adult Acute Hypoglycemia Prot Dextrose (D10w) 125 mls @ 750 mls/hr IV PRN PRN; Protocol PRN Reason: Adult Acute Hypoglycemia Nursing Protocol Dextrose (D10w) 250 mls @ 1,000 mls/hr IV PRN PRN; Protocol PRN Reason: Adult Acute Hypoglycemia Nursing Protocol Sodium Chloride (Sodium Chloride 0.9%) 1,000 mls @ 0 mls/hr IV .Q0M PRN PRN Reason: hypotension or symptomatic Albumin Human (Albumin) 12.5 gm in 50 mls @ 60 mls/hr IV PRN PRN PRN Reason: Hypotension and/or symptomatic Sodium Chloride (Sodium Chloride 0.9%) 1,000 mls @ 0 mls/hr IV .Q0M PRN PRN Reason: hypotension or symptomatic Albumin Human (Albumin) 12.5 gm in 50 mls @ 60 mls/hr IV PRN PRN PRN Reason: Hypotension and/or symptomatic Metoclopramide HCl (Metoclopramide 5 Mg/Ml Sdv 2 Ml) 5 mg IVP Q6H PRN PRN Reason: NAUSEA AND VOMITING Last Admin: 05/31/24 12:27 Dose: 5 mg Metoprolol Succinate (Metoprolol Succinate Er (24 Hr) 25 Mg Tablet) 12.5 mg PO DAILY [facility] Last Admin: 06/02/24 08:15 Dose: 12.5 mg Ondansetron HCl (Ondansetron 2 Mg/Ml Sdv 2 Ml) 4 mg IVP Q6H PRN PRN Reason: NAUSEA AND VOMITING Last Admin: 05/27/24 10:18 Dose: 4 mg Oxycodone/Acetaminophen (Oxycodone-Apap 5-325 Mg Tablet) 1 tab PO Q8H PRN PRN Reason: MODERATE PAIN Last Admin: 05/30/24 23:35 Dose: 1 tab Pantoprazole Sodium (Pantoprazole 40 Mg Sdv) 40 mg IVP DAILY [facility] Polyethylene Glycol (Polyethylene Glycol 3350 Pkt 17 Gm) 17 gm PO BID [facility] Last Admin: 05/31/24 08:33 Dose: 17 gm Simethicone (Simethicone 80 Mg Chew) 80 mg PO QID PRN PRN Reason: Gas Pain Last Admin: 05/31/24 12:26 Dose: 80 mg Sodium Chloride (Sodium Chloride 0.9% 100 Ml Bag) 50 ml IV PRN PRN PRN Reason: Blood transfusion prime and flush Stop: 06/03/24 08:53 Vitals/I&O/Wt Last Vital Signs Temp 98 F 06/02/24 14:59 Pulse 66 06/02/24 13:39 Resp 22 H 06/02/24 14:59 BP 146/54 06/02/24 14:59 Pulse Ox 98 06/02/24 12:01 O2 Del Method Room Air 06/02/24 06:01 O2 Flow Rate 2 05/31/24 06:00 06/02/24 06/02/24 06/02/24 06:59 14:59 22:59 Intake Total 450 / 2265 150 / 150 Output Total 75 / 1130 Balance 375 / 1135 150 / 150 Weight last 48 hrs Weight 169 lb 12.095 oz Weight 169 lb 12.095 oz Weight 167 lb 8.821 oz Weight 169 lb 12.095 oz Physical Exam 2 Const: OTHER: GENERAL: Patient is alert, awake and oriented x3. HEART: Regular S1 and S2. No murmur, rub or gallop. LUNGS: Clear to auscultate bilaterally. CENTRAL NERVOUS SYSTEM: Grossly nonfocal. EXTREMITIES: Lower extremities with out edema bilaterally. Urinary Catheter Management: Velez: Cath Placed During This Visit: yes Reason for Continuing Indwelling Catheter: Accurate Measurement of Urinary Output in Critically Ill Patients Urinary Catheter Date of Insertion: 05/26/24 Data 06/02/24 06:55 06/02/24 04:51 A&P Assessment and plan (1) NSTEMI (non-ST elevated myocardial infarction): (2) Antiplatelet or antithrombotic long-term use: (3) Hyperlipidemia: Qualifiers: Hyperlipidemia type: unspecified Qualified Code(s): E78.5 - Hyperlipidemia, unspecified (4) Hyperlipemia, mixed: (5) Thrombocytopenia: (6) Anemia: Plan Patient was noted to have thrombocytopenia and anemia May need to rule out HIT, will send antibody Antithrombotic therapy such as heparin is on hold, hold dual antiplatelet therapy as well since platelets are less than 22 and there is a risk for bleeding Rest of treatment as per medicine patient is receiving blood and platelets Given the complicated and serious condition of the patient, request for transfer to the [place] [place] has been placed so that patient can have 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
--- NOTE | 2024-06-02 17:26 | PC.NURSE ---
heart rate down some and blood pressure decreased noted more burising on upper arm doctor called
[2024-06-02 17:45] LABS: Glucose Point of Care 183 mg/dL (70-110)
[2024-06-02 17:58] LABS: Basophils % 0.1 %; Hematocrit 30.4 % (37-53); Lymphocytes # 0.3 10^3/uL (0.8-4.8); Lymphocytes % 2.8 %; Mean Corpuscular HGB Conc 34.9 g/dL (30-55); Mean Corpuscular Hemoglobin 30.5 pg (27-33); Mean Corpuscular Volume 87.4 fl (82-101); Mean Platelet Volume 10.8 fL (7.4-10.4); Neutrophils # 9.74 10^3/uL (1.8-7.7); Neutrophils % 87.6 %; Nucleated Red Blood Cells % 0 %; Platelet Count 42 10^3/cmm (157-399); Red Blood Count 3.48 10^6/uL (3.85-5.65); Red Cell Distribution Width 12.7 % (12.1-15.1); White Blood Count 11.12 10^3/uL (3.29-11.43)
[2024-06-02 18:46] LABS: Creatine Phosphokinase 26127 U/L (39-308)
--- NOTE | 2024-06-02 19:08 | PM.PN ---
Subjective Subjective: Patient was noted to have severe thrombocytopenia platelet dropped down to 22 along with anemia where hemoglobin drop from 11-7 No obvious bleeding CK has dropped down to 26,000 Creatinine has improved 4.6 I transfused 2 units packed red cells and 1 unit platelets this morning. Note was not made this morning because I was anticipating transfer to [place]. I called [facility] this morning and patient was on high-priority plan for transfer this has not occurred by end of my shift. I also called [facility] and he was put on their waiting list as well but no return call. Dialysis was performed and the patient's blood work was repeated after transfusion hematocrit back up to 30.4 after 2 units and the platelets up to 42 Patient states he feels okay. Nurse BJ noted some mottling of the upper arms and around the knee Medications: Reviewed: Yes Medication Review Details: Current Medications Amlodipine Besylate (Amlodipine 5 Mg Tablet) 5 mg PO BID [facility] Last Admin: 06/02/24 08:15 Dose: 5 mg Epinephrine HCl (Epinephrine 0.1 Mg/Ml Syr 10 Ml) 1 mg IVP ONCE PRN PRN Reason: IVIG Protocol Famotidine (Famotidine 20 Mg Tablet) 20 mg PO BID [facility] Last Admin: 06/02/24 08:15 Dose: 20 mg Folic Acid (Folic Acid 1 Mg Tablet) 1 mg PO DAILY [facility] Last Admin: 06/02/24 08:15 Dose: 1 mg Furosemide (Furosemide 10 Mg/Ml Sdv 10ml) 40 mg IVP Q12H [facility] Last Admin: 06/01/24 20:53 Dose: 40 mg Glucagon (Glucagon 1 Mg/Ml Kit 1 Ml) 1 mg IM ONCE PRN; Protocol PRN Reason: Adult Acute Hypoglycemia Nursing Prot. Dextrose (D5w) 500 mls @ 0 mls/hr IV ONCE PRN; Protocol PRN Reason: Adult Acute Hypoglycemia Prot Dextrose (D10w) 125 mls @ 750 mls/hr IV PRN PRN; Protocol PRN Reason: Adult Acute Hypoglycemia Nursing Protocol Dextrose (D10w) 250 mls @ 1,000 mls/hr IV PRN PRN; Protocol PRN Reason: Adult Acute Hypoglycemia Nursing Protocol Sodium Chloride (Sodium Chloride 0.9%) 1,000 mls @ 0 mls/hr IV .Q0M PRN PRN Reason: hypotension or symptomatic Albumin Human (Albumin) 12.5 gm in 50 mls @ 60 mls/hr IV PRN PRN PRN Reason: Hypotension and/or symptomatic Sodium Chloride (Sodium Chloride 0.9%) 1,000 mls @ 0 mls/hr IV .Q0M PRN PRN Reason: hypotension or symptomatic Albumin Human (Albumin) 12.5 gm in 50 mls @ 60 mls/hr IV PRN PRN PRN Reason: Hypotension and/or symptomatic Metoclopramide HCl (Metoclopramide 5 Mg/Ml Sdv 2 Ml) 5 mg IVP Q6H PRN PRN Reason: NAUSEA AND VOMITING Last Admin: 05/31/24 12:27 Dose: 5 mg Metoprolol Succinate (Metoprolol Succinate Er (24 Hr) 25 Mg Tablet) 12.5 mg PO DAILY [facility] Last Admin: 06/02/24 08:15 Dose: 12.5 mg Ondansetron HCl (Ondansetron 2 Mg/Ml Sdv 2 Ml) 4 mg IVP Q6H PRN PRN Reason: NAUSEA AND VOMITING Last Admin: 05/27/24 10:18 Dose: 4 mg Oxycodone/Acetaminophen (Oxycodone-Apap 5-325 Mg Tablet) 1 tab PO Q8H PRN PRN Reason: MODERATE PAIN Last Admin: 05/30/24 23:35 Dose: 1 tab Pantoprazole Sodium (Pantoprazole 40 Mg Sdv) 40 mg IVP DAILY [facility] Polyethylene Glycol (Polyethylene Glycol 3350 Pkt 17 Gm) 17 gm PO BID [facility] Last Admin: 05/31/24 08:33 Dose: 17 gm Simethicone (Simethicone 80 Mg Chew) 80 mg PO QID PRN PRN Reason: Gas Pain Last Admin: 05/31/24 12:26 Dose: 80 mg Sodium Chloride (Sodium Chloride 0.9% 100 Ml Bag) 50 ml IV PRN PRN PRN Reason: Blood transfusion prime and flush Stop: 06/03/24 08:53 Vitals/I&O/Wt Last Vital Signs Temp 97.9 F 06/02/24 17:44 Pulse 61 06/02/24 18:01 Resp 17 06/02/24 18:01 BP 142/109 06/02/24 18:01 Pulse Ox 100 06/02/24 15:15 O2 Del Method Room Air 06/02/24 06:01 O2 Flow Rate 2 05/31/24 06:00 06/02/24 06/02/24 06/02/24 06:59 14:59 22:59 Intake Total 450 / 2265 500 / 500 2451 / 2951 Output Total 75 / 1130 2583 / 2583 Balance 375 / 1135 500 / 500 -132 / 368 Weight last 48 hrs Weight 80.5 kg Weight 77 kg Weight 77 kg Weight 76 kg Weight 77 kg Physical Exam Narrative: General well male in no acute cardiopulmonary distress Mentation alert and oriented x 3 Scalp multiple areas of skin breakdown and crusty shallow ulcerations CV regular rate and rhythm Lungs decreased breath sounds in the right lung improved with deep breaths Abdomen positive bowel sounds soft nontender Calves no tenderness or pretibial edema he does have significant bruising and swelling around the left thigh with bruising of the left suprapubic area consistent with where the blood loss has gone Muscles are not tender to palpation but he is extremely weak unable to sit up without significant help from me Urinary Catheter Management: Velez: Cath Placed During This Visit: yes Reason for Continuing Indwelling Catheter: Accurate Measurement of Urinary Output in Critically Ill Patients Urinary Catheter Date of Insertion: 05/26/24 Data 06/02/24 17:35 06/02/24 04:51 A&P Assessment and plan (1) Acute renal failure: 58 yr old man with past medical history significant for coronary artery disease, understanding, on statin presented to the hospital due to acute kidney injury and found to have rhabdomyolysis Unclear what the underlying cause of the rhabdomyolysis is. It is likely that statins contributed but the 50,000 [place] [address] and stable x 2 consecutive test Qualifiers: Acute renal failure type: unspecified Qualified Code(s): N17.9 - Acute kidney failure, unspecified (2) Type 1 diabetes: Patient has been on Mounjaro and insulin pump. His Mounjaro is 10 mg a week. There is some possibility that Mounjaro is also contributing to rhabdo but not well-documented that would have this level of CK rise Qualifiers: Diabetes mellitus complication status: with circulatory complication Diabetes mellitus complication detail: with other circulatory complications Qualified Code(s): E10.59 - Type 1 diabetes mellitus with other circulatory complications (3) Hyperlipemia, mixed: Has been on atorvastatin 40 mg daily this was switched to rosuvastatin recently but now both have been stopped for this hospitalization (4) Rhabdomyolysis: CK 50,000 troponin 2000 on admission CK now 26,000 (5) NSTEMI (non-ST elevated myocardial infarction): Patient with known multivessel coronary artery disease echo 05/27/2024 in the setting of severe troponin and CPK elevation showed moderate LVH normal ventricular size and function with a EF of 67% and no wall motion abnormalities. Patient has not had chest pain or EKG changes Plan I have discussed with the patient and will discuss with orderlies teacher and statistical financial analyst potential transfer to tertiary care for further diagnosis and treatment. I do not think this is a simple statin myopathy and it may be statin related autoimmune response but that also is unclear PDMP PDMP Reviewed: Not Reviewed Attestations Medical Necessity Statement*: Patient is critically ill and awaiting transfer to a higher level of care Coding Level of Care Code Critical Care >/= 30 minutes Diagnoses Acute renal failure, unspecified acute renal failure type N17.9 Acute renal failure type: unspecified Type 1 diabetes mellitus with other circulatory complication E10.59 Diabetes mellitus complication status: with circulatory complication Diabetes mellitus complication detail: with other circulatory complications Hyperlipemia, mixed E78.2 Rhabdomyolysis M62.82 NSTEMI (non-ST elevated myocardial infarction) I21.4 Time Spent (min) 70
[2024-06-02] MEDS: temazepam 15 mg Capsule PO (21:39)
[2024-06-02 21:56] LABS: Glucose Point of Care 275 mg/dL (70-110)
--- NOTE | 2024-06-02 22:24 | PC.NURSE ---
Blood Transfusion: Per shift report w/ AMADO, RN 2 units RBCs transfused on dayshift. TAR edited for 1900 to reflect that blood transfusion had been completed.
[2024-06-03] VITALS (54 sets, daily range): BP systolic 101–150; BP diastolic 24–88; PULSE 56–88; RESP 12–25; TEMP 36.2–36.8; O2SAT 91–100; BMI 29.7
--- NOTE | 2024-06-03 04:21 | PC.NURSE ---
Patients home insulin pump ran out of insulin, Dr. Mcdonald notified. New order for 200 units humalog lispro to refill pt's home insulin pump. Pt to resume insulin pump management.
[2024-06-03] MEDS: insulin lispro 100 unit/1 mL 10 UNIT SUBCUT (05:00)
[2024-06-03 05:05] LABS: Glucose Point of Care 280 mg/dL (70-110)
[2024-06-03 05:43] LABS: Basophils % 0.1 %; Hematocrit 25.3 % (37-53); Lymphocytes # 0.3 10^3/uL (0.8-4.8); Lymphocytes % 4.3 %; Mean Corpuscular HGB Conc 34.8 g/dL (30-55); Mean Corpuscular Hemoglobin 29.8 pg (27-33); Mean Corpuscular Volume 85.8 fl (82-101); Mean Platelet Volume 10.2 fL (7.4-10.4); Monocytes # 0.8 10^3/uL (0.2-0.9); Monocytes % 10.9 %; Neutrophils # 6.42 10^3/uL (1.8-7.7); Nucleated Red Blood Cells % 0 %; Platelet Count 45 10^3/cmm (157-399); Red Blood Count 2.95 10^6/uL (3.85-5.65); Red Cell Distribution Width 13.3 % (12.1-15.1); White Blood Count 7.64 10^3/uL (3.29-11.43)
[2024-06-03 06:03] LABS: Alanine Aminotransferase 251 U/L (0-41); Albumin Level 2.8 g/dL (3.5-5.2); Alkaline Phosphatase 74 U/L (40-130); Aspartate Amino Transferase 193 U/L (0-40); Calcium 6.7 mg/dL (8.5-10.5); Carbon Dioxide 22 mmol/L (22-29); Chloride 97 mmol/L (98-107); Creatinine Clr Calc Pharmacy 14.0721; Globulin 2.2 g/dL (1.3-4.6); Glomerular Filtration Rate 10.8 mL/min (90-130); Glucose 245 mg/dL (65-115); Magnesium 2.2 mg/dL (1.7-2.3); Osmolality Calculated 315 mOsm/kg (285-295); Phosphorus 6.8 mg/dL (2.5-4.5); Sodium 135 mmol/L (136-145); Total Bilirubin 0.6 mg/dL (0.15-1.2)
[2024-06-03 06:21] LABS: Blood Urea Nitrogen 89 mg/dL (6-20); Creatine Phosphokinase 18268 U/L (39-308)
[2024-06-03 07:45] LABS: Glucose Point of Care 188 mg/dL (70-110)
[2024-06-03] MEDS: pantoprazole 40 mg SDV IVP (08:44)
[2024-06-03] MEDS: FUROsemide 10 mg/mL SDV 10mL 40 MG IVP (08:44)
[2024-06-03] MEDS: famotidine 20 mg Tablet PO ×2 (08:45→17:17)
[2024-06-03] MEDS: amlodipine 5 mg Tablet PO ×2 (08:45→17:17)
[2024-06-03] MEDS: folic acid 1 mg Tablet PO (08:45)
[2024-06-03] MEDS: metoprolol succinate ER (24 HR) 25 mg Tablet 12.5 MG PO (08:45)
--- NOTE | 2024-06-03 09:13 | PM.PN ---
Subjective Subjective: weak. but feels better. denies bleeding. poor appettie. denies sob. no cp Medications: Reviewed: Yes Medication Review Details: Current Medications Amlodipine Besylate (Amlodipine 5 Mg Tablet) 5 mg PO BID [facility] Last Admin: 06/03/24 08:45 Dose: 5 mg Epinephrine HCl (Epinephrine 0.1 Mg/Ml Syr 10 Ml) 1 mg IVP ONCE PRN PRN Reason: IVIG Protocol Famotidine (Famotidine 20 Mg Tablet) 20 mg PO BID [facility] Last Admin: 06/03/24 08:45 Dose: 20 mg Folic Acid (Folic Acid 1 Mg Tablet) 1 mg PO DAILY [facility] Last Admin: 06/03/24 08:45 Dose: 1 mg Furosemide (Furosemide 10 Mg/Ml Sdv 10ml) 40 mg IVP Q12H [facility] Last Admin: 06/03/24 08:44 Dose: 40 mg Glucagon (Glucagon 1 Mg/Ml Kit 1 Ml) 1 mg IM ONCE PRN; Protocol PRN Reason: Adult Acute Hypoglycemia Nursing Prot. Dextrose (D5w) 500 mls @ 0 mls/hr IV ONCE PRN; Protocol PRN Reason: Adult Acute Hypoglycemia Prot Dextrose (D10w) 125 mls @ 750 mls/hr IV PRN PRN; Protocol PRN Reason: Adult Acute Hypoglycemia Nursing Protocol Dextrose (D10w) 250 mls @ 1,000 mls/hr IV PRN PRN; Protocol PRN Reason: Adult Acute Hypoglycemia Nursing Protocol Sodium Chloride (Sodium Chloride 0.9%) 1,000 mls @ 0 mls/hr IV .Q0M PRN PRN Reason: hypotension or symptomatic Sodium Chloride (Sodium Chloride 0.9%) 1,000 mls @ 0 mls/hr IV .Q0M PRN PRN Reason: hypotension or symptomatic Albumin Human (Albumin) 12.5 gm in 50 mls @ 60 mls/hr IV PRN PRN PRN Reason: Hypotension and/or symptomatic Metoclopramide HCl (Metoclopramide 5 Mg/Ml Sdv 2 Ml) 5 mg IVP Q6H PRN PRN Reason: NAUSEA AND VOMITING Last Admin: 05/31/24 12:27 Dose: 5 mg Metoprolol Succinate (Metoprolol Succinate Er (24 Hr) 25 Mg Tablet) 12.5 mg PO DAILY [facility] Last Admin: 06/03/24 08:45 Dose: 12.5 mg Ondansetron HCl (Ondansetron 2 Mg/Ml Sdv 2 Ml) 4 mg IVP Q6H PRN PRN Reason: NAUSEA AND VOMITING Last Admin: 05/27/24 10:18 Dose: 4 mg Oxycodone/Acetaminophen (Oxycodone-Apap 5-325 Mg Tablet) 1 tab PO Q8H PRN PRN Reason: MODERATE PAIN Last Admin: 05/30/24 23:35 Dose: 1 tab Pantoprazole Sodium (Pantoprazole 40 Mg Sdv) 40 mg IVP DAILY [facility] Last Admin: 06/03/24 08:44 Dose: 40 mg Polyethylene Glycol (Polyethylene Glycol 3350 Pkt 17 Gm) 17 gm PO BID [facility] Last Admin: 05/31/24 08:33 Dose: 17 gm Simethicone (Simethicone 80 Mg Chew) 80 mg PO QID PRN PRN Reason: Gas Pain Last Admin: 05/31/24 12:26 Dose: 80 mg Temazepam (Temazepam 15 Mg Capsule) 15 mg PO BEDTIME PRN PRN Reason: INSOMNIA Last Admin: 06/02/24 21:39 Dose: 15 mg Vitals/I&O/Wt Last Vital Signs Temp 97.2 F L 06/03/24 04:00 Pulse 60 06/03/24 07:00 Resp 16 06/03/24 07:00 BP 150/65 06/03/24 07:00 Pulse Ox 96 06/03/24 07:00 O2 Del Method Room Air 06/03/24 07:00 O2 Flow Rate 2 05/31/24 06:00 06/02/24 06/03/24 06/03/24 22:59 06:59 14:59 Intake Total 3139 / 3639 Output Total 2583 / 2583 100 / 2683 Balance 556 / 1056 -100 / 956 Weight last 48 hrs Weight 76 kg Weight 80.5 kg Weight 77 kg Weight 77 kg Physical Exam Narrative: comfortable in bed, NARD on room air VS noted heent- nc/at, eomi neck no jvp lungs clear heart regular + s1, s2 abdomen soft + bs ext no edema, weak legs, but he can move all extremities + ecchymosis + femoral dialysis catheter Urinary Catheter Management: Velez: Cath Placed During This Visit: yes Reason for Continuing Indwelling Catheter: Accurate Measurement of Urinary Output in Critically Ill Patients Urinary Catheter Date of Insertion: 05/26/24 Data 06/03/24 05:14 06/03/24 05:14 A&P Assessment and plan (1) Acute renal failure: 58 yr old man with past medical history significant for coronary artery disease, understanding, on statin presented to the hospital due to acute kidney injury and found to have rhabdomyolysis 1. ELENO- working dx isrhabdomyolysis. Q if a TMA/ HUS- however haptaglobin is high. bili not elevated -s/p HD x 3 -hold dialysis today, unless he needs blood products 2[place] [address]. ast/ alt improved to 193/ 251 ast/ alt 3. anemia and thrombopenia- please have heme evaluate smear - repeat ldh, retic count and haptaglobin -please check ct for retroperitoneal bleed -please monitor for GI bleed -if he is hemolyzing and eleno- consider plasmapheresis. consider ravaluzimab 4. ct abd pelvis on 06-02-24- 1. Hyperdense infiltrating blood products left inguinal and anterolateral pelvic region soft tissues, difficult to quantitate. The etiology is indeterminate. Duplex sonography of the left common femoral vessels might be helpful. 2. Minimal left lower pelvic retroperitoneal hematoma. 3. Prior cholecystectomy. 4. Mild right subdiaphragmatic ascites. 5. Previous proximal gastric sleeve surgery. 6. Large dependent right pleural effusion, new. 7. Moderate dependent left pleural effusion, new. 8. [place] coronary atherosclerosis status post coronary artery grafting. 9. Posterior right lung base partial atelectasis/consolidation. Pneumonia is difficult to exclude. Clinical correlation is recommended. meds reviewed discussed w/ pt and his and Dr Cummins pt consents to HD as needed -seen and examined w/ RN- telehealth visit. if becomes SOB and volume overloaded, then we will dialyze agree with transfer to a tertiary center Qualifiers: Acute renal failure type: unspecified Qualified Code(s): N17.9 - Acute kidney failure, unspecified Plan see above. PDMP PDMP Reviewed: Not Reviewed Attestations Medical Necessity Statement*: eleno, bleeding Time Spent in Patient Care: 16 - 35 minutes (>than 50% of time spent in counselling and/or direct pt care on unit). Coding Level of Care Code Acute Code for [facility] F[facility] Diagnoses Acute renal failure, unspecified acute renal failure type N17.9 Acute renal failure type: unspecified
--- NOTE | 2024-06-03 09:44 | P.PN_ITS ---
Subjective 2 Subjective: Patient states he feels about the same today. We are awaiting a bed for him at [place]. H&H 8.8 and 25.3. Platelets slightly better at 45. We are still holding aspirin and Effient due to this. Vitals/I&O/Wt Last Vital Signs Temp 97.2 F L 06/03/24 04:00 Pulse 66 06/03/24 09:01 Resp 20 H 06/03/24 09:01 BP 144/47 06/03/24 09:01 Pulse Ox 94 06/03/24 08:01 O2 Del Method Room Air 06/03/24 07:00 O2 Flow Rate 2 05/31/24 06:00 06/02/24 06/03/24 06/03/24 22:59 06:59 14:59 Intake Total 3139 / 3639 240 / 240 Output Total 2583 / 2583 100 / 2683 Balance 556 / 1056 -100 / 956 240 / 240 Weight last 48 hrs Weight 167 lb 8.821 oz Weight 177 lb 7.554 oz Weight 169 lb 12.095 oz Weight 169 lb 12.095 oz Physical Exam 2 Narrative: General: No apparent distress, healthy appearing, well nourished HENMT: normoceophalic Muskuloskeletal: Full ROM Lymphatic: no lymphedema noted Respiratory: Normal respiratory effort, clear to auscultation bilaterally throughout all lung donis, no use of accessory muscles Cardio: No JVD, regular rate, regular rhythm, S1 S2 normal, no murmurs, peripheral pulses 2+ radial palpated bilaterally GI: Normal to inspection, nondistended Extremities: Full ROM, normal, normal capillary refill, no cyanosis, no edema Neuro: Alert and oriented x4, no focal motor deficits Psych: Affect normal, denies suicidal ideation, mental status grossly normal Skin: No rashes or lesions noted, no wounds Urinary Catheter Management: Velez: Cath Placed During This Visit: yes Reason for Continuing Indwelling Catheter: Accurate Measurement of Urinary Output in Critically Ill Patients Urinary Catheter Date of Insertion: 05/26/24 Data 06/03/24 05:14 06/03/24 05:14 A&P Assessment and plan (1) NSTEMI (non-ST elevated myocardial infarction): (2) Antiplatelet or antithrombotic long-term use: (3) Hyperlipidemia: Qualifiers: Hyperlipidemia type: unspecified Qualified Code(s): E78.5 - Hyperlipidemia, unspecified (4) Hyperlipemia, mixed: (5) Thrombocytopenia: (6) Anemia: Plan Patient was noted to have thrombocytopenia and anemia. HIT panel has been sent out. Antiplatelet therapy on hold as patient's platelets are still low at 45. He is awaiting a bed at [place]. Biopsy result has still not returned. [place] is getting [place] [address], but creat still elevated at 5.5. Will continue metoprolol and Amlodipine for bp control. PDMP PDMP Reviewed: Not Reviewed Attestations 2 Medical Necessity Statement*: Deferred to primary care team. Coding Level of Care Code Acute Code for [facility] Diagnoses NSTEMI (non-ST elevated myocardial infarction) I21.4 Antiplatelet or antithrombotic long-term use Z79.02 Hyperlipidemia, unspecified hyperlipidemia type E78.5 Hyperlipidemia type: unspecified Hyperlipemia, mixed E78.2 Thrombocytopenia D69.6 Anemia D64.9
[2024-06-03 11:08] LABS: Reflex FDPQ test REFLEX FDP QUEST TES
[2024-06-03 11:15] LABS: Basophils % 0.1 %; Eosinophils % 0.1 %; Hematocrit 25.3 % (37-53); Lymphocytes # 0.4 10^3/uL (0.8-4.8); Lymphocytes % 5.5 %; Mean Corpuscular HGB Conc 34.8 g/dL (30-55); Mean Corpuscular Hemoglobin 30.2 pg (27-33); Mean Corpuscular Volume 86.9 fl (82-101); Mean Platelet Volume 10.8 fL (7.4-10.4); Monocytes # 0.7 10^3/uL (0.2-0.9); Monocytes % 10.1 %; Neutrophils # 5.85 10^3/uL (1.8-7.7); Neutrophils % 83.3 %; Nucleated Red Blood Cells % 0 %; Platelet Count 44 10^3/cmm (157-399); Red Blood Count 2.91 10^6/uL (3.85-5.65); Red Cell Distribution Width 13.2 % (12.1-15.1); Reticulocyte % 0.4 % (0.5-2.0); White Blood Count 7.03 10^3/uL (3.29-11.43)
[2024-06-03 11:28] LABS: Fibrinogen 201 mg/dL (174-498); Partial Thromboplastin Time 26.8 SECONDS (23.9-36.7)
[2024-06-03 11:31] LABS: D Dimer 1.58 ug/mLFEU (0-0.59)
[2024-06-03 11:47] LABS: Lactate Dehydrogenase 1438 U/L (135-225)
[2024-06-03 12:09] LABS: Troponin T (5th) Once 2077 ng/L (0-15)
[2024-06-03 12:14] LABS: LAB Peripheral Smear Sent for Review
[2024-06-03 13:49] LABS: Ferritin 637 ng/mL (30-400)
[2024-06-03] MEDS: FUROsemide 10 mg/mL SDV 10mL 60 MG IVP (17:16)
--- NOTE | 2024-06-03 17:46 | P.PN_ITS ---
Subjective 2 Subjective: - Patient was seen this morning -Reports feeling fatigue, malaise, no fe vers, chills, no cough, no chest pain does report generalized weakness but more weakness in his lower extremities can move them, but has muscle aches and pain in his lower extremities and some in his upper extremity -Denies any recent ill contacts, no rece nt travel -Discussed his rhabdomyolysis, CK is imp roved to 18,000, troponin 2077 but no chest pain complaints, creatinine 5.5, has good urine output, BUN 89, no plans on dialysis today -Hemoglobin improved to 8.8, platelet co unt improved to 44,000 -Denies any bloody or black stools, no b leeding issues, no headache, blurry vision -Discussed CT scan findings no abdominal pain or back pain, does have swelling over left groin site -Patient is frustrated about being on a waiting list for [facility], discussed trying other hospitals for transfer he is agreeable to try [facility] in [place] and potentially [facility] -Discussed continue to monitor his hemog lobin, his platelet count transfusions if necessary -Redrew his haptoglobin is 166, LDH is 1 438, ferritin 637, bili 0.6, reticulocyte count 0.4 ordered peripheral smear -Spoke to [facility], I spoke to the transfer center, they have a 2-day wait, -Spoke to [facility], they are not accepting any transfers they have hold -Spoke to [facility] patient can be downgraded to meds surge status, -Spoke to hematology oncology here at [facility], discussed case in detail, recommended transfer to tertiary level center for hematology oncology evaluation Vitals/I&O/Wt Last Vital Signs Temp 98.2 F 06/03/24 10:00 Pulse 70 06/03/24 16:30 Resp 18 06/03/24 16:00 BP 137/55 06/03/24 16:30 Pulse Ox 92 06/03/24 15:30 O2 Del Method Room Air 06/03/24 07:00 O2 Flow Rate 2 05/31/24 06:00 06/03/24 06/03/24 06/03/24 06:59 14:59 22:59 Intake Total 480 / 480 Output Total 100 / 2683 Balance -100 / 956 480 / 480 Weight last 48 hrs Weight 76 kg Weight 80.5 kg Weight 77 kg Weight 77 kg Physical Exam 2 Const: COMMON NORMALS: no acute distress and patient oriented x3 Resp: COMMON NORMALS: normal respiratory effort, No retractions, No use of accessory muscles and clear to auscultation bilaterally AUSCULTATION: clear to auscultation bilaterally Cardio: COMMON NORMALS: regular rate, regular rhythm, S1 normal heart sound present and S2 normal heart sound present RATE: regular rate RHYTHM: r egular rhythm HEART SOUNDS: S1 normal heart sound present and S2 normal heart sound present GI: COMMON NORMALS: Normal to inspection, nondistended, normoactive bowel sounds present and non-tender Extremity: COMMON NORMALS: no pedal edema NARRATIVE EXTREMITY EXAM: Has strength in bilateral lower extremities, equal bilaterally however strength is diminished, 3 out of 5 Neuro: COMMON NORMALS: patient oriented x3 Psych: COMMON NORMALS: mental status grossly normal Urinary Catheter Management: Velez: Cath Placed During This Visit: yes Reason for Continuing Indwelling Catheter: Accurate Measurement of Urinary Output in Critically Ill Patients Urinary Catheter Date of Insertion: 05/26/24 Data 06/03/24 17:12 06/03/24 05:14 A&P Assessment and plan (1) Acute renal failure: Qualifiers: Acute renal failure type: unspecified Qualified Code(s): N17.9 - Acute kidney failure, unspecified (2) Type 1 diabetes: Qualifiers: Diabetes mellitus complication detail: with other circulatory complications Diabetes mellitus complication status: with circulatory complication Qualified Code(s): E10.59 - Type 1 diabetes mellitus with other circulatory complications (3) Hyperlipemia, mixed: (4) Rhabdomyolysis: CK 50,000 troponin 2000 on admission CK now 26,000 (5) NSTEMI (non-ST elevated myocardial infarction): (6) Leg weakness, bilateral: (7) Elevated CPK: (8) Thrombocytopenia: (9) Anemia: Plan Rhabdomyolysis -CPK over 58,000, now down to 18 268 -Concerns for statin induced myopathy -Creatinine up to 5.5 -Monitor CPK -Patient complains of bilateral lower extremity weakness, pain Acute anemia, hemoglobin down to 7.2 currently 8.8 -Etiology unclear, possible TTP or HUS? -LDH elevated 14 3 8, however haptoglobin 166, retake count 0.4 ? Ferritin 637 ? INR within normal limits, fibrinogen within normal limits ? [place]es T13 pending ? Peripheral smear pending ? Eosinophils within normal limits -Patient potentially might require bone marrow biopsy Acute thrombocytopenia -Platelet count down to 22,000 now up to 44,000 -Etiology unclear -No splenomegaly -possible TTP or HUS? -Could be from uremia -Testing pedning -s/p high dose steroids -Has received Solu-Medrol 250 mg every 12 hours starting from May 27 to June 02 Bilateral extremity weakness, pain -Possible statin induced myopathy -Status post muscle biopsy, results pending -polymyositis antibodies pending NSTEMI -status post cardiac stent -aspirin, statin, effient on hold -no chest pain complaints Acute renal failure -Etiology multifactorial -Component related to rhabdomyolysis -Workup so far pending such as antibodies -Patient will likely need a renal biopsy at some point -Status post dialysis catheter placement, -Urine output 1000 cc today -possible PSGN?, ordered blood cultures, throught culture, anti-streptolysin O Evidence of blood products the left inguinal anterolateral pelvic region, minimal left lower pelvic retroperitoneal hematoma On CT imaging CT/CT abdomen pelvis wo con [id number] IMPRESSION: 1. Hyperdense infiltrating blood products left inguinal and anterolateral pelvic region soft tissues, difficult to quantitate. The etiology is indeterminate. Duplex sonography of the left common femoral vessels might be helpful. 2. Minimal left lower pelvic retroperitoneal hematoma. -Hemodynamic stable -Off blood thinners -Monitor hemoglobin closely Type 1 diabetes Has insulin pump in place full code scd for dvt prophylaxis waiting on beds at [facility] [facility] for multidisciplinary team inpatient hematology, PDMP PDMP Reviewed: Not Reviewed Attestations 2 Medical Necessity Statement*: Patient requires hospitalization for acute renal failure, acute anemia, acute thrombocytopenia, rhabdomyolysis, NSTEMI Diagnoses Acute renal failure, unspecified acute renal failure type N17.9 Acute renal failure type: unspecified 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
[2024-06-03 18:02] LABS: Eosinophils % 0.3 %; Hematocrit 26.3 % (37-53); Lymphocytes # 0.6 10^3/uL (0.8-4.8); Lymphocytes % 8.5 %; Mean Corpuscular HGB Conc 35.4 g/dL (30-55); Mean Corpuscular Hemoglobin 30.3 pg (27-33); Mean Corpuscular Volume 85.7 fl (82-101); Mean Platelet Volume 11.2 fL (7.4-10.4); Monocytes # 0.6 10^3/uL (0.2-0.9); Neutrophils # 5.64 10^3/uL (1.8-7.7); Neutrophils % 81.5 %; Nucleated Red Blood Cells % 0 %; Platelet Count 46 10^3/cmm (157-399); Red Blood Count 3.07 10^6/uL (3.85-5.65); Red Cell Distribution Width 13.3 % (12.1-15.1); White Blood Count 6.92 10^3/uL (3.29-11.43)
[2024-06-03 18:38] LABS: Creatine Phosphokinase 15612 U/L (39-308)
[2024-06-03 18:46] LABS: Rapid Strep A Test Negative (Negative)
[2024-06-03] MEDS: predniSONE 20 mg Tablet 40 MG PO (19:44)
[2024-06-03] MEDS: temazepam 15 mg Capsule PO (21:16)
[2024-06-03 22:45] LABS: Glucose Point of Care 191 mg/dL (70-110)
[2024-06-04] VITALS (37 sets, daily range): BP systolic 118–155; BP diastolic 40–68; PULSE 59–86; RESP 13–22; TEMP 36.3–37; O2SAT 90–100; BMI 30.2
[2024-06-04 04:08] LABS: Basophils % 0.1 %; Hematocrit 27.1 % (37-53); Lymphocytes # 0.2 10^3/uL (0.8-4.8); Lymphocytes % 2.6 %; Mean Corpuscular HGB Conc 35.1 g/dL (30-55); Mean Corpuscular Hemoglobin 30.2 pg (27-33); Mean Platelet Volume 11.3 fL (7.4-10.4); Monocytes # 0.3 10^3/uL (0.2-0.9); Monocytes % 3.2 %; Neutrophils # 7.73 10^3/uL (1.8-7.7); Neutrophils % 92.9 %; Nucleated Red Blood Cells % 0 %; Platelet Count 59 10^3/cmm (157-399); Red Blood Count 3.15 10^6/uL (3.85-5.65); Red Cell Distribution Width 13.2 % (12.1-15.1); White Blood Count 8.33 10^3/uL (3.29-11.43)
[2024-06-04 04:26] LABS: Alanine Aminotransferase 237 U/L (0-41); Albumin Level 2.7 g/dL (3.5-5.2); Alkaline Phosphatase 76 U/L (40-130); Aspartate Amino Transferase 172 U/L (0-40); Carbon Dioxide 21 mmol/L (22-29); Chloride 96 mmol/L (98-107); Creatinine Clr Calc Pharmacy 11.9519; Globulin 2.6 g/dL (1.3-4.6); Glomerular Filtration Rate 9.2 mL/min (90-130); Glucose 74 mg/dL (65-115); Magnesium 2.2 mg/dL (1.7-2.3); Osmolality Calculated 312 mOsm/kg (285-295); Phosphorus 7.3 mg/dL (2.5-4.5); Sodium 135 mmol/L (136-145); Total Bilirubin 0.4 mg/dL (0.15-1.2); Total Protein 5.3 g/dL (6.6-8.7)
[2024-06-04 04:57] LABS: Blood Urea Nitrogen 105 mg/dL (6-20)
[2024-06-04 04:58] LABS: Creatine Phosphokinase 14227 U/L (39-308)
[2024-06-04] MEDS: FUROsemide 10 mg/mL SDV 10mL 60 MG IVP (06:06)
--- NOTE | 2024-06-04 08:18 | PM.PN ---
Subjective Subjective: feels better. upset about clinical condition. no n/v/f/c/aguilar/cp/d. dec Medications: Reviewed: Yes Medication Review Details: Current Medications Amlodipine Besylate (Amlodipine 5 Mg Tablet) 5 mg PO BID [facility] Last Admin: 06/03/24 17:17 Dose: 5 mg Epinephrine HCl (Epinephrine 0.1 Mg/Ml Syr 10 Ml) 1 mg IVP ONCE PRN PRN Reason: IVIG Protocol Famotidine (Famotidine 20 Mg Tablet) 20 mg PO BID [facility] Last Admin: 06/03/24 17:17 Dose: 20 mg Folic Acid (Folic Acid 1 Mg Tablet) 1 mg PO DAILY [facility] Last Admin: 06/03/24 08:45 Dose: 1 mg Furosemide (Furosemide 10 Mg/Ml Sdv 10ml) 60 mg IVP Q12H [facility] Last Admin: 06/04/24 06:06 Dose: 60 mg Glucagon (Glucagon 1 Mg/Ml Kit 1 Ml) 1 mg IM ONCE PRN; Protocol PRN Reason: Adult Acute Hypoglycemia Nursing Prot. Dextrose (D5w) 500 mls @ 0 mls/hr IV ONCE PRN; Protocol PRN Reason: Adult Acute Hypoglycemia Prot Dextrose (D10w) 125 mls @ 750 mls/hr IV PRN PRN; Protocol PRN Reason: Adult Acute Hypoglycemia Nursing Protocol Dextrose (D10w) 250 mls @ 1,000 mls/hr IV PRN PRN; Protocol PRN Reason: Adult Acute Hypoglycemia Nursing Protocol Sodium Chloride (Sodium Chloride 0.9%) 1,000 mls @ 0 mls/hr IV .Q0M PRN PRN Reason: hypotension or symptomatic Sodium Chloride (Sodium Chloride 0.9%) 1,000 mls @ 0 mls/hr IV .Q0M PRN PRN Reason: hypotension or symptomatic Albumin Human (Albumin) 12.5 gm in 50 mls @ 60 mls/hr IV PRN PRN PRN Reason: Hypotension and/or symptomatic Metoclopramide HCl (Metoclopramide 5 Mg/Ml Sdv 2 Ml) 5 mg IVP Q6H PRN PRN Reason: NAUSEA AND VOMITING Last Admin: 05/31/24 12:27 Dose: 5 mg Metoprolol Succinate (Metoprolol Succinate Er (24 Hr) 25 Mg Tablet) 12.5 mg PO DAILY [facility] Last Admin: 06/03/24 08:45 Dose: 12.5 mg Ondansetron HCl (Ondansetron 2 Mg/Ml Sdv 2 Ml) 4 mg IVP Q6H PRN PRN Reason: NAUSEA AND VOMITING Last Admin: 05/27/24 10:18 Dose: 4 mg Oxycodone/Acetaminophen (Oxycodone-Apap 5-325 Mg Tablet) 1 tab PO Q8H PRN PRN Reason: MODERATE PAIN Last Admin: 05/30/24 23:35 Dose: 1 tab Pantoprazole Sodium (Pantoprazole 40 Mg Sdv) 40 mg IVP DAILY [facility] Last Admin: 06/03/24 08:44 Dose: 40 mg Polyethylene Glycol (Polyethylene Glycol 3350 Pkt 17 Gm) 17 gm PO BID [facility] Last Admin: 05/31/24 08:33 Dose: 17 gm Prednisone (Prednisone 20 Mg Tablet) 40 mg PO DAILY [facility] Last Admin: 06/03/24 19:44 Dose: 40 mg Simethicone (Simethicone 80 Mg Chew) 80 mg PO QID PRN PRN Reason: Gas Pain Last Admin: 05/31/24 12:26 Dose: 80 mg Temazepam (Temazepam 15 Mg Capsule) 15 mg PO BEDTIME PRN PRN Reason: INSOMNIA Last Admin: 06/03/24 21:16 Dose: 15 mg Vitals/I&O/Wt Last Vital Signs Temp 98.6 F 06/04/24 04:00 Pulse 73 06/04/24 06:00 Resp 15 06/04/24 06:00 BP 143/64 06/04/24 06:00 Pulse Ox 97 06/04/24 06:00 O2 Del Method Room Air 06/04/24 06:00 O2 Flow Rate 2 05/31/24 06:00 06/03/24 06/04/24 06/04/24 22:59 06:59 14:59 Intake Total 720 / 1200 Output Total 225 / 225 Balance 720 / 1200 -225 / 975 Weight last 48 hrs Weight 77.5 kg Weight 76 kg Weight 80.5 kg Physical Exam Narrative: comfortable in bed, NARD on room air VS noted heent- nc/at, eomi neck no jvp lungs clear heart regular + s1, s2 abdomen soft + bs ext -1+ b/l leg edema, weak legs, but he can move all extremities + ecchymosis + femoral dialysis catheter Urinary Catheter Management: Velez: Cath Placed During This Visit: yes Reason for Continuing Indwelling Catheter: Accurate Measurement of Urinary Output in Critically Ill Patients Urinary Catheter Date of Insertion: 05/26/24 Data 06/04/24 03:29 06/04/24 03:29 Micro: Microbiology 06/03/24 17:12 Blood Culture - Preliminary Blood SPECIMEN COLLECTED 06/03/24 17:43 Blood Culture - Preliminary Blood SPECIMEN COLLECTED A&P Assessment and plan (1) Acute renal failure: 58 yr old man with past medical history significant for coronary artery disease, understanding, on statin presented to the hospital due to acute kidney injury and found to have rhabdomyolysis 1. ELENO- working dx isrhabdomyolysis. Q if a TMA/ HUS- however haptaglobin is high. bili not elevated -s/p HD x 3 -repeat HD today -after today, if does not recover renal fxn, will need a permacath soon- [place] [id number] 3. anemia and thrombopenia- hgb and plts are improving - f/u ldh, retic count -normal haptaglobin of [address] abd pelvis on 06-02-24- 1. Hyperdense infiltrating blood products left inguinal and anterolateral pelvic region soft tissues, difficult to quantitate. The etiology is indeterminate. Duplex sonography of the left common femoral vessels might be helpful. 2. Minimal left lower pelvic retroperitoneal hematoma. 3. Prior cholecystectomy. 4. Mild right subdiaphragmatic ascites. 5. Previous proximal gastric sleeve surgery. 6. Large dependent right pleural effusion, new. 7. Moderate dependent left pleural effusion, new. 8. [place] coronary atherosclerosis status post coronary artery grafting. 9. Posterior right lung base partial atelectasis/consolidation. Pneumonia is difficult to exclude. Clinical correlation is recommended. meds reviewed discussed w/ pt pt consents to HD as needed -seen and examined w/ RN- telehealth visit. agree with transfer to a tertiary center- consider renal biopsy Qualifiers: Acute renal failure type: unspecified Qualified Code(s): N17.9 - Acute kidney failure, unspecified Plan see above. PDMP PDMP Reviewed: Not Reviewed Attestations Medical Necessity Statement*: eleno, rhabdomyolysis, weak Time Spent in Patient Care: 16 - 35 minutes (>than 50% of time spent in counselling and/or direct pt care on unit). Coding Level of Care Code Acute Code for Chg Fwd Diagnoses Acute renal failure, unspecified acute renal failure type N17.9 Acute renal failure type: unspecified
[2024-06-04 08:30] LABS: Glucose Point of Care 134 mg/dL (70-110)
[2024-06-04] MEDS: folic acid 1 mg Tablet PO (08:35)
[2024-06-04] MEDS: famotidine 20 mg Tablet PO ×2 (08:35→17:09)
[2024-06-04] MEDS: pantoprazole 40 mg SDV IVP (08:35)
[2024-06-04] MEDS: metoprolol succinate ER (24 HR) 25 mg Tablet 12.5 MG PO (08:35)
[2024-06-04] MEDS: predniSONE 20 mg Tablet 40 MG PO (08:35)
[2024-06-04] MEDS: amlodipine 5 mg Tablet PO (08:35)
[2024-06-04] MEDS: aspirin 81 mg EC Tablet PO (12:05)
[2024-06-04 12:10] LABS: CK-MB (CK-2) 150.1 ng/mL (0-5.0)
--- NOTE | 2024-06-04 13:15 | PC.OT ---
OT services withheld this date. Patient is on dialysis.
--- NOTE | 2024-06-04 15:04 | P.PN_ITS ---
<Statement entered by Luis Armando Barron M.D - 06/04/24 23:56> Patient was evaluated and cared for in conjunction with an advanced practice practitioner. I personally examined the patient and reviewed the chart and all pertinent data including imaging, telemetry, and laboratory results. I discussed the patient in detail with the advanced practice practitioner. Please see their note for complete progress note, results and agreed upon plan of care for the patient. Patient feeling better. Currently getting dialysis. Muscle biopsy result is pending. Patient has a pending transfer to [facility]. No chest pain Secondary to thrombocytopenia dapt was held. We have restarted aspirin. Will resume plavix or effient if platelets continue to improve. GENERAL: Patient is alert and oriented HEART: Regular S1 and S2 LUNGS: Clear to auscultation bilaterally EXTREMITIES: Lower extremities with no edema Subjective 2 Subjective: Patient doing about the same today. Platelets have come up to 59. He is getting dialysis today. CK slowly coming down at 14, 227. Denies any chest pain. Vitals/I&O/Wt Last Vital Signs Temp 98.1 F 06/04/24 11:55 Pulse 70 06/04/24 14:00 Resp 13 06/04/24 14:00 BP 118/62 06/04/24 14:00 Pulse Ox 96 06/04/24 14:00 O2 Del Method Room Air 06/04/24 14:00 O2 Flow Rate 2 05/31/24 06:00 06/04/24 06/04/24 06/04/24 06:59 14:59 22:59 Intake Total 240 / 240 Output Total 225 / 225 Balance -225 / 975 240 / 240 Weight last 48 hrs Weight 170 lb 13.732 oz Weight 167 lb 8.821 oz Weight 177 lb 7.554 oz Physical Exam 2 Narrative: General: No apparent distress, healthy appearing, well nourished HENMT: normoceophalic Muskuloskeletal: Full ROM Lymphatic: no lymphedema noted Respiratory: Normal respiratory effort, clear to auscultation bilaterally throughout all lung donis, no use of accessory muscles Cardio: No JVD, regular rate, regular rhythm, S1 S2 normal, no murmurs, peripheral pulses 2+ radial palpated bilaterally GI: Normal to inspection, nondistended Extremities: Full ROM, normal, normal capillary refill, no cyanosis, no edema Neuro: Alert and oriented x4, no focal motor deficits Skin: No rashes or lesions noted, no wounds Urinary Catheter Management: Velez: Cath Placed During This Visit: yes Reason for Continuing Indwelling Catheter: Accurate Measurement of Urinary Output in Critically Ill Patients Urinary Catheter Date of Insertion: 05/26/24 Data 06/04/24 03:29 06/04/24 03:29 Micro: Microbiology 06/03/24 18:16 Group A Streptococcus Rapid Screen - Preliminary Throat 06/03/24 17:12 Blood Culture - Preliminary Blood SPECIMEN COLLECTED 06/03/24 17:43 Blood Culture - Preliminary Blood SPECIMEN COLLECTED A&P Assessment and plan (1) NSTEMI (non-ST elevated myocardial infarction): (2) Antiplatelet or antithrombotic long-term use: (3) Hyperlipidemia: Qualifiers: Hyperlipidemia type: unspecified Qualified Code(s): E78.5 - Hyperlipidemia, unspecified (4) Hyperlipemia, mixed: (5) Thrombocytopenia: (6) Anemia: Plan Patient was noted to have thrombocytopenia and anemia. HIT panel has been sent out. Antiplatelet therapy will be restarted starting with aspirin. If platelets recover, we may start effient tomorrow as patient has had recent stent. He is awaiting a bed at [place]. Biopsy result has still not returned. He is getting dialysis. CK slowly coming down. Will continue metoprolol and Amlodipine for bp control. PDMP PDMP Reviewed: Not Reviewed Attestations 2 Medical Necessity Statement*: Deferred to primary. Coding Level of Care Code Acute Code for [facility] Diagnoses NSTEMI (non-ST elevated myocardial infarction) I21.4 Antiplatelet or antithrombotic long-term use Z79.02 Hyperlipidemia, unspecified hyperlipidemia type E78.5 Hyperlipidemia type: unspecified Hyperlipemia, mixed E78.2 Thrombocytopenia D69.6 Anemia D64.9
[2024-06-04 15:42] LABS: LAB Peripheral Smear Sent for Review
--- NOTE | 2024-06-04 15:48 | PC.NURSE ---
Report was called to DILCIA Charles in [facility]. Patient was transferred with all their belongings. Patient was stable during transfer.
[2024-06-04 15:49] LABS: Myositis EJ AB <11 SI (<11); Myositis JO-1 AB <11 SI (<11); Myositis MDA-5 AB <11 SI (<11); Myositis MI-2 Alpha AB <11 SI (<11); Myositis MI-2 Beta AB <11 SI (<11); Myositis NXP-2AB <11 SI (<11); Myositis OJ AB <11 SI (<11); Myositis PL-12 AB <11 SI (<11); Myositis PL-7 AB <11 SI (<11); Myositis SRP AB <11 SI (<11); Myositis TIF-1y AB <11 SI (<11)
--- NOTE | 2024-06-04 16:10 | P.PN_ITS ---
Subjective 2 Subjective: Patient was seen this morning, denies any fevers, chills, cough, no abdominal pain,, his lower extremity weakness is improving, continues to have intermittent pain, no calf pain, no calf swelling, -Spoke to [facility], patient remains on wait list -[facility] -Spoke to pathology, reviewed slide, no significant evidence of hemolysis on peripheral smear Vitals/I&O/Wt Last Vital Signs Temp 98.1 F 06/04/24 15:47 Pulse 67 06/04/24 15:47 Resp 13 06/04/24 15:47 BP 131/64 06/04/24 15:47 Pulse Ox 96 06/04/24 14:00 O2 Del Method Room Air 06/04/24 14:00 O2 Flow Rate 2 05/31/24 06:00 06/04/24 06/04/24 06/04/24 06:59 14:59 22:59 Intake Total 240 / 240 800 / 1040 Output Total 225 / 225 2300 / 2300 Balance -225 / 975 240 / 240 -1500 / -1260 Weight last 48 hrs Weight 78 kg Weight 77.5 kg Weight 76 kg Weight 80.5 kg Physical Exam 2 Const: COMMON NORMALS: no acute distress and patient oriented x3 Resp: COMMON NORMALS: normal respiratory effort, No retractions, No use of accessory muscles and clear to auscultation bilaterally AUSCULTATION: clear to auscultation bilaterally Cardio: COMMON NORMALS: regular rate, regular rhythm, S1 normal heart sound present and S2 normal heart sound present RATE: regular rate RHYTHM: r egular rhythm HEART SOUNDS: S1 normal heart sound present and S2 normal heart sound present GI: COMMON NORMALS: Normal to inspection, nondistended, normoactive bowel sounds present and non-tender Extremity: COMMON NORMALS: no pedal edema Neuro: COMMON NORMALS: patient oriented x3 Psych: COMMON NORMALS: mental status grossly normal Urinary Catheter Management: Velez: Cath Placed During This Visit: yes Reason for Continuing Indwelling Catheter: Accurate Measurement of Urinary Output in Critically Ill Patients Urinary Catheter Date of Insertion: 05/26/24 Data 06/04/24 03:29 06/04/24 03:29 Micro: Microbiology 06/03/24 18:16 Group A Streptococcus Rapid Screen - Preliminary Throat 06/03/24 17:12 Blood Culture - Preliminary Blood SPECIMEN COLLECTED 06/03/24 17:43 Blood Culture - Preliminary Blood SPECIMEN COLLECTED A&P Assessment and plan (1) Acute renal failure: Qualifiers: Acute renal failure type: unspecified Qualified Code(s): N17.9 - Acute kidney failure, unspecified (2) Type 1 diabetes: Qualifiers: Diabetes mellitus complication status: with circulatory complication D iabetes mellitus complication detail: with other circulatory complications Q ualified Code(s): E10.59 - Type 1 diabetes mellitus with other circulatory complications (3) Hyperlipemia, mixed: (4) Rhabdomyolysis: CK 50,000 troponin 2000 on admission CK now 26,000 (5) NSTEMI (non-ST elevated myocardial infarction): (6) Leg weakness, bilateral: (7) Elevated CPK: (8) Thrombocytopenia: (9) Anemia: Plan Rhabdomyolysis -[place] 58,000[place] [address] -Concerns for statin induced myopathy -Creatinine up to 6.3 -Monitor CPK -Patient complains of bilateral lower extremity weakness, pain Acute anemia, hemoglobin down to 7.2 currently 9.5 -Etiology unclear -LDH elevated 14 3 8, however haptoglobin 166, retake count 0.4 ? Ferritin 637 -Peripheral smear no significant evidence of hemolysis, no schistocytes ? INR within normal limits, fibrinogen within normal limits ? [place] T13 pending ? Peripheral smear pending ? Eosinophils within normal limits -Patient potentially might require bone marrow biopsy Acute thrombocytopenia -Platelet count down to 22,000 now up to 44,000 -Etiology unclear -No splenomegaly -possible TTP or HUS? -Could be from uremia -s/p high dose steroids -Has received Solu-Medrol 250 mg every 12 hours starting from May 27 to June 02 Bilateral extremity weakness, pain -Possible statin induced myopathy -Status post muscle biopsy, results pending -Autobody testing pending s pending NSTEMI -status post cardiac stent - statin, effient on hold -Aspirin has been started -no chest pain complaints Acute renal failure -Etiology multifactorial -Component related to rhabdomyolysis -Workup so far pending such as antibodies -Patient will likely need a renal biopsy at some point -Status post dialysis catheter placement, -Urine output 1000 cc today -possible PSGN?, ordered blood cultures, throught culture, anti-streptolysin O Evidence of blood products the left inguinal anterolateral pelvic region, minimal left lower pelvic retroperitoneal hematoma On CT imaging CT/CT abdomen pelvis wo con [id number] IMPRESSION: 1. Hyperdense infiltrating blood products left inguinal and anterolateral pelvic region soft tissues, difficult to quantitate. The etiology is indeterminate. Duplex sonography of the left common femoral vessels might be helpful. 2. Minimal left lower pelvic retroperitoneal hematoma. -Hemodynamic stable -Off blood thinners -Monitor hemoglobin closely Type 1 diabetes Has insulin pump in place full code scd for dvt prophylaxis waiting on beds at [facility] or [facility] for multidisciplinary team inpatient hematology, Plan for today, nephrology consultation, dialysis, spoke to cardiology aspirin will be renewed, monitor CBC closely, telemetry monitoring, will moved to [facility] PDMP PDMP Reviewed: Not Reviewed Attestations 2 Medical Necessity Statement*: Patient requires hospitalization for acute renal failure, rhabdomyolysis, anemia, thrombocytopenia Diagnoses Acute renal failure, unspecified acute renal failure type N17.9 Acute renal failure type: unspecified Type 1 diabetes mellitus with other circulatory complication E10.59 Diabetes mellitus complication status: with circulatory complication Diabetes mellitus complication detail: with other circulatory complications Hyperlipemia, mixed E78.2 Rhabdomyolysis M62.82 NSTEMI (non-ST elevated myocardial infarction) I21.4 Leg weakness, bilateral R29.898 Elevated CPK R74.8 Thrombocytopenia D69.6 Anemia D64.9
[2024-06-04 16:40] LABS: Glucose Point of Care 75 mg/dL (70-110)
[2024-06-04 17:25] LABS: Beta 2 Glycoprotein IGA <2.0 U/mL; Beta 2 Glycoprotein IGG <2.0 U/mL; Beta 2 Glycoprotein IGM <2.0 U/mL; CARDIOLIPIN AB (IGA) <2.0 APL-U/mL; CARDIOLIPIN AB (IGG) <2.0 GPL-U/mL; CARDIOLIPIN AB (IGM) <2.0 MPL-U/mL
[2024-06-04 20:47] LABS: Glucose Point of Care 322 mg/dL (70-110)
[2024-06-04] MEDS: temazepam 15 mg Capsule PO (21:14)
[2024-06-05 04:16] VITALS: BP 130/70; PULSE 91; RESP 16; TEMP 36.6; O2SAT 93
[2024-06-05 06:00] VITALS: PULSE 59; BMI 30.2
[2024-06-05 06:04] LABS: Eosinophils % 0.6 %; Hematocrit 25.7 % (37-53); Lymphocytes # 0.5 10^3/uL (0.8-4.8); Lymphocytes % 7.3 %; Mean Corpuscular HGB Conc 34.2 g/dL (30-55); Mean Corpuscular Hemoglobin 29.9 pg (27-33); Mean Corpuscular Volume 87.4 fl (82-101); Mean Platelet Volume 11.1 fL (7.4-10.4); Monocytes # 0.8 10^3/uL (0.2-0.9); Monocytes % 11.1 %; Neutrophils # 5.79 10^3/uL (1.8-7.7); Neutrophils % 80.2 %; Nucleated Red Blood Cells % 0 %; Platelet Count 57 10^3/cmm (157-399); Red Blood Count 2.94 10^6/uL (3.85-5.65); Red Cell Distribution Width 13.3 % (12.1-15.1); White Blood Count 7.22 10^3/uL (3.29-11.43)
[2024-06-05 06:30] LABS: Glucose Point of Care 226 mg/dL (70-110)
[2024-06-05 06:42] LABS: Alanine Aminotransferase 203 U/L (0-41); Albumin Level 2.5 g/dL (3.5-5.2); Alkaline Phosphatase 68 U/L (40-130); Aspartate Amino Transferase 122 U/L (0-40); Calcium 7.2 mg/dL (8.5-10.5); Carbon Dioxide 22 mmol/L (22-29); Chloride 96 mmol/L (98-107); Globulin 2.5 g/dL (1.3-4.6); Glomerular Filtration Rate 12.1 mL/min (90-130); Glucose 197 mg/dL (65-115); Magnesium 2.2 mg/dL (1.7-2.3); Osmolality Calculated 311 mOsm/kg (285-295); Phosphorus 6.7 mg/dL (2.5-4.5); Sodium 135 mmol/L (136-145); Total Bilirubin 0.3 mg/dL (0.15-1.2)
[2024-06-05 07:08] LABS: Blood Urea Nitrogen 85 mg/dL (6-20); Creatine Phosphokinase 9164 U/L (39-308)
[2024-06-05 07:30] VITALS: BP 135/64; PULSE 62; RESP 18; TEMP 36.5; O2SAT 97
[2024-06-05] MEDS: famotidine 20 mg Tablet PO (08:59)
[2024-06-05] MEDS: pantoprazole 40 mg SDV IVP (08:59)
[2024-06-05] MEDS: amlodipine 5 mg Tablet PO (08:59)
[2024-06-05] MEDS: ondansetron 2 mg/ML SDV 2 mL 4 MG IVP (08:59)
[2024-06-05] MEDS: predniSONE 20 mg Tablet 40 MG PO (08:59)
[2024-06-05] MEDS: metoprolol succinate ER (24 HR) 25 mg Tablet 12.5 MG PO (08:59)
[2024-06-05] MEDS: aspirin 81 mg EC Tablet PO (09:00)
[2024-06-05] MEDS: folic acid 1 mg Tablet PO (09:00)
[2024-06-05 11:18] LABS: Glucose Point of Care 297 mg/dL (70-110)
[2024-06-05 11:25] VITALS: BP 130/67; PULSE 64; RESP 20; TEMP 36.7; O2SAT 99
--- NOTE | 2024-06-05 13:35 | P.TS_ITS ---
Transfer Summary Providers Date of Admission: 05/26/24 21:10 Date of Discharge/Transfer: 06/16/24 Attending Provider at Admission: Cj Gutirerez MD Attending Provider at Transfer: Richy Tinsley MD Primary Care Provider: Maria Walters MD Transfer Plans: Anticipated date of transfer: 06/16/24 . Diagnoses at Discharge Discharge Diagnosis (1) Acute renal failure: Status: Acute Qualifiers: Acute renal failure type: unspecified Qualified Code(s): N17.9 - Acute kidney failure, unspecified (2) Type 1 diabetes: Status: Acute Qualifiers: Diabetes mellitus complication detail: with other circulatory complications Diabetes mellitus complication status: with circulatory complic ation Qualified Code(s): E10.59 - Type 1 diabetes mellitus with other circulatory complications (3) Hyperlipemia, mixed: Status: Acute (4) Rhabdomyolysis: Status: Acute (5) NSTEMI (non-ST elevated myocardial infarction): Status: Acute (6) Leg weakness, bilateral: Status: Acute (7) Elevated CPK: Status: Acute (8) Thrombocytopenia: Status: Acute (9) Anemia: Status: Acute Reason for Visit Reason for Visit chest pressure & sob Hospital Course Hospital Course This is a 58-year-old male with a past medical history of CABG, recent stent, type 1 diabetes on insulin pump hypertension who presents to [facility] due to generalized weakness and fatigue, bilateral lower extremity weakness Patient was admitted to [facility] for rhabdomyolysis, with generalized weakness, lower extremity weakness, nephrology consulted, received inpatient dialysis, IV fluids. Concerns for statin induced myopathy, underwent muscle biopsy. He also received IVIG, Solu-Medrol. 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 Patient also had evidence of blood products of the left inguinal and anterior pelvic region, minimal left lower pelvic retroperitoneal hematoma, hemodynamically stable, hemoglobin/platelet count stabilized, medically managed. Physical Exam Const: COMMON NORMALS: no acute distress and patient oriented x3 Resp: COMMON NORMALS: normal respiratory effort, No retractions, No use of accessory muscles and clear to auscultation bilaterally AUSCULTATION: clear to auscultation bilaterally Cardio: COMMON NORMALS: regular rate, regular rhythm, S1 normal heart sound present and S2 normal heart sound present RATE: regular rate RHYTHM: regular rhythm HEART SOUNDS: S1 normal heart sound present and S2 normal heart sound present GI: COMMON NORMALS: Normal to inspection, nondistended, normoactive bowel sounds present, non-tender and no masses Extremity: COMMON NORMALS: no pedal edema Neuro: COMMON NORMALS: patient oriented x3 Psych: COMMON NORMALS: mental status grossly normal Urinary Catheter Management: Velez: Cath Placed During This Visit: yes Reason for Continuing Indwelling Catheter: Accurate Measurement of Urinary Output in Critically Ill Patients Urinary Catheter Date of Insertion: 05/26/24 TS Data Studies Completed and Pending Pending at discharge Category Date Time Status ABO/Rh Type Stat Lab 06/02/24 09:23 Results ADAMTS 13 Activity With Reflex Routine Lab 06/03/24 10:40 Received Acylcarnitine, Plasma Routine Lab 06/01/24 Received Anti-streptolysin O Stat Lab 06/03/24 17:43 Received Antiphospholipid Antibody Prather Routine Lab 05/26/24 22:39 Results Blood Culture Stat Lab 06/03/24 17:12 Results C.Diff PCR (Lab) Routine Lab 06/03/24 08:56 Ordered Carnitine Random Urine Routine Lab 06/01/24 11:55 Received Carnitine Routine Lab 06/01/24 Received Complete Crossmatch Stat Lab 06/02/24 09:23 Results Fibrinogen Degradation Product Routine Lab 06/03/24 11:08 Received HMGCR [HMGCR IgG Antibody] Routine Lab 06/01/24 12:23 Received Heparin Induced Thrombocytopen Stat Lab 06/02/24 15:30 Received Immunochemical Fecal OCB Routine Lab 06/03/24 08:56 Ordered Lactoferrin Routine Lab 06/03/24 08:56 Ordered Leukocyte Reduced RBC Stat Lab 06/02/24 09:23 Results Miscellaneous Test Routine Lab 06/01/24 11:55 Received OVA and Parasites, Conc and PE Routine Lab 06/03/24 08:56 Ordered Platelets Leuko-Reduced Stat Lab 06/02/24 09:23 Results Salmonella / Shigella / Campy Routine Lab 06/03/24 08:56 Ordered Type and Screen Stat Lab 06/02/24 09:23 Results Pathology: Surgical [PTH] Routine Pth 05/29/24 07:55 Received Completed Studies During Hospitalization Category Date Time Status CT abdomen pelvis wo con [id number] Routine Cat Scan 06/02/24 10:[address] kidney stone 47075 Stat Cat Scan 05/26/24 20:51 Completed CXRP [XR chest 1V portable [id number]] Routine Exams 05/27/24 14:13 Completed CXRP [XR chest 1V portable 06140] Stat Exams 05/27/24 13:24 Completed CXRP [XR chest 1V portable [id number]] Stat Exams 05/30/24 12:16 Completed XR chest 1V portable [id number] Stat Exams 05/26/24 20:15 [place] [id number] Stat Ultrasound 05/29/24 13:33 Completed CV. echo limited [id number] Routine Ultrasound 05/27/24 14:38 Completed Laboratory Last Values WBC 7.22 10^3/uL (3.29-11.43) 06/05/24 05:30 Corrected WBC Cancelled 06/02/24 04:51 RBC 2.94 10^6/uL (3.85-5.65) L 06/05/24 05:30 Hgb 8.80 g/dL (11.27-16.99) L 06/05/24 05:30 Hct 25.7 % (37-53) L 06/05/24 05:30 MCV 87.4 fl (82-101) 06/05/24 05:30 MCH 29.9 pg (27-33) 06/05/24 05:30 MCHC 34.2 g/dL (30-55) 06/05/24 05:30 RDW 13.3 % (12.1-15.1) 06/05/24 05:30 Plt Count 57 10^3/cmm (157-399) L 06/05/24 05:30 MPV 11.1 fL (7.4-10.4) H 06/05/24 05:30 Gran % Cancelled 06/02/24 04:51 Neut % (Auto) 80.2 % 06/05/24 05:30 Lymph % (Auto) 7.3 % 06/05/24 05:30 Cross % (Auto) 11.1 % 06/05/24 05:30 Eos % (Auto) 0.6 % 06/05/24 05:30 Baso % (Auto) 0.0 % 06/05/24 05:30 Reticulocyte % (Auto) 0.4 % (0.5-2.0) L 06/03/24 10:40 Neut # (Auto) 5.79 10^3/uL (1.8-7.7) 06/05/24 05:30 Lymph # (Auto) 0.5 10^3/uL (0.8-4.8) L 06/05/24 05:30 Cross # (Auto) 0.8 10^3/uL (0.2-0.9) 06/05/24 05:30 Eos # (Auto) 0.0 10^3/uL (0.0-0.8) 06/05/24 05:30 Baso # (Auto) 0.0 10^3/uL (0.0-0.1) 06/05/24 05:30 Absolute Gran (auto) Cancelled 06/02/24 04:51 Nucleated RBC % (auto) 0 % 06/05/24 05:30 Nucleated RBCs # 0.0 /100WBC 06/05/24 05:30 Peripher Smr Path Cons Sent for review 06/04/24 03:29 ESR 7 mm/hr (0-10) 06/01/24 12:23 Haptoglobin 166.0 mg/L (30-200) 06/03/24 10:40 PT 13.90 SECONDS (12.1-14.9) 06/03/24 10:40 INR 1.00 (0.8-1.2) 06/03/24 10:40 APTT 26.8 SECONDS (23.9-36.7) 06/03/24 10:40 Fibrinogen 201 mg/dL (174-498) 06/03/24 10:40 D-Dimer 1.58 ug/mLFEU (0-0.59) H 06/03/24 10:40 Specimen Type Arterial 05/30/24 09:01 Sample Site Brachial, left 05/30/24 09:01 ABG pH 7.36 (7.35-7.45) 05/30/24 09:01 ABG pCO2 41.5 mmHg (35-45) 05/30/24 09:01 ABG pO2 63.5 mmHg (80.0-100.0) L 05/30/24 09:01 ABG PO2/FiO2 Ratio 302 05/30/24 09:01 ABG HCO3 23.4 mmol/L (22-26) 05/30/24 09:01 ABG O2 Saturation 91.2 05/30/24 09:01 ABG Base Excess -2.0 mmol/L (-2.0-2.0) 05/30/24 09:01 Pepe Test Pos 05/30/24 09:01 A-a O2 Gradient 4.8 mmHg (5-10) L 05/30/24 09:01 Hematocrit 39.2 % (42-52) L 05/30/24 09:01 Hgb O2 Saturation 90.1 % (95-100) L 05/30/24 09:01 Carboxyhemoglobin 0.8 %THgb (0.4-20.1) 05/30/24 09:01 Methemoglobin 0.4 % (0.4-1.5) 05/30/24 09:01 Total Hemoglobin 12.8 g/dL (14-18) L 05/30/24 09:01 Sodium 132.0 mmol/L (131-143) 05/30/24 09:01 Potassium 4.8 mmol/L (3.5-5.0) 05/30/24 09:01 Glucose 139.0 mg/dL (70-115) H 05/30/24 09:01 Ionized Calcium 0.9 mmol/L (1.1-1.4) L 05/30/24 09:01 O2 Delivery Device Room air 05/30/24 09:01 FiO2 21.0 % 05/30/24 09:01 Roaster Operator ID Cak 05/30/24 09:01 Sodium 135 mmol/L (136-145) L 06/05/24 05:30 Potassium 5.0 mmol/L (3.5-5.1) 06/05/24 05:30 Chloride 96 mmol/L (98-107) L 06/05/24 05:30 Carbon Dioxide 22 mmol/L (22-29) 06/05/24 05:30 Anion Gap 22.0 (5-19) H 06/05/24 05:30 BUN 85 mg/dL (6-20) H* 06/05/24 05:30 Creatinine 5.0 mg/dL (0.7-1.2) H 06/05/24 05:30 GFR Calculation 12.1 mL/min (90-130) L 06/05/24 05:30 Glucose 197 mg/dL (65-115) H 06/05/24 05:30 POC Glucose 297 mg/dL (70-110) H 06/05/24 10:59 Calculated Osmolality 311 mOsm/kg (285-295) H 06/05/24 05:30 Calcium 7.2 mg/dL (8.5-10.5) L 06/05/24 05:30 Phosphorus 6.7 mg/dL (2.5-4.5) H 06/05/24 05:30 Magnesium 2.2 mg/dL (1.7-2.3) 06/05/24 05:30 Ferritin 637 ng/mL (30-400) H 06/03/24 10:40 Total Bilirubin 0.3 mg/dL (0.15-1.2) 06/05/24 05:30 AST 122 U/L (0-40) H 06/05/24 05:30 ALT 203 U/L (0-41) H 06/05/24 05:30 Alkaline Phosphatase 68 U/L (40-130) 06/05/24 05:30 Ammonia 34 umol/L (16-60) 06/01/24 12:23 Lactate Dehydrogenase 1438 U/L (135-225) H 06/03/24 10:40 Creatine Kinase 9164 U/L (39-308) H* 06/05/24 05:30 CK-MB (CK-2) Cancelled 06/03/24 10:40 CK-MB (CK-2) Rel Index Cancelled 06/03/24 10:40 CK and CKMB Interp 150.1 ng/mL (0-5.0) H 06/03/24 10:40 Troponin T 5th Gen ng/L 2077 ng/L (0-15) H* 06/03/24 10:40 Troponin T Baseline 2188 ng/L (0-15) H* 05/26/24 19:12 Troponin T 120 Minute 2101 ng/L (0-15) H 05/26/24 20:52 Delta Troponin T -87 ABS# (0-10) L 05/26/24 20:52 Troponin T Hi Sens 6Hr 2382 ng/L (0-15) H 05/27/24 03:20 Troponin T Hi Sens 6Hr Delta 194 ng/L (0-12) H* 05/27/24 03:20 C-Reactive Protein 3.0 mg/L (0.0-4.9) 06/01/24 12:23 NT-Pro-B Natriuret Pep 1518 pg/mL (0-125) H 05/26/24 19:12 Total Protein 5.0 g/dL (6.6-8.7) L 06/05/24 05:30 Albumin 2.5 g/dL (3.5-5.2) L 06/05/24 05:30 Globulin 2.5 g/dL (1.3-4.6) 06/05/24 05:30 [id number] 237 mg/dL (83-199) H 05/27/24 03:20 Aldolase 217.5 U/L (< OR = 8.1) H 05/27/24 15:08 TSH 2.41 uIU/mL (0.27-4.20) 05/27/24 15:08 Ur Random Sodium 102 mmol/L 05/30/24 10:10 Ur Random Potassium 12 mmol/L 05/30/24 10:10 Ur Random Chloride 86 mmol/L 05/30/24 10:10 Urine Creatinine 18 mg/dL (39-259) L 05/30/24 10:10 Urine Opiates Screen Negative ng/mL (Negative) 05/26/24 21:53 Ur Barbiturates Screen Negative ng/mL (Negative) 05/26/24 21:53 Ur Phencyclidine Scrn Negative ng/mL (Negative) 05/26/24 21:53 Ur Amphetamines Screen Negative ng/mL (Negative) 05/26/24 21:53 U Benzodiazepines Scrn Negative ng/mL (Negative) 05/26/24 21:53 Urine Cocaine Screen Negative ng/mL (Negative) 05/26/24 21:53 U Marijuana (THC) Screen Negative ng/mL (Negative) 05/26/24 21:53 Ethyl Alcohol < 10 mg/dL (0-10) 05/26/24 20:52 Serum Ketones Negative (Negative) 06/01/24 12:23 IgA 251 mg/dL (70-400) 05/27/24 17:06 Rheumatoid Factor 10.0 IU/mL (0-14) 05/26/24 19:12 LUIS ANTONIO Screen Positive (NEGATIVE) A 05/27/24 15:08 LUIS ANTONIO Titer 1:40 titer H 05/27/24 15:08 LUIS ANTONIO Pattern Nuclear, homogeneous A 05/27/24 15:08 ANCA Screen Negative (NEGATIVE) 05/27/24 03:20 ANCA Titer Not Reportable 05/27/24 03:20 Myeloperoxidase Ab <1.0 AI 05/27/24 03:20 KARLIE-1 Antibody <1.0 neg AI (<1.0 NEG) 05/27/24 15:08 KARLIE-1 Antibody <11 SI (<11) 05/27/24 15:08 EJ Antibody <11 SI (<11) 05/27/24 15:08 OJ Antibody <11 SI (<11) 05/27/24 15:08 Mi-2-Alpha Ab <11 SI (<11) 05/27/24 15:08 Mi-2-Beta Ab <11 SI (<11) 05/27/24 15:08 NXP-2 Ab <11 SI (<11) 05/27/24 15:08 PL-7 Antibody <11 SI (<11) 05/27/24 15:08 PL-12 Antibody <11 SI (<11) 05/27/24 15:08 SRP Ab <11 SI (<11) 05/27/24 15:08 MDA5 Ab <11 SI (<11) 05/27/24 15:08 Myositis TIF1-gamma Ab <11 SI (<11) 05/27/24 15:08 SS-A/Ro IgG Antibody <1.0 neg AI (<1.0 NEG) 05/27/24 15:08 SS-B/La IgG Antibody <1.0 neg AI (<1.0 NEG) 05/27/24 15:08 Sm (Day) Antibody <1.0 neg AI (<1.0 NEG) 05/27/24 03:20 Anti-nRNP/Sm IgG Ab <1.0 neg AI (<1.0 NEG) 05/27/24 15:08 Scl-70 Scleroderma Ab <1.0 neg AI (<1.0 NEG) 05/27/24 15:08 Anti-ds DNA IgG Ab <1 IU/mL 05/27/24 15:08 Anti-ds DNA IgG Ab <1 IU/mL 05/27/24 15:08 Beta-2-GPI IgG Ab <2.0 U/mL 05/27/24 03:20 Beta-2-GPI IgA Ab <2.0 U/mL 05/27/24 03:20 Beta-2-GPI IgM Ab <2.0 U/mL 05/27/24 03:20 Phosphatidylserine IgG <9 U (< OR = 30) 05/27/24 03:20 Phosphatidylserine IgM 12 U (< OR = 30) 05/27/24 03:20 Phospholipid Ab Comment See note 05/27/24 03:20 Anti-Cardiolipin IgG Ab <2.0 GPL-U/mL 05/27/24 03:20 Anti-Cardiolipin IgA Ab <2.0 APL-U/mL 05/27/24 03:20 Anti-Cardiolipin IgM Ab <2.0 MPL-U/mL 05/27/24 03:20 Adenovirus (PCR) Not detected (NOT DETECT) 06/01/24 16:45 C. pneumoniae DNA (PCR) Not detected (NOT DETECT) 06/01/24 16:45 Coronavirus 229E (PCR) Not detected (NOT DETECT) 06/01/24 16:45 Hep Bs Antigen Non-reactive (Nonreactive) 05/30/24 05:11 Hep Bs Antibody > 1000.0 (11.5-1000) H 05/30/24 05:11 Hepatitis C Antibody Non-reactive (Nonreactive) 05/30/24 05:11 HIV 1&2 Ab & HIV 1 Ag Non-reactive (Non-Reactiv) 05/26/24 19:12 HIV 1&2 Antibody Non-reactive (Non-Reactiv) 05/26/24 19:12 Human Metapneumovir PCR Not detected (NOT DETECT) 06/01/24 16:45 Influenza A (H1) PCR Not detected (NOT DETECT) 06/01/24 16:45 Influ A (H1/09) PCR Not detected (NOT DETECT) 06/01/24 16:45 Influenza A (H3) PCR Not detected (NOT DETECT) 06/01/24 16:45 Influenza Type A (PCR) Not detected (NOT DETECT) 06/01/24 16:45 Influenza Type B (PCR) Not detected (NOT DETECT) 06/01/24 16:45 M. pneumoniae (PCR) Not detected (NOT DETECT) 06/01/24 16:45 Parainfluenza 1 (PCR) Not detected (NOT DETECT) 06/01/24 16:45 Parainfluenza 2 (PCR) Not detected (NOT DETECT) 06/01/24 16:45 Parainfluenza 3 (PCR) Not detected (NOT DETECT) 06/01/24 16:45 Parainfluenza 4 (PCR) Not detected (NOT DETECT) 06/01/24 16:45 RSV Type A (PCR) Not detected (NOT DETECT) 06/01/24 16:45 RSV Type B (PCR) Not detected (NOT DETECT) 06/01/24 16:45 Entero/Rhino (PCR) Not detected (NOT DETECT) 06/01/24 16:45 SARS-CoV-2 (PCR) Not detected (NOT DETECT) 06/01/24 16:45 Group A Strep Rapid Negative (Negative) 06/03/24 18:16 Mitochondrial DNA Scrn Negative (NEGATIVE) 05/27/24 03:20 Blood Type AB Positive 06/02/24 09:23 Rho(D) Type Rh positive 06/02/24 09:23 Antibody Screen Negative 06/02/24 09:23 ALVINO, Poly Interpret Negative 06/02/24 06:55 Crossmatch See Detail 06/02/24 09:23 Radiology Impressions Chest X-Ray 05/30/24 12:16 IMPRESSION: CHF. A right sided pneumonia could be present. Abdomen/Pelvis CT 06/02/24 10:09 IMPRESSION: 1. Hyperdense infiltrating blood products left inguinal and anterolateral pelvic region soft tissues, difficult to quantitate. The etiology is indeterminate. Duplex sonography of the left common femoral vessels might be helpful. 2. Minimal left lower pelvic retroperitoneal hematoma. 3. Prior cholecystectomy. 4. Mild right subdiaphragmatic ascites. 5. Previous proximal gastric sleeve surgery. 6. Large dependent right pleural effusion, new. 7. Moderate dependent left pleural effusion, new. 8. Cahto coronary atherosclerosis status post coronary artery grafting. 9. Posterior right lung base partial atelectasis/consolidation. Pneumonia is difficult to exclude. Clinical correlation is recommended. Recent Clincial Data Last Vital Signs Temp 98.0 F 06/05/24 11:25 Pulse 64 06/05/24 11:25 Resp 20 H 06/05/24 11:25 BP 130/67 06/05/24 11:25 Pulse Ox 99 06/05/24 11:25 O2 Del Method Room Air 06/05/24 11:25 O2 Flow Rate 2 05/31/24 06:00 Vital Signs Temp Pulse Resp BP Pulse Ox O2 Del Method 06/05/24 11:25 98.0 F 64 20 H 130/67 99 Room Air 06/05/24 07:30 97.7 F 62 18 135/64 97 Room Air 06/05/24 06:00 59 L 06/05/24 04:27 Room Air 06/05/24 04:16 97.8 F 91 16 130/70 93 Intake & Output/Weight 06/03/24 06/04/24 06/05/24 06/06/24 06:59 06:59 06:59 06:59 Intake Total 3639 / 3639 1200 / 1200 1740 / 1740 720 / 720 Output Total 2683 / 2683 225 / 225 2500 / 2500 Balance 956 / 956 975 / 975 -760 / -760 720 / 720 Weight 76 kg 77.5 kg 77.564 kg Vitals Last Vital Signs Temp 98.0 F 06/05/24 11:25 Pulse 64 06/05/24 11:25 Resp 20 H 06/05/24 11:25 BP 130/67 06/05/24 11:25 Pulse Ox 99 06/05/24 11:25 O2 Del Method Room Air 06/05/24 11:25 O2 Flow Rate 2 05/31/24 06:00 TS Medications Medications Amlodipine Besylate (Amlodipine 5 Mg Tablet) 5 mg PO DAILY [facility] Last Admin: 06/05/24 08:59 Dose: 5 mg Aspirin (Aspirin 81 Mg Ec Tablet) 81 mg PO DAILY [facility] Last Admin: 06/05/24 09:00 Dose: 81 mg Famotidine (Famotidine 20 Mg Tablet) 20 mg PO BID [facility] Last Admin: 06/05/24 08:59 Dose: 20 mg Folic Acid (Folic Acid 1 Mg Tablet) 1 mg PO DAILY [facility] Last Admin: 06/05/24 09:00 Dose: 1 mg Glucagon (Glucagon 1 Mg/Ml Kit 1 Ml) 1 mg IM ONCE PRN; Protocol PRN Reason: Adult Acute Hypoglycemia Nursing Prot. Dextrose (D5w) 500 mls @ 0 mls/hr IV ONCE PRN; Protocol PRN Reason: Adult Acute Hypoglycemia Prot Dextrose (D10w) 125 mls @ 750 mls/hr IV PRN PRN; Protocol PRN Reason: Adult Acute Hypoglycemia Nursing Protocol Dextrose (D10w) 250 mls @ 1,000 mls/hr IV PRN PRN; Protocol PRN Reason: Adult Acute Hypoglycemia Nursing Protocol Albumin Human (Albumin) 12.5 gm in 50 mls @ 60 mls/hr IV PRN PRN PRN Reason: Hypotension and/or symptomatic Metoclopramide HCl (Metoclopramide 5 Mg/Ml Sdv 2 Ml) 5 mg IVP Q6H PRN PRN Reason: NAUSEA AND VOMITING Last Admin: 05/31/24 12:27 Dose: 5 mg Metoprolol Succinate (Metoprolol Succinate Er (24 Hr) 25 Mg Tablet) 12.5 mg PO DAILY [facility] Last Admin: 06/05/24 08:59 Dose: 12.5 mg Ondansetron HCl (Ondansetron 2 Mg/Ml Sdv 2 Ml) 4 mg IVP Q6H PRN PRN Reason: NAUSEA AND VOMITING Last Admin: 06/05/24 08:59 Dose: 4 mg Oxycodone/Acetaminophen (Oxycodone-Apap 5-325 Mg Tablet) 1 tab PO Q8H PRN PRN Reason: MODERATE PAIN Last Admin: 05/30/24 23:35 Dose: 1 tab Pantoprazole Sodium (Pantoprazole 40 Mg Sdv) 40 mg IVP DAILY [facility] Last Admin: 06/05/24 08:59 Dose: 40 mg Polyethylene Glycol (Polyethylene Glycol 3350 Pkt 17 Gm) 17 gm PO BID [facility] Last Admin: 05/31/24 08:33 Dose: 17 gm Prednisone (Prednisone 20 Mg Tablet) 40 mg PO DAILY [facility] Last Admin: 06/05/24 08:59 Dose: 40 mg Simethicone (Simethicone 80 Mg Chew) 80 mg PO QID PRN PRN Reason: Gas Pain Last Admin: 05/31/24 12:26 Dose: 80 mg Temazepam (Temazepam 15 Mg Capsule) 15 mg PO BEDTIME PRN PRN Reason: INSOMNIA Last Admin: 06/04/24 21:14 Dose: 15 mg Discontinued Medications Amlodipine Besylate (Amlodipine 5 Mg Tablet) 5 mg PO BID [facility] Last Admin: 06/03/24 17:17 Dose: 5 mg Aspirin (Aspirin 81 Mg Ec Tablet) 81 mg PO BEDTIME [facility] Last Admin: 06/01/24 20:53 Dose: 81 mg Bisacodyl (Bisacodyl 10 Mg Supp) 10 mg SC ONCE ONE Stop: 05/30/24 12:04 Last Admin: 05/30/24 12:40 Dose: 10 mg Dexmedetomidine HCl (Dexmedetomidine 200 Mcg/2 Ml Inj) Confirm Administered Dose 200 mcg .ROUTE .STK-MED ONE Stop: 05/29/24 06:55 Enoxaparin Sodium (Enoxaparin 30 Mg/0.3 Ml Syringe) 30 mg SUBCUT Q24H [facility] Last Admin: 05/31/24 12:05 Dose: 30 mg Epinephrine HCl (Epinephrine 0.1 Mg/Ml Syr 10 Ml) 1 mg IVP ONCE PRN PRN Reason: IVIG Protocol Furosemide (Furosemide 10 Mg/Ml Sdv 2ml) 20 mg IVP ONCE ONE Stop: 05/27/24 07:01 Last Admin: 05/27/24 06:06 Dose: 20 mg Furosemide (Furosemide 10 Mg/Ml Sdv 10ml) 60 mg IVP Q12H [facility] Last Admin: 05/29/24 21:22 Dose: 60 mg Furosemide (Furosemide 10 Mg/Ml Sdv 10ml) 40 mg IVP Q12H [facility] Last Admin: 06/03/24 08:44 Dose: 40 mg Furosemide (Furosemide 10 Mg/Ml Sdv 10ml) 60 mg IVP Q12H [facility] Last Admin: 06/04/24 06:06 Dose: 60 mg Heparin Sodium (Porcine) (Heparin 5,000 Unit/Ml Inj 1 Ml) 0 unit IVP PRN PRN; Protocol PRN Reason: Heparin Weight Based Protocol -Subsequent Bolus Heparin Sodium (Porcine) (Heparin 5,000 Unit/Ml Inj 1 Ml) 0 unit IVP ONCE ONE; Protocol Stop: 05/26/24 20:52 Last Increment: 05/26/24 21:27 Dose: 3,700 unit Incremental Dosing Total Given: 3,700 unit Heparin Sodium (Porcine) (Heparin, Porcine 1,000 Unit/Ml Inj 10 Ml) 1,000 unit IV ONCE ONE Stop: 05/30/24 13:17 Last Admin: 05/30/24 15:49 Dose: 1,000 unit Heparin Sodium (Porcine) (Heparin, Porcine 1,000 Unit/Ml Inj 10 Ml) 10,000 unit INTRACATH ONCE ONE Stop: 05/31/24 10:08 Last Admin: 05/31/24 19:01 Dose: 10,000 unit Heparin Sodium (Porcine) (Heparin, Porcine 1,000 Unit/Ml Inj 10 Ml) 1,000 unit IV ONCE ONE Stop: 05/31/24 10:08 Last Admin: 05/31/24 16:15 Dose: 1,000 unit Heparin Sodium (Porcine) (Heparin, Porcine 1,000 Unit/Ml Inj 10 Ml) 10,000 unit INTRACATH ONCE ONE Stop: 06/01/24 09:25 Last Admin: 06/01/24 14:00 Dose: Not Given Heparin Sodium (Porcine) (Heparin, Porcine 1,000 Unit/Ml Inj 10 Ml) 1,000 unit IV ONCE ONE Stop: 06/01/24 09:25 Last Admin: 06/01/24 14:00 Dose: Not Given Heparin Sodium (Porcine) (Heparin, Porcine 1,000 Unit/Ml Inj 10 Ml) 10,000 unit INTRACATH ONCE ONE Stop: 06/01/24 14:01 Last Admin: 06/01/24 17:22 Dose: 10,000 unit Heparin Sodium (Porcine) (Heparin, Porcine 1,000 Unit/Ml Inj 10 Ml) 1,000 unit IV ONCE ONE Stop: 06/01/24 14:01 Last Admin: 06/01/24 13:55 Dose: 1,000 unit Hydroxyzine Pamoate (Hydroxyzine 25 Mg Capsule) 25 mg PO ONCE ONE Stop: 05/28/24 05:38 Last Admin: 05/28/24 05:59 Dose: 25 mg Heparin Sodium/Sodium Chloride (Heparin Drip) 25,000 unit in 500 mls @ 0 mls/hr IV CONT DELANEY; Protocol Last Titration: 05/28/24 19:00 Dose: Infused Sodium Chloride (Sodium Chloride 0.9%) 1,000 mls @ 200 mls/hr IV .Q5H DELANEY Last Admin: 05/27/24 06:06 Dose: 200 mls/hr Sodium Bicarbonate 150 meq/ (Dextrose) 1,150 mls @ 200 mls/hr IV .Q5H45M DELANEY Last Infusion: 05/28/24 11:19 Dose: Infused Dextrose (D5w) Confirm Administered Dose 1,000 mls @ as directed .ROUTE .STK-MED ONE Stop: 05/28/24 01:32 Sodium Chloride (Sodium Chloride 0.9%) 1,000 mls @ 200 mls/hr IV .Q5H DLEANEY Last Admin: 05/30/24 07:47 Dose: 200 mls/hr Lidocaine HCl (Xylocaine) Confirm Administered Dose 20 mls @ as directed .ROUTE .STK-MED ONE Stop: 05/29/24 07:00 Clindamycin HCl/Dextrose (Cleocin) 600 mg in 50 mls @ 100 mls/hr IV ONCE ONE; Protocol Stop: 05/29/24 07:53 Last Infusion: 05/29/24 07:40 Dose: Infused Immune Globulin/ Immune (Globulin/ Immune Globulin) 700 mls @ 0 mls/hr IV ONCE ONE; Protocol Stop: 05/30/24 00:01 Last Admin: 05/30/24 00:03 Dose: 21.9 mls/hr Sodium Bicarbonate 150 meq/ (Dextrose) 1,150 mls @ 500 mls/hr IV .Q2H18M DELANEY Last Admin: 05/30/24 22:42 Dose: Not Given Sodium Chloride (Sodium Chloride 0.9%) 1,000 mls @ 200 mls/hr IV .Q5H DELANEY Last Admin: 05/30/24 12:01 Dose: 200 mls/hr Sodium Chloride (Sodium Chloride 0.9%) 1,000 mls @ 0 mls/hr IV .Q0M PRN PRN Reason: hypotension or symptomatic Albumin Human (Albumin) 12.5 gm in 50 mls @ 60 mls/hr IV PRN PRN PRN Reason: Hypotension and/or symptomatic Sodium Chloride (Sodium Chloride 0.9%) 1,000 mls @ 0 mls/hr IV .Q0M PRN PRN Reason: hypotension or symptomatic Insulin Human Lispro (Insulin Lispro 100 Unit/1 Ml) 0 unit SUBCUT WM&BEDTIME [facility]; Protocol Last Admin: 05/29/24 12:29 Dose: Not Given Insulin Human Lispro (Insulin Lispro 100 Unit/1 Ml) 200 unit XX ONCE ONE Stop: 06/03/24 07:01 Last Admin: 06/03/24 08:33 Dose: Not Given Insulin Human Lispro (Insulin Lispro 100 Unit/1 Ml) 10 unit SUBCUT NOW ONE Stop: 06/03/24 04:42 Last Admin: 06/03/24 05:00 Dose: 10 unit Ketamine HCl (Ketamine 50 Mg/Ml Syr 1 Ml) Confirm Administered Dose 50 mg .ROUTE .STK-MED ONE Stop: 05/29/24 06:56 Lidocaine HCl (Lidocaine 1% 10 Ml Inj) 14 ml INTRADERMA ONCE ONE Stop: 05/29/24 07:01 Last Admin: 05/29/24 07:25 Dose: 14 ml Methylprednisolone Sodium Succinate (Methylprednisolone Sod Succ 125 Mg/2 Ml Inj) 40 mg IVP Q12H [facility] Last Admin: 05/27/24 08:34 Dose: 40 mg Methylprednisolone Sodium Succinate (Methylprednisolone Sod Succ 125 Mg/2 Ml Inj) 250 mg IVP Q12H [facility] Last Admin: 06/02/24 04:01 Dose: 250 mg Morphine Sulfate (Morphine 4 Mg/Ml Sdv 1 Ml) 4 mg IVP ONCE ONE Stop: 05/26/24 20:27 Last Admin: 05/26/24 20:45 Dose: 4 mg Morphine Sulfate (Morphine 4 Mg/Ml Sdv 1 Ml) 4 mg IVP ONCE ONE Stop: 05/26/24 23:52 Last Admin: 05/26/24 23:54 Dose: 4 mg Morphine Sulfate (Morphine 4 Mg/Ml Sdv 1 Ml) Confirm Administered Dose 4 mg .ROUTE .STK-MED ONE Stop: 05/29/24 08:04 Ondansetron HCl (Ondansetron 2 Mg/Ml Sdv 2 Ml) 4 mg IVP ONCE ONE Stop: 05/26/24 20:27 Last Admin: 05/26/24 20:45 Dose: 4 mg Pantoprazole Sodium (Pantoprazole 40 Mg Sdv) 40 mg IVP Q12H [facility] Last Admin: 05/31/24 14:33 Dose: 40 mg Potassium Chloride (Potassium Chloride Er 20 Meq Tablet) 40 meq PO ONCE ONE Stop: 05/26/24 23:02 Last Admin: 05/26/24 23:35 Dose: 40 meq Prasugrel (Prasugrel 10 Mg Tablet) 10 mg PO DAILY [facility] Last Admin: 06/02/24 08:15 Dose: 10 mg Propofol (Propofol 10 Mg/Ml Sdv 20 Ml) Confirm Administered Dose 200 mg .ROUTE .STK-MED ONE Stop: 05/29/24 06:58 Sodium Bicarbonate (Sodium Bicarbonate 8.4% 1 Meq/Ml 50ml Syr) Confirm Administered Dose 100 meq .ROUTE .STK-MED ONE Stop: 05/28/24 01:33 Last Admin: 05/28/24 03:31 Dose: Not Given Sodium Bicarbonate (Sodium Bicarbonate 1 Meq/Ml Sdv 50ml) Confirm Administered Dose 50 meq .ROUTE .STK-MED ONE Stop: 05/28/24 01:35 Sodium Chloride (Sodium Chloride 0.9% 100 Ml Bag) 50 ml IV PRN PRN PRN Reason: Blood transfusion prime and flush Stop: 06/03/24 08:53 Sodium Phosphate (Fleet Enema 133 Ml Enema) 133 ml SC ONCE ONE Stop: 05/30/24 12:06 Last Admin: 05/30/24 12:50 Dose: 133 ml Temazepam (Temazepam 15 Mg Capsule) 15 mg PO BEDTIME ONE Stop: 06/01/24 20:10 Last Admin: 06/01/24 20:53 Dose: 15 mg Zolpidem Tartrate (Zolpidem 5 Mg Tablet) 5 mg PO BEDTIME PRN PRN Reason: SLEEP Last Admin: 05/28/24 20:26 Dose: 5 mg Zolpidem Tartrate (Zolpidem 5 Mg Tablet) 5 mg PO BEDTIME ONE Stop: 05/29/24 21:34 Last Admin: 05/29/24 21:36 Dose: 5 mg Zolpidem Tartrate (Zolpidem 5 Mg Tablet) 5 mg PO ONCE ONE Stop: 05/30/24 21:32 Last Admin: 05/30/24 21:57 Dose: 5 mg Zolpidem Tartrate (Zolpidem 5 Mg Tablet) 5 mg PO ONCE ONE Stop: 05/31/24 19:56 Last Admin: 05/31/24 21:12 Dose: 5 mg Allergies fentanyl Allergy (Severe, Verified 04/30/24 13:08) ALGY-Difficulty Breathing isosorbide (From Imdur) Allergy (Verified 04/30/24 13:08) ADR-Headache Penicillins Allergy (Verified 04/30/24 13:08) Unknown Home Medications trazodone 50 mg tablet 100 mg PO BEDTIME 06/15/23 [History Confirmed 05/27/24] tirzepatide 15 mg/0.5 mL subcutaneous pen injector (Mounjaro) 15 mg (0.5 mL) SUBCUT Q7D 30 days #2.5 mL 12/05/23 [Rx Confirmed 05/27/24] prednisolone acetate 1 % eye drops,suspension 1 drp ophthalmic (eye) TID 04/17/24 [History Confirmed 05/27/24] aspirin 81 mg tablet,delayed release 81 mg PO BEDTIME 30 days #30 tabs 04/18/24 [Rx Confirmed 05/27/24] hydrochlorothiazide 25 mg tablet 12.5 mg (1/2 x 25 mg) PO DAILY 30 days #15 tabs 04/18/24 [Rx Confirmed 05/27/24] nitroglycerin 0.4 mg sublingual tablet 0.4 mg sublingual Q5M PRN Chest Pain 30 days #30 tabs 04/18/24 [Rx Confirmed 05/27/24] folic acid 1 mg tablet 1 mg PO DAILY 04/30/24 [History Confirmed 05/27/24] insulin aspart U-100 100 unit/mL subcutaneous solution (Novolog U-100 Insulin aspart) See Rx Instructions .Route .COMPLEX 90 days #30 mL 04/30/24 [Rx Confirmed 05/27/24] prasugrel 10 mg tablet (Effient) 10 mg PO DAILY 30 days #30 tabs 04/30/24 [Rx Confirmed 05/27/24] rosuvastatin 40 mg tablet 40 mg PO DAILY 04/30/24 [History Confirmed 05/27/24] tirzepatide 10 mg/0.5 mL subcutaneous pen injector (Mounjaro) 10 mg (0.5 mL) SUBCUT Q7D #2 mL 04/30/24 [Rx Confirmed 05/27/24] Discharge Plan Discharge Patient Disposition: Xfer Short-Term Hosp Condition: Stable Prescriptions: No Action trazodone 50 mg tablet 100 mg PO BEDTIME Mounjaro 15 mg/0.5 mL pen injector 15 mg SUBCUT Q7D 30 Days Qty: 2.5 4RF folic acid 1 mg tablet 1 mg PO DAILY rosuvastatin 40 mg tablet 40 mg PO DAILY prasugrel HCl [Effient] 10 mg tablet 10 mg PO DAILY 30 Days Qty: 30 3RF insulin aspart U-100 [Novolog U-100 Insulin aspart] 100 unit/mL solution See Rx Instructions .ROUTE .COMPLEX MDD 100 90 Days Qty: 30 3RF Rx Instructions: via insulin pump Mounjaro 10 mg/0.5 mL pen injector 10 mg SUBCUT Q7D Qty: 2 0RF prednisolone acetate 1 % drops,suspension 1 drp ophthalmic (eye) TID aspirin 81 mg tablet,delayed release (DR/EC) 81 mg PO BEDTIME 30 Days Qty: 30 0RF nitroglycerin 0.4 mg tablet, sublingual 0.4 mg sublingual Q5M PRN (Reason: Chest Pain) 30 Days Qty: 30 0RF Rx Instructions: do not exceed 3 doses per episode hydrochlorothiazide 25 mg tablet 12.5 mg PO DAILY 30 Days Qty: 15 0RF Referrals: [facility] [Outside] Maria Walters MD [Primary Care Provider] - Richy Tinsley MD [Hospitalist] - Patient Instructions: Acute Wound Care (DC), Opioid Safety, Post Anesthesia Care Transfer Attestations Time Spent in Transfer Care: greater than 30 min Quality Metrics Clinical Quality Measures [ No reported AMI, CVA or VTE this stay] Coding Level of Care Code Acute Code for Chg Fwd Diagnoses Acute renal failure, unspecified acute renal failure type N17.9 Acute renal failure type: unspecified 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
[2024-06-05 14:18] VITALS: BP 130/67; PULSE 64; RESP 20; TEMP 36.7; O2SAT 99
[2024-06-05] MEDS: LORazepam 2 mg/mL INJ 1 mL 0.5 MG IVP (14:29)
[2024-06-05 23:49] LABS: Fibrinogen Degradation Product 5 mcg/mL (LESS THAN 5)
[2024-06-06 00:45] LABS: Heparin Induced Platelet AB NEGATIVE (NEGATIVE); Patient O.D 0.144
[2024-06-06 03:29] LABS: Anti-streptolysin O 98 IU/mL (<200)
[2024-06-06 14:29] LABS: Carnitine Esters 20 umol/L (4-15); Carnitine, Free 62 umol/L (23-59); Carnitine, Total 82 umol/L (30-70); Esterified Free Ratio 0.32 umol/L (0.12-0.39)
[2024-06-06 20:10] LABS: UFH High Dose, 100 IU/ML 0 % release; UFH Low Dose, 0.1 IU/ML 0 % release; UFH Low Dose, 0.5 IU/ML 0 % release; UFH SRA Result NEGATIVE (NEGATIVE)
[2024-06-06 22:45] LABS: HMGCR IgG Antibody 50 CU (<20)
[2024-06-07 12:30] LABS: ADAMTS 13 Activity 0.51 IU/mL (0.68-1.63)
[2024-06-07 23:13] LABS: Acetylcarnitine (C2) 12.36 nmol/mL (4.04-12.19); Adipoylcarnitine C6 DC 0.08 nmol/mL (< OR = 0.02); Butyryl-/Isobutyrylcarn C4 3.77 nmol/mL (<0.38); Decanoylcarnitine C10 0.21 nmol/mL (<0.51); Decenoylcarnitine C10:1 0.17 nmol/mL (<0.81); Dodecanoylcarnitine C12 0.05 nmol/mL (<0.12); Dodecenoylcarnitine C12:1 0.05 nmol/mL (<0.19); Glutarylcarnitine CD DC 0.11 nmol/mL (< OR = 0.06); Hexadecanoylcarnitine C16 0.05 nmol/mL (0.04-0.17); Hexadecenoylcarn C16:1 <0.02 nmol/mL (< OR = 0.05); Hexanoylcarnitine C6 0.12 nmol/mL (< OR = 0.09); Isovaleryl-/2-Methybut C5 1.31 nmol/mL (<0.30); Linoleoylcarnitine C18:2 0.02 nmol/mL (<0.13); Malonylcarnitine (C3-DC) 0.08 nmol/mL (< OR = 0.17); Methylmalonylcarnitine C4-DC 0.04 nmol/mL (< OR = 0.03); OH-Butyrylcarnitine C4-OH 0.07 nmol/mL (< OR = 0.05); OH-Dodecanoylcarn C12 OH 0.02 nmol/mL (< OR = 0.02); OH-Hexadecanoylcarn C16 OH <0.02 nmol/mL (< OR = 0.02); OH-Hexadecenoylcarn C16 OH <0.02 nmol/mL (< OR = 0.02); OH-Hexanoylcarnitine C6 OH 0.02 nmol/mL (< OR = 0.02); OH-Isovalerylcarnitin C5 OH 0.19 nmol/mL (< OR = 0.04); OH-Linoleoylcarn C18:2 OH <0.02 nmol/mL (< OR = 0.02); OH-Oleoylcarn C18:1 OH <0.02 nmol/mL (< OR = 0.02); OH-Tetradecanoylcarn C14 OH 0.02 nmol/mL (< OR = 0.02); OH-Tetradecenoyl C14:1 OH 0.03 nmol/mL (< OR = 0.02); Octanoylcarnitine C8 0.19 nmol/mL (<0.65); Octenoylcarnitine C8:1 0.48 nmol/mL (<1.26); Oleoylcarnitine C18:1 0.04 nmol/mL (<0.24); Propionylcarnitine (C3) 2.34 nmol/mL (<0.70); Stearoylcarnitine C18 0.02 nmol/mL (< OR = 0.11); Suberylcarnitine C8 DC 0.03 nmol/mL (< OR = 0.03); Tetradecadienoylcarn C14:2 0.03 nmol/mL (< OR = 0.06); Tetradecanoylcarnitine C14 0.02 nmol/mL (< OR = 0.03); Tetradecenoylcarnitine C14:1 0.04 nmol/mL (< OR = 0.27); Tiglyl/Methylcrotonyl C5:1 0.08 nmol/mL (< OR = 0.03)
[2024-06-11 16:33] LABS: Carnitine AC/FC Ratio 0.4 (0.7-3.4); Urine Carnitine, Free 493 nmol/mg Cr (77-214); Urine Carnitine, Total 696 nmol/mg Cr (180-412)
== END 2024-06-05 14:30 | disposition home or self-care (01) | DRG 500 ==
LOC: ER 21:41 → MEDSURG 22:34 → ICU 05-27 01:33 → MEDSURG 06-04 15:35
PROVIDERS: Internal Medicine; Internal Medicine Nephrology; Student in an Organized Health Care Education/Training Program; Admitting Provider Internal Medicine; Emergency Provider Emergency Medicine; PCP Family Medicine; Visit Provider Family Medicine
PROC: 0KBQ0ZX Excision of Right Upper Leg Muscle, Open Approach, Diagnostic (ICD-10-PCS; principal; 2024-05-29 07:00)
DX: M62.82 Rhabdomyolysis (principal); I21.4 Non-ST elevation (NSTEMI) myocardial infarction; K68.3 Retroperitoneal hematoma; N17.9 Acute kidney failure, unspecified; G72.9 Myopathy, unspecified; E10.59 Type 1 diabetes mellitus with other circulatory complications; Z96.41 Presence of insulin pump (external) (internal); E78.2 Mixed hyperlipidemia; D69.6 Thrombocytopenia, unspecified; D64.9 Anemia, unspecified; I25.10 Atherosclerotic heart disease of native coronary artery without angina pectoris; Z95.1 Presence of aortocoronary bypass graft; Z95.5 Presence of coronary angioplasty implant and graft; Z79.02 Long term (current) use of antithrombotics/antiplatelets; E86.0 Dehydration; R74.01 Elevation of levels of liver transaminase levels; I51.4 Myocarditis, unspecified; R13.10 Dysphagia, unspecified; I10 Essential (primary) hypertension; E66.9 Obesity, unspecified; Z68.30 Body mass index [BMI] 30.0-30.9, adult; Z79.85 Long-term (current) use of injectable non-insulin antidiabetic drugs; Z79.82 Long term (current) use of aspirin
CPT/HCPCS: 36415; 36416; 36430; 36573; 36592; 36600; 51702; 71045; 74176; 80048; 80051; 80053; 80306; 80307; 80503; 82009; 82017; 82085; 82103; 82140; 82330; 82379; 82436; 82550; 82553; 82570; 82728; 82784; 82805; 82962; 83010; 83516; 83520; 83615; 83735; 83880; 84100; 84133; 84182; 84300; 84443; 84484; 85025; 85045; 85362; 85378; 85384; 85397; 85610; 85651; 85730; 86021; 86036; 86038; 86060; 86140; 86146; 86147; 86225; 86235; 86431; 86706; 86803; 86850; 86880; 86900; 86920; 87040; 87081; 87340; 87486; 87581; 87633; 87806; 87880; 88305; 90935; 92610; 93005; 93308; 93926; 94664; 96365; 96366; 96372; 96374; 96375; 96376; 97110; 97116; 97162; 97166; 97530; 97535; 99291; A9281; C1751; J1459; J1644; J1650; J1815; J1940; J2060; J2270; J2405; J2470; J2704; J2765; J2919; J3490; J7030; J7070; J7512; P9016; Q3014

== ENCOUNTER → 2024-07-18 08:15 | Outpatient (BNVA) | payer OTHER, SELFPAY | PROVIDERS: PCP Family Medicine; Visit Provider Student in an Organized Health Care Education/Training Program | DX: Z09 Encounter for follow-up examination after completed treatment for conditions other than malignant neoplasm (principal) | CPT/HCPCS: 99024 ==

== ENCOUNTER → 2024-07-19 09:17 | Outpatient (BNVA) | payer OTHER, SELFPAY | PROVIDERS: PCP Family Medicine; Visit Provider Internal Medicine Cardiovascular Disease | DX: I25.10 Atherosclerotic heart disease of native coronary artery without angina pectoris (principal); G72.9 Myopathy, unspecified; Z95.1 Presence of aortocoronary bypass graft; M62.82 Rhabdomyolysis; E78.2 Mixed hyperlipidemia; I12.9 Hypertensive chronic kidney disease with stage 1 through stage 4 chronic kidney disease, or unspecified chronic kidney disease; N18.9 Chronic kidney disease, unspecified; Z87.891 Personal history of nicotine dependence | CPT/HCPCS: 99214 ==

== ENCOUNTER → 2024-07-24 08:07 | Outpatient (BNVA) | payer OTHER, SELFPAY | PROVIDERS: PCP Family Medicine; Visit Provider Internal Medicine | DX: E10.59 Type 1 diabetes mellitus with other circulatory complications (principal); E78.2 Mixed hyperlipidemia; R03.0 Elevated blood-pressure reading, without diagnosis of hypertension | CPT/HCPCS: 99214 ==

== ENCOUNTER → 2024-07-24 08:11 | Outpatient (BNVA) | payer OTHER, SELFPAY | PROVIDERS: PCP Family Medicine; Visit Provider Internal Medicine | DX: E10.59 Type 1 diabetes mellitus with other circulatory complications (principal); E78.2 Mixed hyperlipidemia | CPT/HCPCS: 36415; 80053; 80061; 82044; 83036 ==

== ENCOUNTER → 2024-08-14 09:52 | Outpatient (BNVA) | payer OTHER, SELFPAY | PROVIDERS: PCP Family Medicine; Visit Provider Nurse Practitioner Family | DX: I25.10 Atherosclerotic heart disease of native coronary artery without angina pectoris (principal); E78.5 Hyperlipidemia, unspecified; R60.9 Edema, unspecified; D64.9 Anemia, unspecified; M62.81 Muscle weakness (generalized); M62.82 Rhabdomyolysis; Z79.82 Long term (current) use of aspirin; Z95.1 Presence of aortocoronary bypass graft; I25.2 Old myocardial infarction; I50.9 Heart failure, unspecified | CPT/HCPCS: 99214 ==

== ENCOUNTER → 2024-09-04 14:11 | Outpatient (BNVA) | payer OTHER, SELFPAY | PROVIDERS: PCP Family Medicine; Visit Provider Physician Assistant | DX: M94.261 Chondromalacia, right knee (principal) | CPT/HCPCS: 20610; 99213; J3301; J9999 ==

== ENCOUNTER → 2024-09-25 12:08 | Outpatient (BNVA) | payer OTHER, SELFPAY | PROVIDERS: PCP Family Medicine; Visit Provider Internal Medicine | DX: E10.59 Type 1 diabetes mellitus with other circulatory complications (principal); E78.2 Mixed hyperlipidemia | CPT/HCPCS: 99214 ==

== ENCOUNTER 2024-10-15 15:25 | Outpatient (CLI) | payer OTHER, SELFPAY ==
--- NOTE | 2024-10-15 15:45 | USCV_ITS ---
Moisés Gonzalez Age: 58 Gender: M : 1965 Exam Date: 10/15/2024 15:47 Ordering Phys: Araceli Noe Technologist: HEMANT Exam Location: [facility] [place] Indication: LE Edema, Hx of CABG BP: 113 / 72 HR: 60 Rhythm: Sinus Technical Quality: Adequate MEASUREMENTS (Male / Female) Normal Values 2D ECHO LV Diastolic Diameter PLAX 4.9 cm 4.2 - 5.9 / 3.9 - 5.3 cm IVS Diastolic Thickness 1.2 cm 0.6 - 1.0 / 0.6 - 0.9 cm IVS Systolic Thickness 2.1 cm LVPW Diastolic Thickness 1.4 cm 0.6 - 1.0 / 0.6 - 0.9 cm LVPW Systolic Thickness 0.9 cm LVOT Diameter 1.9 cm LV Ejection Fraction 2D Teich 52.9 % LV Ejection Fraction MOD 4C 57.4 % LV Ejection Fraction MOD 2C 62.9 % LV Ejection Fraction 2C AL 62.6 % LA Diameter 3.7 cm RA Systolic Volume 4C AL 22.9 ml RA Systolic Volume 4C MOD 22.4 ml LA Sys Volume AL 38.0 cm cubed LA Sys Volume Index AL 21.4 cm cubed/m squared Aorta at Sinotubular Diameter 2.3 cm M-MODE LA Ao Ratio MM 1.4 AV Cusp Separation MM 1.5 cm DOPPLER AV Peak Velocity 112.0 cm/s LVOT Peak Velocity 80.0 cm/s AV Area Cont Eq vti 2.4 cm squared AV Area Cont Eq pk 2.1 cm squared MV Peak Velocity 143.0 cm/s MV Area PHT 2.8 cm squared Mitral E to A Ratio 0.8 TV Peak E Velocity 91.0 cm/s PV Peak Velocity 124.0 cm/s FINDINGS Left Ventricle Normal left ventricular size, systolic function and wall thickness, with no regional wall motion abnormalities. Left ventricular ejection fraction is estimated at 60 %. Grade I/IV diastolic dysfunction (abnormal relaxation filling pattern), normal to mildly elevated filling pressures. Right Ventricle The right ventricle is normal in size and function. Right Atrium The right atrium is normal in size. Left Atrium The left atrium is normal in size. Mitral Valve Moderately thickened mitral valve. No mitral valve stenosis. Trace mitral valve regurgitation. Trace mitral valve regurgitation. Aortic Valve Moderate aortic valve calcification. No aortic valve stenosis. Mild aortic valve regurgitation. Tricuspid Valve Structurally normal tricuspid valve without significant stenosis or regurgitation. Pulmonary artery systolic pressure is normal. Pulmonic Valve Structurally normal pulmonic valve without significant stenosis. There is no pulmonic regurgitation. Pericardium Normal pericardium without effusion. Aorta Normal ascending aorta dimension. IVC The inferior vena cava appears normal. CONCLUSIONS Normal left ventricular size, systolic function and wall thickness, with no regional wall motion abnormalities. Left ventricular ejection fraction is estimated at 60 %. Grade I/IV diastolic dysfunction (abnormal relaxation filling pattern), normal to mildly elevated filling pressures. Moderate aortic valve calcification. No aortic valve stenosis. Mild aortic valve regurgitation. There is no pericardial effusion. Right atrial pressure is around 5 mm of mercury. Cj Patricio MD (Electronically Signed) Final Date: 30 October 2024 20:46 S
== END 2024-10-15 15:26 | disposition home or self-care (01) ==
LOC: RAD 15:26
PROVIDERS: PCP Family Medicine; Visit Provider Nurse Practitioner Family
DX: Z95.1 Presence of aortocoronary bypass graft (principal); R60.0 Localized edema; R93.1 Abnormal findings on diagnostic imaging of heart and coronary circulation; I35.8 Other nonrheumatic aortic valve disorders; I35.1 Nonrheumatic aortic (valve) insufficiency
CPT/HCPCS: 93306

== ENCOUNTER 2024-11-07 09:11 | Outpatient (CLI) | payer OTHER, SELFPAY ==
--- NOTE | 2024-11-07 09:30 | USR_ITS ---
PROCEDURE INFORMATION: Exam: US Duplex Lower Extremity Veins, Bilateral Exam date and time: 11/07/2024 9:17 AM Age: 58 years old Clinical indication: Edema, localized; Lower extremity, right; Additional info: Le edema TECHNIQUE: Imaging protocol: Real-time duplex ultrasound of the bilateral extremities with 2-D roach scale, color Doppler flow and spectral waveform analysis including responses to compression and other maneuvers (when performed) with image documentation. Complete exam focused on the lower extremity veins. COMPARISON: No relevant prior studies available. FINDINGS: Right deep veins: Unremarkable. The common femoral, femoral, proximal profunda femoral and popliteal veins are patent without thrombus. Normal Doppler waveforms. Normal compressibility and/or augmentation response. Left deep veins: Unremarkable. The common femoral, femoral, proximal profunda femoral and popliteal veins are patent without thrombus. Normal Doppler waveforms. Normal compressibility and/or augmentation response. Superficial veins: Greater saphenous veins at the saphenofemoral junctions are patent bilaterally without thrombus. Soft tissues: Mild subcutaneous calf edema bilaterally. US/CV malachi dup insuff [facility] [id number] IMPRESSION: 1. No evidence of deep vein thrombosis. 2. Mild subcutaneous calf edema bilaterally.
== END 2024-11-07 09:12 | disposition home or self-care (01) ==
LOC: RAD 09:12
PROVIDERS: PCP Family Medicine; Visit Provider Nurse Practitioner Family
DX: R60.0 Localized edema (principal)
CPT/HCPCS: 93970

== ENCOUNTER → 2024-12-10 14:30 | Outpatient (BNVA) | payer OTHER, SELFPAY | PROVIDERS: PCP Family Medicine; Visit Provider Physician Assistant | DX: M17.11 Unilateral primary osteoarthritis, right knee (principal) | CPT/HCPCS: 73560; 73565; 99214 ==

== ENCOUNTER → 2024-12-13 10:50 | Outpatient (BNVA) | payer OTHER, SELFPAY | PROVIDERS: PCP Family Medicine; Visit Provider Internal Medicine Cardiovascular Disease | DX: I25.10 Atherosclerotic heart disease of native coronary artery without angina pectoris (principal); I13.0 Hypertensive heart and chronic kidney disease with heart failure and stage 1 through stage 4 chronic kidney disease, or unspecified chronic kidney disease; N18.9 Chronic kidney disease, unspecified; I50.9 Heart failure, unspecified; E78.2 Mixed hyperlipidemia; Z01.810 Encounter for preprocedural cardiovascular examination; Z95.5 Presence of coronary angioplasty implant and graft; Z95.1 Presence of aortocoronary bypass graft | CPT/HCPCS: 99214 ==

== ENCOUNTER → 2024-12-25 13:15 | Outpatient (BNVA) | payer OTHER, SELFPAY | PROVIDERS: PCP Family Medicine; Visit Provider Internal Medicine | DX: E10.59 Type 1 diabetes mellitus with other circulatory complications (principal) | CPT/HCPCS: 36415; 80053; 80061; 82044; 82947; 83036; 84681; 86337; 86341 ==

== ENCOUNTER → 2025-03-18 14:54 | Outpatient (BNVA) | payer OTHER, SELFPAY | PROVIDERS: PCP Family Medicine; Visit Provider Student in an Organized Health Care Education/Training Program | DX: M17.11 Unilateral primary osteoarthritis, right knee (principal) | CPT/HCPCS: 99214 ==

== ENCOUNTER 2025-03-24 14:59 | Outpatient (CLI) | payer OTHER, SELFPAY ==
--- NOTE | 2025-03-24 15:30 | CT_ITS ---
WS: [id number] CT RIGHT KNEE, NONCONTRAST [facility] TECHNIQUE: Noncontrast CT of the RIGHT knee to include the RIGHT hip and ankle. CLINICAL INFORMATION: RIGHT TOTAL KNEE ARTHROPLASTY COMPARISON: None. DLP: 997.[address] scans at [facility] use at least one of these dose optimization techniques: automated exposure control; mA and/or kV adjustment per patient size (includes targeted exams where dose is matched to clinical indication); or iterative reconstruction. FINDINGS: Vascular calcification. Moderate tricompartmental degenerative arthritis RIGHT knee with joint space narrowing. Moderate narrowing of the patellofemoral articulation. Mild arthritis sacroiliac joints. Mild prostate enlargement measuring 4.[address]/CT knee RT [place] [id number] IMPRESSION: Images obtained for preoperative purposes.
[2025-03-24 15:58] LABS: Hematocrit 42.7 % (37-53); Hemoglobin 14.70 g/dL (11.27-16.99); Mean Corpuscular HGB Conc 34.4 g/dL (30-55); Mean Corpuscular Hemoglobin 30.3 pg (27-33); Mean Corpuscular Volume 88.0 fl (82-101); Nucleated Red Blood Cells % 0 %; Platelet Count 143 10^3/cmm (157-399); Red Blood Count 4.85 10^6/uL (3.85-5.65); White Blood Count 4.50 10^3/uL (3.29-11.43)
[2025-03-24 16:03] LABS: Glucose Urine UA Negative (Normal); Nitrate Urine Negative (Negative); Specific Gravity, Urine 1.019 (1.005-1.030)
[2025-03-24 16:08] LABS: Add Urine Microscopic? YES
[2025-03-24 16:16] LABS: Estmated Average Glucose 126; Hemoglobin A1C 6.0 % (4.0-6.0)
[2025-03-24 16:22] LABS: Alanine Aminotransferase 9 U/L (0-41); Albumin Level 4.3 g/dL (3.5-5.2); Alkaline Phosphatase 108 U/L (40-130); Anion Gap 16.6 (5-19); Aspartate Amino Transferase 16 U/L (0-40); Blood Urea Nitrogen 20 mg/dL (6-20); Calcium 9.0 mg/dL (8.5-10.5); Carbon Dioxide 24 mmol/L (22-29); Chloride 99 mmol/L (98-107); Globulin 3.0 g/dL (1.3-4.6); Glucose 193 mg/dL (65-115); Osmolality Calculated 290 mOsm/kg (285-295); Potassium 3.6 mmol/L (3.5-5.1); Sodium 136 mmol/L (136-145); Total Protein 7.3 g/dL (6.6-8.7)
== END 2025-03-24 15:00 | disposition home or self-care (01) ==
PROVIDERS: PCP Family Medicine; Visit Provider Student in an Organized Health Care Education/Training Program
DX: M17.11 Unilateral primary osteoarthritis, right knee (principal); Z01.818 Encounter for other preprocedural examination; E10.59 Type 1 diabetes mellitus with other circulatory complications; N40.0 Benign prostatic hyperplasia without lower urinary tract symptoms; Z98.890 Other specified postprocedural states
CPT/HCPCS: 36415; 73700; 80053; 81001; 83036; 85025

== ENCOUNTER 2025-03-31 04:29 | Observation (INO) | payer OTHER, SELFPAY ==
--- OUTSIDE RECORDS SUMMARY | 2025-03-26 07:30 | XMS_ITS | Encounter Summary ---
Author Organization [facility] Address [address] [place] [address] Care Team Providers Care Automotive Service Technician Name Role Phone Unavailable Primary Care Provider Unavailabl e Reason for Visit * Reason Comments Follow Up * Eval and Treat (Routine) - Closed Specialty Diagnoses / Procedures Referred By Abrahan flores Referred To Contact Gastroenterology Diagnoses Fatty liver Procedures [place] OFFICE/OUTPATIENT ESTABLISHED MOD MDM 30 MIN [place] OFFICE/OUTPATIENT NEW MODERATE MDM 45 MINUTES Viviana Rodas NP [address] [place] [address] Phone: tel: fax: [facility] [address] Phone: tel: fax: Referral ID Status Reason Start Date Expiration Date Visits Requested Visits Authorized [id number] Closed Performing Department to Schedule 02/05/2025 02/07/2026 1 1 Encounter Details Date Type Department Care Team (Late st Contact Info) Description 03/26/2025 7:30 AM GLASSWARE ENGRAVER Office Visit [facility]enter[facility] [address] Ha Dumont FNP [address] [address] Metabolic dysfunction-associate d fatty liver disease (MAFLD) (Primary Dx) Social History Tobacco Use Types Packs/Day Years Used Date Smoking Tobacco: Never Smokeless Tobacco: Never Alcohol Use Standard Drinks/Week Comments No 0 (1 standard drink = 0.6 oz pur e alcohol) Feeling Safe Answer Date Recorded Are you in a relationship wi th someone who hurts you emotionally and/or physically? No 09/02/2024 Food Insecurity Answer Date Recorded Patient needs follow up regardin 08/07/2024 Transportation Needs Answer Date Record ed Patient needs follow up regardin 08/07/2024 Housing Stability Answer Date Recorded Social/Environmental Concerns No concerns Utility Needs Answer Date Recorded Patient needs follow up regardin 08/07/2024 Sex and Gender Information Value Date Recorded Sex Assigned at Not on file Legal Sex Male 12:22 PM GLASSWARE ENGRAVER Gender Identity Not on file Sexual Orientation Not on file documented as of this encounter Last Filed Vital Signs Vital Sign Reading Time Taken Comments Blood Pressure 116/63 03/26/2025 7:30 AM GLASSWARE ENGRAVER Pulse 63 03/26/2025 7:30 AM GLASSWARE ENGRAVER Temperature - - Respiratory Rate - - Oxygen Saturation - - Inhaled Oxygen Concentration - - Weight 81.1 kg (178 lb 12.8 oz) 03/26/2025 7:30 AM GLASSWARE ENGRAVER Height 160 cm (5' 3 ) 03/26/2025 7:30 AM GLASSWARE ENGRAVER Body Mass Index 31.67 03/26/2025 7:30 AM GLASSWARE ENGRAVER documented in this encounter Progress Notes * Ha Dumont FNP - 03/26/2025 7:38 AM CST GI Clinic Note Moisés Gonzalez [facility] [id number] N [id number] 03/26/2025 Collaborative physician: Avril Schuster DO Referring Provider: No primary care provider on file. History of Present Illness The patient is a 59-year-old male who presents for follow-up on hepatic steatosis. He was last seenin the clinic on 08/08/2024 and was previously on pantoprazole 40 mg daily for GERD. Serologic liver work up and US elastography were ordered for further evaluation. US Elastography on 01/04/2025 revealed F1 fibrosis. Currently, his BMI is 31, up from 28 at the last visit. He reports a slight increase in weight since the last visit, which he attributes to issues with [employer] regarding his GLP-1 medication. He is currently on a low dose of Ozempic 0.5 mg, which he has been taking for approximately 2 months. He anticipates an increase in dosage once his en docrinologist returns from maternity leave. His A1c level is 6, as per the most recent lab results obtained on 03/24/2025. He remains on insulin therapy. Denies jaundice, yellow eyes, abdominal swelling, nausea, confusion, abnormal weight loss, dysphagia, odynophagia, vomiting, hematemesis, hematochezia, or melena. Next colonoscopy due in 2026 per review of records. PAST SURGICAL HISTORY: Cholecystectomy Appendectomy Gastric sleeve surgery Cardiac stent placements SOCIAL HISTORY Alcohol: Does not drink alcohol. Tobacco: Does not smoke. FAMILY HISTORY - Negative for colon cancer, IBD, and liver disease. PAST MEDICAL HISTORY: Past Medical History: Diagnosis Date Coronary artery disease Diabetes GERD (gastroesophageal reflux disease) Neuropathy Unspecified disorder of lipoid metabolism Unspecified essential hypertension PAST SURGICAL HISTORY: Past Surgical History: Procedure Laterality Date HX APPENDECTOMY HX CAROTID STENT HX CHOLECYSTECTOMY HX EYE SURGERY JAN 2014 HX HEART CATHETERIZATION DEC 2013 REVIEW OF SYSTEMS: Complete ROS was negative aside from what was noted above. PHYSICAL EXAM: VITALS: BP 116/63 Pulse 63 Ht 5' 3 (1.6 m) Wt 81.1 kg (178 lb 12.8 oz) BMI 31.67 kg/m?? GEN: Moisés Gonzalez is a 59 y.o. male in no acute distress. HEENT: Mucous membranes pink and moist. Sclera anicteric. RECTAL: Not done at this time. EXT: Without cyanosis, deformity or pitting edema. SKIN: [place], warm, dry. DIAGNOSTICS: Results Labs - Serologic liver workup: Negative - Liver enzymes: 01/10/2025, AST 20, ALT 16 - Alkaline phosphatase: 03/24/2025, 108 - ALT: 03/24/2025, 9 - Albumin: 03/24/2025, 4.3 - AST: 03/24/2025, 16 - Creatinine: 03/24/2025, 1.5 - A1c: 03/24/2025, 6 - Hemoglobin: 03/24/2025, 14.7 - Platelets: 03/24/2025, 143 Imaging - US Elastography: 01/04/2025, F1 fibrosis IMPRESSION and PLAN: Moisés was seen today for follow up. Diagnoses and all orders for this visit: Metabolic dysfunction-associated fatty liver disease (MAFLD) Assessment & Plan 1. MAFLD - US Elastography on 01/04/2025 revealed F1 fibrosis, indicating minimal scarring. - Liver enzymes improved: AST 16, ALT 9 on 03/24/2025. - Continue lifestyle modifications to reverse and prevent further liver scarring. - Manage diabetes, HLD, and high blood pressure to aid in liver health, alongside PCP and endocrinology. - No additional laboratory tests required at this time. 2. Type 2 diabetes mellitus: - Currently on insulin and Ozempic. - Follow up with fuels sales representative to adjust Ozempic dosage as needed. Follow-up: Follow up in 1 year. Discussed alarm signs and symptoms that would indicate need for sooner follow up, such as new onsetor worsening dysphagia, evidence of bloody vomit or stool, weight loss, or changes in bowel habits. The patient indicates understanding of these issues and agrees with the plan. TOBACCO COUNSELING He is not a tobacco/nicotine user. This note has been partially dictated using voice recognition software. Every effort has been made to ensure accuracy. Patient provided verbal consent for the use of [employer] to assist in documentation of today's visit. 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) 05/12/2025 7:00 AM GLASSWARE ENGRAVER Appointment [facility] Nursing Services Sony Daniels [facility] [place] [address] Saskia Brooks MD [address] [place] [address] 05/13/2025 7:00 AM GLASSWARE ENGRAVER Appointment [facility] Nursing Services Sony Daniels [address] [place] [address] Saskia Brooks MD [address] [place] [address] 07/11/2025 9:20 AM CDT Office Visit [facility] Rheumatology- Day Lalo Horry [address] [place] [address] Saskia Brooks MD [address] [address] 03/27/2026 12:00 PM GLASSWARE ENGRAVER Video Visit [facility] Gastroenterology- Shwetha [address] [facility] [address] [place] [address] Ha Dumont FNP [address] [facility] [address] [place] [address] documented as of this encounter Visit Diagnoses Diagnosis Metabolic dysfunction-associated fatty liver disease (MAFLD)- Primary HMG-CoA myositis Mylagia and myositis, unspecified 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) documented in this encounter
--- OUTSIDE RECORDS SUMMARY | 2025-03-26 07:30 | XMS_ITS | Encounter Summary ---
Author Organization Address [address] [place] [address] Care Team Providers Care Air Conditioning Equipment Mechanic Name Role Phone Unavailable Primary Care Provider Unavailabl e Reason for Visit * Reason Comments Follow Up * Eval and Treat (Routine) - Closed Specialty Diagnoses / Procedures Referred By Abrahan flores Referred To Contact Gastroenterology Diagnoses Fatty liver Procedures [place] OFFICE/OUTPATIENT ESTABLISHED MOD MDM 30 MIN [place] OFFICE/OUTPATIENT NEW MODERATE MDM 45 MINUTES Viviana Rodas NP [address] [place] [address] Phone: tel: fax: [facility] Gastroenterology[address] [address] Phone: tel: fax: Referral ID Status Reason Start Date Expiration Date Visits Requested Visits Authorized [id number] Closed Performing Department to Schedule 02/05/2025 02/07/2026 1 1 Encounter Details Date Type Department Care Team (Late st Contact Info) Description 03/26/2025 7:30 AM DECK MOLDER Office Visit [facility] Gastroenterology[address] [address] Ha Dumont FNP [address] [address] Metabolic dysfunction-associate d fatty liver [...] on file Legal Sex Male 12:22 PM DECK MOLDER Gender Identity Not on file Sexual Orientation Not on file documented as of this encounter Last Filed Vital Signs Vital Sign Reading Time Taken Comments Blood Pressure 116/63 03/26/2025 7:30 AM DECK MOLDER Pulse 63 03/26/2025 7:30 AM DECK MOLDER Temperature - - Respiratory Rate - - Oxygen Saturation - - Inhaled Oxygen Concentration - - Weight 81.1 kg (178 lb 12.8 oz) 03/26/2025 7:30 AM DECK MOLDER Height 160 cm (5' 3 ) 03/26/2025 7:30 AM DECK MOLDER Body Mass Index 31.67 03/26/2025 7:30 AM DECK MOLDER documented in this encounter Progress Notes * Ha Dumont FNP - 03/26/2025 7:38 AM CST GI Clinic Note Moisés Gonzalez [facility] [id number] N [id number] 03/26/2025 Collaborative physician: Avril Schuster DO Referring [...] visit, which he attributes to issues with [employer] regarding his GLP-1 medication. He is currently [...] Without cyanosis, deformity or pitting edema. SKIN: [place], warm, dry. DIAGNOSTICS: Results Labs - Serologic [...] insulin and Ozempic. - Follow up with lubricating engineer to adjust Ozempic dosage as needed. 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) 05/12/2025 7:00 AM DECK MOLDER Appointment [facility] Nursing Services Sony Daniels [facility] [place] [address] Saskia Brooks MD [address] [place] [address] 05/13/2025 7:00 AM DECK MOLDER Appointment [facility] Nursing Services Sony Daniels [address] [place] [address] Saskia Brooks MD [address] [place] [address] 07/11/2025 9:20 AM CDT Office Visit [facility] Rheumatology- Day Lalo Yates [address] [place] [address] Saskia Brooks MD [address] [address] 03/27/2026 12:00 PM DECK MOLDER Video Visit [facility] Gastroenterology- Shwetha [address] [facility] [address] [place] [address] Ha Dumont FNP [address] [facility] [address] [place] [address] documented as of this encounter Visit Diagnoses Diagnosis Metabolic dysfunction-associated fatty liver disease (MAFLD)- Primary HMG-CoA myositis Mylagia and myositis, unspecified 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) documented in this encounter
--- OUTSIDE RECORDS SUMMARY | 2025-03-27 06:44 | XMS_ITS | Encounter Summary ---
Author Organization [facility] Address 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 [place] GAMUNEX-C/GAMMAKED Todd Swanson Jo Ellen, MD [address] [place] [address] Phone: tel: fax: [facility] Specialty Nursing Services E [address] [facility] [place] [address] Phone: tel: fax: Referral ID Status Reason Start Date Expiration Date V isits Requested Visits Authorized [id number] Authorized 08/05/2024 02/14/2026 99 99 Encounter Details Date Type Department Care Team (Latest Contact Info) Description 03/27/2025 6:44 AM WRAPPER STITCHER - 03/27/2025 11:59 PM WRAPPER STITCHER Hospital Encounter [facility] Specialty Nursing Services [address] [address] Saskia Brooks MD [address] [place] [phone] Discharge Disposition: Home or Self Care Social History Tobacco Use Types Packs/Day Years [...] on file Legal Sex Male 12:22 PM WRAPPER STITCHER Gender Identity Not on file Sexual Orientation Not on file documented as of this encounter Last Filed Vital Signs Vital Sign Reading Time Taken Comments Blood Pressure 145/87 03/27/2025 6:47 AM WRAPPER STITCHER Pulse 73 03/27/2025 6:47 AM WRAPPER STITCHER Temperature 36.5 C (97.7 F) 03/27/2025 6:47 AM WRAPPER STITCHER Respiratory Rate 18 03/27/2025 6:47 AM WRAPPER STITCHER Oxygen Saturation 98% 03/27/2025 6:47 AM WRAPPER STITCHER Inhaled Oxygen Concentration - - Weight - - Height - - Body Mass Index - - documented in this encounter Medications at Time of Discharge insulin lispro (HumaLOG,ADMELOG ) 100 unit/mL vial Inject 0-5 Units by subcutaneous injection. 06/20/2024 furosemide (LASIX) 20 mg tablet Take 40 mg by mouth daily. 07/16/2024 acetaminophen (TYLENOL) 500 mg tablet Take 2 Tablets (1,000 mg) by mouth every 8 hours as needed for Pain, Mild, Temperature or Pain, Moderate (See admin instructions; can alternate with tramadol for moderate pain). 07/02/2024 aspirin (ECOTRIN EC) 81 mg Tablet, Delayed Release (E.C.) Take 1 Tablet (81 mg) by mouth daily. 07/03/2024 ergocalciferol (VITAMIN D2) 50,000 unit capsule Take 1 Capsule (50,000 Units) by mouth every 7 days. 4 Capsule 07/09/2024 ezetimibe (ZETIA) 10 mg tablet Take 1 Tablet (10 mg) by mouth daily. 30 Tablet 07/03/2024 multivitamin with folic acid 400 mcg Tablet tablet Take 1 Tablet by mouth daily. 07/03/2024 pantoprazole (PROTONIX) 40 mg Tablet, Delayed Release (E.C.) Take 1 Tablet (40 mg) by mouth daily. 30 Tablet 07/03/2024 ticagrelor (BRILINTA) 90 mg Tablet Take 1 Tablet (90 mg) by mouth 2 times daily. 60 Tablet 07/02/2024 traZODone (DESYREL) 150 mg tablet Take 1 Tablet (150 mg) by mouth daily at bedtime. 30 Tablet 07/02/2024 documented as of this encounter Progress Notes * Tonja Ramos RN - 03/27/2025 8:58 AM CST Patient was discharged today from Infusion Services in stable condition. Procedure was tolerated well without complications or symptoms of reaction. Discharge instructions reviewed with patient and patient verbalized understanding. Follow up appointment confirmed. 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) 05/12/2025 7:00 AM WRAPPER STITCHER Appointment [facility] Sony Daniels [facility] [place] [address] [address] Saskia Brooks MD [address] [place] [phone] 05/13/2025 7:00 AM WRAPPER STITCHER Appointment [facility] [address] [place] [address] Saskia Brooks MD [address] [place] [address] 07/11/2025 9:20 AM CDT Office Visit [facility] Rheumatology- Shay May Jorge L [address] [place] [address] Saskia Brooks MD [address] [place] [address] 03/27/2026 12:00 PM WRAPPER STITCHER Video Visit [facility] Gastroenterology- [place] [address] [facility] [address] [place] [address] Ha Dumont FNP [address] [place] [address] documented as of this encounter Visit Diagnoses Diagnosis HMG-CoA myositis- Primary Mylagia and myositis, unspecified HMG-CoA myositis Mylagia and myositis, unspecified 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) documented in this encounter Administered Medications Inactive Administered Medications - up to 3 most recent administrations Medication Order MAR Action Action Date Dose Rate Site acetaminophen (TYLENOL) tablet 650 mg 650 mg, Oral, ONE TIME ONLY, 1 dose, On Thi 03/27/25 at 0645, RoutineIndications:HMG-CoA myositis Given 03/27/2025 7:11 AM WRAPPER STITCHER 650 mg diphenhydrAMINE (BENADRYL) tablet 25 mg 25 mg, Oral, ONE TIME ONLY, 1 dose, On Thi 03/27/25 at 0645, RoutineIndications:HMG-CoA myositis Given 03/27/2025 7:11 AM WRAPPER STITCHER 25 mg immune globulin G (human) caprylate (GAMUNEX-C, GAMMAKED) 10 % injection 10 Gram 10 Gram, IV, ONE TIME ONLY, 1 dose, On Thi 03/27/25 at 0730, Routine, Reason for treatment with Immune Globulin (IVIG): Other Rate Change 03/27/2025 8:00 AM WRAPPER STITCHER 200 mL/h r Rate Change 03/27/2025 7:44 AM WRAPPER STITCHER 100 mL/hr New Bag 03/27/2025 7:14 AM WRAPPER STITCHER 10 Grams 50 mL/hr immune globulin G (human) caprylate (GAMUNEX-C,GAMMAKED) 10 % injection 20 Gram 20 Gram, IV, ONE TIME ONLY, 1 dose, On Thi 03/27/25 at 0730, Routine, Reason for treatment with Immune Globulin (IVIG): Other Rate Change 03/27/2025 8:38 AM WRAPPER STITCHER 350 mL/h r New Bag 03/27/2025 8:14 AM WRAPPER STITCHER 20 Grams 300 mL/hr predniSONE (DELTASONE) tablet 20 mg 20 mg, Oral, ONE TIME ONLY, 1 dose, On Thi 03/27/25 at 0645, RoutineIndications:HMG-CoA myositis Given 03/27/2025 7:12 AM WRAPPER STITCHER 20 mg documented in this encounter
--- OUTSIDE RECORDS SUMMARY | 2025-03-27 06:44 | XMS_ITS | Encounter Summary ---
Author Organization [facility] Address 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 [place] GAMUNEX-C/GAMMAKED Todd Swanson Jo Ellen, MD [address] [place] [address] Phone: tel: fax: [facility] Specialty Nursing Services E Frances [facility] [place] [address] Phone: tel: fax: Referral ID Status Reason Start Date Expiration Date V isits Requested Visits Authorized [id number] Authorized 08/05/2024 02/14/2026 99 99 Encounter Details Date Type Department Care Team (Latest Contact Info) Description 03/27/2025 6:44 AM CAREERS ADVISER - 03/27/2025 11:59 PM CAREERS ADVISER Hospital Encounter [facility] Specialty Nursing Services [address] [address] Saskia Brooks MD [address] [place] [phone] Discharge Disposition: Home or Self Care [...] on file Legal Sex Male 12:22 PM CAREERS ADVISER Gender Identity Not on file Sexual Orientation Not on file documented as of this encounter Last Filed Vital Signs Vital Sign Reading Time Taken Comments Blood Pressure 145/87 03/27/2025 6:47 AM CAREERS ADVISER Pulse 73 03/27/2025 6:47 AM CAREERS ADVISER Temperature 36.5 C (97.7 F) 03/27/2025 6:47 AM CAREERS ADVISER Respiratory Rate 18 03/27/2025 6:47 AM CAREERS ADVISER Oxygen Saturation 98% 03/27/2025 6:47 AM CAREERS ADVISER Inhaled Oxygen Concentration - - Weight - [...] patient verbalized understanding. Follow up appointment confirmed. 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 Sony Daniels [facility] [place] [address] [address] Saskia Brooks MD [address] [place] [phone] 05/13/2025 7:00 AM CAREERS ADVISER Appointment [facility] [address] [place] [address] Saskia Brooks MD [address] [place] [address] 07/11/2025 9:20 AM CDT Office Visit [facility] Rheumatology- Shay May Jorge L [address] [place] [address] Saskia Brooks MD [address] [place] [address] 03/27/2026 12:00 PM CAREERS ADVISER Video Visit [facility]ology- [place] [facility] [facility] [address] [place] [address] Ha Dumont FNP [address] [place] [address] documented as of this encounter [...] 0645, RoutineIndications:HMG-CoA myositis Given 03/27/2025 7:11 AM CAREERS ADVISER 650 mg diphenhydrAMINE (BENADRYL) tablet 25 mg 25 mg, Oral, ONE TIME ONLY, 1 dose, On Thi 03/27/25 at 0645, RoutineIndications:HMG-CoA myositis Given 03/27/2025 7:11 AM CAREERS ADVISER 25 mg immune globulin G (human) caprylate (GAMUNEX-C, GAMMAKED) 10 % injection 10 Gram 10 Gram, IV, ONE TIME ONLY, 1 dose, On Thi 03/27/25 at 0730, Routine, Reason for treatment with Immune Globulin (IVIG): Other Rate Change 03/27/2025 8:00 AM CAREERS ADVISER 200 mL/h r Rate Change 03/27/2025 7:44 AM CAREERS ADVISER 100 mL/hr New Bag 03/27/2025 7:14 AM CAREERS ADVISER 10 Grams 50 mL/hr immune globulin G (human) caprylate (GAMUNEX-C,GAMMAKED) 10 % injection 20 Gram 20 Gram, IV, ONE TIME ONLY, 1 dose, On Thi 03/27/25 at 0730, Routine, Reason for treatment with Immune Globulin (IVIG): Other Rate Change 03/27/2025 8:38 AM CAREERS ADVISER 350 mL/h r New Bag 03/27/2025 8:14 AM CAREERS ADVISER 20 Grams 300 mL/hr predniSONE (DELTASONE) tablet 20 mg 20 mg, Oral, ONE TIME ONLY, 1 dose, On Thi 03/27/25 at 0645, RoutineIndications:HMG-CoA myositis Given 03/27/2025 7:12 AM CAREERS ADVISER 20 mg documented in this encounter
--- OUTSIDE RECORDS SUMMARY | 2025-03-28 06:36 | XMS_ITS | Encounter Summary ---
Author Organization [facility] Address 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 Specialty Nursing Services E [address] [place] [phone] Phone: tel: fax: Referral ID Status Reason Start Date Expiration Date V isits Requested Visits Authorized [id number] Authorized 08/05/2024 02/14/2026 99 99 Encounter Details Date Type Department Care Team (Latest Contact Info) Description 03/28/2025 6:36 AM RUGBY LEAGUE FOOTBALLER - 03/28/2025 11:59 PM RUGBY LEAGUE FOOTBALLER Hospital Encounter [facility] Specialty Nursing Services [address] [address] Saskia Brooks MD [address] [place] [phone] Discharge Disposition: Home or Self Care [...] on file Legal Sex Male 12:22 PM RUGBY LEAGUE FOOTBALLER Gender Identity Not on file Sexual Orientation Not on file documented as of this encounter Last Filed Vital Signs Vital Sign Reading Time Taken Comments Blood Pressure 113/77 03/28/2025 6:55 AM RUGBY LEAGUE FOOTBALLER Pulse 90 03/28/2025 6:55 AM RUGBY LEAGUE FOOTBALLER Temperature 36.6 C (97.8 F) 03/28/2025 6:55 AM RUGBY LEAGUE FOOTBALLER Respiratory Rate 18 03/28/2025 6:55 AM RUGBY LEAGUE FOOTBALLER Oxygen Saturation 95% 03/28/2025 6:55 AM RUGBY LEAGUE FOOTBALLER Inhaled Oxygen Concentration - - Weight - [...] as of this encounter Progress Notes * Xiomara Nguyễn RN - 03/28/2025 8:41 AM CST Patient was discharged today from Infusion Services in stable condition. Procedure was tolerated well without complications or symptoms of reaction. Discharge instructions reviewed with patient and patient verbalized understanding. Follow up appointment confirmed. 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) 05/12/2025 7:00 AM RUGBY LEAGUE FOOTBALLER Appointment [facility] Nursing Services [address] [place] [address] Saskia Brooks MD [address] [place] [phone] 05/13/2025 7:00 AM RUGBY LEAGUE FOOTBALLER Appointment [facility] [address] [place] [address] Saskia Brooks MD [address] [place] [address] 07/11/2025 9:20 AM CDT Office Visit [facility] Rheumatology- Shay Co[place] [address] [place] [address] Saskia Brooks MD [address] [place] [address] 03/27/2026 12:00 PM RUGBY LEAGUE FOOTBALLER Video Visit [facility]ology- [place] [facility] [facility] [address] [place] [address] Ha Dumont FNP [address] [place] [address] documented as of this encounter [...] Oral, ONE TIME ONLY, 1 dose, On Mon03/28/25 at 0615, RoutineIndications:HMG-CoA myositis Given 03/28/2025 6:57 AM RUGBY LEAGUE FOOTBALLER 650 mg diphenhydrAMINE (BENADRYL) tablet 25 mg 25 mg, Oral, ONE TIME ONLY, 1 dose, On Mon03/28/25 at 0615, RoutineIndications:HMG-CoA myositis Given 03/28/2025 6:57 AM RUGBY LEAGUE FOOTBALLER 25 mg immune globulin G (human) caprylate (GAMUNEX-C, GAMMAKED) 10 % injection 10 Gram 10 Gram, IV, ONE TIME ONLY, 1 dose, On Mon03/28/25 at 0730, Routine, Reason for treatment with Immune Globulin (IVIG): Other Rate Change 03/28/2025 7:46 AM RUGBY LEAGUE FOOTBALLER Rate Change 03/28/2025 7:31 AM RUGBY LEAGUE FOOTBALLER 100 mL/hr New Bag 03/28/2025 7:00 AM RUGBY LEAGUE FOOTBALLER 10 Grams 50 mL/hr immune globulin G (human) caprylate (GAMUNEX-C,GAMMAKED) 10 % injection 20 Gram 20 Gram, IV, ONE TIME ONLY, 1 dose, On Mon03/28/25 at 0730, Routine, Reason for treatment with Immune Globulin (IVIG): Other Rate Change 03/28/2025 8:02 AM RUGBY LEAGUE FOOTBALLER 350 mL/h r New Bag 03/28/2025 7:55 AM RUGBY LEAGUE FOOTBALLER 20 Grams 200 mL/hr predniSONE (DELTASONE) tablet 20 mg 20 mg, Oral, ONE TIME ONLY, 1 dose, On Mon03/28/25 at 0615, RoutineIndications:HMG-CoA myositis Given 03/28/2025 6:57 AM RUGBY LEAGUE FOOTBALLER 20 mg documented in this encounter
--- OUTSIDE RECORDS SUMMARY | 2025-03-28 06:36 | XMS_ITS | Encounter Summary ---
Author Organization [facility] Address 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 [place] GAMUNEX-C/GAMMAKED Todd Swanson Jo Ellen, MD [address] [place] [address] Phone: tel: fax: [facility] Specialty Nursing Services E Frances [address] [place] [phone] Phone: tel: fax: Referral ID Status Reason Start Date Expiration Date V isits Requested Visits Authorized [id number] Authorized 08/05/2024 02/14/2026 99 99 Encounter Details Date Type Department Care Team (Latest Contact Info) Description 03/28/2025 6:36 AM IT BUSINESS SYSTEMS ANALYST - 03/28/2025 11:59 PM IT BUSINESS SYSTEMS ANALYST Hospital Encounter [facility] Specialty Nursing Services [address] [address] Saskia Brooks MD [address] [place] [phone] Discharge Disposition: Home or Self Care [...] on file Legal Sex Male 12:22 PM IT BUSINESS SYSTEMS ANALYST Gender Identity Not on file Sexual Orientation Not on file documented as of this encounter Last Filed Vital Signs Vital Sign Reading Time Taken Comments Blood Pressure 113/77 03/28/2025 6:55 AM IT BUSINESS SYSTEMS ANALYST Pulse 90 03/28/2025 6:55 AM IT BUSINESS SYSTEMS ANALYST Temperature 36.6 C (97.8 F) 03/28/2025 6:55 AM IT BUSINESS SYSTEMS ANALYST Respiratory Rate 18 03/28/2025 6:55 AM IT BUSINESS SYSTEMS ANALYST Oxygen Saturation 95% 03/28/2025 6:55 AM IT BUSINESS SYSTEMS ANALYST Inhaled Oxygen Concentration - - Weight - [...] patient verbalized understanding. Follow up appointment confirmed. 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) 05/12/2025 7:00 AM IT BUSINESS SYSTEMS ANALYST Appointment [facility] Nursing Services [address] [place] [address] Saskia Brooks MD [address] [place] [phone] 05/13/2025 7:00 AM IT BUSINESS SYSTEMS ANALYST Appointment [facility] [address] [place] [address] Saskia Brooks MD [address] [place] [address] 07/11/2025 9:20 AM CDT Office Visit [facility] Rheumatology- Shay Coats [address] [place] [address] Saskia Brooks MD [address] [place] [address] 03/27/2026 12:00 PM IT BUSINESS SYSTEMS ANALYST Video Visit [facility] Gastroenterology- [place] [address] [address] [place] [address] Ha Dumont FNP [address] [place] [address] documented as of this encounter [...] 0615, RoutineIndications:HMG-CoA myositis Given 03/28/2025 6:57 AM IT BUSINESS SYSTEMS ANALYST 650 mg diphenhydrAMINE (BENADRYL) tablet 25 mg 25 mg, Oral, ONE TIME ONLY, 1 dose, On Mon03/28/25 at 0615, RoutineIndications:HMG-CoA myositis Given 03/28/2025 6:57 AM IT BUSINESS SYSTEMS ANALYST 25 mg immune globulin G (human) caprylate (GAMUNEX-C, GAMMAKED) 10 % injection 10 Gram 10 Gram, IV, ONE TIME ONLY, 1 dose, On Mon03/28/25 at 0730, Routine, Reason for treatment with Immune Globulin (IVIG): Other Rate Change 03/28/2025 7:46 AM IT BUSINESS SYSTEMS ANALYST Rate Change 03/28/2025 7:31 AM IT BUSINESS SYSTEMS ANALYST 100 mL/hr New Bag 03/28/2025 7:00 AM IT BUSINESS SYSTEMS ANALYST 10 Grams 50 mL/hr immune globulin G (human) caprylate (GAMUNEX-C,GAMMAKED) 10 % injection 20 Gram 20 Gram, IV, ONE TIME ONLY, 1 dose, On Mon03/28/25 at 0730, Routine, Reason for treatment with Immune Globulin (IVIG): Other Rate Change 03/28/2025 8:02 AM IT BUSINESS SYSTEMS ANALYST 350 mL/h r New Bag 03/28/2025 7:55 AM IT BUSINESS SYSTEMS ANALYST 20 Grams 200 mL/hr predniSONE (DELTASONE) tablet 20 mg 20 mg, Oral, ONE TIME ONLY, 1 dose, On Mon03/28/25 at 0615, RoutineIndications:HMG-CoA myositis Given 03/28/2025 6:57 AM IT BUSINESS SYSTEMS ANALYST 20 mg documented in this encounter
[2025-03-31] VITALS (72 sets, daily range): BP systolic 90–164; BP diastolic 39–81; PULSE 46–84; RESP 5–23; TEMP 36.3; O2SAT 7–99
--- OUTSIDE RECORDS SUMMARY | 2025-03-31 04:32 | XMS_ITS | Clinical Summary ---
Author Organization [facility] Address [address] [place] [address] Phone Care Team Providers Care Maintenance Groundskeeper Name Role Phone Unavailable Primary Care Provider Unavailabl e Allergies Active Allergy Reactions Criticality Noted Date Comments Fentanyl Hives High 01/06/2010 Penicillins Unknown 01/07/2008 Medications aspirin (SUKHDEV) 81 mg Oral TabIndications: CAD (coronary artery disease) Take 1 Tab by mouth daily. Active lancets (ULTRA THIN LANCETS) [facility] 25G Ultrathin Univ 100s Dx 250 00 Check blood sugars BID 100 Each 3 3 Active blood sugar diagnostic (ASCENSIA CONTOUR) [facility] Test strips 50s #7080 Dx 250 00 Test blood sugars BID 6 Package 3 3 Active prasugrel (EFFIENT) 10 mg Oral Tab Take 10 mg by mouth daily at bedtime. Active metoprolol tartrate (LOPRESSOR) 50 mg Oral tablet Take 50 mg by mouth 2 times daily. Active Insulin Lispro, Human, (HUMALOG) 100 unit/mL Cartridge Inject by subcutaneous injection. Pump 2 units p/hr Active naproxen (NAPROSYN) 500 mg tabletIndicatio ns:Left ankle sprain, subsequent encounter Take 1 Tab (500 mg) by mouth 2 times daily as needed for Pain, Moderate (pain and inflammation). 30 Tab 0 5 Active gabapentin (NEURONTIN) 300 mg capsule Take 300 mg by mouth 3 times daily. Active nortriptyline (PAMELOR) 10 mg capsuleIndicati ons:Facial pain syndrome Take 1-3 Caps (10-30 mg) by mouth 3 times daily as needed (for nerve pain). 40 Cap 2 5 Active Active Problems Problem Noted Date Diagnosed Date HARRY (obstructive sleep apnea) 09/18/2014 Overview (09/18/2014): Severe Diabetes mellitus type II, uncontrolled 06/18/19 13 Obesity 06/17/2012 CAD (coronary artery disease) 06/17/2012 Overview (06/17/2012): S/p stent placement Erectile dysfunction 06/17/2012 Hyperlipidemia 01/07/2008 Hypertension 01/07/2008 Resolved Problems Problem Noted Date Diagnosed Date Resolved Date GERD (gastroesophageal reflux disease) 06/17/2012 07/17/2014 Skin lesion of face 06/17/2012 07/27/19 13 Diabetes mellitus type II 01/07/2008 Overweight(278.02) 01/07/2008 3 Immunizations Immunization Administration Dates Next Due (PNEUMOVAX 23)(50 YRS UP) PN EUMOCOCCAL POLYSACCHARIDE (PPV23) 0.5 ML, IM 01/21/2013 (TDVAX)(7 YRS UP) TETANUS AN D DIPHTHERIA TOXOIDS, ADSORBED (2 LF OF TETANUS TOXOID AND 2 LF OF DIPHTHERIA TOXOID), 0.5ML (PF), IM 04/17/2009 Influenza Seasonal Unspecified Formulation IM ,03/17/2012 Family History Medical History Relation Name Comments Diabetes Father Heart Disease Father Healthy Mother Kidney Disease Mother Relation Name Status Comments Father Mother Alive Social History Tobacco Use Types Packs/Day Years Used Date Smoking Tobacco: Never Smokeless Tobacco: Never Alcohol Use Standard Drinks/Week Comments No 0 (1 standard drink = 0.6 oz pur e alcohol) Sex and Gender Information Value Date Recorded Sex Assigned at Not on file 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 Gender Identity Not on file Sexual Orientation Not on file Occupation Industry Job Start Date Job End Date Not on file Not on file Not on file Not on file Last Filed Vital Signs Vital Sign Reading Time Taken Comments Blood Pressure 132/72 09/02/2014 2:06 PM CDT Pulse 99 09/02/2014 2:06 PM CDT Temperature 36.9 C (98.4 F) 09/02/2014 2:06 PM CDT Respiratory Rate 20 09/02/2014 2:06 PM CDT Oxygen Saturation 95% 09/02/2014 2:06 PM CDT Inhaled Oxygen Concentration - - Weight 95.7 kg (211 lb) 09/02/2014 2:06 PM CDT Height 158.8 cm (5' 2.5 ) 09/02/2014 2:06 PM CDT Body Mass Index 37.98 09/02/2014 2:06 PM CDT Plan of Treatment Health Maintenance Due Date Last Done Comments DIABETES ANNUAL FOOT EXAM 11/30/1985 DIABETES ANNUAL RETINAL EXAM 11/30/1985 HEPATITIS B VACCINES (1 of 3 - 19+ 3-dose series) 11/30/1986 DTAP/TDAP/TD VACCINES (1 - Tdap) 04/18/2009 04/17/19 10 COLORECTAL SCREENING 11/30/2012 Colorectal Cancer Screening 11/30/2012 FIT-DNA Q 3 years 11/30/2012 FIT/FOBT Q 1 year 11/30/2012 Flex Sig/CT Colonography Q 5 years 11/30/2012 DIABETES MICROALBUMIN ANNUAL SCREEN 09/04/2014 09/04/2013, 01/21/2013, 06/29/2012 DIABETES HBA1C Q 6 MONTHS 10/03/2015 04/03/2015, LDL CHOLESTEROL ANNUAL 04/01/2016 5, 03/28/2015, 09/04/2013, Additional history exists ZOSTER VACCINE (1 of 2) 11/30/2017 INFLUENZA VACCINE (#1) 2024 01/21/2013, 2011 Procedures Procedure Name Priority Date/Time Associated Diagnosis Comments HEMOGLOBIN A1C Routine 04/03/2015 LIPID PANEL Routine 04/01/2015 MICROALBUMIN/CREATININ E RATIO, RANDOM UR Routine 09/04/2013 from Last 3 Months or Most Recently Relevant to Health Maintenance Results * HEMOGLOBIN A1C (04/03/2015) ABSTRACTED HGB A1C 9.6 EXTERNAL LAB HEMOGLOBIN A1C 4.7 - 6.4 % EXTERNAL LAB HEMOGLOBIN A1C EXTERNAL LAB GLUCOSE, MEAN BLOOD EXTERNAL LAB Blood specimen (specimen) 04/03/2015 us Abstract Sp Provider CHEMISTRY ORDERABLES Final Result Performing Organization Address [facility] Co de Phone Number EXTERNAL LAB * LIPID PANEL (04/01/2015) ABSTRACTED CHOLESTEROL 251 EXTERNAL LAB ABSTRACTED TRIGLYCERIDE 236 EXTERNAL LAB ABSTRACTED HDL 50 EXTERNAL LAB ABSTRACTED LDL CALCULATED 154 EXTERNAL LAB CHOLESTEROL <=200 mg/dL EXTERNAL LAB CHOLESTEROL EXTERNAL LAB TRIGLYCERIDE <=150 mg/dL EXTERNAL LAB TRIGLYCERIDE EXTERNAL LAB HDL 40 - 59 mg/dL EXTERNAL LAB HDL EXTERNAL LAB LDL CALCULATED <=100 mg/dL EXTERNAL LAB LDL CALCULATED EXTERNAL LAB CALCULATED LDL CHOLESTEROL mg/dL EXTERNAL LAB CALCULATED TOTAL CHOLESTEROL TO HDL RATIO EXTERNAL LAB CHOL/HDL RATIO EXTERNAL LAB VLDL-3 (REMNANT LIPO) mg/dL EXTERNAL LAB LIPID PANEL COMMENT EXTERNAL LAB RISK FACTOR EXTERNAL LAB RESULT COMMENT, CHEMISTRY EXTERNAL LAB Blood specimen (specimen) 04/01/2015 [place] Abstract [facility] [place]MISTRY ORDERABLES Final Result Performing Organization Address [facility] Phone Number EXTERNAL LAB * MICROALBUMIN/CREATININE RATIO, RANDOM UR (09/04/2013) ABSTRACTED MICROALBUMIN,UR INE 9.7 EXTERNAL LAB MICROALBUMIN, URINE mg/dL EXTERNAL LAB CREATININE, URINE EXTERNAL LAB MICROALBUMIN/CR EAT RATIO, UR EXTERNAL LAB MICROALBUMIN, URINE mg/dL EXTERNAL LAB CREATININE, URINE 40.0 - 278.0 mg/dL EXTERNAL LAB MICROALBUMIN/CR EAT RATIO, UR mg/g Creatinine EXTERNAL LAB Urine specimen (specimen) 09/04/2013 [place] [facility] [place] URINE ORDERABLES Final Res ult Performing Organization Address [facility] Co de Phone Number EXTERNAL LAB from Last 3 Months or Most Recently Relevant to Health Maintenance Insurance BS
--- OUTSIDE RECORDS SUMMARY | 2025-03-31 04:32 | XMS_ITS | Encounter Summary ---
Author Organization [facility] Address [address] [place] [address] Care Team Providers Care Ground Defence Officer Name Role Phone Margot Schroeder MD Primary Care Provider [phone]- [phone] Encounter Details Date Type Department Care Team (Latest Contact Info) Description 12/03/2001 Outpatient Historical [facility] Matthew Cr Jr., MD [address] [place] [id number] OSTEOARTHROS NOS-UNSPEC (Primary Dx); DISC DISPLACEMENT NOS Social History Tobacco Use Types Packs/Day Years Used Date Smoking Tobacco: Never Assessed Sex and Gender Information Value Date Recorded Sex Assigned at Not on file 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
--- OUTSIDE RECORDS SUMMARY | 2025-03-31 04:32 | XMS_ITS | Encounter Summary ---
Author Organization [facility] Address [address] [place] [address] Phone Care Team Providers Care Lean Consultant Name Role Phone Unavailable Primary Care Provider Unavailabl e Encounter Details Date Type Department Care Team (Late st Contact Info) Description 07/03/2024 Orders Only [facility] [address] [place] [address] Acute kidney failure with tubular necrosis (HCC) Social History Tobacco Use Types Packs/Day Years Used Date Smoking Tobacco: Never Assessed Sex and Gender Information Value Date Recorded Sex Assigned at Not on file Legal Sex Male 11:21 AM EDT Gender Identity Not on file Sexual Orientation Not on file documented as of this encounter Plan of Treatment Not on file documented as of this encounter Visit Diagnoses Diagnosis Acute kidney failure with tubular necrosis (HCC) documented in this encounter
--- OUTSIDE RECORDS SUMMARY | 2025-03-31 04:32 | XMS_ITS | Encounter Summary ---
Author Organization 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
--- OUTSIDE RECORDS SUMMARY | 2025-03-31 04:32 | XMS_ITS | Clinical Summary ---
Author Organization [facility] Address [address] [place] [address] Care Team Providers Care Fiscal Technician Name Role Phone Unavailable Primary Care Provider Unavailabl e Social History Tobacco Use Types Packs/Day Years Used Date Smoking Tobacco: Never Assessed Sex and Gender Information Value Date Recorded Sex Assigned at Not on file Legal Sex Male 11:21 AM EDT Gender Identity Not on file Sexual Orientation Not on file Plan of Treatment Health Maintenance Due Date Last Done Comments Hepatitis B Vaccine (1 of 3 - 19+ 3-dose series) 11/30 Pneumococcal Vaccine: 50+ Years (2 of 2 - PCV) 014 01/21/2013 Colorectal Cancer Screening: Annual FOBT 11/30/2016 Colorectal Cancer Screening: Colonoscopy 11/30/2016 Colorectal Cancer Screening: Sigmoidoscopy 11/30/2016 Diabetes: Ophthalmology Exam 07/02/2024 Diabetes: Pedal Pulse Checked 07/02/2024 Diabetes: Sensory Foot Exam 07/02/2024 Diabetes: Visual Foot Exam 07/02/2024 Diabetes: Hemoglobin A1C 09/02/2024 06/05/2024 Influenza Vaccine (#1) 2024 Pneumococcal Vaccine: Peds ( 0 to 5 Years) and At-Risk Patients (6 to 49 Years) Discontinued 01/21/2013 Insurance [facility] 1,2,3 (VACCN)
--- OUTSIDE RECORDS SUMMARY | 2025-03-31 04:32 | XMS_ITS | Clinical Summary ---
Author Organization [facility] Address [address] Scott: Epic Prelude ADT [place] [address] Care Team Providers Care Jeweler Apprentice Name Role Phone Unavailable Primary Care Provider Unavailabl e Allergies Active Allergy Reactions Criticality Noted Date Comments Fentanyl Hives High 01/06/2010 Penicillins Unknown 01/07/2008 Gxbqxga-Wmh-Phb Reductase Inhibitors Other (See Comments),Renal Dysfunctions High 05/26/2024 Biopsy proven HMG COA myositis. NO STATINS Renal Failure Syndrome Medications acetaminophen (TYLENOL) 500 mg tablet Take 2 Tablets (1,000 mg) by mouth every 8 hours as needed for Pain, Mild, Temperature or Pain, Moderate (See admin instructions; can alternate with tramadol for moderate pain). 5 Active aspirin (ECOTRIN EC) 81 mg Tablet, Delayed Release (E.C.) Take 1 Tablet (81 mg) by mouth daily. 5 Active ergocalciferol (VITAMIN D2) 50,000 unit capsule Take 1 Capsule (50,000 Units) by mouth every 7 days. 4 Capsule 5 Active ezetimibe (ZETIA) 10 mg tablet Take 1 Tablet (10 mg) by mouth daily. 30 Tablet 5 Active multivitamin with folic acid 400 mcg Tablet tablet Take 1 Tablet by mouth daily. 5 Active pantoprazole (PROTONIX) 40 mg Tablet, Delayed Release (E.C.) Take 1 Tablet (40 mg) by mouth daily. 30 Tablet 5 Active ticagrelor (BRILINTA) 90 mg Tablet Take 1 Tablet (90 mg) by mouth 2 times daily. 60 Tablet Active traZODone (DESYREL) 150 mg tablet Take 1 Tablet (150 mg) by mouth daily at bedtime. 30 Tablet Active furosemide (LASIX) 20 mg tablet Take 40 mg by mouth daily. Active insulin lispro (HumaLOG,ADMELO G) 100 unit/mL vial Inject 0-5 Units by subcutaneous injection. 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 Hematoma of groin 07/01/2024 Pancytopenia 06/21/2024 Type 1 diabetes mellitus with hyperglycemia 09/2024 ELENO (acute kidney injury) 06/20/2024 Elevated transaminase level 06/20/2024 Thrombocytopenia 06/20/2024 Arm DVT (deep venous thromboembolism), acute, ri ght 06/20/2024 Myopathy 06/20/2024 Non-traumatic rhabdomyolysis 06/20/2024 HARRY (obstructive sleep apnea) 09/18/2014 Overview (08/13/2020): Severe Obesity 06/17/2012 CAD (coronary artery disease) 06/17/2012 Overview (08/13/2020): S/p stent placement Diabetes mellitus type II, uncontrolled 06/18/19 13 Erectile dysfunction 06/17/2012 Hypertension 01/07/2008 Other hyperlipidemia 01/07/2008 Resolved Problems Problem Noted Date Diagnosed Date Resolved Date GERD (gastroesophageal reflux disease) 06/17/2012 07/17/2014 Skin lesion of face 06/17/2012 07/27/19 13 Overweight(278.02) 01/07/2008 3 Diabetes mellitus type II 01/07/2008 Encounters Date Type Department Care Team Description 03/28/2025 6:36 AM ANVIL WORKER - 03/28/2025 11:59 PM ANVIL WORKER Hospital Encounter [facility] Sony Daniels [facility] [place] [address] Saskia Brooks MD Discharge Disposition: Home or Self Care 03/27/2025 6:44 AM ANVIL WORKER - 03/27/2025 11:59 PM ANVIL WORKER Hospital Encounter [facility] [address] [place] [address] [place] [phone] Saskia Brooks MD Discharge Disposition: Home or Self Care 03/26/2025 7:30 AM ANVIL WORKER Office Visit [facility] [place] [address] Ha Dumont, HYDRAULIC AUT[employer] JACK MECHANIC Metabolic dysfunction-associate d fatty liver disease (MAFLD) (Primary Dx) 03/03/2025 Orders Only [facility] [address] [place] [address] Saskia Brooks MD HMG-CoA myositis; 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) 02/14/2025 7:03 AM CDT - 02/14/2025 11:59 PM CDT Hospital Encounter [facility] [address] [address] [place] [phone] Discharge Disposition: Home or Self Care 02/13/2025 7:03 AM CDT - 02/13/2025 11:59 PM CDT Hospital Encounter [facility] [address] [place] [address] Saskia Brooks MD Discharge Disposition: Home or Self Care 02/10/2025 [facility] [id number] [facility] [address] [place] [address] Viviana Rodas NP Fatty liver (Primary Dx) 01/13/2025 Orders Only [facility] [place] [address] [place] [address] Saskia Brooks MD Leukopenia, unspecified type (Primary Dx) 01/13/2025 Results Follow-Up [facility] Jorge L [address] [place] [address] Diandra Almonte, HR RECEPTIONIST CBC WITH DIFFERENTIAL, COMPREHENSIVE METABOLIC PANEL, CK 01/10/2025 9:00 AM CDT Office Visit [facility] [place] [address] [place] [address] Saskia Brooks MD HMG-CoA myositis (Primary Dx); 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) 01/10/2025 [facility] [facility] [address] [place] [address] Saskia Brooks MD [facility] 202401/08/2025 7:46 AM CDT - 01/08/2025 11:59 PM CDT Hospital Encounter [facility] [address] [place] [address] Saskia Brooks MD Discharge Disposition: Home or Self Care 01/07/2025 7:43 AM CDT - 01/07/2025 11:59 PM CDT Hospital Encounter [facility] [address] [address] Saskia Brooks MD Discharge Disposition: Home or Self Care 12/31/2024 External Device Data STL ABSTRACTION Provider, Abstract from Last 3 Months Immunizations Immunization Administration Dates Next Due (PNEUMOVAX [...] Date Smoking Tobacco: Never Smokeless Tobacco: Never Tobacco Cessation:Counseling Given: Not Answered Alcohol Use Standard Drinks/Week Comments No 0 [...] on file Legal Sex Male 12:22 PM ANVIL WORKER Gender Identity Not on file Sexual Orientation Not on file Last Filed Vital Signs Vital Sign Reading Time Taken Comments Blood Pressure 113/77 03/28/2025 6:55 AM ANVIL WORKER Pulse 90 03/28/2025 6:55 AM ANVIL WORKER Temperature 36.6 C (97.8 F) 03/28/2025 6:55 AM ANVIL WORKER Respiratory Rate 18 03/28/2025 6:55 AM ANVIL WORKER Oxygen Saturation 95% 03/28/2025 6:55 AM ANVIL WORKER Inhaled Oxygen Concentration - - Weight 81.1 kg (178 lb 12.8 oz) 03/26/2025 7:30 AM ANVIL WORKER Height 160 cm (5' 3 ) 03/26/2025 7:30 AM ANVIL WORKER Body Mass Index 31.67 03/26/2025 7:30 AM ANVIL WORKER Plan of Treatment Upcoming Encounters Date Type Department Care Team (Latest Contact Info) Description 04/28/2025 Orders Only [facility] Rheumatology- Shay May [place] [address] [place] [address] Saskia Brooks MD [address] [place] [phone] HMG-CoA myositis; 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 [phone] Saskia Brooks MD [address] [place] [phone] 05/13/2025 7:00 AM ANVIL WORKER Appointment [facility] [address] [place] [address] Saskia Brooks MD [address] [place] [address] 07/11/2025 9:20 AM CDT Office Visit [facility] Rheumatology- Day Lalo Coats [address] [address] Saskia Brooks MD [address] [address] 03/27/2026 12:00 PM ANVIL WORKER Video Visit [facility] Gastroenterology- Shwetha [address] [address] Ha Dumont FNP [address] [facility] [address] [place] [address] Health Maintenance Due Date Last Done Comments DIABETES ANNUAL FOOT EXAM 11/30/1985 DIABETES ANNUAL RETINAL EXAM 11/30/1985 DIABETES MICROALBUMIN ANNUAL SCREEN 11/30/1985 HEPATITIS B VACCINES (3 of 3 - 19+ 3-dose series) 02/13/1998 12/19/1997, 04/18/1997 DTAP/TDAP/TD VACCINES (1 - Tdap) 04/18/2009 04/17/19 10 COLORECTAL SCREENING 11/30/2012 Colorectal Cancer Screening 11/30/2012 FIT-DNA Q 3 years 11/30/2012 FIT/FOBT Q 1 year 11/30/2012 Flex Sig/CT Colonography Q 5 years 11/30/2012 LDL CHOLESTEROL ANNUAL 04/01/2016 04/01/2015, 2014 INFLUENZA VACCINE (#1) 2024 , 04/13/2022, 02/04/2020, Additional history exists COVID-19 Vaccine (4 - 2024-2 6 season) 2024 04/29/2021, 08/05/2020, 07/07/2020 DIABETES HBA1C Q 6 MONTHS 04/12/20252024, 06/05/2024, 04/03/2015 ZOSTER VACCINE Completed 06/08/2021, 12/15/2020 Procedures Procedure Name Priority Date/Time Associated Diagnosis Comments CBC WITH DIFFERENTIAL Routine 01/24/2025 11:21 AM CDT Leukopenia, unspecified type CK Routine 01/10/2025 9:38 AM CDT 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 WBC 4.3 3.8 - 10.8 Thousand/u L [facility] RBC 4.88 4.20 - 5.80 Million/uL [facility] HEMOGLOBIN 14.8 13.2 - 17.1 g/dL [facility] HEMATOCRIT 44.2 38.5 - 50.0 % [facility] MCV 90.6 80.0 - 100.0 fL [facility] RR MCH 30.3 27.0 - 33.[address] [facility] RR MCHC 33.5 32.0 - 36.0 g/dL [facility] RR Comment: For adults, a slight decrease in the calculated MCHC value (in the range of 30 to 32 g/dL) is most likely not clinically significant; however, it should be interpreted with caution in correlation with other red cell parameters and the patient's clinical condition. RDW 13.7 11.0 - 15.0 % [facility] PLATELETS 162 140 - 400 Thousand/u L [facility] MPV 9.3 7.5 - 12.5 fL [facility] NEUTROPHIL ABSOLUTE 2,752 1,500 - 7,800 cells/uL [facility] LYMPHOCYTE ABSOLUTE 1,036 850 - 3,900 cells/uL [facility] MONOCYTE ABSOLUTE 353 200 - 950 cells/uL [facility] EOSINOPHIL ABSOLUTE 129 15 - 500 cells/uL [facility] BASOPHILS ABSOLUTE 30 0 - 200 cells/uL [facility] NEUTROPHIL 64 % [facility] LYMPHOCYTES 24.1 % [facility] MONOCYTE 8.2 % [facility] EOSINOPHILS 3.0 % [facility] BASOPHILS 0.7 % [facility] Comment: FASTING:NO FASTING: NO Test Performed at: [facility] [address] [place] [address] Lazaro Ibanez Blood 01/24/2025 11:2 1 AM CDT 01/24/2025 11:22 AM CDT us Saskia Brooks MD HEMATOLOGY ORDERABLES Final Result [facility] [phone] [facility] RR [address] [place] [address] * CK (01/10/2025 9:38 AM CDT) Pathologist [facility] CK 196 23 - 325 U/L [facility] Comment: FASTING:YES FASTING: YES Test [facility]: [facility] [address] [facility] [place] [address] Madeline Sebastian MD Blood 01/10/2025 9:38 AM CDT 01/10/2025 9:39 AM CDT Saskia Brooks MD CHEMISTRY ORDERABLES Final R esult [facility] [phone] [facility] [address] [place] [address] * (ABNORMAL) COMPREHENSIVE METABOLIC PANEL (01/10/2025 9:38 AM CDT) [facility] GLUCOSE 248(H) 65 - 99 mg/dL [facility] Comment: Fasting reference interval For someone without known diabetes, a glucose value >125 mg/dL indicates that they may have diabetes and this should be confirmed with a follow-up test. BUN 20 7 - 25 mg/dL [facility] CREATININE 1.30 0.70 - 1.30 mg/dL [facility] GFR 64 > OR = 60 mL/min/1. 73m2 [facility] BUN/CREAT RATIO SEE NOTE: 6 - 22 (calc) [facility] Comment: Not Reported: BUN and Creatinine are within reference range. SODIUM 133(L) 135 - 146 mmol/L [facility] POTASSIUM 3.9 3.5 - 5.3 mmol/L [facility] CHLORIDE 95(L) 98 - 110 mmol/L [facility] CO2 29 20 - 32 mmol/L [facility] CALCIUM 9.2 8.6 - 10.3 mg/dL [facility] TOTAL PROTEIN 8.0 6.1 - 8.1 g/dL [facility] ALBUMIN 4.0 3.6 - 5.1 g/dL [facility] GLOBULIN 4.0(H) 1.9 - 3.7 g/dL (calc) [facility] ALBUMIN/GLOBULIN RATIO 1.0 1.0 - 2.5 (calc) [facility] BILIRUBIN TOTAL 0.8 0.2 - 1.2 mg/dL [facility] ALKALINE PHOSPHATASE 103 35 - 144 U/L [facility] AST 20 10 - 35 U/L [facility] ALT 16 9 - 46 U/L [facility] Comment: Test Performed at: [facility] [address] [place] [address] Lazaro Ibanez Blood 01/10/2025 9:38 AM CDT 01/10/2025 9:39 AM CDT DeniseAnita Brooks MD CHEMISTRY ORDERABLES Final R esult [facility] [phone] [facility] [address] [place] [address] * HEMOGLOBIN A1C (04/03/2015) Pathologist [facility] ABSTRACTED HGB A1C 9.6 EXTERNAL LAB HEMOGLOBIN A1C EXTERNAL LAB HEMOGLOBIN A1C EXTERNAL LAB GLUCOSE, MEAN BLOOD EXTERNAL LAB Blood 04/03/2015 Narrative EXTERNAL LAB - 04/03/2015 12:00 AM ANVIL WORKER This order was created through External Result Entry us Abstract Spg Provider CHEMISTRY ORDERABLES Final Result EXTERNAL LAB * LIPID PANEL (04/01/2015) ABSTRACTED CHOLESTEROL 251 EXTERNAL LAB ABSTRACTED TRIGLYCERIDE 236 EXTERNAL LAB ABSTRACTED HDL 50 EXTERNAL LAB ABSTRACTED LDL CALCULATED 154 EXTERNAL LAB CHOLESTEROL EXTERNAL LAB CHOLESTEROL EXTERNAL LAB TRIGLYCERIDE EXTERNAL LAB TRIGLYCERIDE EXTERNAL LAB HDL EXTERNAL LAB HDL EXTERNAL LAB LDL CALCULATED EXTERNAL LAB LDL CALCULATED EXTERNAL LAB CALCULATED LDL CHOLESTEROL EXTERNAL LAB CALCULATED TOTAL CHOLESTEROL TO HDL RATIO EXTERNAL LAB CHOL/HDL RATIO EXTERNAL LAB VLDL-3 (REMNANT LIPO) EXTERNAL LAB LIPID PANEL COMMENT EXTERNAL LAB RISK FACTOR EXTERNAL LAB RESULT COMMENT, CHEMISTRY EXTERNAL LAB Blood 04/01/2015 Narrative EXTERNAL LAB - 04/01/2015 12:00 AM ANVIL WORKER This order was created through External Result Entry us Abstract Spg Provider CHEMISTRY ORDERABLES Final Result EXTERNAL LAB from Last 3 Months or Most Recently Relevant to Health Maintenance Insurance * Guarantor: [employer] Account Type Relation to Patient Date of Phone Billing Address Corporate Other DEFAULT ADDRESS [address] [employer] Advance Directives For more information, please contact: [phone] * Full Code (Latest Code Status on File) Date Activated Date Inactivated Comments 06/20/2024 8:57 PM 07/04/2024 12:58 PM
--- OUTSIDE RECORDS SUMMARY | 2025-03-31 04:32 | XMS_ITS | Encounter Summary ---
Author Organization [facility] Address [address] [place] [address] Care Team Providers Care Piling Setter Name Role Phone Margot Schroeder MD Primary Care Provider [phone] Encounter Details Date Type Department Care Team (Latest Contact Info) Description 12/27/2007 Outpatient Historical [facility] 4A Cardiac [address] [place] [address] Ed, Physician NO ADDRESS ON FILE Chico Jeffries MD [address] [place] [address] Ramesh Card MD [address] [facility] [address] [place] [id number] Unspecified Chest Pain Social History Tobacco Use Types Packs/Day Years Used Date Smoking Tobacco: Never Assessed Sex and Gender Information Value Date Recorded Sex Assigned at Not on file 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[employer] Gender Identity Not on file Sexual Orientation Not on file documented as of this encounter Plan of Treatment Not on file documented as of this encounter Procedures Procedure Name Priority Date/Time Associated Diagnosis Comments POC GLUCOSE Routine 12/28/2007 5:13 PM CDT POC GLUCOSE Routine 12/28/2007 2:04 PM CDT POC GLUCOSE Routine 12/28/2007 12:13 PM CDT CARDIAC ENZYMES Routine 12/28/2007 11:13 AM CDT PTT Routine 12/28/2007 11:13 AM CDT CARDIAC ENZYMES Routine 12/28/2007 5:55 AM CDT CTA CHEST W WO CONTRAST Routine 12/28/2007 1:02 AM CDT XR CHEST PA OR AP 1 VW Routine 12/27/2007 10:50 PM CDT BASIC METABOLIC PANEL PLUS Stat 12/27/2007 10:43 PM CDT CARDIAC ENZYMES Stat 12/27/2007 10:43 PM CDT CBC WITH DIFFERENTIAL Stat 12/27/2007 10:43 PM CDT PTT Stat 12/27/2007 10:43 PM CDT PROTIME-INR Stat 12/27/2007 10:43 PM CDT D-DIMER Stat 12/27/2007 10:43 PM CDT LIPASE Stat 12/27/2007 10:43 PM CDT AMYLASE Stat 12/27/2007 10:43 PM CDT BASIC METABOLIC PANEL Stat 12/27/2007 10:43 PM CDT documented in this encounter Results * (ABNORMAL) POC GLUCOSE (12/28/2007 5:13 PM CDT) GLUCOSE POC 407(H) 60 - 100 mg/dL [facility] Venous blood specimen (specimen) 12/28/2007 5:13 PM CDT 12/28/2007 11:10 PM CDT Ramesh Card MD POINT OF CARE TESTING Final Res ult Performing Organization Address [facility] de Phone Number INTERFACE SYSTEM Refer to clinic/hospital department [facility] CLIA# [id number] [address] [place] [address] * (ABNORMAL) POC GLUCOSE (12/28/2007 2:04 PM CDT) GLUCOSE POC 266(H) 60 - 100 mg/dL [facility] COMMENT POC Notify [facility] Venous blood specimen (specimen) 12/28/2007 2:04 PM CDT 12/31/2007 5:05 AM CDT us Ramesh Card MD POINT OF CARE TESTING Final Res ult Performing Organization Address [facility] de Phone Number INTERFACE SYSTEM Refer to clinic/hospital department [facility] CLIA# [id number] [address] [place] [address] * (ABNORMAL) POC GLUCOSE (12/28/2007 12:13 PM CDT) GLUCOSE POC 263(H) 60 - 100 mg/dL [facility] Venous blood specimen (specimen) 12/28/2007 12:13 PM CDT 12/28/2007 11:10 PM CDT us Ramesh Card MD POINT OF CARE TESTING Final Res ult Performing Organization Address [facility] de Phone Number INTERFACE SYSTEM Refer to clinic/hospital department [facility] CLIA# [id number] [address] [place] [address] * (ABNORMAL) PTT (12/28/2007 11:13 AM CDT) PTT 114.5(H) 22.5 - 36.5 Secs [facility] Comment: Therapeutic Range: Hi-level PE/DVT heparin protocol 80.1 -95.0 sec Lo-level PE/DVT heparin protocol 67.1 - 80.0 sec Cardiac Heparin Protocol 67.1 - 85.0 sec Neuro Heparin Protocol 67.1 - 80.0 sec As of 07/05/2007 note change in APTT Normal Range. Blood specimen (specimen) 12/28/2007 11:13 AM CDT 12/28/2007 11:25 AM CDT Ramesh Card MD HEMATOLOGY ORDERABLES Final Res ult Performing Organization Address [facility] Phone Number INTERFACE SYSTEM Refer to clinic/hospital department [facility] CLIA# [id number] [address] [place] [address] * CARDIAC ENZYMES (12/28/2007 11:13 AM CDT) TROPONIN I <0.1 0.0 - 1.3 ng/mL [facility] CKMB 1.3 0.0 - 5.0 ng/mL [facility] Blood specimen (specimen) 12/28/2007 11:13 AM CDT 12/28/2007 11:25 AM CDT Xiomara Peterson MD CHEMISTRY ORDERABLES Final Result Performing Organization Address [facility] de Phone Number INTERFACE SYSTEM Refer to clinic/hospital department [facility] CLIA# [id number] [address] [place] [address] * CARDIAC ENZYMES (12/28/2007 5:55 AM CDT) TROPONIN I <0.1 0.0 - 1.3 ng/mL [facility] CKMB 1.1 0.0 - 5.0 ng/mL [facility] Blood specimen (specimen) 12/28/2007 5:55 AM CDT 12/28/2007 6:12 AM CDT Xiomara Peterson MD CHEMISTRY ORDERABLES Final Result INTERFACE SYSTEM Refer to clinic/hospital department [facility] CLIA# [id number] [facility] [place] [address] * CTA CHEST W WO CONTRAST (12/28/2007 1:02 AM CDT) Anatomical Region Laterality Modality Chest Other 12/28/2007 1:02 AM CDT Narrative 12/28/2007 2:24 AM CDT CTA Chest 12/28/2007 History: Chest pain. Procedure: A routine CT angiogram for pulmonary embolus was obtained with noncontrast images followed by thin cut images with 100ml of Optiray 350 IV contrast. Findings: 1. The pulmonary arteries are very well opacified. There is no pulmonary embolus. 2. The lung donis are clear. There is no pneumothorax or pleural fluid. There is no pericardial fluid. 3. There are at least 2 coronary artery stents. 4. The thoracic aorta is normal. There is no mediastinal or axillary lymphadenopathy. There is no identified abnormality of the adrenals or partially included liver, spleen, and pancreas. Bones are intact. 5. There has been a previous cholecystectomy. Impression: No pulmonary embolus. Coronary artery stents. Previous cholecystectomy. - Dictated By: Shaniqua Fajardo M.D. Electronically Signed By: Shaniqua Fajardo M.D. Date Signed: 12/28/07 Procedure Note Sahniqua Fajardo R - 12/28/2007 CTA Chest 12/28/2007 History: Chest pain. Procedure: A routine CT angiogram for pulmonary embolus was obtained withnoncontrast images followed by thin cut images with 100ml of Optiray 350 IV contrast. Findings: 1. The pulmonary arteries are very well opacified. There is no pulmonaryembolus. 2. The lung donis are clear. There is no pneumothorax or pleural fluid.There is no pericardial fluid. 3. There are at least 2 coronary artery stents. 4. The thoracic aorta is normal. There is no mediastinal or axillarylymphadenopathy. There is no identified abnormality of the adrenals or partially included liver,spleen, and pancreas. Bones are intact. 5. There has been a previous cholecystectomy. Impression: No pulmonary embolus. Coronary artery stents. Previouscholecystectomy. - Dictated By: Shaniqua Fajardo M.D. Electronically Signed By: Shaniqua Fajardo M.D. Date Signed: 12/28/[address] ORDERABLES Final Result * XR CHEST PA OR AP (12/27/2007 10:50 PM CDT) Anatomical Region Laterality Modality Chest Other 12/27/2007 10:5 0 PM CDT Narrative 12/28/2007 10:46 AM CDT Exam: Chest - Portable Date/Time of Exam: Dec 27, 2007 10:50:47 PM History: Chest pain. Findings: Today's study compared to 12/07/2007. Midline structures stable unremarkable. Lungs clear. Decreased volumes. Impression: Unremarkable. - Dictated By: Modesto Benavides D.O. Electronically Signed By: Modesto Benavides D.O. Date Signed: 12/28/07 Procedure Note Modesto Benavides - 12/28/2007 Exam: Chest - Portable Date/Time of Exam: Dec 27, 2007 10:50:47 PM History: Chest pain. Findings: Today's study compared to 12/07/2007. Midline structures stable unremarkable. Lungs clear. Decreased volumes. Impression: Unremarkable. - Dictated By: Modesto Benavides D.O. Electronically Signed By: Modesto Benavides D.O. Date Signed: 12/28/07 Xiomara Peterson MD DIAGNOSTIC IMAGING ORDERAB LES Final Result * (ABNORMAL) BASIC METABOLIC PANEL PLUS (12/27/2007 10:43 PM CDT) ALBUMIN 4.7 3.5 - 5.0 g/dL [facility] ALT 22 4 - 36 IU/L [facility] BILIRUBIN TOTAL 0.4 0.3 - 1.2 mg/dL [facility] ALKALINE PHOSPHATASE 116(H) 25 - 100 U/L [facility] Comment: Slight Lipemia TOTAL PROTEIN 7.5 6.3 - 8.2 g/dL [facility] AST 18 8 - 33 U/L [facility] Blood specimen (specimen) 12/27/2007 10:43 PM CDT 12/27/2007 11:44 PM CDT us Chico Jeffries MD CHEMISTRY ORDERABLES Final R esult Performing Organization Address [facility] Phone Number INTERFACE SYSTEM Refer to clinic/hospital department [facility] CLIA# [id number] [address] [place] [address] * (ABNORMAL) AMYLASE (12/27/2007 10:43 PM CDT) Pathologist [facility] AMYLASE 13(L) 20 - 104 U/L [facility] Blood specimen (specimen) 12/27/2007 10:43 PM CDT 12/27/2007 11:44 PM CDT us Chico Jeffries MD CHEMISTRY ORDERABLES Final R esult Performing Organization Address [facility] Phone Number INTERFACE SYSTEM Refer to clinic/hospital department [facility] CLIA# [id number] [address] [place] [address] * LIPASE (12/27/2007 10:43 PM CDT) Pathologist [facility] LIPASE 31 6 - 51 U/L [facility] Blood specimen (specimen) 12/27/2007 10:43 PM CDT 12/27/2007 11:44 PM CDT us Chico Jeffries MD CHEMISTRY ORDERABLES Final R esult Performing Organization Address [facility] Phone Number INTERFACE SYSTEM Refer to clinic/[facility] CLIA# [id number] [address] [place] [address] * D-DIMER (12/27/2007 10:43 PM CDT) D-DIMER QUANT 0.3 0.0 - 0.5 mcg/mL [facility] Comment: Testing performed using the STA Liatest D-Di kit. This test can be used as an aid to the diagnosis of deep venous thrombosis and pulmonary embolism. In clinical studies it has been reported that, with a cutoff value of 0.5 mcg/mL FEU, the negative predictive value for the exclusion of thrombosis was within the 95-100% range. Blood specimen (specimen) 12/27/2007 10:43 PM CDT 12/27/2007 11:44 PM CDT us Chico Jeffries MD HEMATOLOGY ORDERABLES Final Result Performing Organization Address [facility] de Phone Number INTERFACE SYSTEM Refer to clinic/hospital department [facility] CLIA# [id number] [address] [place] [address] * (ABNORMAL) BASIC METABOLIC PANEL (12/27/2007 10:43 PM CDT) Pathologist [facility] OSMOLALITY, CALCULATED 297(H) 275 - 295 mOsm/Kg [facility] POTASSIUM 4.1 3.5 - 5.0 mEq/L [facility] Comment: Specimen slightly hemolyzed Slight Lipemia CREATININE 1.2 0.7 - 1.5 mg/dL [facility] CALCIUM 10.2 8.4 - 10.5 mg/dL [facility] GLUCOSE 426(H) 70 - 110 mg/dL [facility] CHLORIDE 99 95 - 110 mEq/L [facility] SODIUM 134(L) 136 - 145 mEq/L [facility] ANION GAP 12 9 - 20 mEq/L [facility] BUN 19 9 - 20 mg/dL [facility] CO2 27 22 - 32 mmol/l [facility] Blood specimen (specimen) 12/27/2007 10:43 PM CDT 12/27/2007 10:43 PM CDT us Xiomara Peterson MD CHEMISTRY ORDERABLES Final Result Performing Organization Address [facility] de Phone Number INTERFACE SYSTEM Refer to clinic/hospital department [facility] CLIA# [id number] [address] [place] [address] * (ABNORMAL) CBC WITH DIFFERENTIAL (12/27/2007 10:43 PM CDT) EOSINOPHIL ABSOLUTE 0.2 0.0 - 0.7 K/ul [facility] EOSINOPHILS 3.4 0.0 - 7.0 % [facility] RBC 5.48 4.60 - 6.20 Mil/ul [facility] MCHC 36.0(H) 30.0 - 35.0 g/dL [facility] LYMPHOCYTE ABSOLUTE 1.7 1.2 - 4.0 K/ul [facility] LYMPHOCYTES 33.8 24.0 - 44.0 % [facility] MCV 82.7(L) 84.0 - 103.0 Fl [facility] BASOPHILS 0.6 0.0 - 1.0 % [facility] MPV 9.2 8.9 - 12.8 Fl [facility] BASOPHILS ABSOLUTE 0.0 0.0 - 0.2 K/ul [facility] HEMOGLOBIN 16.3 14.0 - 18.0 g/dL [facility] MONOCYTES 7.3 2.0 - 10.0 % [facility] RDW 13.0 11.0 - 14.5 % [facility] MONOCYTE ABSOLUTE 0.4 0.1 - 0.6 K/ul [facility] WBC 5.1 4.5 - 11.0 K/ul [facility] NEUTROPHILS 54.9 42.2 - 75.2 % [facility] MCH 29.7 27.0 - 34.0 pg [facility] NEUTROPHIL ABSOLUTE 2.8 2.0 - 8.0 K/ul [facility] HEMATOCRIT 45.3 41.0 - 53.0 % [facility] PLATELETS 179 140 - 440 K/ul [facility] Blood specimen (specimen) 12/27/2007 10:43 PM CDT 12/27/2007 10:43 PM CDT us Xiomara Peterson MD HEMATOLOGY ORDERABLES Ewelina weinberg Result Performing Organization Address [facility] de Phone Number INTERFACE SYSTEM Refer to clinic/hospital department [facility] CLIA# [id number] [address] [place] [address] * (ABNORMAL) PTT (12/27/2007 10:43 PM CDT) PTT 22.4(L) 22.5 - 36.5 Secs [facility] Comment: Therapeutic Range: Hi-level PE/DVT heparin protocol 80.1 -95.0 sec Lo-level PE/DVT heparin protocol 67.1 - 80.0 sec Cardiac Heparin Protocol 67.1 - 85.0 sec Neuro Heparin Protocol 67.1 - 80.0 sec As of 07/05/2007 note change in APTT Normal Range. Blood specimen (specimen) 12/27/2007 10:43 PM CDT 12/27/2007 10:43 PM CDT us Xiomara Peterson MD HEMATOLOGY ORDERABLES Ewelina weinberg Result Performing Organization Address [facility] de Phone Number INTERFACE SYSTEM Refer to clinic/hospital department [facility] CLIA# [id number] [address] [place] [address] * (ABNORMAL) PROTIME-INR (12/27/2007 10:43 PM CDT) INR 0.8 [facility] Comment: Expected Values for INR: DVT/PE Goal INR 2.5; range 2.0 - 3.0 Valve Replacement Tissue Goal INR 2.5; range 2.0 - 3.0 Mechanical Goal INR 3.0; range 2.5 - 3.5 POST-HI Goal INR 2.5; range 2.0 - 3.0 or Goal 3.0; range 2.5 - 3.5 Atrial Fibrillation Goal INR 2.5; range 2.0 - 3.0 Ischemic Stroke Goal INR 2.5; range 2.0 - 3.0 For additional information see Guidelines for Anticoagulation available from the pharmacy [facility]. [phone] PROTIME 12.0(L) 12.8 - 15.8 Secs [facility] Comment:As of 2007 not e change in normal range. Blood specimen (specimen) 12/27/2007 10:43 PM CDT 12/27/2007 10:43 PM CDT Xiomara Peterson MD HEMATOLOGY ORDERABLES Ewelina l Result Performing Organization Address [facility] Phone Number INTERFACE SYSTEM Refer to clinic/hospital department [facility] CLIA# [id number] [address] [place] [address] * CARDIAC ENZYMES (12/27/2007 10:43 PM CDT) TROPONIN I <0.1 0.0 - 1.3 ng/mL [facility] CKMB 1.3 0.0 - 5.0 ng/mL [facility] Blood specimen (specimen) 12/27/2007 10:43 PM CDT 12/27/2007 10:43 PM CDT Xiomara Peterson MD CHEMISTRY ORDERABLES Final Result Performing Organization Address [facility] Phone Number INTERFACE SYSTEM Refer to clinic/hospital department [facility] CLIA# [id number] [address] [place] [address] documented in this encounter Visit Diagnoses Diagnosis Chest pain, unspecified documented in this encounter Care Teams Piling Setter Relationship Specialty Start Date End Date Margot Schroeder MD PCP - General Family Practice 05/14/12 06/01/17 documented as of this encounter
--- OUTSIDE RECORDS SUMMARY | 2025-03-31 04:32 | XMS_ITS | Encounter Summary ---
Author Organization [facility] Address [address] [place] [address] Care Team Providers Care Soundscriber Mechanic Name Role Phone Margot Schroeder MD Primary Care Provider [phone] Encounter Details Date Type Department Care Team (Late st Contact Info) Description 12/07/2007 Outpatient Historical HIS IN BED Sj Ed, Physician NO ADDRESS ON FILE Moses Matthews MD [address] [place] [address] [phone] Yohannes Healy MD [address] [place] [address] Matthew Duarte MD NO ADDRESS ON FILE Unspecified Chest Pain Social History Tobacco Use Types Packs/Day Years Used Date Smoking Tobacco: Never Assessed Sex and Gender Information Value Date Recorded Sex Assigned at Not on file Legal Sex Male 3:29 AM [employer]USB[employer] Gender Identity Not on file Sexual Orientation Not on file documented as of this encounter Plan of Treatment Not on file documented as of this encounter Procedures Procedure Name Priority Date/Time Associated Diagnosis Comments POC GLUCOSE Routine 12/10/2007 11:34 AM CDT POC GLUCOSE Routine 12/10/2007 6:20 AM CDT POC GLUCOSE Routine 12/09/2007 8:50 PM CDT POC GLUCOSE Routine 12/09/2007 5:33 PM CDT POC GLUCOSE Routine 12/09/2007 10:53 AM CDT PATHOLOGY Routine 12/09/2007 8:38 AM CDT POC GLUCOSE Routine 12/09/2007 5:38 AM CDT POC GLUCOSE Routine 12/08/2007 9:04 PM CDT POC GLUCOSE Routine 12/08/2007 5:53 PM CDT XR THORACIC SPINE 3 VW Routine 12/08/2007 5:10 PM CDT XR CERVICAL SPINE 2 OR 3 VIEWS Routine 12/08/2007 5:09 PM CDT CTA CHEST W WO CONTRAST Routine 12/08/2007 3:56 PM CDT POC GLUCOSE Routine 12/08/2007 12:21 PM CDT CARDIAC ENZYMES Routine 12/08/2007 11:52 AM CDT STRESS TEST EXERCISE NUCLEAR MED Routine 12/08/2007 7:10 AM CDT NM MYOCARD PERF IMAG SPECT MULT Routine 12/08/2007 7:10 AM CDT POC GLUCOSE Routine 12/08/2007 6:28 AM CDT CARDIAC ENZYMES Routine 12/08/2007 5:45 AM CDT CBC WITH DIFFERENTIAL Routine 12/08/2007 5:45 AM CDT BASIC METABOLIC PANEL Routine 12/08/2007 5:45 AM CDT POC GLUCOSE Routine 12/08/2007 1:26 AM CDT XR CHEST PA OR AP 1 VW Routine 12/07/2007 11:57 PM CDT CBC WITH DIFFERENTIAL Stat 12/07/2007 11:35 PM CDT CARDIAC ENZYMES Stat 12/07/2007 11:23 PM CDT PTT Stat 12/07/2007 11:23 PM CDT PROTIME-INR Stat 12/07/2007 11:23 PM CDT BASIC METABOLIC PANEL Stat 12/07/2007 11:23 PM CDT documented in this encounter Results * (ABNORMAL) POC GLUCOSE (12/10/2007 11:34 AM CDT) GLUCOSE POC 325(H) 60 - 100 mg/dL [facility] Venous blood specimen (specimen) 12/10/2007 11:34 AM CDT 12/11/2007 12:10 AM CDT us Matthew Duarte MD POINT OF CARE TESTING Final Resu lt Performing Organization Address City/[facility] de Phone Number INTERFACE SYSTEM Refer to clinic/hospital department [facility] CLIA# [id number] [address] [place] [address] * (ABNORMAL) POC GLUCOSE (12/10/2007 6:20 AM CDT) GLUCOSE POC 132(H) 60 - 100 mg/dL [facility] Venous blood specimen (specimen) 12/10/2007 6:20 AM CDT 12/11/2007 12:10 AM CDT us Matthew Duarte MD POINT OF CARE TESTING Final Resu lt Performing Organization Address City/[facility] de Phone Number INTERFACE SYSTEM Refer to clinic/hospital department [facility] CLIA# [id number] [address] [place] [address] * (ABNORMAL) POC GLUCOSE (12/09/2007 8:50 PM CDT) GLUCOSE POC 421(H) 60 - 100 mg/dL [facility] Venous blood specimen (specimen) 12/09/2007 8:50 PM CDT 12/10/2007 2:42 AM CDT us Matthew Duarte MD POINT OF CARE TESTING Final Resu lt Performing Organization Address [facility] de Phone Number INTERFACE SYSTEM Refer to clinic/hospital department [facility] CLIA# [id number] [address] [place] [address] * (ABNORMAL) POC GLUCOSE (12/09/2007 5:33 PM CDT) COMMENT POC Notify [facility] GLUCOSE POC 304(H) 60 - 100 mg/dL [facility] Venous blood specimen (specimen) 12/09/2007 5:33 PM CDT 12/10/2007 2:42 AM CDT us Matthew Daurte MD POINT OF CARE TESTING Final Resu lt Performing Organization Address [facility] de Phone Number INTERFACE SYSTEM Refer to clinic/hospital department [facility] CLIA# [id number] [address] [place] [address] * (ABNORMAL) POC GLUCOSE (12/09/2007 10:53 AM CDT) GLUCOSE POC 253(H) 60 - 100 mg/dL [facility] Venous blood specimen (specimen) 12/09/2007 10:53 AM CDT 12/10/2007 2:45 AM CDT us Matthew Duarte MD POINT OF CARE TESTING Final Resu lt Performing Organization Address City/[facility] Co de Phone Number INTERFACE SYSTEM Refer to clinic/hospital department [facility] CLIA# [id number] [address] [place] [address] * PATHOLOGY (12/09/2007 8:38 AM CDT) PATHOLOGY/CYT OLOGY REPORT [facility] Dept [address] [facility] [address] Patient: MOISÉS GONZALEZ Accn No: [id number] Collected: 12/09/2007 8:38:00 AM SURGICAL PATHOLOGY FINAL REPORT Diagnosis A. Stomach, antrum, biopsy - benign gastric mucosa with mucosal fibrosis and minimal chronic inflammation - Giemsa stain negative for H. pylori-like organisms. / B. Esophagus, biopsy - benign squamous mucosa with no increase in intraepithelial eosinophils (no evidence of eosinophilic esophagitis). Frank Coretz M.D. (Electronically signed by) Verified: 12/11/07 SEC/SEC Clinical Information A) Rule out H. pylori. B) Rule out eosinophilic esophagitis. Specimen Source AStomach, ANTRUM BEsophagus Microscopic Description Microscopic examination was performed. Gross Description Part A. Submitted in a container of formalin labelled Lisa, #1 antral biopsy are three brasher tissue fragments ranging in size from 0.4 to 0.5 cm. The specimen is submitted entirely in A1 with a Giemsa stain ordered. Part B. Submitted in a container of formalin labelled Lisa, #2 esophageal biopsy are two brasher tissue fragments measuring up to 0.4 cm. The specimen is submitted entirely in B1. DLS/CEP INTERFACE SYSTEM 12/09/2007 8:38 AM CDT Yohannes Healy MD PATHOLOGY/CYTOLOGY ORDERABLE S Final Result INTERFACE SYSTEM Refer to clinic/hospital department * (ABNORMAL) POC GLUCOSE (12/09/2007 5:38 AM CDT) GLUCOSE POC 269(H) 60 - 100 mg/dL [facility] Venous blood specimen (specimen) 12/09/2007 5:38 AM CDT 12/10/2007 2:45 AM CDT us Matthew Duarte MD POINT OF CARE TESTING Final Resu lt Performing Organization Address [facility] Phone Number INTERFACE SYSTEM Refer to clinic/hospital department [facility] CLIA# [id number] [address] [place] [address] * (ABNORMAL) POC GLUCOSE (12/08/2007 9:04 PM CDT) GLUCOSE POC 319(H) 60 - 100 mg/dL [facility] Venous blood specimen (specimen) 12/08/2007 9:04 PM CDT 12/09/2007 3:57 AM CDT us Matthew Duarte MD POINT OF CARE TESTING Final Resu Performing Organization Address [facility] Phone Number INTERFACE SYSTEM Refer to clinic/hospital department [facility] CLIA# [id number] [address] [place] [address] * (ABNORMAL) POC GLUCOSE (12/08/2007 5:53 PM CDT) GLUCOSE POC 331(H) 60 - 100 mg/dL [facility] Venous blood specimen (specimen) 12/08/2007 5:53 PM CDT 12/09/2007 3:57 AM CDT us Matthew Duarte MD POINT OF CARE TESTING Final Resu Performing Organization Address [facility] Phone Number INTERFACE SYSTEM Refer to clinic/hospital [facility] CLIA# [id number] [address] [place] [address] * XR THORACIC SPINE 3 VW (12/08/2007 5:10 PM CDT) Anatomical Region Laterality Modality Spine Other 12/08/2007 5:10 PM CDT Narrative 12/08/2007 6:23 PM CDT Limited cervical spine study and two views thoracic spine 12/08/2007. Cervical and thoracic spine appear to be normally aligned and intact. Disc spaces well maintained. Prevertebral soft tissues unremarkable. Impression: Unremarkable examination. - Dictated By: Zoey Cummins M.D. Electronically Signed By: Zoey Cummins M.D. Date Signed: 12/08/07 Procedure Note Zoey Cummins S - 12/08/2007 Limited cervical spine study and two views thoracic spine 12/08/2007. Cervical and thoracic spine appear to be normally aligned and intact. Discspaces well maintained. Prevertebral soft tissues unremarkable. Impression: Unremarkable examination. - Dictated By: Zoey Cummins M.D. Electronically Signed By: Zoey Cummins M.D. Date Signed: 12/08/07 Yohannes Healy MD DIAGNOSTIC IMAGING ORDERABLE S Final Result * XR CERVICAL SPINE 2 OR 3 VW (12/08/2007 5:09 PM CDT) Anatomical Region Laterality Modality Spine Other 12/08/2007 5:09 PM CDT Narrative 12/08/2007 6:23 PM CDT Limited cervical spine study and two views thoracic spine 12/08/2007. Cervical and thoracic spine appear to be normally aligned and intact. Disc spaces well maintained. Prevertebral soft tissues unremarkable. Impression: Unremarkable examination. - Dictated By: Zoey Cummins M.D. Electronically Signed By: Zoey Cummins M.D. Date Signed: 12/08/07 Procedure Note Zoey Cummins - 12/08/2007 Limited cervical spine study and two views thoracic spine 12/08/2007. Cervical and thoracic spine appear to be normally aligned and intact. Discspaces well maintained. Prevertebral soft tissues unremarkable. Impression: Unremarkable examination. - Dictated By: Zoey Cummins M.D. Electronically Signed By: Zoey Cummins M.D. Date Signed: 12/08/07 us Yohannes Healy MD DIAGNOSTIC IMAGING ORDERABLE S Final Result * CTA CHEST W WO CONTRAST (12/08/2007 3:56 PM CDT) Anatomical Region Laterality Modality Chest Other 12/08/2007 3:56 PM CDT Narrative 12/09/2007 11:18 AM CDT Trm-iuo-uhtl contrast axial images were obtained through the chest according to CT angiogram protocol. 100 ml of Optiray-350 were given. History: Chest pain, evaluate for pulmonary embolus. Both lungs are clear. No bony abnormality is identified. Mediastinum shows no mass or adenopathy. Visualized upper abdomen shows no significant abnormality. The pulmonary arteries are clear. Impression; No acute abnormality, no pulmonary embolus. - Dictated By: Josef Zamudio M.D. Electronically Signed By: Josef Zamudio M.D. Date Signed: 12/09/07 Procedure Note Josef Zamudio W - 12/09/2007 Kzl-lhj-ciay contrast axial images were obtained through the chestaccording to CT angiogram protocol. 100 ml of Optiray-350 were given. History: Chest pain, evaluate for pulmonary embolus. Both lungs are clear. No bony abnormality is identified. Mediastinum showsno mass or adenopathy. Visualized upper abdomen shows no significant abnormality. The pulmonaryarteries are clear. Impression; No acute abnormality, no pulmonary embolus. - Dictated By: Josef Zamudio M.D. Electronically Signed By: Josef Zamudio M.D. Date Signed: 12/09/[address] He[address] MD CT ORDERABLES Final Result * (ABNORMAL) POC GLUCOSE (12/08/2007 12:21 PM CDT) GLUCOSE POC 363(H) 60 - 100 mg/dL [facility] Venous blood specimen (specimen) 12/08/2007 12:21 PM CDT 12/09/2007 3:57 AM CDT us Matthew Duarte MD POINT OF CARE TESTING Final Resu lt INTERFACE SYSTEM Refer to clinic/hospital department [facility] CLIA# [id number] [address] [place] [address] * CARDIAC ENZYMES (12/08/2007 11:52 AM CDT) TROPONIN I <0.1 0.0 - 1.3 ng/mL [facility] CKMB 1.3 0.0 - 5.0 ng/mL [facility] Blood specimen (specimen) 12/08/2007 11:52 AM CDT 12/08/2007 11:56 AM CDT us Moses Matthews MD CHEMISTRY ORDERABLES Final R esult INTERFACE SYSTEM Refer to clinic/hospital department [facility] CLIA# [id number] [facility] [place] [address] * STRESS TEST,EXERCISE, NUCLEAR MED (12/08/2007 7:10 AM CDT) 12/08/2007 7:10 AM CDT Narrative INTERFACE SYSTEM - 12/08/2007 10:55 AM CDT Cardiovascular Stress Test with Adenosine Provocation, Monitoring, and Interpretation: Reason for Consultation: CAD. Status post PTCA. Precordial chest pain. Evaluation of myocardial perfusion. This study was supervised and monitored by Dr. William Suárez. Following the intravenous administration of 50.9 mg of adenosine over a four - minute period, the patient remained in the supine position for an additional two minutes. The above radiopharmaceutical was injected at approximately two minutes into the adenosine infusion. The blood pressure went from 118/80 to 120/80 at peak adenosine effect. The heart rate went from a baseline of 62 to a peak of 95 beats per minute during the same interval. He developed some chest discomfort with the adenosine infusion. The symptoms rapidly resolved spontaneously upon completion of the adenosine infusion. No ischemic electrocardiographic changes were noted. No arrhythmias were induced during or after the procedure. Impression: The patient had a nonischemic electrocardiographic response to adenosine infusion. No arrhythmias were induced during the procedure. Myocardial perfusion imaging report to follow. - Dictated By: William Suárez M.D. Electronically Signed By: William Suárez M.D. Date Signed: 12/08/07 Procedure Note William Suárez - 12/08/2007 Cardiovascular Stress Test with Adenosine Provocation, Monitoring, andInterpretation: Reason for Consultation: CAD. Status post PTCA. Precordial chest pain.Evaluation of myocardial perfusion. This study was supervised and monitored by Dr. William Suárez. Following the intravenous administration of 50.9 mg of adenosine over afour - minute period, the patient remained in the supine position for an additional two minutes. The aboveradiopharmaceutical was injected at approximately two minutes into the adenosine infusion. Theblood pressure went from 118/80 to 120/80 at peak adenosine effect. The heart rate went from a baselineof 62 to a peak of 95 beats per minute during the same interval. He developed some chest discomfort withthe adenosine infusion. The symptoms rapidly resolved spontaneously upon completion of the adenosineinfusion. No ischemic electrocardiographic changes were noted. No arrhythmias were inducedduring or after the procedure. Impression: The patient had a nonischemic electrocardiographic response to adenosineinfusion. No arrhythmias were induced during the procedure. Myocardial perfusion imaging report to follow. - Dictated By: William Suárez M.D. Electronically Signed By: William Suárez M.D. Date Signed: 12/08/07 us Yohannes Healy MD NM ORDERABLES Final Result Performing Organization Address City/State/[facility] Co de Phone Number INTERFACE SYSTEM Refer to clinic/hospital department * NM MYOCARD PERF IMAG SPECT MULT (12/08/2007 7:10 AM CDT) 12/08/2007 7:10 AM CDT Narrative INTERFACE SYSTEM - 12/08/2007 10:56 AM CDT Radionuclide Myocardial Perfusion SPECT Rest/Adenosine Stress Wall Motion and Ejection Fraction Evaluation: Radiopharmaceutical: Tc-99m (technetium-99m) Myoview Dose: 10.8 mCi (rest) / 27.3 mCi (stress) Reason for Consultation: CAD. Status post PTCA. Precordial chest pain. Evaluation of myocardial perfusion. The initial static images demonstrate that the heart is overall normal in size. There is a normal level of activity throughout the lungs. Right ventricular activity appears normal. The left ventricular wall does not appear thickened. The left ventricular cavity did not appear to dilate with the adenosine stress. The distribution of tracer around the left ventricle is relatively uniform on the immediate post adenosine images. There were no areas that showed obvious interval improvement in tracer concentration on the resting study. Evaluation of left ventricular wall motion demonstrates normal wall motion and wall thickening throughout the left ventricular myocardium. The resting left ventricular ejection fraction was 79 %. Impression: There is no obvious evidence for adenosine induced cardiac ischemia or failure on this examination. There is normal resting left ventricular systolic function. - Dictated By: William Suárez M.D. Electronically Signed By: William Suárez M.D. Date Signed: 12/08/07 Procedure Note William Suárez - 12/08/2007 Radionuclide Myocardial Perfusion SPECT Rest/Adenosine Stress Wall Motionand Ejection Fraction Evaluation: Radiopharmaceutical: Tc-99m (technetium-99m) Myoview Dose: 10.8 mCi (rest) / 27.3 mCi (stress) Reason for Consultation: CAD. Status post PTCA. Precordial chest pain.Evaluation of myocardial perfusion. The initial static images demonstrate that the heart is overall normal insize. There is a normal level of activity throughout the lungs. Right ventricular activity appearsnormal. The left ventricular wall does not appear thickened. The left ventricular cavity did not appear todilate with the adenosine stress. The distribution of tracer around the left ventricle isrelatively uniform on the immediate post adenosine images. There were no areas that showed obvious intervalimprovement in tracer concentration on the resting study. Evaluation of left ventricular wall motion demonstrates normal wall motionand wall thickening throughout the left ventricular myocardium. The resting left ventricular ejection fraction was 79 %. Impression: There is no obvious evidence for adenosine induced cardiac ischemia orfailure on this examination. There is normal resting left ventricular systolic function. - Dictated By: William Suárez M.D. Electronically Signed By: William Suárez M.D. Date Signed: 12/08/07 Yohannes Healy MD RI ORDERABLES Final Result INTERFACE SYSTEM Refer to clinic/hospital department * (ABNORMAL) POC GLUCOSE (12/08/2007 6:28 AM CDT) GLUCOSE POC 236(H) 60 - 100 mg/dL [facility] Venous blood specimen (specimen) 12/08/2007 6:28 AM CDT 12/09/2007 3:57 AM CDT us Matthew Duarte MD POINT OF CARE TESTING Final Resu lt Performing Organization Address [facility] Phone Number INTERFACE SYSTEM Refer to clinic/hospital department [facility] CLIA# [id number] [address] [place] [address] * CARDIAC ENZYMES (12/08/2007 5:45 AM CDT) CKMB 1.6 0.0 - 5.0 ng/mL [facility] TROPONIN I <0.1 0.0 - 1.3 ng/mL [facility] Blood specimen (specimen) 12/08/2007 5:45 AM CDT 12/08/2007 6:12 AM CDT us Moses Matthews MD CHEMISTRY ORDERABLES Final R esult Performing Organization Address [facility] de Phone Number INTERFACE SYSTEM Refer to clinic/hospital department [facility] CLIA# [id number] [facility] [place] [address] * (ABNORMAL) BASIC METABOLIC PANEL (12/08/2007 5:45 AM CDT) GLUCOSE 269(H) 70 - 110 mg/dL [facility] CHLORIDE 102 95 - 110 mEq/L [facility] ANION GAP 18 9 - 20 mEq/L [facility] SODIUM 139 136 - 145 mEq/L [facility] BUN 19 9 - 20 mg/dL [facility] CO2 23 22 - 32 mmol/l [facility] POTASSIUM 3.6 3.5 - 5.0 mEq/L [facility] Comment: Specimen slightly hemolyzed OSMOLALITY, CALCULATED 297(H) 275 - 295 mOsm/Kg [facility] CREATININE 0.9 0.7 - 1.5 mg/dL [facility] CALCIUM 9.2 8.4 - 10.5 mg/dL [facility] Blood specimen (specimen) 12/08/2007 5:45 AM CDT 12/08/2007 6:12 AM CDT Yohannes Healy MD CHEMISTRY ORDERABLES Final R esult INTERFACE SYSTEM Refer to clinic/hospital department [facility] CLIA# [id number] [address] [place] [address] * (ABNORMAL) CBC WITH DIFFERENTIAL (12/08/2007 5:45 AM CDT) MCV 83.0(L) 84.0 - 103.0 Fl [facility] MPV 9.5 8.9 - 12.8 Fl [facility] BASOPHILS ABSOLUTE 0.0 0.0 - 0.2 K/ul [facility] BASOPHILS 0.8 0.0 - 1.0 % [facility] HEMOGLOBIN 15.3 14.0 - 18.0 g/dL [facility] RDW 13.0 11.0 - 14.5 % [facility] MONOCYTE ABSOLUTE 0.4 0.1 - 0.6 K/ul [facility] MONOCYTES 9.6 2.0 - 10.0 % [facility] WBC 3.9(L) 4.5 - 11.0 K/ul [facility] MCH 29.3 27.0 - 34.0 pg [facility] NEUTROPHIL ABSOLUTE 1.7(L) 2.0 - 8.0 K/ul [facility] NEUTROPHILS 42.8 42.2 - 75.2 % [facility] HEMATOCRIT 43.3 41.0 - 53.0 % [facility] EOSINOPHILS 5.2 0.0 - 7.0 % [facility] PLATELETS 134(L) 140 - 440 K/ul [facility] EOSINOPHIL ABSOLUTE 0.2 0.0 - 0.7 K/ul [facility] RBC 5.22 4.60 - 6.20 Mil/ul [facility] LYMPHOCYTES 41.6 24.0 - 44.0 % [facility] MCHC 35.3(H) 30.0 - 35.0 g/dL [facility] LYMPHOCYTE ABSOLUTE 1.6 1.2 - 4.0 K/ul [facility] Blood specimen (specimen) 12/08/2007 5:45 AM CDT 12/08/2007 6:12 AM CDT us Yohannes Healy MD HEMATOLOGY ORDERABLES Final Result Performing Organization Address [facility] Phone Number INTERFACE SYSTEM Refer to clinic/hospital department [facility] CLIA# [id number] [facility] [place] [address] * (ABNORMAL) POC GLUCOSE (12/08/2007 1:26 AM CDT) GLUCOSE POC 408(H) 60 - 100 mg/dL [facility] Venous blood specimen (specimen) 12/08/2007 1:26 AM CDT 12/08/2007 2:04 AM CDT us Yohannes Healy MD POINT OF CARE TESTING Final Result Performing Organization Address [facility] Phone Number INTERFACE SYSTEM Refer to clinic/hospital department [facility] CLIA# [id number] [facility] [place] [address] * XR CHEST PA OR AP (12/07/2007 11:57 PM CDT) Anatomical Region Laterality Modality Chest Other 12/07/2007 11:5 7 PM CDT Narrative 12/08/2007 2:30 PM CDT Portable view of the chest was obtained. There is a poor inspiratory effort. Heart and mediastinum appear within normal limits. The lungs are clear. Impression no acute abnormality. - Dictated By: Josef Zamudio M.D. Electronically Signed By: Josef Zamudio M.D. Date Signed: 12/08/07 GRB Procedure Note Josef Zamudio W - 12/08/2007 Portable view of the chest was obtained. There is a poor inspiratoryeffort. Heart and mediastinum appear within normal limits. The lungs are clear. Impression no acute abnormality. - Dictated By: Josef Zamudio M.D. Electronically Signed By: Josef Zamudio M.D. Date Signed: 12/08/07 GRB us Moses Matthews MD DIAGNOSTIC IMAGING ORDERABLE S Final Result * (ABNORMAL) CBC WITH DIFFERENTIAL (12/07/2007 11:35 PM CDT) MONOCYTE ABSOLUTE 0.4 0.1 - 0.6 K/ul [facility] WBC 3.8(L) 4.5 - 11.0 K/ul [facility] NEUTROPHILS 44.6 42.2 - 75.2 % [facility] MCH 29.2 27.0 - 34.0 pg [facility] NEUTROPHIL ABSOLUTE 1.7(L) 2.0 - 8.0 K/ul [facility] HEMATOCRIT 45.4 41.0 - 53.0 % [facility] PLATELETS 141 140 - 440 K/ul [facility] EOSINOPHIL ABSOLUTE 0.2 0.0 - 0.7 K/ul [facility] EOSINOPHILS 4.4 0.0 - 7.0 % [facility] PERIPHERAL BLOOD SMEAR REVIEW Automated Diff [facility] RBC 5.48 4.60 - 6.20 Mil/ul [facility] MCHC 35.2(H) 30.0 - 35.0 g/dL [facility] LYMPHOCYTE ABSOLUTE 1.6 1.2 - 4.0 K/ul [facility] LYMPHOCYTES 41.1 24.0 - 44.0 % [facility] MCV 82.8(L) 84.0 - 103.0 Fl [facility] BASOPHILS 0.5 0.0 - 1.0 % [facility] MPV 9.6 8.9 - 12.8 Fl [facility] [facility] BASOPHILS ABSOLUTE 0.0 0.0 - 0.2 K/ul [facility] HEMOGLOBIN 16.0 14.0 - 18.0 g/dL [facility] MONOCYTES 9.4 2.0 - 10.0 % [facility] RDW 13.0 11.0 - 14.5 % [facility] Blood specimen (specimen) 12/07/2007 11:35 PM CDT 12/07/2007 11:35 PM CDT us Moses Matthews MD HEMATOLOGY ORDERABLES Final Result Performing Organization Address [facility] [place]/[facility] Phone Number INTERFACE SYSTEM Refer to clinic/hospital department [facility] CLIA# [id number] [address] [place] [id number] * (ABNORMAL) BASIC METABOLIC PANEL (12/07/2007 11:23 PM CDT) CREATININE 1.1 0.7 - 1.5 mg/dL [facility] CALCIUM 10.2 8.4 - 10.5 mg/dL [facility] GLUCOSE 497(H) 70 - 110 mg/dL [facility] CHLORIDE 96 95 - 110 mEq/L [facility] ANION GAP 15 9 - 20 mEq/L [facility] SODIUM 132(L) 136 - 145 mEq/L [facility] BUN 21(H) 9 - 20 mg/dL [facility] CO2 25 22 - 32 mmol/l [facility] POTASSIUM 3.9 3.5 - 5.0 mEq/L [facility] OSMOLALITY, CALCULATED 298(H) 275 - 295 mOsm/Kg [facility] Blood specimen (specimen) 12/07/2007 11:23 PM CDT 12/07/2007 11:30 PM CDT us Moses Matthews MD CHEMISTRY ORDERABLES Final R esult Performing Organization Address [facility] Co de Phone Number INTERFACE SYSTEM Refer to clinic/hospital department [facility] CLIA# [id number] [facility] [place] [address] * PTT (12/07/2007 11:23 PM CDT) PTT 23.6 22.5 - 36.5 Secs [facility] Comment: Therapeutic Range: Hi-level PE/DVT heparin protocol 80.1 -95.0 sec Lo-level PE/DVT heparin protocol 67.1 - 80.0 sec Cardiac Heparin Protocol 67.1 - 85.0 sec Neuro Heparin Protocol 67.1 - 80.0 sec As of 07/05/2007 note change in APTT Normal Range. Blood specimen (specimen) 12/07/2007 11:23 PM CDT 12/07/2007 11:48 PM CDT Moses Matthews MD HEMATOLOGY ORDERABLES Final Result INTERFACE SYSTEM Refer to clinic/hospital department [facility] CLIA# [id number] [address] [place] [address] * (ABNORMAL) PROTIME-INR (12/07/2007 11:23 PM CDT) PROTIME 11.7(L) 12.8 - 15.8 Secs [facility] Comment:As of 2007 not e change in normal range. INR 0.8 [facility] Comment: Expected Values for INR: DVT/PE Goal INR 2.5; range 2.0 - 3.0 Valve Replacement Tissue Goal INR 2.5; range 2.0 - 3.0 Mechanical Goal INR 3.0; range 2.5 - 3.5 POST-[place] Goal INR 2.5; range 2.0 - 3.0 or Goal 3.0; range 2.5 - 3.5 Atrial Fibrillation Goal INR 2.5; range 2.0 - 3.0 Ischemic Stroke Goal INR 2.5; range 2.0 - 3.0 For additional information see Guidelines for Anticoagulation available from the pharmacy [facility] [phone] Blood specimen (specimen) 12/07/2007 11:23 PM CDT 12/07/2007 11:48 PM CDT Moses Matthews MD HEMATOLOGY ORDERABLES Final Result Performing Organization Address [facility] Phone Number INTERFACE SYSTEM Refer to clinic/hospital department [facility] CLIA# [id number] [address] [place] [address] * CARDIAC ENZYMES (12/07/2007 11:23 PM CDT) CKMB 2.3 0.0 - 5.0 ng/mL [facility] TROPONIN I <0.1 0.0 - 1.3 ng/mL [facility] Blood specimen (specimen) 12/07/2007 11:23 PM CDT 12/07/2007 11:30 PM CDT Moses Matthews MD CHEMISTRY ORDERABLES Final R esult Performing Organization Address [facility] Phone Number INTERFACE SYSTEM Refer to clinic/hospital department [facility] CLIA# [id number] [facility] [place] [address] documented in this encounter Visit Diagnoses Diagnosis Chest pain, unspecified documented in this encounter Care Teams Soundscriber Mechanic Relationship Specialty Start Date End Date Margot Schroeder MD PCP - General Family Practice 05/14/12 06/01/17 documented as of this encounter
--- OUTSIDE RECORDS SUMMARY | 2025-03-31 04:32 | XMS_ITS | Encounter Summary ---
Author Organization [facility] Healthcare Address [address] [place] [address] Care Team Providers Care Sales Intern Name Role Phone [facility], Yohannes Reza Primary Care Provider Encounter Details Date Type Department Care Team (Late st Contact Info) Description 06/20/2024 Documentation [facility] [address] [place] [id number] Yolette Adkins RN Social History Tobacco Use Types Packs/Day Years Used Date Smoking Tobacco: Never [facility] Utilities Answer Date Recorded In the past 12 months has [facility] electric, gas, oil, or water company threatened to shut off services in your home? No 06/05/2024 Humiliation, Afraid, Rape, and Kick questionnair e Answer Date Recorded Within the last year, have y ou been afraid of your partner or ex-partner? No 06/05/2024 Within the last year, have y ou been humiliated or emotionally abused in other ways by your partner or ex-partner? No Within the last year, have y ou been kicked, hit, slapped, or otherwise physically hurt by your partner or ex-partner? No 06/05/2024 Within the last year, have y ou been raped or forced to have any kind of sexual activity by your partner or ex-partner? No 06/05/2024 Social Connection and Isolation Panel Answer Date Recorded In a typical week, how many times do you talk on the phone with family, friends, or neighbors? More than three times a week 06/05/2024 How often do you get togethe r with friends or relatives? Twice a week 06/05/2024 How often do you attend chur ch or yarsani services? More than 4 times per year 06/05/2024 Do you belong to any clubs o r organizations such as rastafari groups, unions, fraternal or athletic groups, or school groups? Yes 06/05/2024 How often do you attend meet ings of the clubs or organizations you belong to? More than 4 times per year 06/05/2024 Are you , , di vorced, , never , or living with a partner? 06/05/2024 AUDIT-C Answer Date Recorded Q1: How often do you have a drink containing alcohol? Never 06/05/2024 Q2: How many drinks containi ng alcohol do you have on a typical day when you are drinking? Patient does not drink Q3: How often do you have si x or more drinks on one occasion? Never 06/05/2024 Overall Financial Resource Strain (CARDIA) Answe r Date Recorded How hard is it for you to pa y for the very basics like food, housing, medical care, and heating? Not hard at all 06/05/2024 [facility] - Occupational Stress Questionnaire Answer Date Recorded Do you feel stress - tense, restless, nervous, or anxious, or unable to sleep at night because your mind is troubled all the time - these days? Not at all 06/05/2024 Exercise Vital Sign Answer Date Recorde d On average, how many days pe r week do you engage in moderate to strenuous exercise (like a brisk walk)? 0 days 06/05/2024 On average, how many minutes do you engage in exercise at this level? 0 min 06/05/2024 Hunger Vital Sign Answer Date Recorded Within the past 12 months, y ou worried that your food would run out before you got the money to buy more. Never true 06/05/19 25 Within the past 12 months, t he food you bought just didn't last and you didn't have money to get more. Never true 06/05/2024 PRAPARE - Transportation Answer Date Re corded In the past 12 months, has l ack of transportation kept you from medical appointments or from getting medications? Yes 05/18 In the past 12 months, has l ack of transportation kept you from meetings, work, or from getting things needed for daily living? Yes 06/05/2024 Housing Stability Vital Sign Answer Sergio e Recorded In the last 12 months, was t here a time when you were not able to pay the mortgage or rent on time? No 06/05/2024 In the past 12 months, how m any times have you moved where you were living? 1 06/05/2024 At [facility] time in the [facility] were you homeless or living in a prison (including now)? No 06/05/2024 Personal Safety Answer Date Recorded Have you ever been in or are you currently in a harmful physical or emotional relationship or is someone making you feel afraid or unsafe? 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 Gender Identity Male 07/15/2024 10:19 AM CDT Sexual Orientation Straight 07/15/2024 10 :19 AM CDT documented as of this encounter Functional Status * Difference in Last Two Chavez Scores Answer Date of Assessment Author -1 06/20/2024 9:01 AM Marilyn Nina * Question Answer Date of Assessment Author BP Location Right arm 06/20/2024 7:10 AM Lauryn Landeros RN BP Method Automatic 06/20/2024 7:10 AM Lauryn Landeros RN MAP (mmHg) 68 06/20/2024 7:10 AM BRAILLE DUPLICATING MACHINE OPERATOR Lauryn Cuevas RN * [place] Fall Risk Question Answer Date of Assessment Author History of Falling 0 06/20/2024 9:01 AM Leah Nina Secondary Diagnosis 15 06/20/2024 9:01 AM Leah Colvin Ambulatory Aids 15 06/20/2024 9:01 AM Leah Calvillo Intravenous Therapy/Heparin/ Saline Lock 20 06/20/2024 9:01 AM Leah Nina Gait/Transferring 10 06/20/2024 9:01 AM Leah Nina Mental Status 0 06/20/2024 9:01 AM Leah Nina Fall Risk Score (Score >= 45 places fall precaution order) 60 06/20/2024 9:01 AM Mary Jo Nina Prior Fall Event (Autopopula alonzo from EMR) None found 06/20/2024 9:01 AM Leah Nina * Chavez Scale Question Answer Date of Assessment Author Sensory Perceptions 4 06/20/2024 9:01 AM Leah Colvin Moisture 4 06/20/2024 9:01 AM Leah Nina Activity 3 06/20/2024 9:01 AM Leah Nina Mobility 3 06/20/2024 9:01 AM Leah Nina Nutrition 3 06/20/2024 9:01 AM Leah Nina Friction and Shear 2 06/20/2024 9:01 AM Leah Nina Chavez Scale Score 19 06/20/2024 9:01 AM Leah Nina * Fall Risk Interventions Question Answer Date of Assessment Author All Low Fall Interventions Applied Yes 06/20/2024 9:01 AM Leah Nina All Moderate Fall Interventions Applied Yes 06/20/2024 9:01 AM Leah Nina All High Fall Risk Interventions Applied No 06/20/2024 9:01 AM Leah Nina All High Risk Interventions EXCEPT: Bed alarm;Chair alarm 06/20/2024 9:01 AM Leah Nina Additional Interventions Applied Over-bed table on non-exit side;Exit bed on strong/preferred side 06/20/2024 9:00 AM Lauryn Landeros, RN Reason For Exception(s) pt oriented to o wn ability, does not attempt to leave bed without staff assistance 06/20/2024 9:01 AM Leah Nina * B.M.A.T. - Bedside Mobility Assessment Tool for Nurses Question Answer Date of Assessment Author Is patient able to participate in the BMAT? Yes 06/20/2024 9:01 AM Miranda Nina BMAT Level Level 3 - Yellow 06/20/2024 9:01 AM Leah Reyes Level 3 Equipment Use assistive device such as cane/walker 06/20/2024 9:01 AM Leah Nina * Pressure Injury Prevention Question Answer Date of Assessment Author Pressure Ulcer Prevention Interventions Keep skin clean and dry (Sensory Perception/Moisture) 06/20/2024 9:00 AM Lauryn Landeros, RN Special Mattress Low air loss and alternating pressure relief 06/20/2024 9:00 AM Lauryn Landeros RN * Integumentary Question Answer Date of Assessment Author Skin Integrity Bruising 06/20/2024 9:01 AM Leah Copeland Skin Turgor Non-tenting 06/20/2024 9:01 AM Leah Nina Integumentary (WDL) X 06/20/2024 9:01 AM Leah Colvin Skin Location Brusing to left abd, flank, arms; incision to L groin and R thigh 06/20/2024 9:01 AM Leah Nina * Question Answer Date of Assessment Author BP Location Right arm 06/20/2024 7:10 AM Lauryn Landeros, DILCIA BP Method Automatic 06/20/2024 7:10 AM Lauryn Landeros RN * Question Answer Date of Assessment Author Edema No pitting 06/20/2024 9:01 AM Leah Nina Edema Right upper extremit y;Left upper extremity 06/20/2024 9:01 AM Leah Nina * Question Answer Date of Assessment Author Mood Anxious/Worried 06/20/2024 9:01 AM Leah Calvillo * Question Answer Date of Assessment Author Percent Meal Eaten (%) 50 06/20/2024 1:15 PM Erna Santos Feeding Level of Assistance Able to feed self 06/20/2024 1:15 PM Erna Santos Appetite Good 06/20/2024 1:15 PM Erna Chappell Percent Snack Eaten (%) 25 06/20/2024 1:15 P M Erna Santos * Fall Risk Interventions Question Answer Date of Assessment Author All Low Fall Interventions Applied Yes 06/20/2024 9:01 AM Leah Nina All Moderate Fall Interventions Applied Yes 06/20/2024 9:01 AM Leah Nina All High Fall Risk Interventions Applied No 06/20/2024 9:01 AM Leah Nina All High Risk Interventions EXCEPT: Bed alarm;Chair alarm 06/20/2024 9:01 AM Leah Nina Additional Interventions Applied Over-bed table on non-exit side;Exit bed on strong/preferred side 06/20/2024 9:00 AM Lauryn Landeros RN Reason For Exception(s) pt oriented to o wn ability, does not attempt to leave bed without staff assistance 06/20/2024 9:01 AM Leah Nina * Hygiene Question Answer Date of Assessment Author Hygiene Level of Assistance Moderate assist 06/20/2024 7:00 AM Lauryn Landeros RN Toileting: Assistance with Bedside commode;Use of bedpan/urinal setup;Back to bed 06/20/2024 7:00 AM Lauryn Landeros RN Toileting: Level of assistance Moderate 06/20/2024 7:00 AM Lauryn Landeros RN Reason not bathed/showered Patient/family refused bath/shower 06/20/2024 4:00 AM Jacinda Reyes Bath Not bathed/showered 06/20/2024 4:00 AM Jacinda Staples documented as of this encounter Mental Status * Question Answer Entry Date Author Level of Consciousness Alert;Awake 06/20/2024 9:01 AM Leah Nina Orientation Oriented X4 (person, place, time, situation) 06/20/2024 9:01 AM Leah Nina Neuro (WDL) X 06/20/2024 9:01 AM Leah Nina Other Neuro Symptoms Fatigue 06/20/2024 9:01 AM Leah Jacobo documented in this encounter Plan of Treatment Not on file documented as of this encounter Visit Diagnoses Not on filedocumented in this encounter Care Teams Sales Intern Relationship Specialty Start Date End Date [facility], Yohannes Reza [address] [facility] [address] [place] [id number] PCP - General Genetics 04/17/24 05/17/26 documented as of this encounter
--- OUTSIDE RECORDS SUMMARY | 2025-03-31 04:32 | XMS_ITS | Clinical Summary ---
Author Organization [facility] Address [address] [place] [address] Care Team Providers Care Steak Tenderizer Machine Name Role Phone [facility], Yohannes Reza Primary Care Provider Allergies Active Allergy Reactions Criticality Noted Date Comments Fentanyl Penicillins Uvujype-Pji-Gra Reductase Inhibitors Other (See comments) High 06/11/2024 Biopsy proven HMG COA myositis. NO STATINS Medications aspirin 81 mg enteric coated tablet Take 1 tablet (81 mg total) by mouth daily 04/18/19 25 Active nitroglycerin (NITROSTAT) 0.[address] 1 tablet (0.4 mg total) under the tongue every 5 (five) minutes as needed for chest pain 04/18/19 25 Active Mounjaro 10 mg/0.5 mL pen injector injection Inject 0.5 mL (10 mg total) under the skin once a week 04/29/19 25 Active acetaminophen 500 mg capsule Take 2 capsules (1,000 mg total) by mouth every 6 (six) hours as needed for pain 06/21/19 25 Active al & mag hydroxide simethicone-lidoca ine (GI COCKTAIL WITHOUT ANTISPASMODIC) suspension Take 40 mL by mouth every 4 (four) hours as needed (dyspepsia) 06/21/19 25 Active immune globulin (GAMUNEX-C,GAMMAKE D) infusionIndication s:Immune myopathy Infuse 569 mL (56.9 g total) into a venous catheter every 21 days 06/21/19 25 Active diphenhydrAMINE (BENADRYL) 25 mg capsuleIndications :Immune myopathy Take 1 tablet/capsule (25 mg total) by mouth once for 1 dose 30 minutes prior to infusion of IVIG 06/21/19 Active bisacodyL (DULCOLAX) 10 mg suppositoryIndicat ions:constipation Insert 1 suppository (10 mg total) into the rectum daily as needed for constipation (Second line for constipation) 06/21/19 Active calcium carbonate (OS-BLAYNE) 1,250 mg (500 mg elemental) tabletIndications: hypocalcemia Take 1 tablet (1,250 mg total) by mouth 3 (three) times a day 06/21/19 Active ergocalciferol (VITAMIN D) 50,000 unit capsule Take 1 capsule (50,000 Units total) by mouth once a week for 6 doses 06/26/19 Active ezetimibe (ZETIA) 10 mg tablet Take 1 tablet (10 mg total) by mouth daily 06/22/19 25 026 Active insulin glargine (LANTUS, SEMGLEE) 100 unit/mL vial for injectionIndicatio ns:Diabetes Mellitus Inject 13 Units under the skin every morning 06/22/19 Active insulin lispro (HumaLOG, ADMELOG) 100 unit/mL vial for injection Inject 6 Units under the skin 3 (three) times a day as needed (snacks) If BG greater than or equal to 100 mg/dL, give dose with meals when tray arrives in the room. If BG less than 100 mg/dL or history of poor intake, give after meals. If patient eating less than 50% of meal, call MD for holding or reducing meal insulin dose. Hold prandial insulin if NPO, unable to eat, or if BG less than 70 mg/dL. 06/21/19 Active insulin lispro (HumaLOG, ADMELOG) 100 unit/mL vial for injection Inject 18 Units under the skin 3 (three) times a day with meals If BG greater than or equal to 100 mg/dL, give dose with meals when tray arrives in the room. If BG less than 100 mg/dL or history of poor intake, give after meals. If patient eating less than 50% of meal, give 5U Lispro. Hold prandial insulin if NPO, unable to eat, or if BG less than 70 mg/dL. 03/06/20 25 Active insulin lispro (HumaLOG, ADMELOG) 100 unit/mL vial for injection Inject 0-4 Units under the skin nightly insulin lispro (HumaLOG, ADMELOG) 100 unit/mL injection 0-4 Units 0-4 Units, subcutaneous, Nightly, First dose on Thi 06/13/24 at 2100 Indications: Diabetes Mellitus Instructions: Blood glucose mg/dL: 199 or less: No insulin 200-249: add 1 unit 250-299: add 2 units 300-349: add 3 units and notify physician for adjustment of insulin orders. 350-399: add 4 units and notify physician for adjustment of insulin orders. Over 400: Notify physician for adjustment of insulin orders. Do NOT hold for NPO Status 06/21/19 25 Active insulin lispro (HumaLOG, ADMELOG) 100 unit/mL vial for injection Inject 0-5 Units under the skin 3 (three) times a day with meals Blood glucose mg/dL: 149 or less: No insulin 150-199: add 1 unit 200-249: add 2 units 250-299: add 3 units 300-349: add 4 units and notify physician for adjustment of insulin orders. 350-399: add 5 units and notify physician for adjustment of insulin orders. Over 400: Notify physician for adjustment of insulin orders. Do NOT hold for NPO Status 06/21/19 25 Active multivitamin with folic acid 400 mcg tablet Take 1 tablet by mouth daily 06/22/19 25 Active ondansetron ODT (ZOFRAN-ODT) 4 mg disintegrating tablet Take 1 tablet (4 mg total) by mouth every 4 (four) hours as needed for nausea or vomiting 06/21/[address] (PROTONIX) 40 mg EC tabletIndications: Stress Ulcer Prophylaxis Take 1 tablet (40 mg total) by mouth daily 06/22/19 25 026 Active polyethylene glycol (MIRALAX) 17 gram packetIndications: constipation Take 1 packet (17 g total) by mouth daily 06/22/19 25 Active senna (SENOKOT) 8.6 mg tablet Take 1 tablet by mouth 2 (two) times a day as needed for constipation 06/21/19 25 026 Active simethicone (MYLICON) 80 mg chewable tablet Take 1 tablet (80 mg total) by mouth 2 (two) times a day as needed for flatulence 06/21/19 25 Active sulfamethoxazole-t rimethoprim (BACTRIM) 400-80 mg per tabletIndications: Prophylaxis, Medical Take 1 tablet (80 mg of trimethoprim total) by mouth 3 (three) times a week 06/22/19 25 Active ticagrelor (BRILINTA) 90 mg tablet Take 1 tablet (90 mg total) by mouth 2 (two) times a day 06/21/19 25 Active traZODone (DESYREL) 100 mg tablet Take 1 tablet (100 mg total) by mouth nightly 06/21/19 25 Active predniSONE (DELTASONE) 5 mg tablet Take 15 mg once daily for 2 weeks followed by 10 mg daily for 2 weeks followed by 5 mg daily for two weeks then stop. 84 tablet 07/16/19 25 Active Active Problems Problem Noted Date Diagnosed Date Myopathy 07/15/2024 Rhabdomyolysis 06/05/2024 Obesity with body mass index 30 or greater Hyperlipidemia 06/15/2015 Chronic coronary artery disease 03/19/2015 Surgical History Surgery Date Site/Laterality Comments CORONARY ARTERY BYPASS GRAFT Medical History Medical History Date Comments Diabetes mellitus type 1 CAD (coronary artery disease) Family History Medical History Relation Name Comments Heart disease Father Family history of cardiac disorder - (Added by TW Conv) Heart disease Mother Family history of cardiac disorder - (Added by TW Conv) Relation Name Status Comments Father Mother Social History Tobacco Use Types Packs/Day Years Used Date Smoking Tobacco: Never Tobacco Cessation:Counseling Given: Not Answered [facility] [employer] Answer Date Recorded In the past 12 months has [facility] [employer], [employer], or water [employer] threatened to shut off services in your [...] week 06/05/2024 How often do you attend [facility] or restoration services? More than 4 times per year 06/05/2024 Do you belong to any clubs o r organizations such as muslim groups, unions, fraternal or athletic groups, or [...] and heating? Not hard at all 06/05/2024 [facility] - Occupational Stress [...] any time in the past 12 m [facility], were you homeless or living in a skilled nursing (including now)? No 06/05/2024 Personal Safety Answer Date Recorded Have you ever been in or are you currently in a harmful physical or emotional relationship or is someone making you feel afraid or unsafe? Denies 06/05/2024 Sex and Gender Information Value Date Recorded Sex Assigned at Not on file Legal Sex Male 3:51 AM WASHER CARCASS Gender Identity Male 07/15/2024 10:19 AM CDT Sexual Orientation Straight 07/15/2024 10 :19 AM CDT Last Filed Vital Signs Vital Sign Reading Time Taken Comments Blood Pressure 148/70 07/15/2024 9:03 AM CDT Pulse 84 07/15/2024 9:03 AM CDT Temperature 36.5 C (97.7 F) 06/20/2024 7:10 AM WASHER CARCASS Respiratory Rate 18 06/20/2024 7:10 AM WASHER CARCASS Oxygen Saturation 97% 06/20/2024 7:10 AM WASHER CARCASS Inhaled Oxygen Concentration - - Weight 71.7 kg (158 lb) 07/15/2024 9:03 AM CDT Height 157.5 cm (5' 2 ) 07/15/2024 9:03 AM CDT Body Mass Index 28.9 07/15/2024 9:03 AM CDT Plan of Treatment Health Maintenance Due Date Last Done Comments Albumin Creatinine Ratio, Urine 1967 Colon Cancer Screening-Colonoscopy 1967 Depression Screening 1967 Foot Exam 1967 Prostate Cancer Screening-PSA 1967 Dilated Eye Exam 11/30/1977 Regular Well Visit/Exam 18-64 11/30/1985 Zoster Vaccine (1 of 2) 11/30/1986 DTaP/Tdap/Td Vaccine (1 - Tdap) 04/18/2009 0 Pneumococcal vaccine <65 (2 of 2 - PCV) 01/21/2014 01/21/2013 Hemoglobin A1C 12/03/2024 06/05/2024 Covid-19 Vaccine (4 - 2024-2 6 season) 2024 04/29/2021, 08/05/2020, 07/07/2020 Influenza Vaccine (#1) 2024 , 02/04/2020, 01/21/2013, Additional history exists Lipid Panel 06/05/2025 06/05/2024, 02/2 12/2015, 04/01/2015 TSH Level 06/05/2025 06/05/2024 eGFR 06/19/2025 06/19/2024, 03/0 07/2024, 06/18/2024, Additional history exists Hepatitis B Screening Completed 12/19/1997, 998 Hepatitis C Screening Completed 06/05/2024 Procedures Procedure Name Priority Date/Time Associated Diagnosis Comments EGFR Routine 06/19/2024 10:50 PM WASHER CARCASS HEPATITIS PANEL, ACUTE Routine 06/05/2024 10:30 PM WASHER CARCASS LIPID PANEL Timed 06/05/2024 9:12 PM WASHER CARCASS HEMOGLOBIN A1C STAT 06/05/2024 7:28 PM WASHER CARCASS THYROID FUNCTION CASCADE Timed 06/05/2024 6:02 PM WASHER CARCASS from Last 3 Months or Most Recently Relevant to Health Maintenance Results * (ABNORMAL) eGFR (06/19/2024 10:50 PM WASHER CARCASS) eGFR 31(L) >=60 mL/min/1. 73 m2 Comment: Interpretive Data Reference Interval Normal >/= 90 mL/min/1.73m2 Mildly decreased* 60 - 89 mL/min/1.73m2 Mildly to moderately decreased 45 - 59 mL/min/1.73m2 Moderately to severely decreased 30 - 44 mL/min/1.73m2 Severely decreased 15 - 29 mL/min/1.73m2 Kidney Failure < 15 mL/min/1.73m2 *Relative to young adult level Estimated glomerular filtration rate is determined by the 2020 CKD-EPI equation recommended by the National Kidney Foundation (A Unifying Approach to GFR Estimation: Recommendations of the NKF-ASK Task Force on Reassessing the Inclusion of Race in Diagnosing Kidney Disease, JASN 2020). The CKD-EPI equation should not be used for patients with unstable renal function and has not been validated in children and those over 70. Current interpretive data was last reviewed 2021. Blood 06/19/2024 10:5 0 PM WASHER CARCASS 06/19/2024 11:03 PM WASHER CARCASS us David Kerr MD LAB BLOOD ORDERABLES Final Result [facility] [place] [address] * Hepatitis panel, acute Blood (06/05/2024 10:30 PM WASHER CARCASS) Hep A IgM Nonreactive Nonreactive Hep B core IgM Nonreactive Nonreactive [facility] Hep C Ab Nonreactive Nonreactive [facility] Comment:Antibodies to HCV no t detected. Does NOT exclude the possibility of recent exposure to HCV. Current interpretive data was last revised on 21 HepBsAg Nonreactive Nonreactive [facility] Blood 06/05/2024 10:3 0 PM WASHER CARCASS 06/05/2024 11:29 PM WASHER CARCASS us Rich Merritt MD LAB MICROBIOLOGY - GENERA L ORDERABLES Final Result [facility] [place] [address] * (ABNORMAL) Lipid panel (06/05/2024 9:12 PM WASHER CARCASS) Cholesterol 135 30 - 199 mg/dL Comment: Interpretive Data Ages < or = 19 years Acceptable: <170 mg/dL Borderline high: 170-199 mg/dL High: >or= 200 mg/dL Ages > or = 20 years Desirable: <200 mg/dL Borderline high: 200-239 mg/dL High: >or= 240 mg/dL Literature References: 1. Expert Panel on Integrated Guidelines for Cardiovascular Health and Risk Reduction in Children and Adolescents. Pediatrics 2011;128:S213 2. NCEP Expert Panel. Circulation 2004;110:227 Current Interpretive Data was last revised on 2017. Triglycerides 158(H) <=149 mg/dL [facility] Comment: Interpretive Data Ages < or = 9 years Acceptable: <75 mg/dL Borderline high: 75-99 mg/dL High: >or= 100 mg/dL Ages 10 to 20 years Acceptable: <90 mg/dL Borderline high: 90-129 mg/dL High: >or= 130 mg/dL Ages > or = 20 years Desirable: <150 mg/dL Borderline high: 150-199 mg/dL High: 200-499 mg/dL Very high: >or= 499 mg/dL Literature References: 1. Expert Panel on Integrated Guidelines for Cardiovascular Health and Risk Reduction in Children and Adolescents. Pediatrics 2011;128:S213 2. NCEP Expert Panel. Circulation 2004;110:227 Current Interpretive Data was last revised on 2017. HDL 48 >=40 mg/dL [facility] Comment: Interpretive Data Ages < or = 19 years Acceptable: >45 mg/dL Borderline low: 40-45 mg/dL Low: <40 mg/dL Ages > or = 20 years Desirable: >or= 60 mg/dL Low: <40 mg/dL Literature References: 1. Expert Panel on Integrated Guidelines for Cardiovascular Health and Risk Reduction in Children and Adolescents. Pediatrics 2011;128:S213 2. NCEP Expert Panel. Circulation 2004;110:227 Current Interpretive Data was last revised on 2017. LDL, calculated 60 <=129 mg/dL [facility] Comment: Interpretive Data Ages < or = 19 years Acceptable: <110 mg/dL Borderline high: 110-129 mg/dL High: >or= 130 mg/dL Ages > or = 20 years Optimal: <100 mg/dL Near optimal: 100-129 mg/dL Borderline high: 130-159 mg/dL High: >160 mg/dL Calculated using the Siddharth LDL-C estimating equation. This equation was implemented on 2023. Prior to this date LDL-C was estimated using the Friedewald equation. Literature References: 1. Expert Panel on Integrated Guidelines for Cardiovascular Health and Risk Reduction in Children and Adolescents. Pediatrics 2011;128:S213 2. NCEP Expert Panel. Circulation 2004;110:227 3. Siddharth Fofana et al. YURIDIA Cardiol. 2019August 15;5(5):540-548. doi: 10.1001/jamacardio.2020.0013 Current Interpretive Data was last revised on 2023. Non-HDL Cholesterol 87 mg/dL [facility] Comment: Interpretive Data Ages < or = 19 years Acceptable: <120 mg/dL Borderline high: 120-144 mg/dL High: >145 mg/dL Ages > or = 20 years When triglycerides are >200 mg/dL, Non-HDL cholesterol is a secondary target of therapy with treatment goals that are 30 mg/dL greater than the LDL cholesterol target. Literature References: 1. Expert Panel on Integrated Guidelines for Cardiovascular Health and Risk Reduction in Children and Adolescents. Pediatrics 2011;128:S213 2. NCEP Expert Panel. Circulation 2004;110:227 Current Interpretive Data was last revised on 2017. Chol/HDL ratio 3 [facility] Blood 06/05/2024 9:12 PM WASHER CARCASS 06/05/2024 11:29 PM WASHER CARCASS Narrative [facility] - 06/06/2024 8:45 AM WASHER CARCASS reflex us Rich Merritt MD LAB BLOOD ORDERABLES Ewelina lenard Result [facility] [place] [address] * (ABNORMAL) Hemoglobin A1c (06/05/2024 7:28 PM WASHER CARCASS) Hgb A1C 6.4(H) 4.0 - 5.6 % Estimated Average Glucose 137 mg/dL [facility] Comment: The ADA recommends reporting an estimated Average Glucose (eAG) with all Hemoglobin A1c results using the equation derived from a study of 507 normal and diabetic adults. Minority populations were underrepresented and children were not included. (Diabetes Care 2020; 43(S1): S66-S76). The eAG is not equivalent to a fasting glucose. Blood 06/05/2024 7:28 PM WASHER CARCASS 06/06/2024 12:10 AM WASHER CARCASS Narrative [facility] - 06/06/2024 4:32 PM WASHER CARCASS Reflex Rich Merritt MD LAB BLOOD ORDERABLES Ewelina l Result [facility] [place] [address] * Thyroid Function [place] (06/05/2024 6:02 PM WASHER CARCASS) [facility] TSH 2.04 0.30 - 4.20 mcIUnit/mL Blood 06/05/2024 6:02 PM WASHER CARCASS 06/05/2024 6:18 PM WASHER CARCASS Rich Merritt MD LAB BLOOD ORDERABLES Ewelina l Result Performing Organization Address City/[facility]/ZIP Co de Phone Number [facility] [place] [address] from Last 3 Months or Most Recently Relevant to Health Maintenance Insurance [facility] Advance Directives For more information, please contact: [phone] * Full Code (Latest Code Status on File) Date Activated Date Inactivated Comments 06/05/2024 5:20 PM 06/20/2024 6:59 PM Care Teams Steak Tenderizer Machine Relationship Specialty Start Date End Date [facility], Yohannes Reza [address] [place] [address] PCP - General Genetics 04/17/24 05/17/26
--- OUTSIDE RECORDS SUMMARY | 2025-03-31 04:32 | XMS_ITS | Encounter Summary ---
Author Organization [facility] Address [address] [place] [address] Care Team Providers Care Surgical Endoscopist Name Role Phone Margot Schroeder MD Primary Care Provider [phone]- [phone] Encounter Details Date Type Department Care Team (Latest Contact Info) Description 03/20/2006 Outpatient Historical [facility] Occupational Medicine [address] [address] [place] [id number] Jasvir Scott, PA NO ADDRESS ON FILE Routine Medical Exam (Primary Dx) Social History Tobacco Use Types Packs/Day Years Used Date Smoking Tobacco: Never Assessed Sex and Gender Information Value Date Recorded Sex Assigned at Not on file Legal Sex Male 3:29 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
--- OUTSIDE RECORDS SUMMARY | 2025-03-31 04:32 | XMS_ITS ---
Author Organization [facility] al Address [address] [place] [address] Care Team Providers Care Booking Officer Name Role Phone [facility], Yohannes Reza Primary Care Provider Dialysis Access Sites Type Status Location Placement Date Removal Da te Hemodialysis Cath Double 06/05/24 Non-tunneled catheter Left Femoral Inactive Left Thigh - Anterior 06/05/2024 03/0 04/2024 Procedures Procedure Name Priority Date/Time Associated Diagnosis Comments EGFR Routine 06/19/2024 10:50 PM SENIOR QUALITY ANALYST HEPATITIS PANEL, ACUTE Routine 06/05/2024 10:30 PM SENIOR QUALITY ANALYST LIPID PANEL Timed 06/05/2024 9:12 PM SENIOR QUALITY ANALYST HEMOGLOBIN A1C STAT 06/05/2024 7:28 PM SENIOR QUALITY ANALYST THYROID FUNCTION CASCADE Timed 06/05/2024 6:02 PM SENIOR QUALITY ANALYST from Last 3 Months or Most Recently Relevant to Health Maintenance Allergies Active Allergy Reactions Criticality Noted Date Comments Fentanyl Penicillins Geqrhln-Woc-Bcq Reductase Inhibitors Other (See comments) High 06/11/2024 Biopsy proven HMG COA myositis. NO STATINS Medications aspirin 81 mg enteric coated tablet Take 1 tablet (81 mg total) by mouth daily 04/18/19 Active nitroglycerin (NITROSTAT) 0.4 mg SL tablet [...] minutes prior to infusion of IVIG 06/21/19 25 Active bisacodyL (DULCOLAX) 10 mg suppositoryIndicat ions:constipation Insert 1 suppository (10 mg total) into the rectum daily as needed for constipation (Second line for constipation) 06/21/19 25 Active calcium carbonate (OS-BLAYNE) 1,250 mg (500 mg elemental) tabletIndications: hypocalcemia Take 1 tablet (1,250 mg total) by mouth 3 (three) times a day 06/21/19 25 026 Active ergocalciferol (VITAMIN D) 50,000 unit capsule Take 1 capsule (50,000 Units total) by mouth once a week for 6 doses 06/26/19 25 Active ezetimibe (ZETIA) 10 mg tablet Take 1 tablet (10 mg total) by mouth daily 06/22/19 25 026 Active insulin glargine (LANTUS, SEMGLEE) 100 unit/mL vial for injectionIndicatio ns:Diabetes Mellitus Inject 13 Units under the skin every morning 06/22/19 25 026 Active insulin lispro (HumaLOG, ADMELOG) 100 unit/mL [...] if BG less than 70 mg/dL. 06/21/19 25 Active insulin lispro (HumaLOG, ADMELOG) [...] if BG less than 70 mg/dL. 06/21/19 25 Active insulin lispro (HumaLOG, ADMELOG) [...] as needed for nausea or vomiting 06/21/[address] (PROTONIX) 40 mg EC tabletIndications: Stress Ulcer Prophylaxis Take 1 tablet (40 mg total) by mouth daily 06/22/19 25 Active polyethylene glycol (MIRALAX) 17 gram packetIndications: constipation Take 1 packet (17 g total) by mouth daily 06/22/19 25 Active senna (SENOKOT) 8.6 mg tablet Take 1 tablet by mouth 2 (two) times a day as needed for constipation 06/21/19 25 Active simethicone (MYLICON) 80 mg chewable tablet Take 1 tablet (80 mg total) by mouth 2 (two) times a day as needed for flatulence 06/21/19 Active sulfamethoxazole-t rimethoprim (BACTRIM) 400-80 mg per [...] (100 mg total) by mouth nightly 06/21/19 Active predniSONE (DELTASONE) 5 mg tablet Take 15 mg once daily for 2 weeks followed by 10 mg daily for 2 weeks followed by 5 mg daily for two weeks then stop. 84 tablet 07/16/19 25 Active Active Problems Problem Noted Date Diagnosed Date Myopathy 07/15/2024 Rhabdomyolysis 06/05/2024 Obesity with body mass index 30 or greater Hyperlipidemia 06/15/2015 Chronic coronary artery disease 03/19/2015 Social History Tobacco Use Types Packs/Day Years Used Date Smoking Tobacco: Never Tobacco Cessation:Counseling Given: Not Answered [facility] Utilities Answer Date Recorded In the past 12 months has [employer], [employer], or water [employer] threatened to shut off services in your [...] week 06/05/2024 How often do you attend [facility] or zoroastrianism services? More than 4 times per year 06/05/2024 Do you belong to any clubs o r organizations such as uatsdin groups, unions, fraternal or athletic groups, or [...] and heating? Not hard at all 06/05/2024 [facility] - Occupational Stress Questionnaire Answer Date [...] any time in the past 12 m [facility], were you homeless or living in a fdc (including now)? No 06/05/2024 Personal Safety Answer Date Recorded Have you ever been in or are you currently in a harmful physical or emotional relationship or is someone making you feel afraid or unsafe? Denies 06/05/2024 Sex and Gender Information Value Date Recorded Sex Assigned at Not on file Legal Sex Male 3:51 AM SENIOR QUALITY ANALYST Gender Identity Male 07/15/2024 10:19 AM CDT Sexual Orientation Straight 07/15/2024 10 :19 AM CDT Last Filed Vital Signs Vital Sign Reading Time Taken Comments Blood Pressure 148/70 07/15/2024 9:03 AM CDT Pulse 84 07/15/2024 9:03 AM CDT Temperature 36.5 C (97.7 F) 06/20/2024 7:10 AM SENIOR QUALITY ANALYST Respiratory Rate 18 06/20/2024 7:10 AM SENIOR QUALITY ANALYST Oxygen Saturation 97% 06/20/2024 7:10 AM SENIOR QUALITY ANALYST Inhaled Oxygen Concentration - - Weight 71.7 kg (158 lb) 07/15/2024 9:03 AM CDT Height 157.5 cm (5' 2 ) 07/15/2024 9:03 AM CDT Body Mass Index 28.9 07/15/2024 9:03 AM CDT Results * (ABNORMAL) eGFR (06/19/2024 10:50 PM SENIOR QUALITY ANALYST) eGFR 31(L) >=60 mL/min/1. 73 m2 Comment: [...] reviewed 2021. Blood 06/19/2024 10:5 0 PM SENIOR QUALITY ANALYST 06/19/2024 11:03 PM SENIOR QUALITY ANALYST us David Kerr MD LAB BLOOD ORDERABLES Final Result [facility] Department [place] [address] * Hepatitis panel, acute Blood (06/05/2024 10:30 PM SENIOR QUALITY ANALYST) Hep A IgM Nonreactive Nonreactive Hep B core IgM Nonreactive Nonreactive [facility] Hep C Ab Nonreactive Nonreactive [facility] Comment:Antibodies to HCV no t detected. Does NOT exclude the possibility of recent exposure to HCV. Current interpretive data was last revised on 21 HepBsAg Nonreactive Nonreactive [facility] Blood 06/05/2024 10:3 0 PM SENIOR QUALITY ANALYST 06/05/2024 11:29 PM SENIOR QUALITY ANALYST Rich Merritt MD LAB MICROBIOLOGY - GENERA L ORDERABLES Final Result [facility] Department [place] [address] * (ABNORMAL) Lipid panel (06/05/2024 9:12 PM SENIOR QUALITY ANALYST) Cholesterol 135 30 - 199 mg/dL Comment: [...] revised on 2017. Triglycerides 158(H) <=149 mg/dL [facility] Comment: Interpretive Data Ages < or [...] revised on 2017. HDL 48 >=40 mg/dL [facility] Comment: Interpretive Data Ages < or [...] on 2017. LDL, calculated 60 <=129 mg/dL [facility] Comment: Interpretive Data Ages < or [...] 3. Siddharth Fofana et al. YURIDIA Cardiol. 2020 August 15;5(5):540-548. doi: 10.1001/jamacardio.2020.0013 Current Interpretive Data was last revised on 2023. Non-HDL Cholesterol 87 mg/dL [facility] Comment: Interpretive Data Ages < or [...] last revised on 2017. Chol/HDL ratio 3 [facility] Blood 06/05/2024 9:12 PM SENIOR QUALITY ANALYST 06/05/2024 11:29 PM SENIOR QUALITY ANALYST Narrative [facility] - 06/06/2024 8:45 AM SENIOR QUALITY ANALYST reflex Rich Merritt MD LAB BLOOD ORDERABLES Ewelina l Result Performing Organization Address City/[facility] Co de Phone Number [facility] [place] [address] * (ABNORMAL) Hemoglobin A1c (06/05/2024 7:28 PM SENIOR QUALITY ANALYST) Hgb A1C 6.4(H) 4.0 - 5.6 % Estimated Average Glucose 137 mg/dL [facility] Comment: The ADA recommends reporting an estimated Average Glucose (eAG) with all Hemoglobin A1c results using the equation derived from a study of 507 normal and diabetic adults. Minority populations were underrepresented and children were not included. (Diabetes Care 2020; 43(S1): S66-S76). The eAG is not equivalent to a fasting glucose. Blood 06/05/2024 7:28 PM SENIOR QUALITY ANALYST 06/06/2024 12:10 AM SENIOR QUALITY ANALYST Narrative [facility] - 06/06/2024 4:32 PM SENIOR QUALITY ANALYST Reflex Rich Merritt MD LAB BLOOD ORDERABLES Ewelina l Result Performing Organization Address [facility] Co de Phone Number [facility] [place] [address] * Thyroid Function [place] (06/05/2024 6:02 PM SENIOR QUALITY ANALYST) TSH 2.04 0.30 - 4.20 mcIUnit/mL Blood 06/05/2024 6:02 PM SENIOR QUALITY ANALYST 06/05/2024 6:18 PM SENIOR QUALITY ANALYST Rich Merritt MD LAB BLOOD ORDERABLES Ewelina l Result Performing Organization Address City/[facility] Co de Phone Number [facility] [place] [address] from Last 3 Months or Most Recently Relevant to Health Maintenance
[2025-03-31] MEDS: nitroglycerin 1 gm/inch oint Pkt 1 INCH TOPICAL ×4 (04:54→22:05)
--- NOTE | 2025-03-31 04:57 | ECG_ITS ---
[facility] Test Date: 2025-03-31 Pat Name: Moisés Gonzalez Department: Room: [facility] Gender: Male Clinic Charge Nurse: : 1965 Requested By: Isac Thapa Order Number: [id number] Olvin MD: Libra Agee M.D. 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 [email or web address]
--- NOTE | 2025-03-31 04:57 | PM.HP ---
Providers/Chief Complaint Admitting Physician: Isac Cummins MD Primary Care Provider: Maria Walters MD Chief Complaint: Chest Pain History of Present Illness Moisés Gonzalez is a 59 year old male male with history of severe coronary artery disease with reported 15 stents plus coronary bypass had episode of passing out evening of 03/30/2025. He states that he was asleep when his dog woke him up and he assumed dog need to go out side. Patient went to the bathroom himself and awoke on the floor. heard him fall and states that he was out 1 to 2 minutes. He was taken to [facility] and complained of chest pain. CT scan of the head was done which was unremarkable for bleed. The patient was referred for admission here because his chairman & ceo Dr. Patricio is on staff it [facility] here in [place] and the patient was having ongoing chest pain. Patient was started on heparin drip at my request and he was transferred by ambulance. Patient is on Brilinta. His other meds include Zetia aspirin furosemide. His lisinopril was stopped due to kidney failure and requiring dialysis in May. 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 He was transferred to [facility] [address]. Patient was in a hospital total of 40 days. He states he still sees Dr. Whitaker rheumatology and receives IVIG for statin myopathy every 6 weeks or so. Patient is having episodic chest pain left side worsened with breathing but not worsened with movement of his arms or palpation. He points to the pain being underneath his left breast. He has not had fevers or cough he has not had sick contacts with COVID or other viral respiratory illness Review of Systems Narrative: General No fevers chills night sweats weight has been stable Cardiovascular positive for chest pain no palpitations or edema Respiratory no cough or wheezing he does have pleuritic pain with deep breaths when the pain episodes occur GI no nausea vomiting diarrhea constipation Medications/Allergies Home Medications ?Medication ?Instructions ?Recorded ?Confirmed ?Last Taken ?Type aspirin 81 mg tablet,delayed 81 mg PO BEDTIME 30 days #30 tabs 04/18/24 03/18/25 05/26/24 Rx release cholecalciferol (vitamin D3) 50 50 mcg PO DAILY 07/18/24 03/18/25 Unknown History mcg (2,000 unit) capsule ezetimibe 10 mg tablet (Zetia) 10 mg PO DAILY 07/18/24 03/18/25 Unknown History folic acid 1 mg tablet 400 mcg PO DAILY 07/18/24 03/18/25 Unknown History pantoprazole 40 mg tablet,delayed 40 mg PO DAILY 07/18/24 03/18/25 Unknown History release (Protonix) prazosin 1 mg capsule 1 mg PO BID 07/18/24 03/18/25 Unknown History ticagrelor 90 mg tablet (Brilinta) 90 mg PO BID 07/18/24 03/18/25 Unknown History trazodone 150 mg tablet 150 mg PO DAILY 07/18/24 03/18/25 Unknown History potassium chloride 20 mEq 20 meq PO DAILY #7 tabs 08/05/24 03/18/25 Unknown Rx tablet,extended release (K-Tab) blood-glucose sensor (Vestorcom G7 #9 ea 11/12/24 03/18/25 Unknown Rx Sensor device) infusion set for insulin pump #30 ea 11/12/24 03/18/25 Unknown Rx (AutoSoft XC Infusion Set 23 ) insulin pump cartridge (Tandem #30 ea 11/12/24 03/18/25 Unknown Rx Mobi Cartridge subcutaneous cartridge) furosemide 40 mg tablet (Lasix) 40 mg PO DAILY #90 tabs 12/03/24 03/18/25 Unknown Rx insulin aspart U-100 100 unit/mL See Rx Instructions .Route 02/06/25 03/18/25 Unknown Rx subcutaneous solution (Novolog .COMPLEX 90 days #30 mL U-100 Insulin aspart) semaglutide 1 mg/dose (4 mg/3 mL) 1 mg (0.75 mL) SUBCUT Q7D 1 month 03/26/25 Unknown Rx subcutaneous pen injector #3 mL Allergies Allergy/AdvReac Type Severity Reaction Status Date / Time fentanyl Allergy Severe ALGY-Difficulty Verified 12/13/24 11:12 Breathing Rcnlijv-FRB-KzI Reductase Allergy Severe Unconscious Verified 12/13/24 11:12 Inhibitor Penicillins Allergy Unknown Verified 12/13/24 11:12 PFSH Acute PFSH: Medical History (Updated 03/31/25 @ 06:19 by Isac Cummins MD) CAD (coronary artery disease) Statin-induced rhabdomyolysis Lateral epicondylitis Cholecystectomy planned Obesity FH: CABG (coronary artery bypass surgery) Hyperlipidemia Surgical History Hx of appendectomy Social History Smoking and tobacco/nicotine status: never used tobacco/nicotine Second hand smoke exposure: No Alcohol intake: current Alcohol intake frequency: holidays/special occasions only Substance/Drug Use: never Adopted: No Caregiver/support person: Yes Lives independently: No Household members: spouse Housing: House Marital status: Number of children: 5 Number of grandchildren: 1 Highest education level completed: Some College, No Degree service: Yes Current occupational status: employed 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 [employer] Current occupational exposures/hazards: No Pets and animals: Yes Sexually active: Yes Do you think of yourself as: Straight/Heterosexual Current gender identity: Male Special asad needs: No Agree to transfusion: Yes Vitals/I&O/Wt Last Vital Signs Pulse 62 03/31/25 04:54 BP 139/66 03/31/25 04:54 Weight last 48 hrs Weight 77 kg Physical Exam Narrative: General well-developed well-nourished male in no acute cardiopulmonary stress CV regular rate and rhythm no loud murmur Lungs clear to auscultation bilaterally no rales or wheezes Abdomen positive bowel tones soft nontender Calves no tenderness cords pedal edema Skin is warm and dry After interview and exam he had an episode of chest discomfort obviously painful was wincing in grasping at his left chest this was transient for 20 to 30 seconds and then diminished. Patient was able to sleep thereafter A&P Assessment and plan 1. Syncope and collapse: Will check carotid Dopplers. Also will check D-dimer and if positive we will proceed with CTA of the chest looking for PE He had recent echo in October 2024 EF was 60% grade 1 diastolic dysfunction moderate aortic valve calcification with mild aortic valve regurgitation 2. Atypical chest pain: As above. Troponin at [facility] was negative 3. Statin-induced rhabdomyolysis: Will not prescribe statins due to this known history. CPK will be checked today 4. Coronary artery disease involving coronary bypass graft of [place] heart without angina pectoris: Patient has history of coronary artery bypass grafting as well as multiple stents. I started him on heparin drip and he will need to be seen by cardiology in consultation later today PDMP PDMP Reviewed: Not Reviewed Attestations Medical Necessity Statement*: Patient is admitted to hospital with chest pain and syncope expected to require less than 2 midnights in the hospital Coding Level of Care Code Acute Code for Chg Fwd Diagnoses Syncope and collapse R55 Atypical chest pain R07.89 Statin-induced rhabdomyolysis M62.82; T46.6X5A Coronary artery disease involving coronary bypass graft of [place] heart without angina pectoris I25.810 Time Spent (min) 75
--- NOTE | 2025-03-31 06:07 | USCV_ITS ---
Moisés Gonzalez Age: 59 Gender: M : 1965 Exam Date: 03/31/2025 11:08 Ordering Phys: Isac Cummins MD Technologist: HEMANT Exam Location[place] [facility] [place] Indication: Syncope Risk Factors: Previous Vascular Surgery: Right Brachial BP: / Left Brachial BP: / Right Left Velocity (cm/s) Spectral Plaque Velocity (cm/s) Spectral Plaque Syst/Diast Broadening Syst/Diast Broadening 82.80/ 21.90 Prox CCA 98.40 / 23.50 93.20/ 21.90 Mid CCA 107.50/ 23.50 84.10/ 21.90 Distal CCA 91.10 / 23.50 83.40/ 25.80 Prox ICA 73.20 / 18.90 93.00/ 30.70 Mid ICA 85.70 / 32.80 62.30/ 18.40 Distal ICA 83.00 / 0.00 109.40 ECA 120.10 1.00 ICA/CCA 0.80 Antegrade Vertebral Antegrade 56.40/ 10.60 cm/s 31.20/ 8.40 cm/s Tri Subclavian Tri 142.2 103.5 0 0 CONCLUSIONS Right ICA stenosis <50%. Moderate atheromatous plaque right carotid bulb/ICA. Left ICA stenosis <50%. Mild atheromatous plaque left carotid bulb/ICA. Normal antegrade Doppler flow noted in the right vertebral artery. Normal antegrade Doppler flow noted in the left vertebral artery. Isac Huddleston MD (Electronically Signed) Final Date: 31 March 2025 14:13 S
[2025-03-31 06:26] LABS: Platelet Count 87 10^3/cmm (157-399)
[2025-03-31 06:48] LABS: Alanine Aminotransferase 10 U/L (0-41); Albumin Level 3.5 g/dL (3.5-5.2); Alkaline Phosphatase 79 U/L (40-130); Anion Gap 12.0 (5-19); Aspartate Amino Transferase 18 U/L (0-40); Blood Urea Nitrogen 15 mg/dL (6-20); Calcium 8.5 mg/dL (8.5-10.5); Carbon Dioxide 25 mmol/L (22-29); Chloride 105 mmol/L (98-107); Globulin 3.0 g/dL (1.3-4.6); Glucose 120 mg/dL (65-115); Magnesium 1.9 mg/dL (1.7-2.3); Osmolality Calculated 288 mOsm/kg (285-295); Potassium 4.0 mmol/L (3.5-5.1); Sodium 138 mmol/L (136-145); Total Protein 6.5 g/dL (6.6-8.7)
--- NOTE | 2025-03-31 07:04 | PC.NURSE ---
On admit pt had heparin gtt running at dose ordered, and per [facility] had 4000 unit loading bolus at 0245.
[2025-03-31] MEDS: heparin drip 25,000 UNIT/500 ML PREMIX 18.48 UNIT IV (07:55)
[2025-03-31] MEDS: morphine 4 mg/mL SDV 1 mL IVP ×2 (07:57→15:29)
--- NOTE | 2025-03-31 08:39 | PC.PHAR ---
Pt is [facility]. Faxing for med list 03/31/25 7:45am
--- NOTE | 2025-03-31 08:43 | USCV_ITS ---
Moisés Gonzalez Age: 59 Gender: M : 1965 Exam Date: 03/31/2025 10:52 Ordering Phys: Tiffanie Lopez NP Technologist: HEMANT Exam Location: [facility] [place] Indication: Syncope BP: 109 / 50 HR: 52 Rhythm: Sinus Technical Quality: Adequate MEASUREMENTS (Male / Female) Normal Values 2D ECHO LV Diastolic Diameter PLAX 5.4 cm 4.2 - 5.9 / 3.9 - 5.3 cm IVS Diastolic Thickness 0.7 cm 0.6 - 1.0 / 0.6 - 0.9 cm IVS Systolic Thickness 0.8 cm LVPW Diastolic Thickness 0.8 cm 0.6 - 1.0 / 0.6 - 0.9 cm LVPW Systolic Thickness 0.8 cm LVOT Diameter 2.0 cm LV Ejection Fraction 2D Teich 21.0 % LV Ejection Fraction MOD 4C 59.7 % LV Ejection Fraction MOD 2C 62.1 % LV Ejection Fraction 2C AL 63.3 % LA Diameter 3.8 cm RA Systolic Volume 4C AL 38.1 ml RA Systolic Volume 4C MOD 37.5 ml LA Sys Volume AL 51.3 cm cubed LA Sys Volume Index AL 27.4 cm cubed/m squared Aorta at Sinotubular Diameter 2.5 cm M-MODE LA Ao Ratio MM 1.3 AV Cusp Separation MM 1.3 cm DOPPLER AV Peak Velocity 154.0 cm/s LVOT Peak Velocity 120.0 cm/s AV Area Cont Eq vti 3.1 cm squared AV Area Cont Eq pk 2.6 cm squared MV Peak Velocity 147.0 cm/s MV Area PHT 4.0 cm squared Mitral E to A Ratio 0.8 TR Peak Velocity 98.0 cm/s TR Peak Gradient 3.8 mmHg TV Peak E Velocity 75.0 cm/s PV Peak Velocity 98.0 cm/s FINDINGS Left Ventricle Normal left ventricular size and systolic function, EF 59.7% no regional wall motion abnormalities. Grade I/IV diastolic dysfunction (abnormal relaxation filling pattern), normal to mildly elevated filling pressures. Right Ventricle Normal right ventricular size and systolic function. Right Atrium Normal right atrial size. Left Atrium Mildly increased left atrial size. IA Septum Normal appearance of the interatrial septum. Mitral Valve Mild mitral annular calcification. Trace mitral valve regurgitation. Thickened mitral valve. Aortic Valve Thickened aortic valve. Trace to mild aortic valve regurgitation. Tricuspid Valve Trace to mild tricuspid valve regurgitation. Estimated pulmonary artery peak systolic pressure possibly within normal limits Pulmonic Valve Pulmonic valve not well visualized. Pericardium No pericardial effusion. Aorta Normal aortic annulus size. IVC Inferior vena cava not visualized. CONCLUSIONS Normal left ventricular size and systolic function, EF 59.7% . No regional wall motion abnormalities. Grade I/IV diastolic dysfunction (abnormal relaxation filling pattern), normal to mildly elevated filling pressures. Mildly increased left atrial size. Mild mitral annular calcification. Trace mitral valve regurgitation. Thickened mitral valve. Thickened aortic valve. Trace to mild aortic valve regurgitation. Trace to mild tricuspid valve regurgitation. Estimated pulmonary artery peak systolic pressure possibly within normal limits There is no pericardial effusion. There are no intracardiac masses. Compared to the study from 10/15/2024, there may not be significant change Dr Libra Agee MD FAC (Electronically Signed) Final Date: 31 March 2025 17:10 S
[2025-03-31 09:18] LABS: Partial Thromboplastin Time 167.7 SECONDS (23.9-36.7)
[2025-03-31 12:54] LABS: Partial Thromboplastin Time 66.2 SECONDS (23.9-36.7)
--- NOTE | 2025-03-31 14:40 | P.CONIM_ITS ---
<Statement entered by Cj Patricio MD - 04/02/25 22:48> Patient was evaluated and cared for in conjunction with an advanced practice practitioner. I personally examined the patient and reviewed the chart and all pertinent data including imaging, telemetry, and laboratory results. I discussed the patient in detail with the advanced practice practitioner. Please see their note for complete H&P testing result and agreed upon plan of care for the patient. Providers/Reason For Consult 2 Consulting Physician/Specialty*: cardiology Reason for Consult*: Syncope, atypical chest pain Requesting Physician: Dr. Cummins Attending Physician: Christian Jason MD Primary Care Provider: Maria Walters MD History of Present Illness History of Present Illness Moisés Gonzalez is a 59 year old male who is known to our service history of severe CAD, CABG, reported an episode of passing out yesterday evening. He states that he got up to go to the bathroom and that is all he remembers. He states that his found him on passed out. Patient denied any palpitations prior to this. He was taken to [facility]. He states that he had had an episode of left sided chest discomfort but no pressure or shortness of breath. Reports this was very transient. Worse with deep breaths. CT scan of the head was done that did not show any kind of bleed. Troponin was negative at the other facility. EKG showed sinus bradycardia with no acute ST or T wave abnormalities. Vital signs are stable. Labs stable. D-dimer is slightly elevated. Patient currently on a heparin drip. Carotid Doppler less than 50% stenosis bilateral ICA. Review of Systems 2 Narrative: Consitutional: denies fever, chills, body aches, or changes in appetite, denies abnormal weight loss Eyes: Denies changes in vision Card: Denies chest pain, palpitations, irregular heart rhythm, edema, syncope, shortness of breath, orthopnea, leg pain with exertion Resp: Denies shortness of breath, denies hemoptysis, denies cough GI: denies abdominal pain, denies nausea or voimting, denies blood in stool Musc: Denies extremity pain, denies limited range of motion or recent injury Skin: Denies rash, lesions, or wounds, denies changes to skin color Neuro: Denies nubmness in extremities, h/a, s/s of stroke Niko: Denies easy bruiding/bleeding Medications/Allergies Home Medications ?Medication ?Instructions ?Recorded ?Confirmed ?Last Taken ?Type aspirin 81 mg tablet,delayed 81 mg PO BEDTIME 30 days #30 tabs 04/18/24 03/31/25 05/26/24 Rx release cholecalciferol (vitamin D3) 50 50 mcg PO DAILY 03/31/25 Unknown History mcg (2,000 unit) capsule ezetimibe 10 mg tablet (Zetia) 10 mg PO DAILY 07/18/24 03/31/25 Unknown History folic acid 1 mg tablet 400 mcg PO DAILY 07/18/24 Unknown History pantoprazole 40 mg tablet,delayed 40 mg PO QAM 5 03/31/25 Unknown History release (Protonix) prazosin 1 mg capsule 1 mg PO BEDTIME 07/18/24 Unknown History ticagrelor 90 mg tablet (Brilinta) 90 mg PO BID 03/31/25 Unknown History blood-glucose sensor (Dexcom G7 #9 ea 11/12/24 5 Unknown Rx Sensor device) infusion set for insulin pump #30 ea 11/12/24 03/31/25 Unknown Rx (AutoSoft XC Infusion Set 23 ) insulin pump cartridge (Tandem #30 ea 11/12/24 5 Unknown Rx Mobi Cartridge subcutaneous cartridge) furosemide 40 mg tablet (Lasix) 40 mg PO DAILY #90 tab s 12/03/24 03/31/25 Unknown Rx insulin aspart U-100 100 unit/mL See Rx Instructions . Route 02/06/25 03/31/25 Unknown Rx subcutaneous solution (Novolog .COMPLEX 90 days #30 mL U-100 Insulin aspart) semaglutide 1 mg/dose (4 mg/3 mL) 1 mg (0.75 mL) SUBCU T Q7D 1 month 03/26/25 03/31/25 Unknown Rx subcutaneous pen injector #3 mL potassium chloride 20 mEq 20 meq PO DAILY 03/31/25 Unknown History tablet,extended release trazodone 100 mg tablet 200 mg PO BEDTIME 03/31/25 1 06/01/24 Unknown History Allergies Allergy/AdvReac Type Severity Reaction Status Date / Time fentanyl Allergy Severe ALGY-Difficulty Verified 12/13/24 11:12 Breathing Tjcnuvr-DFB-HaG Reductase Allergy Severe Unconscious Verified 12/13/24 11:12 Inhibitor Penicillins Allergy Unknown Verified 12/13/24 11:12 Current Medications Generic Name Dose Route Start Last Admin Trade Name Cony PRN Reason Stop Dose Admin Docusate Sodium 100 mg 03/31/25 05:00 03/31/25 07:54 Docusate Sodium 100 Mg Capsule PO Not Given BID DELANEY Heparin Sodium/Sodium Chloride 25,000 unit in 500 mls @ 18.48 mls/hr 03/31/25 05:15 03/31/25 09:25 Heparin Drip IV 0 unit/kg/hr CONT DELANEY 0 mls/hr Protocol Titration 12 UNIT/KG/HR Morphine Sulfate 4 mg 03/31/25 04:57 03/31/25 07:57 Morphine 4 Mg/Ml Sdv 1 Ml IVP 4 mg Q4H PRN Administration SEVERE PAIN Nitroglycerin 1 inch 03/31/25 05:00 03/31/25 10:46 Nitroglycerin 1 Gm/Inch Oint Pkt TOPICAL 1 inch Q6H DELANEY Administration Pantoprazole Sodium 40 mg 03/31/25 05:00 03/31/25 07:[address] 40 Mg Tablet PO 40 mg DAILY DELANEY Administration PFSH Acute 2 PFSH: Medical History (Updated 03/31/25 @ 14:47 by Tiffanie Lopez NP) CAD (coronary artery disease) Statin-induced rhabdomyolysis Lateral epicondylitis Cholecystectomy planned Obesity FH: CABG (coronary artery bypass surgery) Hyperlipidemia Surgical History Hx of appendectomy Social History Smoking and tobacco/nicotine status: never used tobacco/nicotine Second hand smoke exposure: No Alcohol intake: current Alcohol intake frequency: holidays/special occasions only Substance/Drug Use: never Adopted: No Caregiver/support person: Yes Lives independently: No Household members: spouse Housing: House Marital status: Number of children: 5 Number of grandchildren: 1 Highest education level completed: Some College, No Degree service: Yes Current occupational status: employed 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 [employer] Current occupational exposures/hazards: No Pets and animals: Yes Sexually active: Yes Do you think of yourself as: Straight/Heterosexual Current gender identity: Male Special asad needs: No Agree to transfusion: Yes Vitals/I&O/Wt Last Vital Signs Pulse 51 L 03/31/25 13:00 Resp 10 L 03/31/25 13:00 BP 142/69 03/31/25 13:00 Pulse Ox 98 03/31/25 13:00 O2 Del Method Room Air 03/31/25 04:41 03/30/25 03/31/25 03/31/25 22:59 06:59 14:59 Intake Total 0 / 0 267.72 / 267.72 Output Total 0 / 0 Balance 0 / 0 267.72 / 267.72 Weight last 48 hrs Weight 169 lb Weight 169 lb 12.095 oz Physical Exam 2 Narrative: General: No apparent distress, healthy appearing, well nourished HENMT: normoceophalic Muskuloskeletal: Full ROM Respiratory: Normal respiratory effort, clear to auscultation bilaterally throughout all lung donis, no use of accessory muscles Cardio: No JVD, regular rate, regular rhythm, S1 S2 normal, no murmurs, peripheral pulses 2+ radial palpated bilaterally GI: Normal to inspection, nondistended Extremities: Full ROM, normal, normal capillary refill, no cyanosis or edema Neuro: Alert and oriented x4, no focal motor deficits Psych: Affect normal, mental status grossly normal Skin: No rashes or lesions noted, no wounds Data 03/31/25 06:19 03/31/25 06:19 A&P Assessment and plan 1. Syncope: 2. Hx of CABG: Plan: At this time, patient's syncope appears to be vasovagal in nature and noncardiac. Patient states his chest pain was not like prior instances with CAD. It is atypical in nature and is more pleuritic in nature. Will get echo to rule out valvular abnormalities, low EF, pericardial effusion. Continue to monitor for arrhythmias. When PE is ruled out, heparin drip can be stopped from our perspective. 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 Will discuss repatha on an outpatient basis as ldl still 106 with zetia. Thank you, , for allowing us to care for this very pleasant 59 year old gentleman. PDMP PDMP Reviewed: Not Reviewed Consult Attestations 2 Medical Necessity Statement: Deferred to primary. Coding Level of Care Code Acute Code for Chg Fwd Diagnoses Syncope R55 Hx of CABG Z95.1
--- NOTE | 2025-03-31 14:42 | ECG_ITS ---
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 Measurements Intervals [place] Rate: 51 P: 54 NC: 154 QRS: 32 QRSD: 94 T: 84 QT: 419 QTc: 387 Interpretive Statements SINUS BRADYCARDIA Compared to ECG 03/31/2025 08:28:56 No significant changes Electronically Signed On 04-01-2025 21:28:17 OUTSIDE INDUSTRIAL SALES REPRESENTATIVE by Libra Agee M.D. [email or web address] [id number]
--- NOTE | 2025-03-31 14:47 | CTR_ITS ---
PROCEDURE INFORMATION: Exam: CTA Chest With Contrast Exam date and time: 03/31/2025 3:44 PM Age: 59 years old Clinical indication: Other: High d dimers and chest pain? ; Prior surgery; Surgery date: 6+ months; Surgery type: Open heart TECHNIQUE: Imaging protocol: Computed tomographic angiography of the chest with contrast. Exam focused on the arteries. 3D rendering (Not supervised by radiologist): MIP and/or 3D reconstructed images were created by the technologist. Radiation optimization: All CT scans at this facility use at least one of these dose optimization techniques: automated exposure control; mA and/or kV adjustment per patient size (includes targeted exams where dose is matched to clinical indication); or iterative reconstruction. Contrast material: [id number]; Contrast volume: 100 ml; Contrast route: INTRAVENOUS (IV); COMPARISON: DX XR chest 1V 01800 03/31/2025 1:05 AM RADIATION DOSE METRICS: Total DLP (mGy-cm): 393.7 FINDINGS: Pulmonary arteries: Pulmonary artery evaluation of good technical quality with no pulmonary artery embolism identified through the segmental level. Mild limitation due to respiratory motion in the left lung base. Aorta: No aneurysm or dissection in the visualized aorta. The visualized aorta and vasculature demonstrates moderate atherosclerotic calcification. Lungs: No focal consolidation or other acute appearing pulmonary opacity. Mild scattered atelectasis. Couple of small calcified granuloma. Pleural spaces: No pneumothorax or pleural effusion. Heart: Mitral annular calcification. Aortic valve calcification is present, which can be associated with aortic stenosis. Mild to moderate cardiomegaly. No pericardial effusion. Coronary arteries: Post coronary bypass grafting. Atherosclerotic calcifications affect the [place] coronary arteries. Lymph nodes: No pathologically enlarged lymph nodes demonstrated. Gallbladder and biliary ducts: Prior cholecystectomy. Stomach: Postsurgical changes along the stomach, likely related to prior gastric sleeve surgery. Ingested material in the gastric antrum. CT/CT angio chest PE protcl [id number] IMPRESSION: 1. No CT evidence of acute cardiopulmonary abnormality, including no pulmonary emboli demonstrated through the segmental level. 2. Bnzu-[id number] cardiomegaly post CABG.
[2025-03-31 15:13] LABS: Troponin(5th) Baseline 69 ng/L (0-15)
--- NOTE | 2025-03-31 15:42 | ECG_ITS ---
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 Measurements Intervals [place] Rate: 48 P: 23 ID: 163 QRS: 32 QRSD: 98 T: 85 QT: 435 QTc: 389 Interpretive Statements SINUS BRADYCARDIA Compared to ECG 03/31/2025 15:07:06 No significant changes Electronically Signed On 04-01-2025 21:50:20 POLITICAL RESEARCH SCIENTIST by Libra Agee M.D. [id number]
[2025-03-31] MEDS: iohexol 350 mg/mL 500 mL Btl (per mL) IV (15:47)
--- NOTE | 2025-03-31 20:42 | ECG_ITS ---
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 Measurements Intervals [place] Rate: 52 P: 26 UT: 163 QRS: 33 QRSD: 95 T: 100 QT: 425 QTc: 398 Interpretive Statements SINUS BRADYCARDIA ABNORMAL QRS-T ANGLE [QRS-T AXIS DIFFERENCE > 60] Compared to ECG 03/31/2025 17:17:44 No significant changes Electronically Signed On 04-01-2025 21:47:48 BIOLOGICAL PLANT OPERATOR by Libra Agee M.D. [email or web address] [id number]
[2025-03-31 21:27] LABS: Partial Thromboplastin Time 50.2 SECONDS (23.9-36.7)
[2025-03-31 21:43] LABS: Troponin 5 6HR 63.67 ng/L (0-15)
[2025-03-31 21:46] LABS: Troponin 5 6HR Delta -5.33 ng/L (0-12)
[2025-04-01] VITALS (21 sets, daily range): BP systolic 90–134; BP diastolic 42–66; PULSE 49–87; RESP 14–26; TEMP 36.7–37.1; O2SAT 92–98; BMI 33.5
[2025-04-01] MEDS: nitroglycerin 1 gm/inch oint Pkt 1 INCH TOPICAL (04:19)
[2025-04-01 04:49] LABS: Hematocrit 37.5 % (37-53); Hemoglobin 12.50 g/dL (11.27-16.99); Mean Corpuscular HGB Conc 33.3 g/dL (30-55); Mean Corpuscular Hemoglobin 30.0 pg (27-33); Mean Corpuscular Volume 89.9 fl (82-101); Nucleated Red Blood Cells % 0 %; Platelet Count 99 10^3/cmm (157-399); Red Blood Count 4.17 10^6/uL (3.85-5.65); White Blood Count 2.56 10^3/uL (3.29-11.43)
[2025-04-01 05:12] LABS: Alanine Aminotransferase 9 U/L (0-41); Albumin Level 3.3 g/dL (3.5-5.2); Alkaline Phosphatase 76 U/L (40-130); Anion Gap 11.9 (5-19); Aspartate Amino Transferase 18 U/L (0-40); Blood Urea Nitrogen 12 mg/dL (6-20); Calcium 8.2 mg/dL (8.5-10.5); Carbon Dioxide 23 mmol/L (22-29); Chloride 105 mmol/L (98-107); Globulin 2.8 g/dL (1.3-4.6); Glucose 101 mg/dL (65-115); Osmolality Calculated 282 mOsm/kg (285-295); Potassium 3.9 mmol/L (3.5-5.1); Sodium 136 mmol/L (136-145); Total Protein 6.1 g/dL (6.6-8.7)
--- OUTSIDE RECORDS SUMMARY | 2025-04-01 07:23 | XMS_ITS ---
Author Organization [facility] al Address [address] [place] [address] Care Team Providers Care Office Machinery Or Equipment Installer Name Role Phone [facility], Yohannes Reza Primary Care Provider Dialysis Access Sites Type Status Location Placement Date Removal Da te Hemodialysis Cath Double 06/05/24 Non-tunneled catheter Left Femoral Inactive Left Thigh - Anterior 06/05/2024 03/0 04/2024 Procedures Procedure Name Priority Date/Time Associated Diagnosis Comments EGFR Routine 06/19/2024 10:50 PM SUPERVISOR EDUCATION HEPATITIS PANEL, ACUTE Routine 06/05/2024 10:30 PM SUPERVISOR EDUCATION LIPID PANEL Timed 06/05/2024 9:12 PM SUPERVISOR EDUCATION HEMOGLOBIN A1C STAT 06/05/2024 7:28 PM SUPERVISOR EDUCATION THYROID FUNCTION CASCADE Timed 06/05/2024 6:02 PM SUPERVISOR EDUCATION from Last 3 Months or Most Recently Relevant to Health Maintenance Allergies Active Allergy Reactions Criticality Noted Date Comments Fentanyl Penicillins Onvfjnk-Yvt-Zas Reductase Inhibitors Other (See comments) High 06/11/2024 [...] Tobacco: Never Tobacco Cessation:Counseling Given: Not Answered [facility] Utilities Answer Date Recorded In the past 12 months has [employer], [employer], [employer], or water [employer] threatened to shut off services in your [...] How often do you attend [facility] or latter-day services? More than 4 times per year 06/05/2024 Do you belong to any clubs o r organizations such as synagogue groups, unions, fraternal or athletic groups, or [...] and heating? Not hard at all 06/05/2024 [facility] - Occupational Stress Questionnaire [...] any time in the past 12 m [facility], were you homeless or living in a long term (including now)? No 06/05/2024 Personal Safety Answer Date Recorded Have you ever been in or are you currently in a harmful physical or emotional relationship or is someone making you feel afraid or unsafe? Denies 06/05/2024 Sex and Gender Information Value Date Recorded Sex Assigned at Not on file Legal Sex Male 3:51 AM SUPERVISOR EDUCATION Gender Identity Male 07/15/2024 10:19 AM CDT Sexual Orientation Straight 07/15/2024 10 :19 AM CDT Last Filed Vital Signs Vital Sign Reading Time Taken Comments Blood Pressure 148/70 07/15/2024 9:03 AM CDT Pulse 84 07/15/2024 9:03 AM CDT Temperature 36.5 C (97.7 F) 06/20/2024 7:10 AM SUPERVISOR EDUCATION Respiratory Rate 18 06/20/2024 7:10 AM SUPERVISOR EDUCATION Oxygen Saturation 97% 06/20/2024 7:10 AM SUPERVISOR EDUCATION Inhaled Oxygen Concentration - - Weight 71.7 kg (158 lb) 07/15/2024 9:03 AM CDT Height 157.5 cm (5' 2 ) 07/15/2024 9:03 AM CDT Body Mass Index 28.9 07/15/2024 9:03 AM CDT Results * (ABNORMAL) eGFR (06/19/2024 10:50 PM SUPERVISOR EDUCATION) eGFR 31(L) >=60 mL/min/1. 73 m2 Comment: [...] reviewed 2021. Blood 06/19/2024 10:5 0 PM SUPERVISOR EDUCATION 06/19/2024 11:03 PM SUPERVISOR EDUCATION us David Kerr MD LAB BLOOD ORDERABLES Final Result [facility] [place] [address] * Hepatitis panel, acute Blood (06/05/2024 10:30 PM SUPERVISOR EDUCATION) Hep A IgM Nonreactive Nonreactive Hep B core IgM Nonreactive Nonreactive [facility] Hep C Ab Nonreactive Nonreactive [facility] Comment:Antibodies to HCV no t detected. Does NOT exclude the possibility of recent exposure to HCV. Current interpretive data was last revised on 21 HepBsAg Nonreactive Nonreactive [facility] Blood 06/05/2024 10:3 0 PM SUPERVISOR EDUCATION 06/05/2024 11:29 PM SUPERVISOR EDUCATION Rich Merritt MD LAB MICROBIOLOGY - GENERA L ORDERABLES Final Result [facility] [address] [facility] [place] [address] * (ABNORMAL) Lipid panel (06/05/2024 9:12 PM SUPERVISOR EDUCATION) Cholesterol 135 30 - 199 mg/dL Comment: [...] revised on 2017. Triglycerides 158(H) <=149 mg/dL [facility] Comment: Interpretive Data Ages < or = [...] revised on 2017. HDL 48 >=40 mg/dL [facility] Comment: Interpretive Data Ages < or = [...] on 2017. LDL, calculated 60 <=129 mg/dL [facility] Comment: Interpretive Data Ages < or = [...] revised on 2023. Non-HDL Cholesterol 87 mg/dL [facility] Comment: Interpretive Data Ages < or = [...] last revised on 2017. Chol/HDL ratio 3 [facility] Blood 06/05/2024 9:12 PM SUPERVISOR EDUCATION 06/05/2024 11:29 PM SUPERVISOR EDUCATION Narrative [facility] - 06/06/2024 8:45 AM SUPERVISOR EDUCATION reflex Rich Merritt MD LAB BLOOD ORDERABLES Ewelina l Result Performing Organization Address City/[facility] Co de Phone Number [facility] [place] [address] * (ABNORMAL) Hemoglobin A1c (06/05/2024 7:28 PM SUPERVISOR EDUCATION) Hgb A1C 6.4(H) 4.0 - 5.6 % Estimated Average Glucose 137 mg/dL [facility] Comment: The ADA recommends reporting an estimated Average Glucose (eAG) with all Hemoglobin A1c results using the equation derived from a study of 507 normal and diabetic adults. Minority populations were underrepresented and children were not included. (Diabetes Care 2020; 43(S1): S66-S76). The eAG is not equivalent to a fasting glucose. Blood 06/05/2024 7:28 PM SUPERVISOR EDUCATION 06/06/2024 12:10 AM SUPERVISOR EDUCATION Narrative [facility] - 06/06/2024 4:32 PM SUPERVISOR EDUCATION Reflex Rich Merritt MD LAB BLOOD ORDERABLES Ewelina l Result Performing Organization Address [facility] Co de Phone Number [facility] [place] [address] * Thyroid Function [place] (06/05/2024 6:02 PM SUPERVISOR EDUCATION) TSH 2.04 0.30 - 4.20 mcIUnit/mL Blood 06/05/2024 6:02 PM SUPERVISOR EDUCATION 06/05/2024 6:18 PM SUPERVISOR EDUCATION Rich Merritt MD LAB BLOOD ORDERABLES Ewelina l Result Performing Organization Address City/[facility] Co de Phone Number [facility] [place] [address] from Last 3 Months or Most Recently Relevant to Health Maintenance
--- OUTSIDE RECORDS SUMMARY | 2025-04-01 07:23 | XMS_ITS | Clinical Summary ---
Author Organization [facility] Address [address] Scott: Epic Prelude ADT SHAWN TADEO [address] Care Team Providers Care Cash Register Operator Name Role Phone Unavailable Primary Care Provider Unavailabl e Allergies Active Allergy Reactions Criticality Noted Date Comments Fentanyl Hives High 01/06/2010 Penicillins Unknown 01/07/2008 Pmrvuco-Pks-Pib Reductase Inhibitors Other (See Comments),Renal Dysfunctions High [...] Department Care Team Description 03/28/2025 6:36 AM LUNG PULLER - 03/28/2025 11:59 PM LUNG PULLER Hospital Encounter [facility] Sony Daniels [facility] [place] [address] Saskia Brooks MD Discharge Disposition: Home or Self Care 03/27/2025 6:44 AM LUNG PULLER - 03/27/2025 11:59 PM LUNG PULLER Hospital Encounter [facility] [address] [place] [phone] Saskia Brooks MD Discharge Disposition: Home or Self Care 03/26/2025 7:30 AM LUNG PULLER Office Visit [facility] Gastroenterology[address] [place] [address] Ha Dumont, PAINTER TUMBLING BARREL Metabolic dysfunction-associate d fatty liver disease (MAFLD) (Primary Dx) 03/03/[address] 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) 02/14/2025 7:03 AM CDT - 02/14/2025 11:59 PM CDT Hospital Encounter [facility] [address] [place] [phone] Discharge Disposition: Home or Self Care 02/13/2025 7:03 AM CDT - 02/13/2025 11:59 PM CDT Hospital Encounter [facility] [address] [place] [address] Saskia Brooks MD Discharge Disposition: Home or Self Care 02/10/2025 [facility] Only [facility] [id number] [facility] [address] [place] [address] Viviana Rodas NP Fatty liver (Primary Dx) 01/13/[address] 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) 01/10/[facility] [address] [place] [address] Saskia Brooks MD [facility] 202401/08/2025 7:46 AM CDT - 01/08/2025 11:59 PM CDT Hospital Encounter [facility] [address] [place] [address] Saskia Brooks MD Discharge Disposition: Home or Self Care 01/07/2025 7:43 AM CDT - 01/07/2025 11:59 PM CDT Hospital Encounter [facility] [address] [address] Saskia Brooks MD Discharge Disposition: Home or [...] on file Legal Sex Male 12:22 PM LUNG PULLER Gender Identity Not on file Sexual Orientation Not on file Last Filed Vital Signs Vital Sign Reading Time Taken Comments Blood Pressure 113/77 03/28/2025 6:55 AM LUNG PULLER Pulse 90 03/28/2025 6:55 AM LUNG PULLER Temperature 36.6 C (97.8 F) 03/28/2025 6:55 AM LUNG PULLER Respiratory Rate 18 03/28/2025 6:55 AM LUNG PULLER Oxygen Saturation 95% 03/28/2025 6:55 AM LUNG PULLER Inhaled Oxygen Concentration - - Weight 81.1 kg (178 lb 12.8 oz) 03/26/2025 7:30 AM LUNG PULLER Height 160 cm (5' 3 ) 03/26/2025 7:30 AM LUNG PULLER Body Mass Index 31.67 03/26/2025 7:30 AM LUNG PULLER Plan of Treatment Upcoming Encounters Date Type Department Care Team (Latest Contact Info) Description 04/28/[address] 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 [phone] Saskia Brooks MD [address] [place] [address] 05/13/2025 7:00 AM LUNG PULLER Appointment [facility] [address] [place] [address] Saskia Brooks MD [address] [place] [address] 07/11/2025 9:20 AM CDT Office Visit [facility] Rheumatology- Day Lalo Coats [address] [address] Saskia Brooks MD [address] [address] 03/27/2026 12:00 PM LUNG PULLER Video Visit [facility] Gastroenterology- Shwetha [address] [address] Ha Dumont FNP [address] [facility] [address] [place] [address] Health Maintenance Due Date Last [...] 4.3 3.8 - 10.8 Thousand/u L [facility] R[facility] RBC 4.88 4.20 - 5.80 Million/uL [facility] HEMOGLOBIN 14.8 13.2 - 17.1 g/dL [facility] HEMATOCRIT 44.2 38.5 - 50.0 % [facility] R[facility] MCV 90.6 80.0 - 100.0 fL [facility] RR MCH 30.3 27.0 - 33.0 pg [facility] RR MCHC 33.5 32.0 - 36.0 g/dL [facility] RR Comment: For adults, a slight decrease in the calculated MCHC value (in the range of 30 to 32 g/dL) is most likely not clinically significant; however, it should be interpreted with caution in correlation with other red cell parameters and the patient's clinical condition. RDW 13.7 11.0 - 15.0 % [facility] RR PLATELETS 162 140 - 400 Thousand/u L [facility] RR MPV 9.3 7.5 - 12.5 fL [facility] RR NEUTROPHIL ABSOLUTE 2,752 1,500 - 7,800 cells/uL [facility] RRL LYMPHOCYTE ABSOLUTE 1,036 850 - 3,900 cells/uL [facility] RRL MONOCYTE ABSOLUTE 353 200 - 950 cells/uL [facility] RR EOSINOPHIL ABSOLUTE 129 15 - 500 cells/uL [facility] RRL BASOPHILS ABSOLUTE 30 0 - 200 cells/uL [facility] RRL NEUTROPHIL 64 % [facility] RR LYMPHOCYTES 24.1 % [facility] RRL MONOCYTE 8.2 % [facility] RRL EOSINOPHILS 3.0 % [facility] RRL BASOPHILS 0.7 % [facility] RRL Comment: FASTING:NO FASTING: NO Test Performed at: [facility] [address] [place] [address] Lazaro Ibanez Blood 01/24/2025 11:2 1 AM CDT 01/24/2025 11:22 AM CDT us Saskia Brooks MD HEMATOLOGY ORDERABLES Final Result [facility] [phone] [facility] RR [address] [place] [address] * CK (01/10/2025 9:38 AM CDT) Pathologist [facility] CK 196 23 - 325 U/L [facility] Comment: FASTING:YES FASTING: YES Test Performed at: [facility] [address] [facility] [place] [address] Madeline Sebastian MD Blood 01/10/2025 9:38 AM CDT 01/10/2025 9:39 AM CDT Saskia Brooks MD CHEMISTRY ORDERABLES Final R esult [facility] [phone] [facility] [address] [place] [address] * (ABNORMAL) COMPREHENSIVE METABOLIC PANEL (01/10/2025 9:38 AM CDT) [facility] GLUCOSE 248(H) 65 - 99 mg/dL [facility] Comment: Fasting reference interval For [...] 4.0 3.6 - 5.1 g/dL [facility] RRL GLOBULIN 4.0(H) 1.9 - 3.7 g/dL (calc) [facility] RRL ALBUMIN/GLOBULIN RATIO 1.0 1.0 - 2.5 (calc) [facility] RRL BILIRUBIN TOTAL 0.8 0.2 - 1.2 mg/dL [facility] RRL ALKALINE PHOSPHATASE 103 35 - 144 U/L [facility] AST 20 10 - 35 U/L [facility] ALT 16 9 - 46 U/L [facility] RRL Comment: Test Performed at: [facility] [address] [place] [address] Lazaro Ibanez Blood 01/10/2025 9:38 AM CDT 01/10/2025 9:39 AM CDT DeniseAnita Brooks MD CHEMISTRY ORDERABLES Final R esult [facility] [phone] [facility] [address] [place] [address] * HEMOGLOBIN A1C (04/03/2015) Pathologist [facility] ABSTRACTED HGB A1C 9.6 EXTERNAL LAB HEMOGLOBIN A1C EXTERNAL LAB HEMOGLOBIN A1C EXTERNAL LAB GLUCOSE, MEAN BLOOD EXTERNAL LAB Blood 04/03/2015 Narrative EXTERNAL LAB - 04/03/2015 12:00 AM LUNG PULLER This order was created through External Result [...] Narrative EXTERNAL LAB - 04/01/2015 12:00 AM LUNG PULLER This order was created through External Result Entry us Abstract Spg Provider CHEMISTRY ORDERABLES Final Result EXTERNAL LAB from Last 3 Months or Most Recently Relevant to Health Maintenance Insurance * Guarantor: [employer] Account Type Relation to Patient Date of Phone Billing Address Corporate Other DEFAULT ADDRESS [address] [employer] Advance Directives For more information, please contact: [phone] * Full Code (Latest Code Status on File) Date Activated Date Inactivated Comments 06/20/2024 8:57 PM 07/04/2024 12:58 PM
--- OUTSIDE RECORDS SUMMARY | 2025-04-01 07:23 | XMS_ITS | Clinical Summary ---
Author Organization [facility] Address [address] [place] [address] Care Team Providers Care Book Cutter Name Role Phone [facility], Yohannes Reza Primary Care Provider Allergies Active Allergy Reactions Criticality Noted Date Comments Fentanyl Penicillins Tmiwcrv-Dav-Eud Reductase Inhibitors Other (See comments) High 06/11/2024 [...] Tobacco: Never Tobacco Cessation:Counseling Given: Not Answered [facility] impokities Answer Date Recorded In the past 12 months has [facility] [employer], or [employer] threatened to shut off services in your [...] week 06/05/2024 How often do you attend [facility] or yazidism services? More than 4 times per year 06/05/2024 Do you belong to any clubs o r organizations such as adventism groups, unions, fraternal or athletic groups, or [...] and heating? Not hard at all 06/05/2024 [facility] - Occupational Stress [...] any time in the past 12 m [facility], were you homeless or living in a nursing home (including now)? No 06/05/2024 Personal Safety Answer Date Recorded Have you ever been in or are you currently in a harmful physical or emotional relationship or is someone making you feel afraid or unsafe? Denies 06/05/2024 Sex and Gender Information Value Date Recorded Sex Assigned at Not on file Legal Sex Male 3:51 AM VASCULAR TECHNOLOGIST SONOGRAPHER Gender Identity Male 07/15/2024 10:19 AM CDT Sexual Orientation Straight 07/15/2024 10 :19 AM CDT Last Filed Vital Signs Vital Sign Reading Time Taken Comments Blood Pressure 148/70 07/15/2024 9:03 AM CDT Pulse 84 07/15/2024 9:03 AM CDT Temperature 36.5 C (97.7 F) 06/20/2024 7:10 AM VASCULAR TECHNOLOGIST SONOGRAPHER Respiratory Rate 18 06/20/2024 7:10 AM VASCULAR TECHNOLOGIST SONOGRAPHER Oxygen Saturation 97% 06/20/2024 7:10 AM VASCULAR TECHNOLOGIST SONOGRAPHER Inhaled Oxygen Concentration - - Weight 71.7 [...] Diagnosis Comments EGFR Routine 06/19/2024 10:50 PM VASCULAR TECHNOLOGIST SONOGRAPHER HEPATITIS PANEL, ACUTE Routine 06/05/2024 10:30 PM VASCULAR TECHNOLOGIST SONOGRAPHER LIPID PANEL Timed 06/05/2024 9:12 PM VASCULAR TECHNOLOGIST SONOGRAPHER HEMOGLOBIN A1C STAT 06/05/2024 7:28 PM VASCULAR TECHNOLOGIST SONOGRAPHER THYROID FUNCTION CASCADE Timed 06/05/2024 6:02 PM VASCULAR TECHNOLOGIST SONOGRAPHER from Last 3 Months or Most Recently Relevant to Health Maintenance Results * (ABNORMAL) eGFR (06/19/2024 10:50 PM VASCULAR TECHNOLOGIST SONOGRAPHER) eGFR 31(L) >=60 mL/min/1. 73 m2 Comment: [...] reviewed 2021. Blood 06/19/2024 10:5 0 PM VASCULAR TECHNOLOGIST SONOGRAPHER 06/19/2024 11:03 PM VASCULAR TECHNOLOGIST SONOGRAPHER us David Kerr MD LAB BLOOD ORDERABLES Final Result [facility] Department [place] [address] * Hepatitis panel, acute Blood (06/05/2024 10:30 PM VASCULAR TECHNOLOGIST SONOGRAPHER) Hep A IgM Nonreactive Nonreactive Hep B core IgM Nonreactive Nonreactive [facility] Hep C Ab Nonreactive Nonreactive [facility] Comment:Antibodies to HCV no t detected. Does NOT exclude the possibility of recent exposure to HCV. Current interpretive data was last revised on 21 HepBsAg Nonreactive Nonreactive [facility] Blood 06/05/2024 10:3 0 PM VASCULAR TECHNOLOGIST SONOGRAPHER 06/05/2024 11:29 PM VASCULAR TECHNOLOGIST SONOGRAPHER us Rich Merritt MD LAB MICROBIOLOGY - GENERA L ORDERABLES Final Result [facility] [place] [address] * (ABNORMAL) Lipid panel (06/05/2024 9:12 PM VASCULAR TECHNOLOGIST SONOGRAPHER) Cholesterol 135 30 - 199 mg/dL Comment: [...] revised on 2017. Triglycerides 158(H) <=149 mg/dL [facility] Comment: Interpretive Data Ages < or [...] on 2017. HDL 48 >=40 mg/dL [facility] Comment: Interpretive Data Ages < or [...] 2017. LDL, calculated 60 <=129 mg/dL [facility] Comment: Interpretive Data Ages < or [...] revised on 2023. Non-HDL Cholesterol 87 mg/dL [facility] Comment: Interpretive Data Ages < or [...] last revised on 2017. Chol/HDL ratio 3 [facility] Blood 06/05/2024 9:12 PM VASCULAR TECHNOLOGIST SONOGRAPHER 06/05/2024 11:29 PM VASCULAR TECHNOLOGIST SONOGRAPHER Narrative [facility] - 06/06/2024 8:45 AM VASCULAR TECHNOLOGIST SONOGRAPHER reflex us Rich Merritt MD LAB BLOOD ORDERABLES Ewelina lenard Result [facility] Department [place] [address] * (ABNORMAL) Hemoglobin A1c (06/05/2024 7:28 PM VASCULAR TECHNOLOGIST SONOGRAPHER) Hgb A1C 6.4(H) 4.0 - 5.6 % Estimated Average Glucose 137 mg/dL [facility] Comment: The ADA recommends reporting an estimated Average Glucose (eAG) with all Hemoglobin A1c results using the equation derived from a study of 507 normal and diabetic adults. Minority populations were underrepresented and children were not included. (Diabetes Care 2020; 43(S1): S66-S76). The eAG is not equivalent to a fasting glucose. Blood 06/05/2024 7:28 PM VASCULAR TECHNOLOGIST SONOGRAPHER 06/06/2024 12:10 AM VASCULAR TECHNOLOGIST SONOGRAPHER Narrative [facility] - 06/06/2024 4:32 PM VASCULAR TECHNOLOGIST SONOGRAPHER Reflex Rich Merritt MD LAB BLOOD ORDERABLES Ewelina l Result [facility] Department [place] [address] * Thyroid Function Ethel (06/05/2024 6:02 PM VASCULAR TECHNOLOGIST SONOGRAPHER) [facility] TSH 2.04 0.30 - 4.20 mcIUnit/mL Blood 06/05/2024 6:02 PM VASCULAR TECHNOLOGIST SONOGRAPHER 06/05/2024 6:18 PM VASCULAR TECHNOLOGIST SONOGRAPHER Rich Merritt MD LAB BLOOD ORDERABLES Ewelina l Result Performing Organization Address City/[facility]/ZIP Co de Phone Number [facility] Department [place] [address] from Last 3 Months or Most Recently Relevant to Health Maintenance Insurance [facility] PENDING SALE TO [facility] PENDING SALE TO [facility] Advance Directives For more information, please contact: [phone] * Full Code (Latest Code Status on File) Date Activated Date Inactivated Comments 06/05/2024 5:20 PM 06/20/2024 6:59 PM Care Teams Book Cutter Relationship Specialty Start Date End Date [facility], Yohannes Reza [address] [place] [address] PCP - General Genetics 04/17/24 05/17/26
--- OUTSIDE RECORDS SUMMARY | 2025-04-01 07:23 | XMS_ITS | Encounter Summary ---
Author Organization [facility] Address [address] [place] [address] Care Team Providers Care Nurse Healthcare Manager Name Role Phone Margot Schroeder MD Primary Care Provider +1- [phone] Encounter Details Date Type Department Care Team (Late st Contact Info) Description 12/07/2007 Outpatient Historical HIS IN BED Sj Ed, Physician NO ADDRESS ON FILE Moses Matthews MD [address] [place] [address] [phone] Yohannes Healy MD [address] [place] [address] Matthew Duarte MD NO ADDRESS ON FILE Unspecified Chest Pain Social History Tobacco Use Types Packs/Day Years Used Date Smoking Tobacco: Never Assessed Sex and Gender Information Value Date Recorded Sex Assigned at Not on file 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 Venous blood specimen (specimen) 12/10/2007 11:34 AM CDT 12/11/2007 12:10 AM CDT us Matthew Duarte MD POINT OF CARE TESTING Final Resu lt Performing Organization Address City/[facility] de Phone Number INTERFACE SYSTEM Refer to clinic/hospital department [facility] CLIA# [id number] [address] [place] [address] * (ABNORMAL) POC GLUCOSE (12/10/2007 6:20 AM CDT) GLUCOSE POC 132(H) 60 - 100 mg/dL [facility] Venous blood specimen (specimen) 12/10/2007 6:20 AM CDT 12/11/2007 12:10 AM CDT us Matthew Duarte MD POINT OF CARE TESTING Final Resu lt Performing Organization Address City/[facility] de Phone Number INTERFACE SYSTEM Refer to clinic/hospital department [facility] CLIA# [id number] [address] [place] [address] * (ABNORMAL) POC GLUCOSE (12/09/2007 8:50 PM CDT) GLUCOSE POC 421(H) 60 - 100 mg/dL [facility] Venous blood specimen (specimen) 12/09/2007 8:50 PM CDT 12/10/2007 2:42 AM CDT us Matthew Duarte MD POINT OF CARE TESTING Final Resu lt Performing Organization Address [facility] de Phone Number INTERFACE SYSTEM Refer to clinic/hospital department [facility] CLIA# [id number] [address] [place] [address] * (ABNORMAL) POC GLUCOSE (12/09/2007 5:33 PM CDT) COMMENT POC Notify [facility].N [facility] GLUCOSE POC 304(H) 60 - 100 mg/dL [facility] Venous blood specimen (specimen) 12/09/2007 5:33 PM CDT 12/10/2007 2:42 AM CDT us Matthew Duarte MD POINT OF CARE TESTING Final Resu lt Performing Organization Address [facility] de Phone Number INTERFACE SYSTEM Refer to clinic/hospital department [facility] CLIA# [id number] [address] [place] [address] * (ABNORMAL) POC GLUCOSE (12/09/2007 10:53 AM CDT) GLUCOSE POC 253(H) 60 - 100 mg/dL [facility] Venous blood specimen (specimen) 12/09/2007 10:53 AM CDT 12/10/2007 2:45 AM CDT us Matthew Duarte MD POINT OF CARE TESTING Final Resu lt Performing Organization Address City/[facility] Co de Phone Number INTERFACE SYSTEM Refer to clinic/hospital department [facility] CLIA# [id number] [address] [place] [address] * PATHOLOGY (12/09/2007 8:38 AM CDT) PATHOLOGY/CYT OLOGY REPORT [facility] Anatomic Path[facility] Dept [address] [facility] [address] Patient: MOISÉS GONZALEZ Accn No: [id number] Collected: 12/09/2007 8:38:00 AM SURGICAL PATHOLOGY FINAL REPORT Diagnosis A. Stomach, antrum, biopsy - benign gastric mucosa with mucosal fibrosis and minimal chronic inflammation - Giemsa stain negative for H. pylori-like organisms. / B. Esophagus, biopsy - benign squamous mucosa with no increase in intraepithelial eosinophils (no evidence of eosinophilic esophagitis). Frank Cortez M.D. (Electronically signed by) Verified: 12/11/07 SEC/SEC [...] GLUCOSE POC 269(H) 60 - 100 mg/dL [facility] Venous blood specimen (specimen) 12/09/2007 5:38 AM CDT 12/10/2007 2:45 AM CDT us Matthew Duarte MD POINT OF CARE TESTING Final Resu lt Performing Organization Address [facility] Phone Number INTERFACE SYSTEM Refer to clinic/hospital department [facility] CLIA# [id number] [address] [place] [address] * (ABNORMAL) POC GLUCOSE (12/08/2007 9:04 PM CDT) GLUCOSE POC 319(H) 60 - 100 mg/dL [facility] Venous blood specimen (specimen) 12/08/2007 9:04 PM CDT 12/09/2007 3:57 AM CDT us Matthew Duarte MD POINT OF CARE TESTING Final Resu Performing Organization Address [facility] Phone Number INTERFACE SYSTEM Refer to clinic/hospital department [facility] CLIA# [id number] [address] [place] [address] * (ABNORMAL) POC GLUCOSE (12/08/2007 5:53 PM CDT) GLUCOSE POC 331(H) 60 - 100 mg/dL [facility] Venous blood specimen (specimen) 12/08/2007 5:53 PM CDT 12/09/2007 3:57 AM CDT us Matthew Duarte MD POINT OF CARE TESTING Final Resu Performing Organization Address [facility] Phone Number INTERFACE SYSTEM Refer to clinic/hospital [facility] CLIA# [id number] [address] [place] [address] * XR THORACIC SPINE 3 VW (12/08/2007 [...] Cummins M.D. Date Signed: 12/08/07 us Yohannes Heayl MD DIAGNOSTIC IMAGING ORDERABLE S Final Result * CTA CHEST W WO CONTRAST (12/08/2007 3:56 PM CDT) Anatomical Region Laterality Modality Chest Other 12/08/2007 3:56 PM CDT Narrative 12/09/2007 11:18 AM CDT Vhw-onf-[id number] contrast axial images were obtained through the [...] Procedure Note Josef Zamudio W - 12/09/2007 Akw-syc-[id number] contrast axial images were obtained through the [...] GLUCOSE POC 363(H) 60 - 100 mg/dL [facility] Venous blood specimen (specimen) 12/08/2007 12:21 PM CDT 12/09/2007 3:57 AM CDT us Matthew Duarte MD POINT OF CARE TESTING Final Resu lt INTERFACE SYSTEM Refer to clinic/hospital department [facility] CLIA# [id number] [address] [place] [address] * CARDIAC ENZYMES (12/08/2007 11:52 AM CDT) TROPONIN I <0.1 0.0 - 1.3 ng/mL [facility] CKMB 1.3 0.0 - 5.0 ng/mL [facility] Blood specimen (specimen) 12/08/2007 11:52 AM CDT 12/08/2007 11:56 AM CDT us Moses Matthews MD CHEMISTRY ORDERABLES Final R esult INTERFACE SYSTEM Refer to clinic/hospital department [facility] CLIA# [id number] [facility] [place] [address] * STRESS TEST,EXERCISE, NUCLEAR MED (12/08/2007 7:10 [...] NM ORDERABLES Final Result Performing Organization Address City/State/[facility] Co de Phone Number INTERFACE SYSTEM Refer [...] M.D. Date Signed: 12/08/07 Yohannes Healy MD [place] ORDERABLES Final Result INTERFACE SYSTEM Refer to clinic/hospital department * (ABNORMAL) POC GLUCOSE (12/08/2007 6:28 AM CDT) GLUCOSE POC 236(H) 60 - 100 mg/dL [facility] Venous blood specimen (specimen) 12/08/2007 6:28 AM CDT 12/09/2007 3:57 AM CDT us Matthew Duarte MD POINT OF CARE TESTING Final Resu lt Performing Organization Address [facility] Phone Number INTERFACE SYSTEM Refer to clinic/hospital department [facility] CLIA# [id number] [address] [place] [address] * CARDIAC ENZYMES (12/08/2007 5:45 AM CDT) CKMB 1.6 0.0 - 5.0 ng/mL [facility] TROPONIN I <0.1 0.0 - 1.3 ng/mL [facility] Blood specimen (specimen) 12/08/2007 5:45 AM CDT 12/08/2007 6:12 AM CDT us Moses Matthews MD CHEMISTRY ORDERABLES Final R esult Performing Organization Address [facility] de Phone Number INTERFACE SYSTEM Refer to clinic/hospital department [facility] CLIA# [id number] [facility] [place] [address] * (ABNORMAL) BASIC METABOLIC PANEL (12/08/2007 5:45 AM CDT) GLUCOSE 269(H) 70 - 110 mg/dL [facility] CHLORIDE 102 95 - 110 mEq/L [facility] ANION GAP 18 9 - 20 mEq/L [facility] SODIUM 139 136 - 145 mEq/L [facility] BUN 19 9 - 20 mg/dL [facility] CO2 23 22 - 32 mmol/l [facility] POTASSIUM 3.6 3.5 - 5.0 mEq/L [facility] Comment: Specimen slightly hemolyzed OSMOLALITY, CALCULATED 297(H) 275 - 295 mOsm/Kg [facility] CREATININE 0.9 0.7 - 1.5 mg/dL [facility] CALCIUM 9.2 8.4 - 10.5 mg/dL [facility] Blood specimen (specimen) 12/08/2007 5:45 AM CDT 12/08/2007 6:12 AM CDT Yohannes Healy MD CHEMISTRY ORDERABLES Final R esult INTERFACE SYSTEM Refer to clinic/hospital department [facility] CLIA# [id number] [address] [place] [address] * (ABNORMAL) CBC WITH DIFFERENTIAL (12/08/2007 5:45 AM CDT) MCV 83.0(L) 84.0 - 103.[address] [facility] MPV 9.5 8.9 - 12.[address] [facility] BASOPHILS ABSOLUTE 0.0 0.0 - 0.2 K/ul [facility] BASOPHILS 0.8 0.0 - 1.0 % [facility] HEMOGLOBIN 15.3 14.0 - 18.0 g/dL [facility] RDW 13.0 11.0 - 14.5 % [facility] MONOCYTE ABSOLUTE 0.4 0.1 - 0.6 K/ul [facility] MONOCYTES 9.6 2.0 - 10.0 % [facility] WBC 3.9(L) 4.5 - 11.0 K/ul [facility] MCH 29.3 27.0 - 34.[address] [facility] NEUTROPHIL ABSOLUTE 1.7(L) 2.0 - 8.0 K/ul [facility] NEUTROPHILS 42.8 42.2 - 75.2 % [facility] HEMATOCRIT 43.3 41.0 - 53.0 % [facility] EOSINOPHILS 5.2 0.0 - 7.0 % [facility] PLATELETS 134(L) 140 - 440 K/ul [facility] EOSINOPHIL ABSOLUTE 0.2 0.0 - 0.7 K/ul [facility] RBC 5.22 4.60 - 6.20 Mil/ul [facility] LYMPHOCYTES 41.6 24.0 - 44.0 % [facility] MCHC 35.3(H) 30.0 - 35.0 g/dL [facility] LYMPHOCYTE ABSOLUTE 1.6 1.2 - 4.0 K/ul [facility] Blood specimen (specimen) 12/08/2007 5:45 AM CDT 12/08/2007 6:12 AM CDT us Yohannes Healy MD HEMATOLOGY ORDERABLES Final Result Performing Organization Address [facility] Phone Number INTERFACE SYSTEM Refer to clinic/hospital department [facility] CLIA# [id number] [facility] [place] [address] * (ABNORMAL) POC GLUCOSE (12/08/2007 1:26 AM CDT) GLUCOSE POC 408(H) 60 - 100 mg/dL [facility] Venous blood specimen (specimen) 12/08/2007 1:26 AM CDT 12/08/2007 2:04 AM CDT us Yohannes Healy MD POINT OF CARE TESTING Final Result Performing Organization Address [facility] Phone Number INTERFACE SYSTEM Refer to clinic/hospital department [facility] CLIA# [id number] [facility] [place] [address] * XR CHEST PA OR AP (12/07/2007 [...] Zamudio M.D. Date Signed: 12/08/07 GRB us Moess Matthews MD DIAGNOSTIC IMAGING ORDERABLE S Final Result * (ABNORMAL) CBC WITH DIFFERENTIAL (12/07/2007 11:35 PM CDT) MONOCYTE ABSOLUTE 0.4 0.1 - 0.6 K/ul [facility] WBC 3.8(L) 4.5 - 11.0 K/ul [facility] NEUTROPHILS 44.6 42.2 - 75.2 % [facility] MCH 29.2 27.0 - 34.[address] [facility] NEUTROPHIL ABSOLUTE 1.7(L) 2.0 - 8.0 K/ul [facility] HEMATOCRIT 45.4 41.0 - 53.0 % [facility] PLATELETS 141 140 - 440 K/ul [facility] EOSINOPHIL ABSOLUTE 0.2 0.0 - 0.7 K/ul [facility] EOSINOPHILS 4.4 0.0 - 7.0 % [facility] PERIPHERAL BLOOD SMEAR REVIEW Automated Diff [facility] RBC 5.48 4.60 - 6.20 Mil/ul [facility] MCHC 35.2(H) 30.0 - 35.0 g/dL [facility] LYMPHOCYTE ABSOLUTE 1.6 1.2 - 4.0 K/ul [facility] LYMPHOCYTES 41.1 24.0 - 44.0 % [facility] MCV 82.8(L) 84.0 - 103.[address] [facility] BASOPHILS 0.5 0.0 - 1.0 % [facility] MPV 9.6 8.9 - 12.[address] [facility] BASOPHILS ABSOLUTE 0.0 0.0 - 0.2 K/ul [facility] HEMOGLOBIN 16.0 14.0 - 18.0 g/dL [facility] MONOCYTES 9.4 2.0 - 10.0 % [facility] RDW 13.0 11.0 - 14.5 % [facility] Blood specimen (specimen) 12/07/2007 11:35 PM CDT 12/07/2007 11:35 PM CDT us Moses Matthews MD HEMATOLOGY ORDERABLES Final Result Performing Organization Address [facility] Phone Number INTERFACE SYSTEM Refer to clinic/hospital department [facility] CLIA# [id number] [address] [place] [address] * (ABNORMAL) BASIC METABOLIC PANEL (12/07/2007 11:23 PM CDT) CREATININE 1.1 0.7 - 1.5 mg/dL [facility] CALCIUM 10.2 8.4 - 10.5 mg/dL [facility] GLUCOSE 497(H) 70 - 110 mg/dL [facility] CHLORIDE 96 95 - 110 mEq/L [facility] ANION GAP 15 9 - 20 mEq/L [facility] SODIUM 132(L) 136 - 145 mEq/L [facility] BUN 21(H) 9 - 20 mg/dL [facility] CO2 25 22 - 32 mmol/l [facility] POTASSIUM 3.9 3.5 - 5.0 mEq/L [facility] OSMOLALITY, CALCULATED 298(H) 275 - 295 mOsm/Kg [facility] Blood specimen (specimen) 12/07/2007 11:23 PM CDT 12/07/2007 11:30 PM CDT us Moses Matthews MD CHEMISTRY ORDERABLES Final R esult Performing Organization Address City/[facility] Co de Phone Number INTERFACE SYSTEM Refer to clinic/hospital department [facility] CLIA# [id number] [place] [address] * PTT (12/07/2007 11:23 PM CDT) PTT 23.6 22.5 - 36.[address] [facility] Comment: Therapeutic Range: Hi-level PE/DVT [...] Result INTERFACE SYSTEM Refer to clinic/hospital department [facility] CLIA# [id number] [address] [place] [address] * (ABNORMAL) PROTIME-INR (12/07/2007 11:23 PM CDT) PROTIME 11.7(L) 12.8 - 15.[address] [facility] Comment:As of 2007 not e change in normal range. INR 0.8 [facility] Comment: Expected Values for INR: DVT/PE Goal INR 2.5; range 2.0 - 3.0 Valve Replacement Tissue Goal INR 2.5; range 2.0 - 3.0 Mechanical Goal INR 3.0; range 2.5 - 3.5 POST-ND Goal INR 2.5; range 2.0 - 3.0 or Goal 3.0; range 2.5 - 3.5 Atrial Fibrillation Goal INR 2.5; range 2.0 - 3.0 Ischemic Stroke Goal INR 2.5; range 2.0 - 3.0 For additional information see Guidelines for Anticoagulation available from the pharmacy [facility] [phone] Blood specimen (specimen) 12/07/2007 11:23 PM CDT 12/07/2007 11:48 PM CDT Moses Matthews MD HEMATOLOGY ORDERABLES Final Result Performing Organization Address [facility] Phone Number INTERFACE SYSTEM Refer to clinic/hospital department [facility] CLIA# [id number] [address] [place] [address] * CARDIAC ENZYMES (12/07/2007 11:23 PM CDT) CKMB 2.3 0.0 - 5.0 ng/mL [facility] TROPONIN I <0.1 0.0 - 1.3 ng/mL [facility] Blood specimen (specimen) 12/07/2007 11:23 PM CDT 12/07/2007 11:30 PM CDT Moses Matthews MD CHEMISTRY ORDERABLES Final R esult Performing Organization Address [facility] Phone Number INTERFACE SYSTEM Refer to clinic/hospital department [facility] CLIA# [id number] [facility] [place] [address] documented in this encounter Visit Diagnoses Diagnosis Chest pain, unspecified documented in this encounter Care Teams Nurse Healthcare Manager Relationship Specialty Start Date End Date Margot Schroeder MD PCP - General Family Practice 05/14/12 06/01/17 documented as of this encounter
--- OUTSIDE RECORDS SUMMARY | 2025-04-01 07:23 | XMS_ITS | Encounter Summary ---
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
--- OUTSIDE RECORDS SUMMARY | 2025-04-01 07:23 | XMS_ITS | Encounter Summary ---
Author Organization [facility] Address [address] [place] [address] Care Team Providers Care Loan Expeditor Name Role Phone Margot Schroeder MD Primary Care Provider +1- [phone] Encounter Details Date Type Department Care Team (Latest Contact Info) Description 03/20/2006 Outpatient Historical [facility]3] Occupational Medicine [address] [address] [place] [id number] Jasvir Scott, PA NO ADDRESS ON FILE Routine Medical Exam (Primary Dx) Social History Tobacco Use Types Packs/Day Years Used Date Smoking Tobacco: Never Assessed Sex and Gender Information Value Date Recorded Sex Assigned at Not on file 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
--- OUTSIDE RECORDS SUMMARY | 2025-04-01 07:23 | XMS_ITS | Clinical Summary ---
Author Organization [facility] Address [address] [place] [address] Phone Care Team Providers Care Zinc Chloride Operator Name Role Phone Unavailable Primary Care Provider Unavailabl e Allergies Active Allergy Reactions Criticality Noted Date Comments Fentanyl Hives High 01/06/2010 Penicillins Unknown 01/07/2008 Medications aspirin (SUKHDEV) 81 mg Oral TabIndications: CAD (coronary artery disease) Take 1 Tab by mouth daily. 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 Gender Identity Not on file Sexual Orientation [...] CHEMISTRY ORDERABLES Final Result Performing Organization Address [facility] Co de Phone Number EXTERNAL LAB [...] LAB Blood specimen (specimen) 04/01/2015 us Abstract [facility] Provider CHEMISTRY ORDERABLES Final Result Performing Organization Address [facility] Phone Number EXTERNAL LAB * MICROALBUMIN/CREATININE RATIO, RANDOM UR (09/04/2013) ABSTRACTED MICROALBUMIN,UR INE 9.7 EXTERNAL LAB MICROALBUMIN, URINE mg/dL EXTERNAL LAB CREATININE, URINE EXTERNAL LAB MICROALBUMIN/CR EAT RATIO, UR EXTERNAL LAB MICROALBUMIN, URINE mg/dL [facility] CREATININE, URINE 40.0 - 278.0 mg/dL EX[facility] LAB MICROALBUMIN/CR EAT RATIO, UR mg/g Creatinine EXTERNAL LAB Urine specimen (specimen) 09/04/2013 us Abstract [facility] Provider URINE ORDERABLES Final Res ult Performing Organization Address [facility] Co de Phone Number EXTERNAL LAB from Last 3 Months or Most Recently Relevant to Health Maintenance Insurance BS
--- OUTSIDE RECORDS SUMMARY | 2025-04-01 07:23 | XMS_ITS | Encounter Summary ---
Author Organization [facility] Address [address] [place] [address] Care Team Providers Care Coal Bagger Name Role Phone Margot Schroeder MD Primary Care Provider +1- [phone] Encounter Details Date Type Department Care Team (Latest Contact Info) Description 12/27/2007 Outpatient Historical [facility] 4A Cardiac [address] [place] [address] Ed, Physician NO ADDRESS ON FILE Chico Jeffries MD [address] [place] [address] Ramesh Card MD [address] [facility] [address] [place] [id number] Unspecified Chest Pain Social History Tobacco Use Types Packs/Day Years Used Date Smoking Tobacco: Never Assessed Sex and Gender Information Value Date Recorded Sex Assigned at Not on file 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 Gender Identity Not on file Sexual Orientation [...] GLUCOSE POC 407(H) 60 - 100 mg/dL [facility] Venous blood specimen (specimen) 12/28/2007 5:13 PM CDT 12/28/2007 11:10 PM CDT Ramesh Card MD POINT OF CARE TESTING Final Res ult Performing Organization Address [facility] de Phone Number INTERFACE SYSTEM Refer to clinic/hospital department [facility] CLIA# [id number] [address] [place] [address] * (ABNORMAL) POC GLUCOSE (12/28/2007 2:04 PM CDT) GLUCOSE POC 266(H) 60 - 100 mg/dL [facility] COMMENT POC Notify [facility] Venous blood specimen (specimen) 12/28/2007 2:04 PM CDT 12/31/2007 5:05 AM CDT us Ramesh Card MD POINT OF CARE TESTING Final Res ult Performing Organization Address [facility] de Phone Number INTERFACE SYSTEM Refer to clinic/hospital department [facility] CLIA# [id number] [address] [place] [address] * (ABNORMAL) POC GLUCOSE (12/28/2007 12:13 PM CDT) GLUCOSE POC 263(H) 60 - 100 mg/dL [facility] Venous blood specimen (specimen) 12/28/2007 12:13 PM CDT 12/28/2007 11:10 PM CDT us Ramesh Card MD POINT OF CARE TESTING Final Res ult Performing Organization Address [facility] de Phone Number INTERFACE SYSTEM Refer to clinic/hospital department [facility] CLIA# [id number] [address] [place] [address] * (ABNORMAL) PTT (12/28/2007 11:13 AM CDT) PTT 114.5(H) 22.5 - 36.5 Secs [facility] Comment: Therapeutic Range: Hi-level [...] ORDERABLES Final Res ult Performing Organization Address [facility] Phone Number INTERFACE SYSTEM Refer to clinic/hospital department [facility] CLIA# [id number] [address] [place] [address] * CARDIAC ENZYMES (12/28/2007 11:13 AM CDT) TROPONIN I <0.1 0.0 - 1.3 ng/mL [facility] CKMB 1.3 0.0 - 5.0 ng/mL [facility] Blood specimen (specimen) 12/28/2007 11:13 AM CDT 12/28/2007 11:25 AM CDT Xiomara Peterson MD CHEMISTRY ORDERABLES Final Result Performing Organization Address [facility] de Phone Number INTERFACE SYSTEM Refer to clinic/hospital department [facility] CLIA# [id number] [address] [place] [address] * CARDIAC ENZYMES (12/28/2007 5:55 AM CDT) TROPONIN I <0.1 0.0 - 1.3 ng/mL [facility] CKMB 1.1 0.0 - 5.0 ng/mL [facility] Blood specimen (specimen) 12/28/2007 5:55 AM CDT 12/28/2007 6:12 AM CDT Xiomara Peterson MD CHEMISTRY ORDERABLES Final Result INTERFACE SYSTEM Refer to clinic/hospital department [facility] CLIA# [id number] [facility] [place] [address] * CTA CHEST W WO CONTRAST (12/28/2007 [...] Fajardo M.D. Date Signed: 12/28/07 Procedure Note Shaniqua Fajardo R - 12/28/2007 CTA Chest 12/28/2007 [...] CDT) ALBUMIN 4.7 3.5 - 5.0 g/dL [facility] ALT 22 4 - 36 IU/L [facility] BILIRUBIN TOTAL 0.4 0.3 - 1.2 mg/dL [facility] ALKALINE PHOSPHATASE 116(H) 25 - 100 U/L [facility] Comment: Slight Lipemia TOTAL PROTEIN 7.5 6.3 - 8.2 g/dL [facility] AST 18 8 - 33 U/L [facility] Blood specimen (specimen) 12/27/2007 10:43 PM CDT 12/27/2007 11:44 PM CDT us Chico Jeffries MD CHEMISTRY ORDERABLES Final R esult Performing Organization Address [facility] Phone Number INTERFACE SYSTEM Refer to clinic/hospital department [facility] CLIA# [id number] [address] [place] [address] * (ABNORMAL) AMYLASE (12/27/2007 10:43 PM CDT) Pathologist [facility] AMYLASE 13(L) 20 - 104 U/L [facility] Blood specimen (specimen) 12/27/2007 10:43 PM CDT 12/27/2007 11:44 PM CDT us Chico Jeffries MD CHEMISTRY ORDERABLES Final R esult Performing Organization Address [facility] Phone Number INTERFACE SYSTEM Refer to clinic/hospital department [facility] CLIA# [id number] [address] [place] [address] * LIPASE (12/27/2007 10:43 PM CDT) Pathologist [facility] LIPASE 31 6 - 51 U/L [facility] Blood specimen (specimen) 12/27/2007 10:43 PM CDT 12/27/2007 11:44 PM CDT us Chico Jeffries MD CHEMISTRY ORDERABLES Final R esult Performing Organization Address [facility] Phone Number INTERFACE SYSTEM Refer to clinic/[facility] CLIA# [id number] [address] [place] [address] * D-DIMER (12/27/2007 10:43 PM CDT) D-DIMER QUANT 0.3 0.0 - 0.5 mcg/mL [facility] Comment: Testing performed using [...] HEMATOLOGY ORDERABLES Final Result Performing Organization Address [facility] de Phone Number INTERFACE SYSTEM Refer to clinic/hospital department [facility] CLIA# [id number] [address] [place] [address] * (ABNORMAL) BASIC METABOLIC PANEL (12/27/2007 10:43 PM CDT) Pathologist [facility] OSMOLALITY, CALCULATED 297(H) 275 - 295 mOsm/Kg [facility] POTASSIUM 4.1 3.5 - 5.0 mEq/L [facility] Comment: Specimen slightly hemolyzed Slight Lipemia CREATININE 1.2 0.7 - 1.5 mg/dL [facility] CALCIUM 10.2 8.4 - 10.5 mg/dL [facility] GLUCOSE 426(H) 70 - 110 mg/dL [facility] CHLORIDE 99 95 - 110 mEq/L [facility] SODIUM 134(L) 136 - 145 mEq/L [facility] ANION GAP 12 9 - 20 mEq/L [facility] BUN 19 9 - 20 mg/dL [facility] CO2 27 22 - 32 mmol/l [facility] Blood specimen (specimen) 12/27/2007 10:43 PM CDT 12/27/2007 10:43 PM CDT us Xiomara Peterson MD CHEMISTRY ORDERABLES Final Result Performing Organization Address [facility] de Phone Number INTERFACE SYSTEM Refer to clinic/hospital department [facility] CLIA# [id number] [address] [place] [address] * (ABNORMAL) CBC WITH DIFFERENTIAL (12/27/2007 10:43 PM CDT) EOSINOPHIL ABSOLUTE 0.2 0.0 - 0.7 K/ul [facility] EOSINOPHILS 3.4 0.0 - 7.0 % [facility] RBC 5.48 4.60 - 6.20 Mil/ul [facility] MCHC 36.0(H) 30.0 - 35.0 g/dL [facility] LYMPHOCYTE ABSOLUTE 1.7 1.2 - 4.0 K/ul [facility] LYMPHOCYTES 33.8 24.0 - 44.0 % [facility] MCV 82.7(L) 84.0 - 103.0 Fl [facility] BASOPHILS 0.6 0.0 - 1.0 % [facility] MPV 9.2 8.9 - 12.8 Fl [facility] BASOPHILS ABSOLUTE 0.0 0.0 - 0.2 K/ul [facility] HEMOGLOBIN 16.3 14.0 - 18.0 g/dL [facility] MONOCYTES 7.3 2.0 - 10.0 % [facility] RDW 13.0 11.0 - 14.5 % [facility] MONOCYTE ABSOLUTE 0.4 0.1 - 0.6 K/ul [facility] WBC 5.1 4.5 - 11.0 K/ul [facility] NEUTROPHILS 54.9 42.2 - 75.2 % [facility] MCH 29.7 27.0 - 34.0 pg [facility] NEUTROPHIL ABSOLUTE 2.8 2.0 - 8.0 K/ul [facility] HEMATOCRIT 45.3 41.0 - 53.0 % [facility] PLATELETS 179 140 - 440 K/ul [facility] Blood specimen (specimen) 12/27/2007 10:43 PM CDT 12/27/2007 10:43 PM CDT us Xiomara Peterson MD HEMATOLOGY ORDERABLES Ewelina weinberg Result Performing Organization Address [facility] de Phone Number INTERFACE SYSTEM Refer to clinic/hospital department [facility] CLIA# [id number] [address] [place] [address] * (ABNORMAL) PTT (12/27/2007 10:43 PM CDT) PTT 22.4(L) 22.5 - 36.5 Secs [facility] Comment: Therapeutic Range: Hi-level [...] ORDERABLES Ewelina weinberg Result Performing Organization Address [facility] de Phone Number INTERFACE SYSTEM Refer to clinic/hospital department [facility] CLIA# [id number] [address] [place] [address] * (ABNORMAL) PROTIME-INR (12/27/2007 10:43 PM CDT) INR 0.8 [facility] Comment: Expected Values for INR: DVT/PE Goal INR 2.5; range 2.0 - 3.0 Valve Replacement Tissue Goal INR 2.5; range 2.0 - 3.0 Mechanical Goal INR 3.0; range 2.5 - 3.5 POST-AZ Goal INR 2.5; range 2.0 - 3.0 or Goal 3.0; range 2.5 - 3.5 Atrial Fibrillation Goal INR 2.5; range 2.0 - 3.0 Ischemic Stroke Goal INR 2.5; range 2.0 - 3.0 For additional information see Guidelines for Anticoagulation available from the pharmacy [facility]. [phone] PROTIME 12.0(L) 12.8 - 15.8 Secs [facility] Comment:As of 2007 not e change in normal range. Blood specimen (specimen) 12/27/2007 10:43 PM CDT 12/27/2007 10:43 PM CDT Xiomara Peterson MD HEMATOLOGY ORDERABLES Ewelina l Result Performing Organization Address [facility] Phone Number INTERFACE SYSTEM Refer to clinic/hospital department [facility] CLIA# [id number] [address] [place] [address] * CARDIAC ENZYMES (12/27/2007 10:43 PM CDT) TROPONIN I <0.1 0.0 - 1.3 ng/mL [facility] CKMB 1.3 0.0 - 5.0 ng/mL [facility] Blood specimen (specimen) 12/27/2007 10:43 PM CDT 12/27/2007 10:43 PM CDT Xiomara Peterson MD CHEMISTRY ORDERABLES Final Result Performing Organization Address [facility] Phone Number INTERFACE SYSTEM Refer to clinic/hospital department [facility] CLIA# [id number] [address] [place] [address] documented in this encounter Visit Diagnoses Diagnosis Chest pain, unspecified documented in this encounter Care Teams Coal Bagger Relationship Specialty Start Date End Date Margot Schroeder MD PCP - General Family Practice 05/14/12 06/01/17 documented as of this encounter
--- OUTSIDE RECORDS SUMMARY | 2025-04-01 07:23 | XMS_ITS | Encounter Summary ---
Author Organization [facility] Healthcare Address [address] [place] [address] Care Team Providers Care Can Filling Room Sweeper Name Role Phone [facility], Yohannes Reza Primary Care Provider Encounter Details Date Type Department Care Team (Late st Contact Info) Description 06/20/2024 Documentation [facility] Case Management [address] [place] [id number] Yolette Adkins RN Social History Tobacco Use Types Packs/Day Years Used Date Smoking Tobacco: Never [facility] Utilities Answer Date Recorded In the past 12 months has [facility] electric, gas, oil, or water company [...] any clubs o r organizations such as faith groups, unions, fraternal or athletic groups, or [...] and heating? Not hard at all 06/05/2024 [facility] - [...] any time in the past 12 m [facility], were you homeless or living in a prison (including now)? No 06/05/2024 Personal Safety Answer Date Recorded Have you ever been in or are you currently in a harmful physical or emotional relationship or is someone making you feel afraid or unsafe? Denies 06/05/2024 Sex and Gender Information Value Date Recorded Sex Assigned at Not on file Legal Sex Male 3:51 AM SUPERVISOR CAB Gender Identity Male 07/15/2024 10:19 AM CDT [...] RN MAP (mmHg) 68 06/20/2024 7:10 AM SUPERVISOR CAB Lauryn Cuevas RN * [place] Fall Risk [...] on filedocumented in this encounter Care Teams Can Filling Room Sweeper Relationship Specialty Start Date End Date [facility], Yohannes Reza [address] [facility] [place] [address] PCP - General Genetics 04/17/24 05/17/26 documented as of this encounter
--- OUTSIDE RECORDS SUMMARY | 2025-04-01 07:23 | XMS_ITS | Encounter Summary ---
Author Organization [facility] Address [address] [place] [address] Care Team Providers Care Broadband Technician Name Role Phone Margot Schroeder MD Primary Care Provider +1- [phone] Encounter Details Date Type Department Care Team (Latest Contact Info) Description 12/03/2001 Outpatient Historical [facility] Matthew Cr Jr., MD [address] [place] [id number] OSTEOARTHROS NOS-UNSPEC (Primary Dx); DISC DISPLACEMENT NOS Social History Tobacco Use Types Packs/Day Years Used Date Smoking Tobacco: Never Assessed Sex and Gender Information Value Date Recorded Sex Assigned at Not on file 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
--- NOTE | 2025-04-01 11:22 | P.PN_ITS ---
Subjective 2 Subjective: Patient doing well overall. Denies any significant chest pressure pain or shortness of breath. Echo showed normal EF with no wall motion abnormalities. No significant changes from previous echo. No arrhythmias seen on telemetry. Vitals/I&O/Wt Last Vital Signs Temp 98.1 F 04/01/25 07:30 Pulse 62 04/01/25 10:14 Resp 26 H 04/01/25 09:00 BP 120/42 04/01/25 09:00 Pulse Ox 95 04/01/25 10:14 O2 Del Method Room Air 04/01/25 10:14 O2 Flow Rate 2 04/01/25 04:00 03/31/25 04/01/25 04/01/25 22:59 06:59 14:59 Intake Total 324.084 / 591.804 Output Total 1025 / 1025 350 / 1375 850 / 850 Balance -700.916 / -433.196 -350 / -783.196 -850 / -850 Weight last 48 hrs Weight 189 lb 9.561 oz Weight 169 lb Weight 169 lb 12.095 oz Physical Exam 2 Narrative: General: No apparent distress, healthy appearing, well nourished HENMT: normoceophalic Muskuloskeletal: Full ROM Respiratory: Normal respiratory effort, clear to auscultation bilaterally throughout all lung donis, no use of accessory muscles Cardio: No JVD, regular rate, regular rhythm, S1 S2 normal, no murmurs, peripheral pulses 2+ radial palpated bilaterally GI: Normal to inspection, nondistended Extremities: Full ROM, normal, normal capillary refill, no cyanosis or edema Neuro: Alert and oriented x4, no focal motor deficits Psych: Affect normal, mental status grossly normal Skin: No rashes or lesions noted, no wounds Data 04/01/25 04:20 04/01/25 04:20 A&P Assessment and plan 1. Syncope: 2. Hx of CABG: Plan: At this time, patient's syncope appears to be vasovagal in nature and noncardiac. Denies any significant chest pain. No arrhythmias seen. At this point okay to discharge from cardiology perspective. Troponins were slightly elevated but flat. 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 Will discuss repatha on an outpatient basis as ldl still 106 with zetia. Follow-up on an outpatient basis. If patient has any recurrent chest pressure or pain recommend stress test. Patient will go home on a 30-day event monitor to rule out any arrhythmias as the cause of the syncope. PDMP PDMP Reviewed: Not Reviewed Attestations 2 Medical Necessity Statement*: Defer to primary Coding Level of Care Code Acute Code for Chg Fwd Diagnoses Syncope R55 Hx of CABG Z95.1
--- NOTE | 2025-04-01 11:24 | PC.NURSE ---
No chest pain this shift. Pleasantly refused nitro paste.
--- NOTE | 2025-04-01 13:18 | PC.NURSE ---
Event monitor placed on patient before discharge. Education done and written instructions given to patient.
--- NOTE | 2025-04-01 16:43 | P.DS_ITS ---
Discharge Providers Date of Admission: 03/31/25 04:29 Date of Discharge: April 01, 2025 Attending Provider at Admission: Isac Cummins MD Attending Provider at Discharge: Christian Jason MD Primary Care Provider: Maria Walters MD Diagnoses at Discharge Discharge Diagnosis 1. Syncope: 2. Hx of CABG: Reason for Visit Reason for Visit: Chest Pain Brief History: As per the admitting physician and retrospective notes review: Moisés Gonzalez is a 59 year old male male with history of severe coronary artery disease with reported 15 stents plus coronary bypass had episode of passing out evening of 03/30/2025. He states that he was asleep when his dog woke him up and he assumed dog need to go out side. Patient went to the bathroom himself and awoke on the floor. heard him fall and states that he was out 1 to 2 minutes. He was taken to [facility] and complained of chest pain. CT scan of the head was done which was unremarkable for bleed. 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 Patient was started on heparin drip at my request and he was transferred by ambulance. Patient is on Brilinta. His other meds include Zetia aspirin furosemide. His lisinopril was stopped due to kidney failure and requiring dialysis in May. 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 He was transferred to [facility]. Patient was in a hospital total of 40 days. He states he still sees Dr. Whitaker rheumatology and receives IVIG for statin myopathy every 6 weeks or so. Patient is having episodic chest pain left side worsened with breathing but not worsened with movement of his arms or palpation. He points to the pain being underneath his left breast. He has not had fevers or cough he has not had sick contacts with COVID or other viral respiratory illness Hospital Course Hospital Course During patient hospital stay cardiology was consulted based on the previous history of chronic artery disease and CABG and to rule out any ACS. Troponins were repeated and did not show significant concerning rise. Echo showed normal EF with no regional wall motion abnormalities. Patient syncope is most likely to be vasovagal in nature and no cardiac element was associated. Carotid Doppler did not show significant stenosis. No arrhythmia was also seen during his hospital stay and telemetry review. Therefore it was suggested to continue home dose medications of aspirin, Brilinta, Zetia and to follow with the cardiology as outpatient with 30-day event monitor at the time of discharge. Statins are avoided since patient has [employer]. a reductase inhibitor and carries high risk of rhabdomyolysis. His CPK was normal. D-dimers were sent which were slightly elevated therefore CT angio was done which was also negative for any pulmonary embolism. His hospital stay was uncomplicated and his chest pain resolved. Medications were reconciled after confirmation and according to patient comorbidities and appropriate follow-ups and referrals were provided at the time of discharge. Patient condition has been discussed at length with the patient/family, I have independently reviewed the chart labs imaging/diagnostics/EKG. the goals of care and code status with the patient/family/NOK/legal sales representative, and documented accordingly. The management has been done according to the current clinical condition with respect to patient goals of care and based on recommendations/guidelines. The patient/family has been informed about the current condition and further plan of care. Agreed with the plan of care and understood without any language barrier. Every effort was made to ensure accuracy of oracle apex developer. Any obvious errors or omissions should be clarified with the author of the document. Physical Exam Narrative: General: Alert and oriented, lying comfortably without any distress, midline sternotomy scar of CABG appreciated HEENT: Normocephalic, atraumatic, grossly unremarkable exam Cardio: normal rate rhythm, normal S1-S2 without any murmurs, rubs, or gallops and JVD normal Respiratory: normal vascular breathing on auscultation without any wheezes, stridor, rhonchi GI: Abdomen soft, nontender, nondistended, normoactive bowel sounds present all 4 quadrants, Neuro: intact cranial nerves motor and sensory and cerebellar/coordination function without any focal neurological deficit Behavior: Appropriate and cooperative Extremities: Adequate palpable pulses, no edema or cyanosis observed Skin: grossly unremarkable exam Discharge Data Studies Completed and Pending Completed Studies During Hospitalization Category Date Time Status CTA chest [CT angio chest PE protcl [id number]] Stat Cat Scan 03/31/25 14:47 Completed CV carotid duplex BI* [id number] Routine Ultrasound 03/31/25 06:07 Completed CV. echo complete* [id number] Routine Ultrasound 03/31/25 08:43 Completed Radiology Impressions Chest CTA 03/31/25 14:47 IMPRESSION: 1. No CT evidence of acute cardiopulmonary abnormality, including no pulmonary emboli demonstrated through the segmental level. 2. [id number] cardiomegaly post CABG. Laboratory Results WBC 2.56 10^3/uL (3.29-11.43) L 04/01/25 04:20 RBC 4.17 10^6/uL (3.85-5.65) 04/01/25 04:20 Hgb 12.50 g/dL (11.27-16.99) 04/01/25 04:20 Hct 37.5 % (37-53) 04/01/25 04:20 MCV 89.9 fl (82-101) 04/01/25 04:20 MCH 30.0 pg (27-33) 04/01/25 04:20 MCHC 33.3 g/dL (30-55) 04/01/25 04:20 RDW 13.6 % (12.1-15.1) 04/01/25 04:20 Plt Count 99 10^3/cmm (157-399) L 04/01/25 04:20 MPV 9.1 fL (7.4-10.4) 04/01/25 04:20 Neut % (Auto) 47.2 % 04/01/25 04:20 Lymph % (Auto) 31.3 % 04/01/25 04:20 Hidalgo % (Auto) 12.1 % 04/01/25 04:20 Eos % (Auto) 8.6 % 04/01/25 04:20 Baso % (Auto) 0.4 % 04/01/25 04:20 Neut # (Auto) 1.21 10^3/uL (1.8-7.7) L 04/01/25 04:20 Lymph # (Auto) 0.8 10^3/uL (0.8-4.8) 04/01/25 04:20 Hidalgo # (Auto) 0.3 10^3/uL (0.2-0.9) 04/01/25 04:20 Eos # (Auto) 0.2 10^3/uL (0.0-0.8) 04/01/25 04:20 Baso # (Auto) 0.0 10^3/uL (0.0-0.1) 04/01/25 04:20 Nucleated RBC % (auto) 0 % 04/01/25 04:20 Nucleated RBCs # 0.0 /100WBC 04/01/25 04:20 APTT 50.2 SECONDS (23.9-36.7) H 03/31/25 20:50 D-Dimer 0.66 ug/mLFEU (0-0.59) H 03/31/25 08:25 Sodium 136 mmol/L (136-145) 04/01/25 04:20 Potassium 3.9 mmol/L (3.5-5.1) 04/01/25 04:20 Chloride 105 mmol/L (98-107) 04/01/25 04:20 Carbon Dioxide 23 mmol/L (22-29) 04/01/25 04:20 Anion Gap 11.9 (5-19) 04/01/25 04:20 BUN 12 mg/dL (6-20) 04/01/25 04:20 Creatinine 0.9 mg/dL (0.7-1.2) 04/01/25 04:20 GFR Calculation 87.0 mL/min (90-130) L 04/01/25 04:20 Glucose 101 mg/dL (65-115) 04/01/25 04:20 POC Glucose 95 mg/dL (70-110) 04/01/25 07:41 Calculated Osmolality 282 mOsm/kg (285-295) L 04/01/25 04:20 Calcium 8.2 mg/dL (8.5-10.5) L 04/01/25 04:20 Magnesium 1.9 mg/dL (1.7-2.3) 03/31/25 06:19 Total Bilirubin 0.6 mg/dL (0.15-1.2) 04/01/25 04:20 AST 18 U/L (0-40) 04/01/25 04:20 ALT 9 U/L (0-41) 04/01/25 04:20 Alkaline Phosphatase 76 U/L (40-130) 04/01/25 04:20 Creatine Kinase 201 U/L (39-308) 03/31/25 06:19 Troponin T Baseline 69 ng/L (0-15) H 03/31/25 14:50 Troponin T 60 Minute 65.32 ng/L (0-15) H 03/31/25 16:09 Delta Troponin T -3.68 ABS# (0-10) L 03/31/25 16:09 Troponin T Hi Sens 6Hr 63.67 ng/L (0-15) H 03/31/25 20:50 Troponin T Hi Sens 6Hr Delta -5.33 ng/L (0-12) L 03/31/25 20:50 Total Protein 6.1 g/dL (6.6-8.7) L 04/01/25 04:20 Albumin 3.3 g/dL (3.5-5.2) L 04/01/25 04:20 Globulin 2.8 g/dL (1.3-4.6) 04/01/25 04:20 Vitals Last Vital Signs Temp 98.1 F 04/01/25 07:30 Pulse 62 04/01/25 10:14 Resp 26 H 04/01/25 09:00 BP 120/42 04/01/25 09:00 Pulse Ox 95 04/01/25 10:14 O2 Del Method Room Air 04/01/25 10:14 O2 Flow Rate 2 04/01/25 04:00 Discharge Plan Discharge Patient Disposition: Home Condition: Stable Prescriptions: New alum-mag hydroxide-simeth [Maalox Advanced] 200-200-20 mg/5 mL suspension 10 ml PO 5XD PRN (Reason: indigestion, dyspepsia) Qty: 3000 0RF Rx Instructions: administer between meals and at bedtime Continued folic acid 1 mg tablet 400 mcg PO DAILY ezetimibe [Zetia] 10 mg tablet 10 mg PO DAILY prazosin 1 mg capsule 1 mg PO BEDTIME pantoprazole [Protonix] 40 mg tablet,delayed release (DR/EC) 40 mg PO QAM cholecalciferol (vitamin D3) 50 mcg (2,000 unit) capsule 50 mcg PO DAILY Brilinta 90 mg tablet 90 mg PO BID (DME) AutoSoft XC Infusion Set 23 Infusion Set See Rx Instructions .Route Qty: 30 3RF Rx Instructions: As directed (DME) Tandem Mobi Cartridge Cartridge See Rx Instructions .Route Qty: 30 1RF Rx Instructions: change every 3 days (DME) Dexcom G7 Sensor Device See Rx Instructions .Route Qty: 9 1RF Rx Instructions: monitoring blood glucose furosemide [Lasix] 40 mg tablet 40 mg PO DAILY Qty: 90 2RF insulin aspart U-100 [Novolog U-100 Insulin aspart] 100 unit/mL solution See Rx Instructions .ROUTE .COMPLEX MDD 100 90 Days Qty: 30 3RF Rx Instructions: Continuous via insulin pump. Max daily dose 100 units. semaglutide 1 mg/dose (4 mg/3 mL) pen injector 1 mg SUBCUT Q7D 30 Days Qty: 3 0RF aspirin 81 mg tablet,delayed release (DR/EC) 81 mg PO BEDTIME 30 Days Qty: 30 0RF trazodone 100 mg Tablet 200 mg PO BEDTIME potassium chloride 20 mEq tablet extended release 20 meq PO DAILY Provider Network Mgr OK for DC: Cardiology Discharge Order = DC NOW: Discharge Order (Routine); Ordered 04/01/25 Ordered By: Christian Jason Other Ambulatory Orders: MCT/Event Monitor 30 Days (Routine) Timeframe: 1 Day Facility: [facility] - Location: Radiology Ordered By: Christian Jason Referrals: Tiffanie Lopez, DR[employer] SANDER SETTER [Nurse Practitioner, Cardiology] - 7-10 days Referral Note: 04/21/2025 at 3 Discharge Diet: Cardiac Discharge Activity: Resume usual activity and Limit activity as instructed Patient Instructions: Opioid Safety, Patient Portal & Betsy Instructions Discharge Attestations Time Spent in Discharge Care*: greater than 30 min Specific Discharge Activities: educating patient, educating and/or supporting family/caregiver, discussing with pcp/other providers, discussing with outsole caser/social workers/dc planners, documenting/other paperwork and evaluating patient/reviewing data Status at Discharge: Cognitive status at discharge: cognitively intact , Behavioral status at discharge: cooperative , Functional status at discharge: independent ambulation , Overall status at discharge: patient is back to [facility] Quality Metrics Clinical Quality Measures [ No reported AMI, CVA or VTE this stay] Coding Level of Care Code Acute Code for Chg Fwd Diagnoses Syncope R55 Hx of CABG Z95.1
== END 2025-04-01 13:15 | disposition home or self-care (01) ==
PROVIDERS: Nurse Practitioner Family; Admitting Provider Internal Medicine; PCP Family Medicine; Visit Provider Student in an Organized Health Care Education/Training Program
DX: R55 Syncope and collapse (principal); Z95.1 Presence of aortocoronary bypass graft; Z79.82 Long term (current) use of aspirin; K21.9 Gastro-esophageal reflux disease without esophagitis; Z79.4 Long term (current) use of insulin; E78.5 Hyperlipidemia, unspecified; E66.9 Obesity, unspecified; Z68.33 Body mass index [BMI] 33.0-33.9, adult; I25.810 Atherosclerosis of coronary artery bypass graft(s) without angina pectoris; T46.6X5A Adverse effect of antihyperlipidemic and antiarteriosclerotic drugs, initial encounter; M62.82 Rhabdomyolysis
CPT/HCPCS: 36415; 36416; 71275; 80053; 82550; 82962; 83735; 84484; 85025; 85049; 85378; 85730; 93005; 93306; 93880; 94664; G0378; G0379; J1644; J2270; J9999

== ENCOUNTER → 2025-04-04 08:27 | Outpatient (BNVA) | payer OTHER, SELFPAY | PROVIDERS: PCP Family Medicine; Visit Provider Internal Medicine Endocrinology, Diabetes & Metabolism | DX: R03.0 Elevated blood-pressure reading, without diagnosis of hypertension (principal); E10.59 Type 1 diabetes mellitus with other circulatory complications; E78.2 Mixed hyperlipidemia; M79.673 Pain in unspecified foot | CPT/HCPCS: 99213 ==